=== PATIENT | female | born 1955 | race Caucasian/White ===

== ENCOUNTER → 2019-01-30 11:55 | Outpatient (CLI) | payer OTHER, SELFPAY ==
[2018-12-17 08:32] VITALS: BMI 34.2
--- NOTE | 2019-01-30 11:59 | BI_ITS ---
MAMMOGRAPHY - BILATERAL SCREENING REASON FOR EXAM: Female, 63 years old. Routine annual screening examination. PERTINENT HISTORY: Non-contributory. TECHNIQUE: Digital bilateral breast art (3D mammographic acquisition) in the CC and MLO projections. 2-D mediolateral oblique (MLO) and craniocaudad (CC) views of both breasts were obtained. CAD: Full Field Digital Mammography with Computer Added Detection was performed. COMPARISON: Comparison is made with prior study dated November 26, 2017 and November 24, 2016. FINDINGS: Breast Composition: The breasts are almost entirely fatty. There are no dominant masses or suspicious calcifications. No other significant abnormalities are identified. There has been no significant change since the prior study. BI/SCREENING MAMM (CAD), BILAT IMPRESSION: Stable bilateral screening mammogram. Yearly follow-up mammogram recommended. (A) ASSESSMENT CATEGORY: BIRADS Category 1: Negative. A letter regarding these results will be sent to the patient by the facility within 30 days. Approximately 10% of breast cancers are not detected by mammography. A normal mammogram should not delay biopsy of a clinically suspicious abnormality. [id number] Electronically Signed: Levi Dan, at 13:10 EDT , Service support ,
== END ==
PROVIDERS: Family Provider Family Medicine; PCP Family Medicine; Visit Provider Family Medicine
DX: Z12.31 Encounter for screening mammogram for malignant neoplasm of breast (principal)
CPT/HCPCS: 77063; 77067

== ENCOUNTER → 2019-01-31 11:33 | Outpatient (CLI) | payer OTHER, SELFPAY ==
[2018-12-17 08:32] VITALS: BMI 34.2
[2019-01-31 12:14] LABS: Absolute Lymphocyte Count 1.53 X10^3/ul (0.83-4.51); Absolute Neutrophil Count 2.7 X10^3/uL (2.0-7.7); Basophil# 0.03 X10^3/uL; Basophil% 0.6 % (0-1); Eosinophil# 0.08 X10^3/uL; Eosinophils% 1.7 % (0-5); Hematocrit 41.9 % (37-47); Hemoglobin 13.1 g/dl (12.0-15.0); Lymphocyte # 1.53 X10^3/ul (4.0); Lymphocyte % 31.9 % (19-41); Mean Corp Hgb Conc 31.3 g/gl (32-36); Mean Corpuscular Hgb 26.7 pg (27.0-32.0); Mean Corpuscular Volume 85.3 fL (81-99); Mean Platelet Vol. 11.3 fl (6.2-12.0); Monocyte# 0.43 X10^3/uL; Neutrophil # 2.72 X10^3/uL (2.7-7.7); Neutrophil % 56.6 % (47-70); Platelet Count 313 K/mm3 (150-450); RBC Distribution Width CV 14.2 % (11.6-14.6); RBC Distribution Width SD 44.1 fl (35.1-43.9); Red Blood Count 4.91 M/mm3 (4.2-5.4); White Blood Count 4.8 K/mm3 (4.4-11.0)
[2019-01-31 12:16] LABS: POSITIVE COUNT NO; POSITIVE DIFFERENTIAL NO; POSITIVE MORPHOLOGY NO
[2019-01-31 13:00] LABS: ALB/GLOB Ratio 1.1 RATIO (0.9-2.4); AST(SGOT) 16 U/L (15-37); Alanine Aminotransfer ALT/SGPT 21 U/L (13-56); Albumin, Serum 3.8 g/dL (3.2-5.0); Alkaline Phosphatase 54 U/L (45-117); Anion Gap 3 (5-15); BUN 18 mg/dL (7-18); Calcium,Total 8.6 mg/dL (8.5-10.1); Chloride 108 mmol/L (98-107); Creatinine, Serum 0.82 mg/dL (0.55-1.02); EST Glomerular Filtration Rate 75 mL/min (>60); Est Glom Filt Rate - Afr Amer 90 mL/min (>60); Globulin 3.5 g/dL (2.2-4.2); Glucose 87 mg/dL (74-106); Potassium 4.3 mmol/L (3.5-5.1); Protein, Total 7.3 g/dL (6.4-8.2); Sodium Level 139 mmol/L (136-145); Thyroid Stim Hormone (TSH) 0.48 uIU/mL (0.358-3.74)
[2019-01-31 15:06] LABS: Cholesterol 111 mg/dL (200); High Density Lipoprotein 48 mg/dL; Triglycerides 74 mg/dL; Very Low Density Lipoprotein 15 mg/dL (5-40)
== END ==
PROVIDERS: Family Provider Family Medicine; PCP Family Medicine; Referring Provider Family Medicine; Visit Provider Family Medicine
DX: I10 Essential (primary) hypertension (principal); F41.9 Anxiety disorder, unspecified
CPT/HCPCS: 36415; 80053; 80061; 84439; 84443; 85025

== ENCOUNTER → 2019-07-28 08:51 | Outpatient (CLI) | payer OTHER, SELFPAY ==
[2019-07-28 08:53] VITALS: BMI 33.1
[2019-07-28 10:24] LABS: Anion Gap 6 (5-15); BUN 11 mg/dL (7-18); Calcium,Total 8.7 mg/dL (8.5-10.1); Chloride 105 mmol/L (98-107); Creatinine, Serum 0.79 mg/dL (0.55-1.02); EST Glomerular Filtration Rate 78 mL/min (>60); Est Glom Filt Rate - Afr Amer 94 mL/min (>60); Glucose 83 mg/dL (74-106); Potassium 3.8 mmol/L (3.5-5.1); Sodium Level 143 mmol/L (136-145)
== END ==
PROVIDERS: Family Provider Family Medicine; PCP Family Medicine; Referring Provider Physician Assistant Medical; Visit Provider Physician Assistant Medical
DX: I10 Essential (primary) hypertension (principal)
CPT/HCPCS: 36415; 80048

== ENCOUNTER → 2020-04-14 08:36 | Outpatient (CLI) | payer OTHER, SELFPAY ==
[2020-01-12 15:09] VITALS: BMI 32.9
--- NOTE | 2020-04-14 08:37 | BI_ITS ---
MAMMOGRAPHY - BILATERAL SCREENING REASON FOR EXAM: Female, 64 years old. Routine annual screening examination. PERTINENT HISTORY: Non-contributory. TECHNIQUE: Digital bilateral breast lupe (3D mammographic acquisition) in the CC and MLO projections. 2-D mediolateral oblique (MLO) and craniocaudad (CC) views of both breasts were obtained. CAD: Full Field Digital Mammography with Computer Added Detection was performed. COMPARISON: Comparison is made with prior study dated January 30, 2019 and November 26, 2017. FINDINGS: Breast Composition: The breasts are almost entirely fatty. There are no dominant masses or suspicious calcifications. Stable small benign-appearing bilateral axillary lymph nodes. No other significant abnormalities are identified. There has been no significant change since the prior study. BI/SCREEN MAMM (CAD) W/LUPE BILAT IMPRESSION: Stable bilateral screening mammogram. Yearly follow-up mammogram recommended. (A) ASSESSMENT CATEGORY: BIRADS Category 2: Benign. A letter regarding these results will be sent to the patient by the facility within 30 days. Approximately 10% of breast cancers are not detected by mammography. A normal mammogram should not delay biopsy of a clinically suspicious abnormality. [id number] Electronically Signed: Levi Dan, at 9:43 EDT , Service support ,
== END ==
PROVIDERS: PCP Family Medicine; Referring Provider Family Medicine; Visit Provider Family Medicine
DX: Z12.31 Encounter for screening mammogram for malignant neoplasm of breast (principal)
CPT/HCPCS: 77063; 77067

== ENCOUNTER → 2021-01-25 13:24 | Outpatient (CLI) | payer OTHER, SELFPAY ==
[2021-01-11 11:29] VITALS: BMI 33.7
--- NOTE | 2021-01-25 13:29 | RAD_ITS ---
HISTORY: RLQ PAIN EXAM: Abdomen acute series with chest. COMPARISON: Of the patient's 32 previous radiologic exams at this institution, no x-rays are available for comparison. A report is available from an abdominal x-ray dated August 21, 2017. A report from a chest x-ray is available from December 25, 2016. A CT scan of the abdomen and pelvis which begins at the lung bases has images and report available from September 14, 2017. FINDINGS: # of images incl. paperwork: 5 Thoracic spondylosis with enthesophytes. Calcific plaque within the aortic arch. Heart silhouette and mediastinal contours are normal. Lungs are clear. No effusions are present. No free air is present under the diaphragm. No osseous abnormalities are demonstrated. Bowel-gas pattern is normal. Enthesophytes on the iliac spines and greater tuberosities. Some pelvic phleboliths. Although stool is present within the colon it is lateral pathological debris from he did consider to be constipation. No organomegaly is present. RAD/Acute Abdomen Inc Chest IMPRESSION: Age-related degenerative changes mostly osseous. No acute intra-abdominal or were thoracic disease perceived. at [id number] Reported and signed by: Marvin Velez MD Electronically Signed: Marvin Velez MD at 6:53 EST Tel , Service support ,
== END ==
PROVIDERS: PCP Family Medicine; Referring Provider Family Medicine; Visit Provider Family Medicine
DX: R10.31 Right lower quadrant pain (principal)
CPT/HCPCS: 74022

== ENCOUNTER → 2021-04-27 06:58 | Outpatient (CLI) | payer OTHER, SELFPAY ==
[2021-01-11 11:29] VITALS: BMI 33.7
--- NOTE | 2021-04-27 07:01 | BI_ITS ---
MAMMOGRAPHY - BILATERAL SCREENING REASON FOR EXAM: Female, 65 years old. Routine annual screening examination. PERTINENT HISTORY: Non-contributory. TECHNIQUE: Digital bilateral breast lupe (3D mammographic acquisition) in the CC and MLO projections. 2-D mediolateral oblique (MLO) and craniocaudad (CC) views of both breasts were obtained. CAD: Full Field Digital Mammography with Computer Added Detection was performed. COMPARISON: Comparison is made with prior study dated 04/14/2020 and 01/30/2019. FINDINGS: Breast Composition: The breasts are almost entirely fatty. There are no dominant masses or suspicious calcifications. No other significant abnormalities are identified. There has been no significant change since the prior study. BI/SCRN MAMM (CAD)W/LUPE BILAT IMPRESSION: Stable bilateral screening mammogram. Yearly follow-up mammogram recommended. (A) ASSESSMENT CATEGORY: BIRADS Category 1: Negative. A letter regarding these results will be sent to the patient by the facility within 30 days. Approximately 10% of breast cancers are not detected by mammography. A normal mammogram should not delay biopsy of a clinically suspicious abnormality. [id number] Electronically Signed: Levi Dan MD at 8:52 EDT , Service support ,
== END ==
PROVIDERS: PCP Family Medicine; Referring Provider Family Medicine; Visit Provider Family Medicine
DX: Z12.31 Encounter for screening mammogram for malignant neoplasm of breast (principal)
CPT/HCPCS: 77063; 77067

== ENCOUNTER → 2022-05-03 | Outpatient (CLI) | payer MEDICARE, OTHER, SELFPAY ==
--- NOTE | 2022-05-03 07:24 | CT_ITS ---
STUDY: CT ABDOMEN AND PELVIS WITH CONTRAST REASON FOR EXAM: Female, 66 years old. LLQ and diffuse abdominal PAIN RADIATION DOSAGE (If Supplied By Facility): CTDIvol = ( 14.86 ) mGy, DLP = ( 1046.09 ) mGycm TECHNIQUE: Transaxial images were obtained from the dome of the diaphragm to the symphysis pubis with oral contrast. Oral and amp;amp; IV Readi-CAT and amp;amp; 75mL Isovue-370 was administered. Sagittal and coronal images were reconstructed. Individualized dose optimization techniques were used for this CT. COMPARISON: Comparison is made with prior study dated 09/14/2017. FINDINGS: The visualized lung bases are unremarkable. The visualized portions of the heart are within normal limits. Normal liver. Normal gallbladder and extrahepatic biliary system. Normal spleen. Normal pancreas. Normal bilateral adrenal glands. Normal right kidney. Normal left kidney. Normal visualized stomach. Normal small intestine. Normal colon. The appendix is visualized and appears normal. There is scattered atherosclerotic calcification of the abdominal aorta, without a demonstrated aneurysm. Normal inferior vena cava. Normal retroperitoneum. Normal urinary bladder. There is a small umbilical hernia containing fat. There are degenerative changes of the visualized lumbar spine. CT/Abdomen/Pelvis WITH Contrast IMPRESSION: No acute abnormality is seen. Electronically Signed: Levi Dan MD at 8:45 EDT ,
[2022-05-03 07:41] LABS: CREATININE FINGERSTICK < 0.9 mg/dL (0.55-1.02); EGFR FINGERSTICK > 60.0000 mL/min (>60)
== END | disposition home or self-care (01) ==
LOC: CT 07:21
PROVIDERS: PCP Family Medicine; Referring Provider Family Medicine; Visit Provider Family Medicine
DX: K57.92 Diverticulitis of intestine, part unspecified, without perforation or abscess without bleeding (principal)
CPT/HCPCS: 74177; Q9967

== ENCOUNTER → 2022-07-13 | Outpatient (CLI) | payer MEDICARE, OTHER, SELFPAY ==
--- NOTE | 2022-07-13 08:16 | BI_ITS ---
MAMMOGRAPHY - BILATERAL SCREENING REASON FOR EXAM: Female, 67 years old. Routine annual screening examination. PERTINENT HISTORY: Non-contributory. TECHNIQUE: Digital bilateral breast lupe (3D mammographic acquisition) in the CC and MLO projections. 2-D mediolateral oblique (MLO) and craniocaudad (CC) views of both breasts were obtained. CAD: Full Field Digital Mammography with Computer Added Detection was performed. COMPARISON: Comparison is made with prior study dated 04/27/2021 and 04/14/2020. FINDINGS: Breast Composition: The breasts are almost entirely fatty. There are no dominant masses or suspicious calcifications. Small benign appearing bilateral axillary nodes. No other significant abnormalities are identified. There has been no significant change since the prior study. BI/SCRN MAMM (CAD)W/LUPE BILAT IMPRESSION: Stable bilateral screening mammogram. Yearly follow-up mammogram recommended. (A) ASSESSMENT CATEGORY: BIRADS Category 2: Benign. A letter regarding these results will be sent to the patient by the facility within 30 days. Approximately 10% of breast cancers are not detected by mammography. A normal mammogram should not delay biopsy of a clinically suspicious abnormality. [id number] Electronically Signed: Levi Dan MD at 9:14 EDT ,
== END | disposition home or self-care (01) ==
LOC: OPBI 08:15
PROVIDERS: PCP Family Medicine; Visit Provider Family Medicine
DX: Z12.31 Encounter for screening mammogram for malignant neoplasm of breast (principal)
CPT/HCPCS: 77063; 77067

== ENCOUNTER 2022-12-11 09:03 | Day surgery (SDC) | payer MEDICARE, OTHER, SELFPAY ==
--- NOTE | 2022-12-11 | COLBX_PTH ---
PATIENT: AMALIA ANGEL LOC: EN U#:[id number] AGE/SX: 67/F ROOM: RE12/11/[address]: Dr. Cecil Wilks DO : 1955 BED: DIS: 12/11/2022 SPEC #: [id number] RECD: 12/11/22 14:21 STATUS: LISA CARDENASDelfino #: [id number] DEMI: 12/11/22 00:[address]: Cecil Wilks DEPT: SURGICAL PATHOLOGY RECD BY: Jevon Trejo ENTERED: 12/12/22 11:09 SP TYPE: COLON BX OT DR: Dr. Sahil Escalante MD Tissues: A - COLON BIOPSY B - Cecum, NOS Procedures: Surgery Specimen Level IV HEADER OPERATION: Colonoscopy ? open access (MAC), biopsy PRE-OP DIAGNOSIS: Screening TISSUE SUBMITTED: A ? Hepatic flexure polyps x2 biopsy, B ? Cecal cap biopsy MICROSCOPIC DIAGNOSIS A. Hepatic flexure polyps x2, biopsy: Fragments of tubular adenoma x2. B. Cecal cap, biopsy: Tubular adenoma. NINI:baldemar 12/13/2022 MICROSCOPIC DESCRIPTION Slides are reviewed. GROSS DESCRIPTION A - Received in fixative is one container labeled with the patient's name and designated hepatic flexure polyp biopsy x2. The specimen consists of two irregular fragments of light gold soft tissue that in aggregate measure 0.6 x 0.3 x 0.1 cm. The specimen is totally submitted in one cassette. B - Received in fixative is one container labeled with the patient's name and designated cecal cap biopsy. The specimen consists of one irregular fragment of light gold soft tissue that measures 0.3 x 0.3 x 0.1 cm. The specimen is totally submitted in one cassette. / NINI:baldemar 12/12/2022 TC:1 CPT: 25176 x2
[2022-12-11] MEDS: Lactated Ringers 1,000 ML 15 ML IV (09:15)
--- NOTE | 2022-12-11 09:27 | HP.PCM_ITS ---
[facility] - General General Date of Admission: 12/11/22 Date of Service: 12/11/22 Chief Complaint: Screening colonoscopy [facility] Narrative AMALIA ANGEL, is a 67 F who presents today for screening colonoscopy. She has a strong family history of colon cancer in a first-degree relative and second-degree relatives. She did have a colonoscopy 5 years ago and had 2 benign polyps that were removed. She is not have any abdominal pain. She denies any cramping. She denies any chest pain or shortness of breath. She is not having any lower GI bleeding. Overall she is in very good health. [facility] Medical History (Updated 12/08/22 @ 08:48 by Jossy Jolley) Cardiology follow-up encounter Depression Essential hypertension Gastric reflux GERD (gastroesophageal reflux disease) History of echocardiogram History of stress test Non-smoker Obesity Palpitations Post-menopausal Wears glasses Home Medications lansoprazole 15 mg capsule,delayed release (Prevacid 24Hr) 15 mg PO QHS 04/10/16 [History Last Taken 04/10/16] citalopram 20 mg tablet (Celexa) 10 mg PO DAILY 12/03/18 [History Last Taken Unknown] hydrochlorothiazide 25 mg tablet 25 mg PO DAILY #90 tabs 07/11/21 [Rx Last Taken Unknown] enalapril maleate 20 mg tablet 20 mg PO DAILY #90 tabs 06/26/22 [Rx Last Taken Unknown] Allergy/AdvReac Type Severity Reaction Status Date / Time No Known Allergies Allergy Verified 12/08/22 08:42 Family History (Updated 10/17/22 @ 13:21 by Deborah Jacobson) Mother Hypertension Father Hypertension Colon cancer Aunt Colon cancer Uncle Colon cancer Surgical History (Updated 12/08/22 @ 08:48 by Jossy Jolley) History of colonoscopy History of dilatation and curettage History of left heart catheterization (12/27/16) Social History Smoking Status: Never smoker alcohol intake: current alcohol intake frequency: holidays/special occasions only substance use type: does not use caffeine: Yes Type: coffee Number of servings: 3 ROS Review of Systems ROS Unobtainable: other Constitutional Constitutional: Denies fatigue, fever(s), poor appetite, weight gain or weight loss ENT HEENT: Denies mouth lesions Cardiovascular Cardiovascular: Denies abdominal bloating, abdominal edema or abdominal pain Respiratory/Chest Respiratory/Chest: Denies change in mental status, change in phlegm color, chest congestion or chest tightness Gastrointestinal Gastrointestinal: Denies belching, bloating, change in bowel habits, change in stool character, chewing difficulty, coffee ground emesis, constipation, cramping, diarrhea, dyspepsia, dysphagia, early satiety, excessive flatus, fecal incontinence, heartburn, hematemesis, hematochezia, hemorrhoids, loose stools, melena, nausea, odynophagia, rectal bleeding, tenesmus, vomiting or weight changes Genitourinary Genitourinary: Denies abdominal discomfort, burning urination or itching Musculoskeletal Musculoskeletal: Reports as per HPI; Denies muscle weakness or myalgias Integumentary Integumentary: Denies jaundice Neurologic Neurologic: Denies lack of coordination or weakness Psychiatric Psychiatric: Denies confusion, depression, memory loss, mood swings, paranoia or suicidal ideation Endocrine Endocrinology: Denies systems reviewed and no addt'l complaints, except as documented Hematologic/Lymphatic Hematologic/Lymphatic: Denies anemia, easy bleeding, easy bruising or lymphadenopathy Allergic/Immunologic Allergic/Immunologic: Denies systems reviewed and no addt'l complaints, except as documented Physical Exam Const alert General Appearance: cooperative Orientation / Consciousness: oriented to person HEENT hearing grossly normal bilaterally Head and Scalp: normal to inspection Face and Sinus: face symmetric Nose: external nose normal Mouth: oral and palatal mucosa normal Eyes conjunctivae normal General Eye: normal appearance of both eyes Neck full ROM General: normal visual inspection Lymph Lymphatic: no lymphadenopathy noted Chest inspection of chest normal and palpation of chest normal Chest: symmetrical chest wall rise Resp normal respiratory effort Effort and Inspection: able to speak in complete sentences Cardio regular rate GI non-distended Percussion: normal to percussion Rectal Exam: deferred Neuro Speech: speech normal Gait (Neuro): normal gait Assessment & Plan Assessment/Plan (1) Encounter for screening for malignant neoplasm of colon: PLAN: She will undergo a colonoscopy. She was explained alternatives, risk, benefits include not withstanding bleeding, infection, sepsis, perforation, need for emergent surgery . She will have an ASA of 1. (2) Family history of colon cancer:
[2022-12-11 09:34] VITALS: BP 129/78; PULSE 83; RESP 16; TEMP 36.2; O2SAT 97; BMI 32.3
[2022-12-11 11:05] VITALS: BP 129/78; BP 95/58; PULSE 67; RESP 17; TEMP 36.2; O2SAT 97
[2022-12-11 11:10] VITALS: BP 129/78; BP 93/64; PULSE 69; RESP 16; O2SAT 97
--- NOTE | 2022-12-11 11:10 | OP.CCLET_ITS ---
12/11/2022 Sahil Escalante Re : Colonoscopy procedure for Ashly Zavaleta Dear Boris This procedure was performed on Sunday, December 11, 2022. My impressions and recommendations are as follows: Impressions : - Three 1 to 2 mm polyps at the hepatic flexure and in the ascending colon, removed with a cold snare. Resected and retrieved. - Diverticulosis in the recto-sigmoid colon and in the sigmoid colon. - Non-bleeding internal hemorrhoids. Recommendations : - Repeat colonoscopy in 5 years for surveillance. - Continue present medications. My findings are described in the full procedure note, which is enclosed. If I can be of further assistance, please feel free to contact me at . Sincerely, Cecil Wilks, 12/11/2022 11:09:48 AM This report has been signed electronically.
--- NOTE | 2022-12-11 11:10 | OP.COLON_ITS ---
Patient Name: Ashly Zavaleta Procedure Date: 12/11/2022 10:40 AM Date of : 1955 Age: 67 Procedure: Colonoscopy Indications: Follow-up for history of adenomatous polyps in the colon Providers: Cecil Wilks DO Medicines: Monitored Anesthesia Care Patient Profile: This is a 67 year old female. Refer to note in patient chart for documentation of history and physical. Last Colonoscopy: 5 years ago. This is a 67 year old female. Refer to note in patient chart for documentation of history and physical. Last Colonoscopy: Complications: No immediate complications. Procedure: Pre-Anesthesia Assessment: - Prior to the procedure, a History and Physical was performed, and patient medications and allergies were reviewed. The risks and benefits of the procedure and the sedation options and risks were discussed with the patient. All questions were answered and informed consent was obtained. Patient identification and proposed procedure were verified by the physician in the pre-procedure area. Mental Status Examination: alert and oriented. Prophylactic Antibiotics: The patient does not require prophylactic antibiotics. Prior Anticoagulants: The patient has taken no previous anticoagulant or antiplatelet agents. After reviewing the risks and benefits, the patient was deemed in satisfactory condition to undergo the procedure. The anesthesia plan was to use monitored anesthesia care (MAC). Immediately prior to administration of medications, the patient was re-assessed for adequacy to receive sedatives. The heart rate, respiratory rate, oxygen saturations, blood pressure, adequacy of pulmonary ventilation, and response to care were monitored throughout the procedure. The physical status of the patient was re-assessed after the procedure. After I obtained informed consent, the scope was passed under direct vision. Throughout the procedure, the patient's blood pressure, pulse, and oxygen saturations were monitored continuously. The colonoscope was introduced through the anus and advanced to the cecum, identified by appendiceal orifice and ileocecal valve. The colonoscopy was performed without difficulty. The patient tolerated the procedure well. The quality of the bowel preparation was good. Scope In: 10:47:59 AM Scope Withdrawal Time 0 hours 10 minutes 17 seconds Scope Out: 11:01:37 AM Total Procedure Duration Time 0 hours 13 minutes 38 seconds Findings: The perianal and digital rectal examinations were normal. Three sessile polyps were found in the hepatic flexure and ascending colon. The polyps were 1 to 2 mm in size. These polyps were removed with a cold snare. Resection and retrieval were complete. Verification of patient identification for the specimen was done. Estimated blood loss was minimal. A few small and large-mouthed diverticula were found in the recto-sigmoid colon and sigmoid colon. Non-bleeding internal hemorrhoids were found during retroflexion. The hemorrhoids were Grade I (internal hemorrhoids that do not prolapse). Impression: - Three 1 to 2 mm polyps at the hepatic flexure and in the ascending colon, removed with a cold snare. Resected and retrieved. - Diverticulosis in the recto-sigmoid colon and in the sigmoid colon. - Non-bleeding internal hemorrhoids. Recommendation: - Repeat colonoscopy in 5 years for surveillance. - Continue present medications. Procedure Code(s): --- Professional --- 33994, Colonoscopy, flexible; with removal of tumor(s), polyp(s), or other lesion(s) by snare technique CPT copyright 2017 [employer]. All rights reserved. The codes documented in this report are preliminary and upon work force advisor review may be revised to meet current compliance requirements. Cecil Wilks DO 12/11/2022 11:09:48 AM This report has been signed electronically. Number of Addenda: 0 Note Initiated On: 12/11/2022 10:40 AM
[2022-12-11 11:15] VITALS: BP 129/78; BP 98/71; PULSE 67; RESP 16; O2SAT 95
[2022-12-11 11:20] VITALS: BP 107/60; BP 129/78; PULSE 63; RESP 69; TEMP 36.2; O2SAT 95
[2022-12-11 11:48] VITALS: BP 129/78
== END 2022-12-11 12:20 | disposition home or self-care (01) ==
LOC: EN 09:04 → AC 09:06
PROVIDERS: PCP Family Medicine; Referring Provider Internal Medicine Gastroenterology; Visit Provider Internal Medicine Gastroenterology
PROC: 0DJD8ZZ Inspection of Lower Intestinal Tract, Via Natural or Artificial Opening Endoscopic (ICD-10-PCS; CPT 45378; principal; 2022-12-11 10:10)
DX: Z12.11 Encounter for screening for malignant neoplasm of colon (principal); Z80.0 Family history of malignant neoplasm of digestive organs; K57.30 Diverticulosis of large intestine without perforation or abscess without bleeding; I10 Essential (primary) hypertension; K64.0 First degree hemorrhoids; Z86.010 Personal history of colon polyps; K21.9 Gastro-esophageal reflux disease without esophagitis; F32.A Depression, unspecified; E66.9 Obesity, unspecified; Z79.899 Other long term (current) drug therapy; D12.0 Benign neoplasm of cecum; D12.3 Benign neoplasm of transverse colon; Z68.32 Body mass index [BMI] 32.0-32.9, adult
CPT/HCPCS: 45385; 88305; J7120; J2405

== ENCOUNTER → 2023-03-05 | Outpatient (CLI) | payer MEDICARE, OTHER, SELFPAY ==
[2023-03-05 16:54] LABS: Vitamin D,25 Hydroxy 44.7 ng/mL
[2023-03-05 17:17] LABS: Absolute Lymphocyte Count 1.46 X10^3/uL (0.83-4.51); Absolute Neutrophil Count 3.3 X10^3/uL (2.0-7.7); Basophil# 0.03 X10^3/uL; Basophil% 0.6 % (0-1); Eosinophil# 0.05 X10^3/uL; Hematocrit 43.1 % (37-47); Hemoglobin 13.6 g/dL (12.0-15.0); Lymphocyte # 1.46 X10^3/ul (0.83-4.51); Lymphocyte % 27.9 % (19-41); Mean Corp Hgb Conc 31.6 g/dL (32-36); Mean Corpuscular Hgb 27.2 pg (27.0-32.0); Mean Corpuscular Volume 86.2 fL (81-99); Mean Platelet Vol. 11.9 fl (6.2-12.0); Monocyte# 0.39 X10^3/uL; Monocyte% 7.4 % (0-10); NRBC Flagged by Analyzer 0 % (0-5); Neutrophil % 62.9 % (47-70); Platelet Count 333 K/mm3 (150-450); RBC Distribution Width CV 14.5 % (11.6-14.6); RBC Distribution Width SD 45.8 fl (35.1-43.9); White Blood Count 5.2 K/mm3 (4.4-11.0)
[2023-03-05 17:27] LABS: ALB/GLOB Ratio 1.3 RATIO (0.9-2.4); AST(SGOT) 18 U/L (15-37); Alanine Aminotransfer ALT/SGPT 24 U/L (13-56); Albumin, Serum 3.9 g/dL (3.2-5.0); Alkaline Phosphatase 59 U/L (45-117); Anion Gap 8 (5-15); BUN 12 mg/dL (7-18); BUN/Creat Ratio 15.9 RATIO (10-20); Chloride 104 mmol/L (98-107); Cholesterol 116 mg/dL (200); Creatinine, Serum 0.75 mg/dL (0.55-1.02); EST Glomerular Filtration Rate 81 mL/min (>60); Est Glom Filt Rate - Afr Amer 98 mL/min (>60); Globulin 3.1 g/dL (2.2-4.2); Glucose 92 mg/dL (74-106); High Density Lipoprotein 49 mg/dL; Potassium 3.7 mmol/L (3.5-5.1); Sodium Level 138 mmol/L (136-145); Triglycerides 78 mg/dL; Very Low Density Lipoprotein 16 mg/dL (5-40)
== END | disposition home or self-care (01) ==
LOC: BIMLAB 13:57
PROVIDERS: PCP Family Medicine; Visit Provider Internal Medicine
DX: I10 Essential (primary) hypertension (principal); M85.80 Other specified disorders of bone density and structure, unspecified site
CPT/HCPCS: 36415; 80053; 80061; 82306; 85025

== ENCOUNTER → 2023-07-17 | Outpatient (CLI) | payer MEDICARE, OTHER, SELFPAY ==
--- NOTE | 2023-07-17 12:29 | BI_ITS ---
MAMMOGRAPHY - BILATERAL SCREENING REASON FOR EXAM: Female, 68 years old. Routine annual screening examination. PERTINENT HISTORY: Non-contributory. TECHNIQUE: Digital bilateral breast lupe (3D mammographic acquisition) in the CC and MLO projections. 2-D mediolateral oblique (MLO) and craniocaudad (CC) views of both breasts were obtained. CAD: Full Field Digital Mammography with Computer Added Detection was performed. COMPARISON: Comparison is made with prior study dated July 13, 2022 and April 27, 2021. FINDINGS: Breast Composition: The breasts are almost entirely fatty. There are no dominant masses or suspicious calcifications. No other significant abnormalities are identified. There has been no significant change since the prior study. BI/SCRN MAMM (CAD)W/LUPE BILAT IMPRESSION: Stable bilateral screening mammogram. Yearly follow-up mammogram recommended. (A) ASSESSMENT CATEGORY: BIRADS Category 1: Negative. A letter regarding these results will be sent to the patient by the facility within 30 days. Approximately 10% of breast cancers are not detected by mammography. A normal mammogram should not delay biopsy of a clinically suspicious abnormality. [id number] Electronically Signed: eLvi Dan MD at 10:18 EDT ,
--- NOTE | 2023-07-17 12:33 | BD_ITS ---
STUDY: DUAL ENERGY X-RAY ABSORPTIOMETRY / DXA REASON FOR EXAM: Female, 68 years old. Post menopausal TECHNIQUE: Bone Mineral Density (BMD) measurements of lumbar spine and bilateral hips were obtained. COMPARISON: Comparison is made with prior study dated August 25, 2014. FINDINGS: Lumbar Spine (L1-L4): g/cm2 (0.930) / T-score (-1.1) / Z-score (1.0) Findings are suggestive of osteopenia with a low fracture risk. Left Femur Total: g/cm2 (0.804) / T-score (-1.1) / Z-score (0.3) Left Femoral Neck: g/cm2 (0.684) / T-score (-1.5) / Z-score (0.3) Right Femur Total: g/cm2 (0.742) / T-score (-1.6) / Z-score (-0.2) Right Femoral Neck: g/cm2 (0.635) / T-score (-1.9) / Z-score (-0.2) The T-Scores on the most recent prior examination were: Lumbar Spine (L1-L4): There has been worsening of bone density since the previous examination. Left Femur Total: which represents a worsening of 4.1%. Right Femur Total: which represents a worsening of 8.2%. BD/Dexa Bone Density Study IMPRESSION: The patient is considered osteopenic as outlined below according to World Chin Organization (WHO) criteria with a moderate fracture risk. There has been worsening of bone density since the previous examination. Reference Information: The T-score is the number of standard deviations above or below the standard which is normal for young adults at their peak bone mineral density. The World Health Organization (WHO) interprets the T-scores as follows: Above -1 Normal bone density Between -1 and -2.5 Osteopenia Equal to / or below -2.5 Osteoporosis As a practical clinical guideline, osteopenia may be graded as follows: Mild -1 through -1.5 Moderate -1.6 through -2.0 Severe -2.1 through -2.4 The Z-score is the number of standard deviations above or below age-matched controls. A Z-score of less than -1.5 would be considered abnormal. References: 1. NIH Osteoporosis and Related Bone Diseases www osteo.org 2. International Society for Clinical Densitometry www iscd.org 3. National Osteoporosis Foundation www nof.org Electronically Signed: Levi Dan MD at 13:30 EDT ,
== END | disposition home or self-care (01) ==
LOC: OPBD 12:28
PROVIDERS: PCP Family Medicine; Referring Provider Internal Medicine; Visit Provider Internal Medicine
DX: Z12.31 Encounter for screening mammogram for malignant neoplasm of breast (principal); Z78.0 Asymptomatic menopausal state
CPT/HCPCS: 77063; 77067; 77080

== ENCOUNTER → 2023-09-12 | Outpatient (CLI) | payer MEDICARE, OTHER, SELFPAY ==
[2023-09-12 13:10] LABS: Anion Gap 4 (5-15); BUN 17 mg/dL (7-18); BUN/Creat Ratio 21.7 RATIO (10-20); Calcium,Total 9.2 mg/dL (8.5-10.1); Chloride 105 mmol/L (98-107); Creatinine, Serum 0.78 mg/dL (0.55-1.02); EST Glomerular Filtration Rate 77 mL/min (>60); Est Glom Filt Rate - Afr Amer 93 mL/min (>60); Glucose 101 mg/dL (74-106); Potassium 4.2 mmol/L (3.5-5.1); Sodium Level 142 mmol/L (136-145)
== END | disposition home or self-care (01) ==
LOC: BIMLAB 10:02
PROVIDERS: PCP Internal Medicine; Referring Provider Internal Medicine; Visit Provider Internal Medicine
DX: I10 Essential (primary) hypertension (principal)
CPT/HCPCS: 36415; 80048

== ENCOUNTER → 2024-03-19 | Outpatient (CLI) | payer MEDICARE, OTHER, SELFPAY ==
[2024-03-19 12:07] LABS: Absolute Neutrophil Count 2.9 X10^3/uL (2.0-7.7); Basophil# 0.05 X10^3/uL; Eosinophil# 0.06 X10^3/uL; Eosinophils% 1.2 % (0-5); Lymphocyte % 31.5 % (19-41); Mean Corp Hgb Conc 31.7 g/dL (32-36); Mean Corpuscular Volume 85.2 fL (81-99); Mean Platelet Vol. 11.4 fl (6.2-12.0); Monocyte# 0.47 X10^3/uL; Monocyte% 9.3 % (0-10); NRBC Flagged by Analyzer 0 % (0-5); Neutrophil # 2.88 X10^3/uL (2.7-7.7); Neutrophil % 56.6 % (47-70); Platelet Count 326 K/mm3 (150-450); RBC Distribution Width CV 14.1 % (11.6-14.6); RBC Distribution Width SD 43.5 fl (35.1-43.9); Red Blood Count 4.81 M/mm3 (4.2-5.4); White Blood Count 5.1 K/mm3 (4.4-11.0)
[2024-03-19 12:22] LABS: Vitamin D,25 Hydroxy 57.1 ng/mL
[2024-03-19 12:31] LABS: ALB/GLOB Ratio 1.1 RATIO (0.9-2.4); AST(SGOT) 19 U/L (15-37); Alanine Aminotransfer ALT/SGPT 21 U/L (13-56); Albumin, Serum 3.9 g/dL (3.2-5.0); Alkaline Phosphatase 59 U/L (45-117); Anion Gap 4 (5-15); BUN 14 mg/dL (7-18); BUN/Creat Ratio 14.4 RATIO (10-20); Calcium,Total 9.7 mg/dL (8.5-10.1); Chloride 103 mmol/L (98-107); Cholesterol 116 mg/dL (200); Creatinine, Serum 0.97 mg/dL (0.55-1.02); EST Glomerular Filtration Rate 60 mL/min (>60); Est Glom Filt Rate - Afr Amer 73 mL/min (>60); Globulin 3.6 g/dL (2.2-4.2); Glucose 110 mg/dL (74-106); High Density Lipoprotein 50 mg/dL; Potassium 4.2 mmol/L (3.5-5.1); Protein, Total 7.5 g/dL (6.4-8.2); Sodium Level 138 mmol/L (136-145); Triglycerides 89 mg/dL; Very Low Density Lipoprotein 18 mg/dL (5-40)
== END | disposition home or self-care (01) ==
LOC: BIMLAB 09:23
PROVIDERS: PCP Internal Medicine; Visit Provider Internal Medicine
DX: I10 Essential (primary) hypertension (principal); M85.80 Other specified disorders of bone density and structure, unspecified site
CPT/HCPCS: 36415; 80053; 80061; 82306; 85025

== ENCOUNTER → 2024-07-24 | Outpatient (CLI) | payer MEDICARE, OTHER, SELFPAY ==
--- NOTE | 2024-07-24 08:40 | BI_ITS ---
MAMMOGRAPHY - BILATERAL SCREENING REASON FOR EXAM: Female, 69 years old. Routine annual screening examination. PERTINENT HISTORY: Non-contributory. TECHNIQUE: Digital bilateral breast lupe (3D mammographic acquisition) in the CC and MLO projections. 2-D mediolateral oblique (MLO) and craniocaudad (CC) views of both breasts were obtained. CAD: Full Field Digital Mammography with Computer Added Detection was performed. COMPARISON: Comparison is made with prior study July 17, 2023 and July 13, 2022. FINDINGS: Breast Composition: The breasts are almost entirely fatty. There are no dominant masses or suspicious calcifications. No other significant abnormalities are identified. There has been no significant change since the prior study. BI/SCRN MAMM (CAD)W/LUPE BILAT IMPRESSION: Stable bilateral screening mammogram. Yearly follow-up mammogram recommended. (A) ASSESSMENT CATEGORY: BIRADS Category 1: Negative. A letter regarding these results will be sent to the patient by the facility within 30 days. Approximately 10% of breast cancers are not detected by mammography. A normal mammogram should not delay biopsy of a clinically suspicious abnormality. [id number] Electronically Signed: Levi Dan MD at 9:14 EDT ,
== END | disposition home or self-care (01) ==
LOC: OPBI 08:38
PROVIDERS: PCP Internal Medicine; Referring Provider Internal Medicine; Visit Provider Internal Medicine
DX: Z12.31 Encounter for screening mammogram for malignant neoplasm of breast (principal)
CPT/HCPCS: 77063; 77067

== ENCOUNTER → 2024-09-19 | Outpatient (CLI) | payer MEDICARE, OTHER, SELFPAY ==
[2024-09-19 13:14] LABS: Anion Gap 5 (5-15); BUN 16 mg/dL (7-18); BUN/Creat Ratio 18.3 RATIO (10-20); Calcium,Total 9.2 mg/dL (8.5-10.1); Chloride 105 mmol/L (98-107); Creatinine, Serum 0.87 mg/dL (0.55-1.02); EST Glomerular Filtration Rate 68 mL/min (>60); Est Glom Filt Rate - Afr Amer 82 mL/min (>60); Glucose 105 mg/dL (74-106); Potassium 3.7 mmol/L (3.5-5.1); Sodium Level 142 mmol/L (136-145)
== END | disposition home or self-care (01) ==
LOC: BIMLAB 08:22
PROVIDERS: PCP Internal Medicine; Referring Provider Internal Medicine; Visit Provider Internal Medicine
DX: I10 Essential (primary) hypertension (principal)
CPT/HCPCS: 36415; 80048

== ENCOUNTER → 2025-03-24 | Outpatient (CLI) | payer MEDICARE, OTHER, SELFPAY ==
[2025-03-24 15:31] LABS: Absolute Lymphocyte Count 1.91 X10^3/uL (0.83-4.51); Absolute Neutrophil Count 3.5 X10^3/uL (2.0-7.7); Basophil# 0.05 X10^3/uL; Basophil% 0.8 % (0-1); Eosinophils% 1.7 % (0-5); Hematocrit 40.3 % (37-47); Lymphocyte # 1.91 X10^3/ul (0.83-4.51); Lymphocyte % 31.8 % (19-41); Mean Corp Hgb Conc 32.3 g/dL (32-36); Mean Corpuscular Hgb 27.4 pg (27.0-32.0); Mean Corpuscular Volume 84.8 fL (81-99); Mean Platelet Vol. 11.7 fl (6.2-12.0); Monocyte# 0.45 X10^3/uL; Monocyte% 7.5 % (0-10); NRBC Flagged by Analyzer 0 % (0-5); Neutrophil # 3.47 X10^3/uL (2.7-7.7); Neutrophil % 57.9 % (47-70); Platelet Count 362 K/mm3 (150-450); RBC Distribution Width CV 14.4 % (11.6-14.6); RBC Distribution Width SD 44.8 fl (35.1-43.9); Red Blood Count 4.75 M/mm3 (4.2-5.4)
[2025-03-24 16:09] LABS: ALB/GLOB Ratio 1.4 RATIO (0.9-2.4); AST(SGOT) 22 U/L (<=31); Alanine Aminotransfer ALT/SGPT 20 U/L (<=34); Albumin, Serum 4.1 g/dL (3.4-4.8); Alkaline Phosphatase 60 U/L (35-104); Anion Gap 11 (5-15); BUN 14 mg/dL (4-19); BUN/Creat Ratio 16.3 RATIO (10-20); Calcium,Total 9.3 mg/dL (7.6-11.0); Carbon Dioxide 27.9 mmol/L (21.0-32.0); Chloride 104 mmol/L (98-108); Cholesterol 125 mg/dL (<=200); Creatinine, Serum 0.88 mg/dL (0.70-1.20); EST Glomerular Filtration Rate 71 (>60); Globulin 2.9 g/dL (2.2-4.2); Glucose 112 mg/dL (70-99); High Density Lipoprotein 42 mg/dL; Low Density Lipoprotein Calc. 32 mg/dL; Potassium 4.3 mmol/L (3.3-5.1); Sodium Level 142 mmol/L (133-145); Thyroid Stim Hormone (TSH) 0.803 uIU/mL (0.300-4.200); Total Bilirubin 0.18 mg/dL (0.00-1.30); Triglycerides 255 mg/dL; Very Low Density Lipoprotein 51 mg/dL (5-40); Vitamin D,25 Hydroxy 42.8 ng/mL (30-100); cholesterol:hdl ratio screen 2.99
[2025-03-25 18:22] LABS: Hemoglobin A1c 5.9 % (<=5.6)
== END | disposition home or self-care (01) ==
LOC: BIMLAB 13:46
PROVIDERS: PCP Internal Medicine; Visit Provider Internal Medicine
DX: I10 Essential (primary) hypertension (principal); M85.80 Other specified disorders of bone density and structure, unspecified site; R73.9 Hyperglycemia, unspecified
CPT/HCPCS: 36415; 80053; 80061; 82306; 83036; 84439; 84443; 85025

== ENCOUNTER → 2025-06-26 | Outpatient (CLI) | payer MEDICARE, OTHER, SELFPAY ==
--- OUTSIDE RECORDS SUMMARY | 2025-06-26 11:09 | XMS RPT_ITS | CCD ---
Author Organization [facility] Care Team Providers Care Fishing Vessel Deckhand Name Role Phone Jonelle CARMONA, Lobo Burnham Unavailable JOSE URISA Attending Unavailable JOSE URIAS Primary Care Unavailable JOSE URIAS Admitting Unavailable Melanie, RN, Maribell Giraldo Unavailable UnavailCandice Freire Unavailable Unavailable Candice Erazo Unavailable Unavailable Lobo Sal MD Unavailable Ramya FERRYBOAT TICKET TAKER, Melanie S Unavailable Leona RN, Martha A Unavailable Unavailable Dr. Sahil Escalante Primary Care Provider Dr. Sahil Escalante Referring Provider Dr. Johnny Field Attending Provider Dr. Sahil Escalante Primary Care Provider Deborah Jacobson Attending Provider Unavailable Dr. Cecil Wilks Attending Provider Dr. Cecil Wilks Referring Provider Dr. Cecil Wilks Other Provider Dr. Sahil Escalante Primary Care Provider Unavaila ble Dr. Sahil Escalante Referring Provider Unavailable Dr. Shalonda Tian Attending Provider [phone] Dr. Shalonda Tian Primary Care Provider [phone] Dr. Shalonda Tian Attending Provider [phone] Dr. Shalonda Tian Referring Provider [phone] Dr. Shalonda Tian MD Primary Care Provider Dr. Shalonda Tian MD Attending Provider [phone] Jaylan CARMONA, Dr. Liz Referring Provider [phone] Oleghe, Efewongbe Attending Unavailable Oleghe, Efewongbe Primary Care Unavailable Oleghe, Efewongbe Primary Care Unavailable Oleghe, Efewongbe Attending Unavailable Oleghe, Efewongbe Referring Unavailable Oleghe, Efewongbe Attending Unavailable Oleghe, Efewongbe Referring Unavailable Oleghe, Efewongbe Primary Care Unavailable Oleghe, Efewongbe Primary Care Unavailable Oleghe, Efewongbe Attending Unavailable Oleghe, Efewongbe Referring Unavailable Oleghe, Efewongbe Primary Care Unavailable Oleghe, Efewongbe Attending Unavailable Oleghe, Efewongbe Referring Unavailable Oleghe, Efewongbe Primary Care Unavailable Oleghe, Efewongbe Attending Unavailable Oleghe, Efewongbe Referring Unavailable Medications Current Medications Medication Drug Class(es) Dates Sig (Normalized) Sig (Original) calcium carbonate 1250 mg chewable tablet (4 sources) Start: 09-12-2023 take 1 tablet by mouth once daily Calcium Carbonate (Calcium 500) 500 mg calcium (1,250 mg) tablet,chewable Active 500 mg PO DAILY September 12, 2023 12:00am cholecalciferol 0.025 mg oral capsule (4 sources) Vitamin D Start: 09-12-2023 take 1 capsule by mouth once daily Cholecalciferol (Vitamin D3) 25 mcg (1,000 unit) capsule Active 25 ug PO DAILY September 12, 2023 12:00am citalopram 20 mg oral tablet (20 sources) Serotonin Reuptake Inhibitor Start: 03-20-2025 take 1 tablet by mouth once daily Citalopram (Celexa) 20 mg tablet Active 20 mg PO DAILY 90 90 March 20, 2025 8:16am Start: 12-03-2018 End: 03-20-2025 take 10 mg by mouth once daily Citalopram (Celexa) 20 mg tablet Discontinued 10 mg PO DAILY 45 90 March 21, 2024 1:06pm March 20, 2025 8:16am Start: 12-03-2018 take 1 tablet by nader once daily Citalopram (Celexa) 20 mg tablet Active 20 MG PO DAILY December 03, 2018 1:00am Start: 04-26-2016 End: 08-28-2017 take 1 tablet by mouth once daily CITALOPRAM HYDROBROMIDE 10 MG TABS One tablet by mouth daily CITALOPRAM HYDROBROMIDE [id number] Martha Delgadillo RN hydroCHLOROthiazide 25 mg oral tablet (20 sources) Thiazide Diuretic Start: 07-14-2019 End: 05-15-2025 take 1 tablet by mouth once daily Hydrochlorothiazide 25 mg tablet Active 25 mg PO DAILY 90 0 May 15, 2025 8:23am Start: 12-20-2017 End: 07-14-2019 take 1 capsule by mouth once daily Hydrochlorothiazide 12.5 mg capsule Discontinued 12.5 mg PO daily 30 December 23, 2018 11:19am July 14, 2019 2:39pm Start: 11-13-2017 End: 12-20-2017 take 2 capsules by mouth at bedtime Hydrochlorothiazide 12.5 MG capsule Discontinued 25 mg PO AT BEDTIME November 13, 2017 10:39am December 20, 2017 5:31pm Start: 11-13-2017 End: 12-20-2017 take 25 mg by mouth at bedtime Hydrochlorothiazide Discontinued 25 MG PO AT BEDTIME November 13, 2017 10:39am December 20, 2017 5:31pm Start: 12-26-2016 End: 11-13-2017 take 1 capsule by mouth at bedtime Hydrochlorothiazide 12.5 MG capsule Discontinued 12.5 mg PO AT BEDTIME December 26, 2016 1:00am November 13, 2017 10:39am Start: 12-21-2016 take 1 tablet by nader once daily HYDROCHLOROTHIAZIDE 12.5 MG TABS One tablet by mouth daily HYDROCHLOROTHIAZIDE [id number] Lobo Delcid MD lansoprazole 15 mg delayed release oral capsule (20 sources) Proton Pump Inhibitor Start: 04-10-2016 End: 03-20-2025 take 1 capsule by mouth at bedtime Lansoprazole (Prevacid 24hr) 15 mg capsule,delayed release(DR/EC) Active 15 mg PO AT BEDTIME 90 March 20, 2025 8:20am Completed/Discontinued Medications Medication Drug Class(es) Dates Sig (Normalized) Sig (Original) aluminum hydroxide 40 mg/ml / magnesium hydroxide 40 mg/ml / simethicone 4 mg/ml oral suspension (20 sources) Start: 04-26-2016 End: 12-21-2016 MYLANTA 200-200-20 MG/5ML SUSP 30 cc po q 6 hours as needed ALUM & MAG HYDROXIDE-SIMETH [id number] Martha Delgadillo RN aspirin 81 mg delayed release oral tablet (19 sources) Platelet Aggregation Inhibitor, Nonsteroidal Anti-inflammatory Drug Start: 12-21-2016 End: 06-26-2022 take 1 tablet by mouth at bedtime Aspirin 81 MG tablet Discontinued 81 mg PO AT BEDTIME December 26, 2016 1:00am June 26, 2022 3:28pm carvedilol 6.25 mg oral tablet (20 sources) alpha-Adrenergic Kimmy, beta-Adrenergic Kimmy Start: 07-11-2021 End: 10-17-2022 take 1 tablet by mouth once daily at mealtime Carvedilol (Coreg) 6.25 mg tablet Discontinued 6.25 mg PO DAILY July 11, 2021 11:43am October 17, 2022 2:22pm must administer with a meal/food Start: 12-03-2018 End: 07-11-2021 take 1 tablet by mouth twice daily at mealtime Carvedilol (Coreg) 6.25 mg tablet Discontinued 6.25 mg PO TWICE A DAY 60 January 04, 2021 11:44am January 11, 2021 12:55pm must administer with a meal/food Start: 12-27-2016 End: 12-03-2018 take 1 tablet by mouth at bedtime Carvedilol 12.5 mg tablet Discontinued 12.5 mg PO AT BEDTIME 60 March 14, 2018 8:58am December 03, 2018 3:24pm Start: 12-27-2016 take 1 tablet by nader twice daily CARVEDILOL 25 MG TABS One tablet by mouth twice daily CARVEDILOL [id number] Ayde Carpenter RN Start: 12-27-2016 take 2 tablets by mo [facility] twice daily CARVEDILOL 3.125 MG TABS 2 tablets by mouth twice daily CARVEDILOL [id number] Lobo Delcid MD Start: 12-27-2016 take 1 tablet by nader twice daily CARVEDILOL 3.125 MG TABS One tablet by mouth twice daily CARVEDILOL [id number] Lobo Delcid MD clopidogrel 75 mg oral tablet (20 sources) [id number] Platelet Inhibitor Start: 12-21-2016 End: 12-27-2016 take 1 tablet by mouth once daily PLAVIX 75 MG TABS One tablet by mouth daily CLOPIDOGREL BISULFATE [id number] Lobo Delcid MD enalapril maleate 20 mg oral tablet (20 sources) Angiotensin Converting Enzyme Inhibitor Start: 06-26-2022 End: 03-20-2025 take 1 tablet by mouth once daily Enalapril Maleate 20 mg tablet Discontinued 20 mg PO DAILY 90 June 30, 2024 10:27am March 20, 2025 8:21am Start: 06-26-2022 End: 06-26-2022 take 1 tablet by mouth once daily Enalapril Maleate 10 mg tablet Discontinued 10 mg PO DAILY June 26, 2022 12:00am June 26, 2022 3:29pm Start: 07-09-2020 End: 06-26-2022 take 1 tablet by mouth once daily Enalapril Maleate 5 mg tablet Discontinued 5 mg PO DAILY 30 January 11, 2021 12:54pm July 11, 2021 11:49am valsartan 160 mg oral tablet (19 sources) Angiotensin 2 Receptor Kimmy Start: 04-10-2016 End: 07-09-2020 take 1 tablet by mouth at bedtime Valsartan 160 MG tablet Discontinued 160 mg PO AT BEDTIME April 10, 2016 12:00am July 09, 2020 11:39am Problems Active Problems Problem Classification Problem Date Documented Date Episodic/Chronic Administrative/social admission (5 sources) General problem AND/OR complaint; Translations: [Persons encountering health services in other specified circumstances] 09-12-2023 Episodic Anxiety disorders (9 sources) Mixed anxiety and depressive disorder; Translations: [Anxiety disorder, unspecified] 03-05-2023 Chronic Cardiac dysrhythmias (19 sources) Palpitations; Translations: [Palpitations] Onset: 12-21-2016 12-21-2016 Episodic Esophageal disorders (4 sources) Gastroesophageal reflux disease; Translations: [Gastro-esophageal reflux disease without esophagitis] 09-19-2024 Chronic Essential hypertension (20 sources) Hypertensive disorder; Translations: [Essential (primary) hypertension] Onset: 04-26-2016 04-26-2016 Chronic Nonspecific chest pain (12 sources) Chest pain; Translations: [Chest pain, unspecified] Onset: 04-26-2016 04-26-2016 Episodic Other bone disease and musculoskeletal deformities (7 sources) Osteopenia; Translations: [Other specified disorders of bone density and structure, unspecified site] 03-05-2023 Episodic Other bone disease and musculoskeletal deformities (3 sources) Other specified disorders of bone density and structure, unspecified site; Translations: [Disorder of bone and cartilage, unspecified] Onset: 03-20-2025 09-12-2023 Episodic Other nervous system disorders (2 sources) Other disturbances of smell and taste; Translations: [Other disturbances of smell and taste] Onset: 10-16-2020 Episodic Other nutritional; endocrine; and metabolic disorders (11 sources) Body mass index (BMI) 34.0-34.9, adult; Translations: [Body mass index (BMI) 34.0-34.9, adult] Onset: 12-21-2016 12-21-2016 Chronic Other nutritional; endocrine; and metabolic disorders (8 sources) Obesity; Translations: [Obesity, unspecified] 12-17-2018 Chronic Other screening for suspected conditions (not mental disorders or infectious disease) (8 sources) Patient encounter status; Translations: [Encounter for screening for malignant neoplasm of colon] Onset: 08-13-2024 10-17-2022 Episodic Other skin disorders (5 sources) Lesion of scalp; Translations: [Disorder of the skin and subcutaneous tissue, unspecified] 03-05-2023 Episodic Residual codes; unclassified (7 sources) Family history of cancer of colon; Translations: [Family history of malignant neoplasm of digestive organs] 06-27-2022 Episodic Residual codes; unclassified (1 source) Family history of malignant neoplasm of digestive organs; Translations: [Family history of malignant neoplasm of gastrointestinal tract] 12-11-2022 Episodic Residual codes; unclassified (1 source) Asymptomatic menopausal state; Translations: [Asymptomatic menopausal state] Onset: 03-20-2025 Episodic Unclassified (1 source) COVID-19; Translations: [COVID-19] Onset: 10-16-2020 Past or Other Problems Problem Classification Problem Date Documented Da te Episodic/Chronic Abdominal pain (12 sources) Abdominal pain; Translations: [Unspecified abdominal pain] Onset: 08-22-2017 09-05-2017 Episodic Malaise and fatigue (11 sources) Malaise and fatigue; Translations: [Other fatigue] Onset: 12-21-2016 12-21-2016 Episodic Other and unspecified benign neoplasm (8 sources) Personal history of colonic polyps; Translations: [Personal history of colonic polyps] Onset: 08-28-2017 08-30-2017 Episodic Other lower respiratory disease (11 sources) Dyspnea; Translations: [Shortness of breath] Onset: 12-21-2016 12-21-2016 Episodic Results Test Name Value Interpretation Reference Range Facility Hemoglobin A1con 03-25-2025 HbA1c (Bld) [Mass fraction] 5.9 % High <=5.6 [facility] Comment on above: Result Comment: Norm al < 5.7 % Prediabetic 5.7 - 6.4 % Diabetic >or= 6.5 % Please note range changes. Performed By: #### L 501.9985 ####[facility] [id number] [place], [address] Absolute lymphocyte countOrd ered By: [facility] on 03-24-2025 Lymphocytes Auto (Unsp spec) [#/Vol] 1.91 10*3/uL 0.83-4.51 [facility] Absolute neutrophil countOrd ered By: [facility] Jaylan on 03-24-2025 Neutrophils (Bld) [#/Vol] 3.5 10*3/uL 2.0-7.7 [facility] Anion gap in Serum or Plasma Ordered By: gregorybrightondebra Tian on 03-24-2025 Anion gap [Moles/Vol] 11 mmol/L 5-15 [facility] Automated lymphocyte count a s percentage of total leukocytesOrdered By: [facility] Rosalesaracelis on 03-24-2025 Lymphocytes/100 WBC Auto (Unsp spec) 31.8 % 19-41 [facility] BUN/creatinine ratioOrdered By: [facility] Bobbyaracelis on 03-24-2025 Urea nitrogen/Creatinine [Mass ratio] 16.3 mg/mg 10-20 [facility] Basophil percentageOrdered B y: Shalonda Tian on 03-24-2025 Basophils/100 WBC (Bld) 0.8 % 0-1 [facility] Bilirubin, totalOrdered By: Shalonda Tian on 03-24-2025 Bilirubin [Mass/Vol] 0.18 mg/dL 0.00-1.30 [facility] CBC W/Diff, Automatedon 05 Absolute Lymph 1.91 X10 3/uL Normal 0.83-4.51 [facility] Comment on above: Performed By: #### L 506.0400, L506.1001, L500.4050, L100.0100, L501.9520, L500.4100 #### [facility] [address] [place], [address] Absolute Neut 3.5 X10 3/uL Normal 2.0-7.7 [facility] Comment on above: Performed By: #### L 506.0400, L506.1001, L500.4050, L100.0100, L501.9520, L500.4100 #### [facility] [address] [place], [address] Basophils/100 WBC (Bld) 0.8 % Normal 0-1 [facility] Comment on above: Performed By: #### L 506.0400, L506.1001, L500.4050, L100.0100, L501.9520, L500.4100 #### [facility] [address] [place], [address] Eosinophils/100 WBC (Bld) 1.7 % Normal 0-5 [facility] Comment on above: Performed By: #### L 506.0400, L506.1001, L500.4050, L100.0100, L501.9520, L500.4100 #### [facility] [address] [place], [address] Erythrocyte distribution width (RBC) [Ratio] 14.4 % Normal 11.6-14.6 [facility] Comment on above: Performed By: #### L 506.0400, L506.1001, L500.4050, L100.0100, L501.9520, L500.4100 #### [facility] [address] [place], [address] Hematocrit (Bld) [Volume fraction] 40.3 % Normal 37-47 [facility] Comment on above: Performed By: #### L 506.0400, L506.1001, L500.4050, L100.0100, L501.9520, L500.4100 #### [facility] [address] [place], [address] Hemoglobin (Bld) [Mass/Vol] 13.0 g/dL Normal 12.0-15.0 [facility] Comment on above: Performed By: #### L 506.0400, L506.1001, L500.4050, L100.0100, L501.9520, L500.4100 #### [facility] [address] [place], [address] IG% 0.300 Normal 0.0-0.9 [facility] Comment on above: Result Comment: IG% - Immature Granulocytes (promyelocytes, myelocytes and metamyelocytes) > 1% indicates that a LEFT SHIFT is Present. Performed By: #### L 506.0400, L506.1001, L500.4050, L100.0100, L501.9520, L500.4100 #### [facility] [address] [place], [address] Lymphocytes/100 WBC (Bld) 31.8 % Normal 19-41 [facility] Comment on above: Performed By: #### L 506.0400, L506.1001, L500.4050, L100.0100, L501.9520, L500.4100 #### [facility] [address] [place], [address] MCH (RBC) [Entitic mass] 27.4 pg Normal 27.0-32.0 [facility] Comment on above: Performed By: #### L 506.0400, L506.1001, L500.4050, L100.0100, L501.9520, L500.4100 #### [facility] [address] [place], [address] MCHC (RBC) [Mass/Vol] 32.3 g/dL Normal 32-36 [facility] Comment on above: Performed By: #### L 506.0400, L506.1001, L500.4050, L100.0100, L501.9520, L500.4100 #### [facility] [address] [place], [address] MCV (RBC) [Entitic vol] 84.8 fL Normal 81-99 [facility] Comment on above: Performed By: #### L 506.0400, L506.1001, L500.4050, L100.0100, L501.9520, L500.4100 #### [facility] [address] [place], [address] Monocytes/100 WBC (Bld) 7.5 % Normal 0-10 [facility] Comment on above: Performed By: #### L 506.0400, L506.1001, L500.4050, L100.0100, L501.9520, L500.4100 #### [facility] [address] [place], [address] Neutrophils/100 WBC (Bld) 57.9 % Normal 47-70 [facility] Comment on above: Performed By: #### L 506.0400, L506.1001, L500.4050, L100.0100, L501.9520, L500.4100 #### [facility] [address] [place], [address] Nucleated RBC (Bld) [#/Vol] 0 10*3/uL Normal 0-5 [facility] Comment on above: Performed By: #### L 506.0400, L506.1001, L500.4050, L100.0100, L501.9520, L500.4100 #### [facility] [address] [place], [address] Platelet mean volume (Bld) [Entitic vol] 11.7 fL Normal 6.2-12.0 [facility] Comment on above: Performed By: #### L 506.0400, L506.1001, L500.4050, L100.0100, L501.9520, L500.4100 #### [facility] [address] [place], [address] Platelets (Bld) [#/Vol] 362 10*3/uL Normal 150-450 [facility] Comment on above: Performed By: #### L 506.0400, L506.1001, L500.4050, L100.0100, L501.9520, L500.4100 #### [facility] [address] [place], [address] RBC (Bld) [#/Vol] 4.75 10*6/uL Normal 4.2-5.4 [facility] Comment on above: Performed By: #### L 506.0400, L506.1001, L500.4050, L100.0100, L501.9520, L500.4100 #### [facility] [address] [place], [address] RDW SD 44.8 fl High 35.1-43.9 [facility] Comment on above: Performed By: #### L 506.0400, L506.1001, L500.4050, L100.0100, L501.9520, L500.4100 #### [facility] [address] [place], [address] WBC (Bld) [#/Vol] 6.0 10*3/uL Normal 4.4-11.0 [facility] Comment on above: Performed By: #### L 506.0400, L506.1001, L500.4050, L100.0100, L501.9520, L500.4100 #### [facility] [address] [place], [address] Calculated very low density lipoprotein (VLDL) cholesterol measurementOrdered By: Shalonda Tian on 03-24-2025 Calculated very low density lipoprotein (VLDL) cholesterol measurement 51 mg/dL High 5-40 [facility] Carbon dioxide, total [Moles /volume] in Central venous bloodOrdered By: Shalonda Tian on 03-24-2025 CO2 [Moles/Vol] 27.9 mmol/L 21.0-32.0 [facility] Chloride assayOrdered By: Ryley Tian on 03-24-2025 Chloride [Moles/Vol] 104 mmol/L 98-108 [facility] Comprehensive Metabolic Prof ilon 03-24-2025 Albumin [Mass/Vol] 4.1 g/dL Normal 3.4-4.8 [facility] Comment on above: Performed By: #### L 506.0400, L506.1001, L500.4050, L100.0100, L501.9520, L500.4100 #### [facility] [address] [place], [address] Albumin/Globulin [Mass ratio] 1.4 {ratio} Normal 0.9-2.4 [facility] Comment on above: Performed By: #### L 506.0400, L506.1001, L500.4050, L100.0100, L501.9520, L500.4100 #### [facility] [address] [place], [address] ALK PHOS 60 U/L Normal 35-104 [facility] Comment on above: Performed By: #### L 506.0400, L506.1001, L500.4050, L100.0100, L501.9520, L500.4100 #### [facility] [address] [place], [address] ALT [Catalytic activity/Vol] 20 U/L Normal <=34 [facility] Comment on above: Performed By: #### L 506.0400, L506.1001, L500.4050, L100.0100, L501.9520, L500.4100 #### [facility] [address] [place], [address] AST [Catalytic activity/Vol] 22 U/L Normal <=31 [facility] Comment on above: Performed By: #### L 506.0400, L506.1001, L500.4050, L100.0100, L501.9520, L500.4100 #### [facility] [address] [place], [address] Bilirubin [Mass/Vol] 0.18 mg/dL Normal 0.00-1.30 [facility] Comment on above: Performed By: #### L 506.0400, L506.1001, L500.4050, L100.0100, L501.9520, L500.4100 #### [facility] [address] [place], [address] BUN/CRE 16.3 RATIO Normal 10-20 [facility] Comment on above: Performed By: #### L 506.0400, L506.1001, L500.4050, L100.0100, L501.9520, L500.4100 #### [facility] [address] [place], [address] Calcium [Mass/Vol] 9.3 mg/dL Normal 7.6-11.0 [facility] Comment on above: Performed By: #### L 506.0400, L506.1001, L500.4050, L100.0100, L501.9520, L500.4100 #### [facility] [address] [place], [address] Chloride [Moles/Vol] 104 mmol/L Normal 98-108 [facility] Comment on above: Performed By: #### L 506.0400, L506.1001, L500.4050, L100.0100, L501.9520, L500.4100 #### [facility] [address] [place], [address] CO2 [Moles/Vol] 27.9 mmol/L Normal 21.0-32.0 [facility] Comment on above: Performed By: #### L 506.0400, L506.1001, L500.4050, L100.0100, L501.9520, L500.4100 #### [facility] [address] [place], [address] Creatinine [Mass/Vol] 0.88 mg/dL Normal 0.70-1.20 [facility] Comment on above: Performed By: #### L 506.0400, L506.1001, L500.4050, L100.0100, L501.9520, L500.4100 #### [facility] [address] [place], [address] GAP 11 Normal 5-15 [facility] Comment on above: Performed By: #### L 506.0400, L506.1001, L500.4050, L100.0100, L501.9520, L500.4100 #### [facility] [address] [place], [address] GFR/1.73 sq M.predicted among non-blacks MDRD (S/P/Bld) [Vol rate/Area] 71 mL/min/{1.73_m2} Normal >60 [facility] Comment on above: Result Comment: mL/m in/1.73m2 CKD-EPI Creatinine Equation (2020) Performed By: #### L 506.0400, L506.1001, L500.4050, L100.0100, L501.9520, L500.4100 #### [facility] [address] [place], [address] Globulin (S) [Mass/Vol] 2.9 g/dL Normal 2.2-4.2 [facility] Comment on above: Performed By: #### L 506.0400, L506.1001, L500.4050, L100.0100, L501.9520, L500.4100 #### [facility] [address] [place], [address] Glucose [Mass/Vol] 112 mg/dL High 70-99 [facility] Comment on above: Performed By: #### L 506.0400, L506.1001, L500.4050, L100.0100, L501.9520, L500.4100 #### [facility] [address] [place], [address] Potassium [Moles/Vol] 4.3 mmol/L Normal 3.3-5.1 [facility] Comment on above: Performed By: #### L 506.0400, L506.1001, L500.4050, L100.0100, L501.9520, L500.4100 #### [facility] [address] [place], [address] Sodium [Moles/Vol] 142 mmol/L Normal 133-145 [facility] Comment on above: Performed By: #### L 506.0400, L506.1001, L500.4050, L100.0100, L501.9520, L500.4100 #### [facility] [address] [place], [address] T PROT 7.0 g/dL Normal 5.9-8.4 [facility] Comment on above: Performed By: #### L 506.0400, L506.1001, L500.4050, L100.0100, L501.9520, L500.4100 #### [facility] [address] [place], [address] Urea nitrogen [Mass/Vol] 14 mg/dL Normal 4-19 [facility] Comment on above: Performed By: #### L 506.0400, L506.1001, L500.4050, L100.0100, L501.9520, L500.4100 #### [facility] [address] [place], [place], [id number] (301) Eosinophil percentageOrdered By: Shalonda Tian on 03-24-2025 Eosinophils/100 WBC (Bld) 1.7 % 0-5 [facility] Center Erythrocyte distribution wid th ratioOrdered By: Shalonda Tian on 03-24-2025 Erythrocyte distribution width (RBC) [Ratio] 14.4 % 11.6-14.6 [facility] Erythrocyte distribution wid th standard deviationOrdered By: Shalonda Tian on 03-24-2025 Erythrocyte distribution width (RBC) [Ratio] 44.8 fl High 35.1-43.9 [facility] Glomerular filtration rate ( GFR) estimation/1.73 sq m using serum, plasma, or whole bOrdered By: Shalonda Tian on 03-24-2025 GFR/1.73 sq M.predicted among non-blacks MDRD (S/P/Bld) [Vol rate/Area] 71 mL/min/{1.73_m2} >60 [facility] Comment on above: mL/min/1.73m2 CKD-EP I Creatinine Equation (2020) Hematocrit Auto (Bld) [Volum e fraction]Ordered By: Shalonda Tian on 03-24-2025 Hematocrit (Bld) [Volume fraction] 40.3 % 37-47 [facility] Hemoglobin A1c percentageOrd ered By: Shalonda Tian on 03-24-2025 HbA1c (Bld) [Mass fraction] 5.9 % High <5.7 [facility] Comment on above: Normal < 5.7 % Predi abetic 5.7 - 6.4 % Diabetic >or= 6.5 % Please note range changes. Hemoglobin measurementOrdere d By: Shalonda Tian on 03-24-2025 Hemoglobin (Bld) [Mass/Vol] 13.0 g/dL 12.0-15.0 [facility] Immature granulocytes/100 WB C Auto (Bld)Ordered By: Shalonda Tian on 03-24-2025 Immature granulocytes/100 WBC (Bld) 0.300 % 0.0-0.9 [facility] Comment on above: IG% - Immature Granu locytes (promyelocytes, myelocytes and metamyelocytes) > 1% indicates that a LEFT SHIFT is Present. LDL calc ser/plasOrdered By: Shalonda Tian on 03-24-2025 Cholesterol in LDL [Mass/Vol] 32 mg/dL [facility] Comment on above: Stksxwemwd=238-949 m g/dL & Higher Hrfq=183 mg/dL or greater Laboratory - Chemistry and C hemistry - challengeOrdered By: Shalonda Tian on 03-24-2025 AST [Catalytic activity/Vol] 22 U/L <32 [facility] Lipid Profileon 03-24-2025 CHOL:HDL 2.99 Normal [facility] Comment on above: Performed By: #### L 506.0400, L506.1001, L500.4050, L100.0100, L501.9520, L500.4100 #### [facility] [address] [place], [place], [id number] Cholesterol [Mass/Vol] 125 mg/dL Normal <=200 [facility] Comment on above: Result Comment: Chol esterol level, Desirable <200 mg/dL Borderline high cholesterol 200-239 mg/dL High cholesterol >=240 mg/dL Recommendations of the NCEP Adult Treatment Panel for the following risk-cutoff thresholds for the [place] population. Performed By: #### L 506.0400, L506.1001, L500.4050, L100.0100, L501.9520, L500.4100 #### [facility] [address] [place], [address] Cholesterol in HDL [Mass/Vol] 42 mg/dL Normal [facility] Comment on above: Result Comment: Elizabeth onal Cholesterol Education Program (NCEP) guidelines: <40 mg/dL: Low HDL-cholesterol (major risk factor for CHD) >= 60 mg/dL: High HDL-cholesterol (negative risk factor for CHD) HDL-cholesterol is affected by a number of factors, e.g. smoking, exercise, hormones, sex and age. Performed By: #### L 506.0400, L506.1001, L500.4050, L100.0100, L501.9520, L500.4100 #### [facility] [address] [place], [address] Cholesterol in LDL [Mass/Vol] 32 mg/dL Normal [facility] Comment on above: Result Comment: Bord qqjxte=798-532 mg/dL Higher Nmzb=306 mg/dL or greater Performed By: #### L 506.0400, L506.1001, L500.4050, L100.0100, L501.9520, L500.4100 #### [facility] [address] [place], [address] Cholesterol in VLDL [Mass/Vol] 51 mg/dL High 5-40 [facility] Comment on above: Performed By: #### L 506.0400, L506.1001, L500.4050, L100.0100, L501.9520, L500.4100 #### [facility] [address] [place], [address] Triglyceride [Mass/Vol] 255 mg/dL High [facility] Comment on above: Result Comment: The drugs N-Acetylcysteine and Metamizole may falsely depress this assay. Normal range: <150 mg/dL Borderline High: 150-199 mg/dL High: 200-499 mg/dL Very High: >500 mg/dL Performed By: #### L 506.0400, L506.1001, L500.4050, L100.0100, L501.9520, L500.4100 #### [facility] [address] [place], [address] MCV (mean corpuscular volume ) determinationOrdered By: Shalonda Tian on 03-24-2025 MCV (RBC) [Entitic vol] 84.8 fL 81-99 [facility] Mean corpuscular hemoglobin (MCH) determinationOrdered By: Shalonda Tian on 03-24-2025 MCH (RBC) [Entitic mass] 27.4 pg 27.0-32.0 [facility] Mean corpuscular hemoglobin concentration (MCHC) determinationOrdered By: Shalonda Tian on 03-24-2025 MCHC (RBC) [Mass/Vol] 32.3 g/dL 32-36 [facility] Mean platelet volume determi nationOrdered By: Shalonda Tian on 03-24-2025 Platelet mean volume (Bld) [Entitic vol] 11.7 fL 6.2-12.0 [facility] Monocyte percentageOrdered B y: Shalonda Tian on 03-24-2025 Monocytes/100 WBC (Bld) 7.5 % 0-10 [facility] Neutrophil percentageOrdered By: Shalonda Tian on 03-24-2025 Neutrophils/100 WBC (Bld) 57.9 % 47-70 [facility] Nucleated red blood cell per centageOrdered By: Shalonda Tian on 03-24-2025 Nucleated RBC/100 WBC (Bld) [Ratio] 0 % 0-5 [facility] Platelet countOrdered By: Ryley Tian on 03-24-2025 Platelets (Bld) [#/Vol] 362 10*3/uL 150-450 [facility] Potassium measurement (mass/ volume)Ordered By: Shalonda Tian on 03-24-2025 Potassium (Unsp spec) [Mass/Vol] 4.3 mmol/L 3.3-5.1 [facility] RBC Auto (Bld) [#/Vol]Ordere d By: Shalonda Tian on 03-24-2025 RBC (Bld) [#/Vol] 4.75 10*6/uL 4.2-5.4 [facility] Screening total cholesterol/ high density lipoprotein (HDL) cholesterol ratioOrdered By: Shalonda Tian on 03-24-2025 Cholesterol.total/Choles terol in HDL [Mass ratio] 2.99 {ratio} [facility] Serum creatinine measurement (mass/volume)Ordered By: Shalonda Tian on 03-24-2025 Creatinine [Mass/Vol] 0.88 mg/dL 0.70-1.20 [facility] Serum globulin measurementOr dered By: Shalonda Tian on 03-24-2025 Globulin (S) [Mass/Vol] 2.9 g/dL 2.2-4.2 [facility] Serum glucose measurement (m ass/volume)Ordered By: Shalonda Tian on 03-24-2025 Glucose [Mass/Vol] 112 mg/dL High 70-99 [facility] Serum or plasma alanine sommers otransferase (ALT) measurementOrdered By: Shalonda Tian on 03-24-2025 ALT [Catalytic activity/Vol] 20 U/L <35 [facility] Serum or plasma albumin damari urement (mass/volume)Ordered By: Shalonda Tian on 03-24-2025 Albumin [Mass/Vol] 4.1 g/dL 3.4-4.8 [facility] Serum or plasma albumin/glob ulin mass ratioOrdered By: Shalonda Tian on 03-24-2025 Albumin/Globulin [Mass ratio] 1.4 {ratio} 0.9-2.4 [facility] Serum or plasma alkaline nina sphatase measurementOrdered By: Shalonda Tian on 03-24-2025 ALP [Catalytic activity/Vol] 60 U/L 35-104 [facility] Serum or plasma calcium damari urement (mass/volume)Ordered By: Shalonda Tian on 03-24-2025 Calcium [Mass/Vol] 9.3 mg/dL 7.6-11.0 [facility] Serum or plasma cholesterol in HDL measurement (mass/volume)Ordered By: Shalonda Tian on 03-24-2025 Cholesterol in HDL [Mass/Vol] 42 mg/dL >40 [facility] Comment on above: National Cholesterol Education Program (NCEP) guidelines:<40 mg/dL: Low HDL-cholesterol (major risk factor for CHD)>= 60 mg/dL: High HDL-cholesterol (negative risk factor for CHD)HDL-cholesterol is affected by a number of factors, e.g. smoking, exercise, hormones, sex and age. Serum or plasma cholesterol measurement (mass/volume)Ordered By: Shalonda Tian on 03-24-2025 Cholesterol [Mass/Vol] 125 mg/dL <201 [facility] Comment on above: Cholesterol level, D esirable <200 mg/dLBorderline high cholesterol 200-239 mg/dLHigh cholesterol >=240 mg/dLRecommendations of the NCEP Adult Treatment Panel for the following risk-cutoff thresholds for the [place] population. Serum or plasma urea nitroge n measurement (mass/volume)Ordered By: Shalonda Tian on 03-24-2025 Urea nitrogen [Mass/Vol] 14 mg/dL 4-19 [facility] Sodium levelOrdered By: Poli Tian on 03-24-2025 Sodium [Moles/Vol] 142 mmol/L 133-145 [facility] T4 Free Directon 03-24-2025 T4 FREE DIRECT 1.30 ng/dL Normal 0.76-1.46 [facility] Comment on above: Performed By: #### L 506.0400, L506.1001, L500.4050, L100.0100, L501.9520, L500.4100 #### [facility] [address] [place], [address] T4 freeOrdered By: Shalonda Tian on 03-24-2025 Free T4 [Mass/Vol] 1.30 ng/dL 0.76-1.46 [facility] TSH DL <= 0.005 mIU/L QnOrde red By: Shalonda Tian on 03-24-2025 TSH Qn 0.803 uIU/mL 0.300-4.200 [facility] Thyroid Stim Hormone (TSH)on 03-24-2025 TSH 0.803 uIU/mL Normal 0.300-4.200 [facility] Comment on above: Performed By: #### L 506.0400, L506.1001, L500.4050, L100.0100, L501.9520, L500.4100 #### [facility] [address] [place], [address] Total proteinOrdered By: Jet Tian on 03-24-2025 Protein [Mass/Vol] 7.0 g/dL 5.9-8.4 [facility] Triglycerides measurementOrd ered By: Shalonda Tian on 03-24-2025 Triglyceride [Mass/Vol] 255 mg/dL High <199 [facility] Comment on above: The drugs N-Acetylcy steine and Metamizole may falsely depress this assay. Normal range: <150 mg/dLBorderline High: 150-199 mg/dLHigh: 200-499 mg/dLVery High: >500 mg/dL Vitamin D,25 Hydroxyon 03-24 Vitamin D 25-OH 42.8 ng/mL Normal 30-100 [facility] Comment on above: Result Comment: Nadya min D Status Deficiency: <20 ng/mL (50nmol/L) Insufficiency: 20-30 ng/mL (50-75 nmol/L) Sufficiency: 30-100 ng/mL (75-250 nmol/L) Toxicity: >100 ng/mL (>250 nmol/L) Performed By: #### L 506.0400, L506.1001, L500.4050, L100.0100, L501.9520, L500.4100 #### [facility] [address] [place], [address] White blood cell (WBC) count Ordered By: Shalonda Tian on 03-24-2025 WBC (Bld) [#/Vol] 6.0 10*3/uL 4.4-11.0 [facility] Internal Medicine Office Vis cal 03-20-2025 Internal Medicine Office Visit [facility] [address] [place] [address] [place] [address] OFFICE VISIT Date of Service: 03/20/25 MR#: [id number] Acct: [id number] Name: AMALIA ANGEL Rep #: [id number] : 1955 Provider: Dr. Shalonda rangel MD Age/Sex: 69/F Location[place] [facility] [place] Status: Signed Intake Vital Signs 09/19/24 07:59 03/20/25 07:59 Height 5 ft 5 in 5 ft 5 in Weight: 201 lb 6 oz BMI 33.5 BP 132/62 H Blood Pressure Location Lt brachial Position Sitting Respiration 16 Pulse 74 Pulse Source Monitor Temp 96.1 F L Temp Source Temporal Pulse Oximetry (%) 94 Oxygen Delivery Method room air Intake Visit Reasons: 6 M FU Chief Complaint: 6 M FU Senior Office Assistant Required: No Accompanied by: Self Is patient in pain?: No Allergies No Known Allergies Allergy (Verified 03/20/25 07:51) Medications ???Medication ???Instructions ???Recorded ???Confirmed ???Type calcium carbonate (Calcium 500) 500 mg PO DAILY 09/12/23 03/20/25 History cholecalciferol (vitamin D3) 25 25 mcg PO DAILY 09/12/23 03/20/25 History mcg (1,000 unit) capsule hydrochlorothiazid e 25 mg tablet 25 mg PO DAILY #90 TABLETS 5 03/20/25 Rx citalopram 20 mg tablet (Celexa) 20 mg PO DAILY 3 months #90 tabs 0 03/20/25 03/20/25 Rx enalapril maleate 20 mg tablet 20 mg PO DAILY #90 tabs 03/20/25 0 03/20/25 Rx lansoprazole 15 mg capsule,delayed 15 mg PO QHS #90 caps 03/20/25 0 03/20/25 Rx release (Prevacid 24Hr) Have you fallen in the past year?: No [facility] Medical History Sleep concern Health care maintenance Anxiety and depression Osteopenia Skin lesion of scalp Post-menopausal Wears glasses Gastric reflux Non-smoker History of echocardiogram History of stress test Cardiology follow-up encounter Essential hypertension Obesity GERD (gastroesophageal reflux disease) Palpitations Depression Surgical History History of colonoscopy History of dilatation and curettage History of left heart catheterization (12/27/16) Family History Mother Hypertension Father Hypertension Colon cancer Aunt Colon cancer Uncle Colon cancer Social History Smoking Status: Never smoker alcohol intake: current alcohol intake frequency: holidays/special occasions only substance use type: does not use caffeine: Yes Type: coffee Number of servings: 3 HPI HPI Chief Complaint: 6 M FU Details: AMALIA ANGEL, is a 69 F who presents to the office today for follow-up of her chronic conditions. Chronic history of anxiety and depression currently on Celexa, currently takes just 10 mg daily. Over the last couple of months she states that she has had loss of interest in previously pleasurable things. Little motivation to do things daily. Teary in office. also going through a health scare. She denies any concerns with sleep. No suicidal ideations or attempts. History of hypertension, blood pressure today at 132/62 mmHg. She states that she has not checked her blood pressure at home recently but reports compliance with her medication. No chest pain, palpitation or shortness of breath. Other chronic medical conditions are stable. ROS Const Constitutional: No body ache, excessive sweating, fatigue, fever(s), frequent falls, headache(s), snoring, weakness, weight change, sleep problems or change in appetite Eyes Eyes: No blurry vision, change in vision, bulging eyes, floaters, visual disturbances, eye pain or Light sensitivity ENT ENT: No abnormal hearing, ear or mastoid pain, tinnitus, balance problems, nosebleed/epistaxi s, nasal congestion, headache(s), neck pain or sore throat Resp Respiratory: No cough, excessive phlegm production, pain on inspiration, shortness of breath, snoring or wheezing Cardio Cardiology: No chest pain at rest, chest pain with exertion, excessive sweating, shortness of breath, dyspnea on exertion, lightheadedness, orthopnea or palpitations Gastro GI: No abdominal pain, change in bowel habits, constipation, cramping, diarrhea, nausea/dyspepsia or vomiting Genitourinary-Fema le: No burning urination, painful urination, urinary incontinence, urinary frequency, blood in urine, abnormal periods or pelvic pain Musc Musculoskeletal: No abnormal gait, joint pain, back pain, limited range of motion, neck pain, numbness, stiffness, tingling or Arthritis Skin Skin: No dry skin, redness, excessive hair growth, yellowing of the eye, lesions, itchy eyes, rash or wounds Neuro Neurology: No abnormal gait, abnormal hearing, abnormal speech, behavioral changes, unsteady gait/balance, dizziness, weakness, frequ (more content not included)... Normal [facility] Basic Metabolic Profile (BMP )on 09-19-2024 BUN/CRE 18.3 RATIO Normal 10-20 [facility] Comment on above: Performed By: #### L 500.2500 ####[facility] [address] [place], [address] CA,Total 9.2 mg/dL Normal 8.5-10.1 [facility] Comment on above: Performed By: #### L 500.2500 ####[facility] [address] [place], [address] Chloride [Moles/Vol] 105 mmol/L Normal 98-107 [facility] Comment on above: Performed By: #### L 500.2500 ####[facility] [address] [place], [address] CO2 [Moles/Vol] 32.0 mmol/L Normal 21.0-32.0 [facility] Comment on above: Performed By: #### L 500.2500 ####[facility] [address] [place], [address] Creatinine [Mass/Vol] 0.87 mg/dL Normal 0.55-1.02 [facility] Comment on above: Result Comment: The validity of the calculated GFR GFRAA in patients over 70 years has not been determined. Clinical correlation is essential. Performed By: #### L 500.2500 ####[facility] [address] [place], [address] EST GFR - AA 82 mL/min Normal >60 [facility] Comment on above: Result Comment: Afri can Turkish GFR Calc Performed By: #### L 500.2500 ####[facility] [address] [place], [address] GAP 5 Normal 5-15 [facility] Comment on above: Performed By: #### L 500.2500 ####[facility] [address] [place], [address] GFR/1.73 sq M.predicted among non-blacks MDRD (S/P/Bld) [Vol rate/Area] 68 mL/min/{1.73_m2} Normal >60 [facility] Comment on above: Result Comment: Non- GFR Calc Performed By: #### L 500.2500 ####[facility] [address] [place], [address] Glucose [Mass/Vol] 105 mg/dL Normal 74-106 [facility] Comment on above: Result Comment: Fast ing Glucose result from 100 to 125 mg/dL suggests IMPAIRED HOMEOSTASIS per A.D.A. criteria. Performed By: #### L 500.2500 ####[facility] [address] [place], [address] Potassium [Moles/Vol] 3.7 mmol/L Normal 3.5-5.1 [facility] Comment on above: Performed By: #### L 500.2500 ####[facility] [address] [place], [address] Sodium [Moles/Vol] 142 mmol/L Normal 136-145 [facility] Comment on above: Performed By: #### L 500.2500 ####[facility] [address] [place], [address] Urea nitrogen [Mass/Vol] 16 mg/dL Normal 7-18 [facility] Comment on above: Performed By: #### L 500.2500 ####[facility] [address] [place], [place], [address] Internal Medicine Office Vis iton 09-19-2024 Internal Medicine Office Visit [facility] [address] [place] [address] [place] [address] OFFICE VISIT Date of Service: 09/19/24 MR#: [id number] Acct: [id number] Name: AMALIA ANGEL Rep #: [id number] : 1955 Provider: Dr. Shalonda rangel MD Age/Sex: 69/F Location[place] [facility] [place] Status: Signed Intake Vital Signs 03/19/24 09:07 09/19/24 07:59 Height 5 ft 5 in 5 ft 5 in Weight: 204 lb BMI 33.9 BP 128/82 H Blood Pressure Location Lt brachial Position Sitting Respiration 17 Pulse 88 Pulse Source Monitor Temp 97.3 F L Temp Source Temporal Pulse Oximetry (%) 96 Oxygen Delivery Method room air Intake Visit Reasons: 6 M FU Chief Complaint: 6 M FU Is patient in pain?: No Allergies No Known Allergies Allergy (Verified 09/19/24 07:54) Medications ???Medication ???Instructions ???Recorded ???Confirmed ???Type lansoprazole 15 mg capsule,delayed 15 mg PO QHS 04/10/16 09/19/24 History release (Prevacid 24Hr) calcium carbonate (Calcium 500) 500 mg PO DAILY 09/12/23 09/19/24 History cholecalciferol (vitamin D3) 25 25 mcg PO DAILY 09/12/23 09/19/24 History mcg (1,000 unit) capsule citalopram 20 mg tablet (Celexa) 10 mg (1/2 x 20 mg) PO DAILY 3 03/21/24 09/19/24 Rx months #45 tabs enalapril maleate 20 mg tablet 20 mg PO DAILY #90 tabs 06/30/24 09/19/24 Rx hydrochlorothiazid e 25 mg tablet 25 mg PO DAILY #90 TABLETS 07/04/24 09/19/24 Rx Have you fallen in the past year?: No PFSH Medical History (Updated 09/19/24 @ 08:[address] Shalonda Tian MD) Sleep concern Health care maintenance Anxiety and depression Osteopenia Skin lesion of scalp Post-menopausal Wears glasses Gastric reflux Non-smoker History of echocardiogram History of stress test Cardiology follow-up encounter Essential hypertension Obesity GERD (gastroesophageal reflux disease) Palpitations Depression Surgical History History of colonoscopy History of dilatation and curettage History of left heart catheterization (12/27/16) Family History Mother Hypertension Father Hypertension Colon cancer Aunt Colon cancer Uncle Colon cancer Social History Smoking Status: Never smoker alcohol intake: current alcohol intake frequency: holidays/special occasions only substance use type: does not use caffeine: Yes Type: coffee Number of servings: 3 HPI HPI Chief Complaint: 6 M FU Details: AMALIA ANGEL, is a 69 F who presents to the office today for follow-up of her chronic medical conditions. No acute concerns at this time. History of hypertension, blood pressure today at 128/82, she reports similar readings for the most part at home. Taking her medication as prescribed. No chest pain, palpitation or shortness of breath. Also history of anxiety and depression on citalopram. Doing well, denies any concerns. Other chronic medical conditions are stable. ROS Const Constitutional: No body ache, chills, excessive sweating, fatigue, fever(s), frequent falls, headache(s), snoring, weight change, sleep problems, abnormal sleep pattern or change in appetite Eyes Eyes: No blurry vision, change in vision, bulging eyes, floaters, visual disturbances, eye pain or Light sensitivity ENT ENT: No abnormal hearing, ear or mastoid pain, tinnitus, nasal congestion, headache(s), neck pain or sore throat Resp Respiratory: No cough, excessive phlegm production, pain on inspiration, shortness of breath, snoring or wheezing Cardio Cardiology: No chest pain at rest, chest pain with exertion, excessive sweating, shortness of breath, dyspnea on exertion, lightheadedness, orthopnea or palpitations Gastro GI: No abdominal pain, change in bowel habits, constipation, cramping, diarrhea, nausea/dyspepsia or vomiting Genitourinary-Fema le: No burning urination, painful urination, urinary incontinence, urinary frequency, suprapubic fullness, side pain, abnormal vaginal bleeding or pelvic pain Musc Musculoskeletal: No abnormal gait, joint pain, back pain, limited range of motion, neck pain, numbness or tingling Skin Skin: No dry skin, redness, excessive hair growth, yellowing of the eye, lesions, itchy eyes, rash or wounds Neuro Neurology: No abnormal gait, abnormal hearing, frequent falls, headache(s), memory loss, numbness, tingling or visual disturbances Psych Psychiatric: No abnormal sleep pattern, No anxiety, No change in appetite, No depression, No irritability, No memory loss and No Thoughts of harming yourself/Others Endo Endocrine: No cold intolerance, excessive sweating, fatigue, flushing, heat intolerance, increased thirst/drinking, increased hunger or weight change (more content not included)... Normal [facility] SCRN MAMM (CAD)W/LUPE BILATo n 07-24-2024 SCRN MAMM (CAD)W/LUPE BILAT [facility] Imaging Services [address] [place] [id number] SCRN MAMM (CAD)W/LUPE BILAT MR#: [id number] Acct: [id number] Name: AMALIA ANGEL Rep #: [id number] : 1955 F 69 From: Levi diaz MD PCP: Dr. Shalonda Tian MD Status: [facility] Study: SCRN MAMM (CAD)W/LUPE BILAT Date of Exam: 04/11 Exam# [id number] Ordering Dr: Shalonda Tian MD [id number] MAMMOGRAPHY - BILATERAL SCREENING REASON FOR EXAM: Female, 69 years old. Routine annual screening examination. PERTINENT HISTORY: Non-contributory. TECHNIQUE: Digital bilateral breast lupe (3D mammographic acquisition) in the CC and MLO projections. 2-D mediolateral oblique (MLO) and craniocaudad (CC) views of both breasts were obtained. CAD: Full Field Digital Mammography with Computer Added Detection was performed. COMPARISON: Comparison is made with prior study July 17, 2023 and July 13, 2022. FINDINGS: Breast Composition: The breasts are almost entirely fatty. There are no dominant masses or suspicious calcifications. No other significant abnormalities are identified. There has been no significant change since the prior study. BI/SCRN MAMM (CAD)W/LUPE BILAT IMPRESSION: Stable bilateral screening mammogram. Yearly follow-up mammogram recommended. (A) ASSESSMENT CATEGORY: BIRADS Category 1: Negative. A letter regarding these results will be sent to the patient by the facility within 30 days. Approximately 10% of breast cancers are not detected by mammography. A normal mammogram should not delay biopsy of a clinically suspicious abnormality. [id number] Electronically Signed: Levi Dan MD at 9:14 EDT Reading Location ID and State: [facility] / ID , Service support , CC: Dr. Shalonda Tian MD Pediatric Urologist: Signed Normal [facility] Office Visit Reporton 2023 Office Visit Report [facility] [address] [place] [address] OFFICE VISIT Date of Service: 04/25/24 MR#: [id number] Acct: [id number] Patient: AMALIA ANGEL Rep #: [id number] : [id number] Provider: TAM NURSE Age/Sex: 68/F Location[place] [facility] [place] Status: Signed Intake Vital Signs 03/19/24 09:07 04/25/24 10:12 04/25/24 10:14 Height 5 ft 5 in Weight: 194 lb BMI 32.3 BP 140/84 H 136/90 H 138/92 H Blood Pressure Location Lt brachial Rt brachial Lt brachial Position Sitting Sitting Sitting Respiration 17 Pulse 79 Pulse Source Monitor Temp 98.4 F Temp Source Temporal Pulse Oximetry (%) 94 Oxygen Delivery Method room air Comment BP with electronic monitor manual BP Intake Visit Reasons: bp cuff chk Chief Complaint: 6 M FU Allergies No Known Allergies Allergy (Verified 03/19/24 09:05) Nursing Note Patient here to check home BP monitor. BP obtained with electronic monitor very close to manual monitor. This nurse educated patient to not take BP in same arm repeatedly, but to wait 5 minutes before rechecking on same arm. Patient voiced understanding. 04/25/24 1349 Date Shalonda Escamillaigner Signature: Date (if applicable) CC: Normal [facility] Absolute lymphocyte countOrd ered By: Shalonda Tian on 03-19-2024 Lymphocytes Auto (Unsp spec) [#/Vol] 1.60 10*3/uL 0.83-4.51 [facility] Automated lymphocyte count a s percentage of total leukocytesOrdered By: Shalonda Tian on 03-19-2024 Lymphocytes/100 WBC Auto (Unsp spec) 31.5 % 19-41 [facility] Basophil percentageOrdered B y: Shalonda Tian on 03-19-2024 Basophils/100 WBC (Bld) 1.0 % 0-1 [facility] Bilirubin [Mass/Vol] 0.50 mg/dL 0.20-1.00 [facility] Comment on above: For patients on eltr ombopag therapy, use of Dimension [place] TBIL is not recommended. Chloride [Moles/Vol] 103 mmol/L 98-107 [facility] Cholesterol [Mass/Vol] 116 mg/dL <200 [facility] Comment on above: <200 mg/dL Desirable 200-240 mg/dL Borderline >240 mg/dL High Risk Eosinophils/100 WBC (Bld) 1.2 % 0-5 [facility] Glucose [Mass/Vol] 110 mg/dL 74-106 [facility] Comment on above: Fasting Glucose resu lt from 100 to 125 mg/dL suggests IMPAIRED HOMEOSTASIS per A.D.A. criteria. Hemoglobin (Bld) [Mass/Vol] 13.0 g/dL 12.0-15.0 [facility] Monocytes/100 WBC (Bld) 9.3 % 0-10 [facility] Neutrophils (Bld) [#/Vol] 2.9 10*3/uL 2.0-7.7 [facility] Neutrophils/100 WBC (Bld) 56.6 % 47-70 [facility] Potassium [Moles/Vol] 4.2 mmol/L 3.5-5.1 [facility] Protein [Mass/Vol] 7.5 g/dL 6.4-8.2 [facility] Sodium [Moles/Vol] 138 mmol/L 136-145 [facility] Triglyceride [Mass/Vol] 89 mg/dL <199 [facility] Comment on above: The drugs N-Acetylcy steine and Metamizole may falsely depress this assay.Serum Triglycerides Reference Interval Normal <150 mg/dL Borderline high 150 - 199 mg/dL High 200 - 499 mg/dL Very High > or = 500 mg/dL WBC (Bld) [#/Vol] 5.1 10*3/uL 4.4-11.0 [facility] Determination of erythrocyte mean corpuscular volume (MCV)Ordered By: Shalonda Tian on 03-19-2024 MCV (RBC) [Entitic vol] 85.2 fL 81-99 [facility] Erythrocyte distribution wid th ratioOrdered By: Shalonda Tian on 03-19-2024 Erythrocyte distribution width (RBC) [Ratio] 14.1 % 11.6-14.6 [facility] Erythrocyte distribution wid th standard deviationOrdered By: Shalonda Tian on 03-19-2024 Erythrocyte distribution width (RBC) [Entitic vol] 43.5 fL 35.1-43.9 [facility] Hematocrit Auto (Bld) [Volum e fraction]Ordered By: gregorybrightondebra Tian on 03-19-2024 Hematocrit (Bld) [Volume fraction] 41.0 % 37-47 [facility] Immature granulocytes/100 WB C Auto (Bld)Ordered By: [facility] Bobbyaracelis on 03-19-2024 Immature granulocytes/100 WBC (Bld) 0.400 % 0.0-0.9 [facility] Comment on above: IG% - Immature Granu locytes (promyelocytes, myelocytes and metamyelocytes) > 1% indicates that a LEFT SHIFT is Present. Laboratory - Chemistry and C hemistry - challengeOrdered By: [facility] Hospital[facility] Rosalesaracelis on 03-19-2024 Albumin/Globulin [Mass ratio] 1.1 {ratio} 0.9-2.4 [facility] ALP [Catalytic activity/Vol] 59 U/L 45-117 [facility] ALT [Catalytic activity/Vol] 21 U/L 13-56 [facility] Cholesterol in HDL [Mass/Vol] 50 mg/dL >40 [facility] Comment on above: The drugs N-Acetylcy steine and Metamizole may falsely depress this assay. Reference Range HDL <40 mg/dL Low HDL Cholesterol HDL >or= 60 mg/dL High HDL Cholesterol Cholesterol in LDL [Mass/Vol] 48 mg/dL 0-130 [facility] CO2 [Moles/Vol] 31.0 mmol/L 21.0-32.0 [facility] Globulin (S) [Mass/Vol] 3.6 g/dL 2.2-4.2 [facility] Urea nitrogen/Creatinine [Mass ratio] 14.4 mg/mg 10-20 [facility] Laboratory - Hematology and Cell countsOrdered By: gregorybrightondebra Tian on 03-19-2024 MCH (RBC) [Entitic mass] 27.0 pg 27.0-32.0 [facility] MCHC (RBC) [Mass/Vol] 31.7 g/dL 32-36 [facility] Nucleated RBC/100 WBC (Bld) [Ratio] 0 % 0-5 [facility] Platelet mean volume (Bld) [Entitic vol] 11.4 fL 6.2-12.0 [facility] Platelets (Bld) [#/Vol] 326 10*3/uL 150-450 [facility] No Panel InformationOrdered By: Shalonda Tian on 03-19-2024 Estimated GFR (MDRD) Amer 73 mL/min >60 [facility] Comment on above: GFR Calc Estimated GFR (MDRD) Non-Af Amer 60 mL/min >60 [facility] Comment on above: Non- GFR Calc Vitamin D 25-Hydroxy 57.1 ng/mL [facility] Comment on above: Vitamin D 25(OH) Sta tus Range Deficiency <20 ng/mL (50nmol/L) Insufficiency 20 - 30 ng/mL (50 - 75 nmol/L) Sufficiency 30 - 100 ng/mL (75 - 250 nmol/L) Toxicity >100 ng/mL (>250 nmol/L) VLDL Cholesterol 18 mg/dL 5-40 [facility] RBC Auto (Bld) [#/Vol]Ordere d By: Shalonda Tian on 03-19-2024 RBC (Bld) [#/Vol] 4.81 10*6/uL 4.2-5.4 [facility] Serum or plasma calcium damari urement (mass/volume)Ordered By: Shalonda Tian on 03-19-2024 Calcium [Mass/Vol] 9.7 mg/dL 8.5-10.1 [facility] Serum or plasma creatinine m easurement (mass/volume)Ordered By: Shalodna Tian on 03-19-2024 Creatinine [Mass/Vol] 0.97 mg/dL 0.55-1.02 [facility] Comment on above: The validity of the calculated GFR & GFRAA in patients over 70 years has not been determined. Clinical correlation is essential. Serum or plasma urea nitroge n measurement (mass/volume)Ordered By: Shalonda Tian on 03-19-2024 Urea nitrogen [Mass/Vol] 14 mg/dL 7-18 [facility] Thin prep Papanicolaou smear with manual screeningOrdered By: Shalonda Tian on 03-19-2024 Thin prep Papanicolaou smear with manual screening 3.9 g/dL 3.2-5.0 [facility] Thin prep Papanicolaou smear with manual screening 19 U/L 15-37 [facility] Thin prep Papanicolaou smear with manual screening 4 5-15 [facility] Basophil percentageOrdered B y: Shalonda Tian on 09-12-2023 Chloride [Moles/Vol] 105 mmol/L 98-107 [facility] Glucose [Mass/Vol] 101 mg/dL 74-106 [facility] Comment on above: Fasting Glucose resu lt from 100 to 125 mg/dL suggests IMPAIRED HOMEOSTASIS per A.D.A. criteria. Potassium [Moles/Vol] 4.2 mmol/L 3.5-5.1 [facility] Sodium [Moles/Vol] 142 mmol/L 136-145 [facility] Laboratory - Chemistry and C hemistry - challengeOrdered By: Shalonda Tian on 09-12-2023 CO2 [Moles/Vol] 33.0 mmol/L 21.0-32.0 [facility] Urea nitrogen/Creatinine [Mass ratio] 21.7 mg/mg 10- [facility] No Panel InformationOrdered By: Shalonda Tian on 09-12-2023 Estimated GFR (MDRD) Amer 93 mL/min >60 [facility] Comment on above: GFR Calc Estimated GFR (MDRD) Non-Af Amer 77 mL/min >60 [facility] Comment on above: Non- GFR Calc Serum or plasma calcium damari urement (mass/volume)Ordered By: Shalonda Tian on 09-12-2023 Calcium [Mass/Vol] 9.2 mg/dL 8.5-10.1 [facility] Serum or plasma creatinine m easurement (mass/volume)Ordered By: Shalonda Tian on 09-12-2023 Creatinine [Mass/Vol] 0.78 mg/dL 0.55-1.02 [facility] Comment on above: The validity of the calculated GFR & GFRAA in patients over 70 years has not been determined. Clinical correlation is essential. Serum or plasma urea nitroge n measurement (mass/volume)Ordered By: Shalonda Tian on 09-12-2023 Urea nitrogen [Mass/Vol] 17 mg/dL 7-18 [facility] Thin prep Papanicolaou smear with manual screeningOrdered By: Shalonda Tian on 09-12-2023 Thin prep Papanicolaou smear with manual screening 4 5-15 [facility] Basophil percentageon 2021 Basophil percentage < 0.9 mg/dL 0.55-1.02 [facility] Work Phone: No Panel Informationon 05-03 Bedside Estimated GFR (eGFR) > 60.0000 mL/min >60 [facility] Work Phone: CORONAVIRUS PCR [CCL]on 09-21 REF LAB REPORT Positive Normal [facility] Comment on above: Performed By: #### [id number] #### [facility],[address] [place] [address] SEND TO ? YES Normal [facility] Comment on above: Performed By: #### [id number] #### [facility],[address] [place] [address] COVID 19 Result [employer] Positive Abnormal [facility] Comment on above: Result Comment: Posi tive for COVID19 (SARS CoV2) by PCR.(*) This test was developed and its performance characteristics determined by [facility]'s [facility] [place]. This test has been authorized by FDA under an Emergency Use Authorization (EUA). This test has been validated in accordance with the FDA's Guidance Document Policy for Diagnostics Testing in Laboratories Certified to Perform High Complexity Testing under CLIA prior to Emergency use Authorization for Coronavirus Disease 2019 during the Public Health Emergency issued on January 17, 2020. [facility] [employer] [address] [place] [id number] Gunnar Steele III, M.D. [id number] Performed By: #### [id number] #### [facility],[address] [place] [address] COVID 19 Source [employer] Nasopharyngeal Swab Normal [facility] Comment on above: Result Comment: Manuel ected on 10/17 AT 1531: Previously reported as NASAL SWAB Performed By: #### [id number] #### [facility],[address] [place] [id number] Coronavirus 2019on 0 COVID 19 Result [employer] Abnormal Negative for COVID19 (SARS CoV2) by PCR. [facility] Comment on above: Result Comment: Posi tive for This test was developed and its performance characteristics determined by [facility] [place]. This test has been authorized by FDA under an Emergency Use Authorization (EUA). This test has been validated in accordance with the FDA's Guidance Document Policy for Diagnostics Testing in Laboratories Certified to Perform High Complexity Testing under CLIA prior to Emergency use Authorization for Coronavirus Disease 2019 during the Public Health Emergency issued on January 17, 2020. COVID19 (SARS This test was developed and its performance characteristics determined by [facility] [place]. This test has been authorized by FDA under an Emergency Use Authorization (EUA). This test has been validated in accordance with the FDA's Guidance Document Policy for Diagnostics Testing in Laboratories Certified to Perform High Complexity Testing under CLIA prior to Emergency use Authorization for Coronavirus Disease 2019 during the Public Health Emergency issued on January 17, 2020. CoV2) by This test was developed and its performance characteristics determined by [facility]'s [facility] [place]. This test has been authorized by FDA under an Emergency Use Authorization (EUA). This test has been validated in accordance with the FDA's Guidance Document Policy for Diagnostics Testing in Laboratories Certified to Perform High Complexity Testing under CLIA prior to Emergency use Authorization for Coronavirus Disease 2019 during the Public Health Emergency issued on January 17, 2020. PCR.(*) This test was developed and its performance characteristics determined by [facility] [place]. This test has been authorized by FDA under an Emergency Use Authorization (EUA). This test has been validated in accordance with the FDA's Guidance Document Policy for Diagnostics Testing in Laboratories Certified to Perform High Complexity Testing under CLIA prior to Emergency use Authorization for Coronavirus Disease 2019 during the Public Health Emergency issued on January 17, 2020. Coronavirus 2019on 0 COVID 19 Source [employer] Normal [facility] Comment on above: Result Comment: Naso pharyngeal Corrected on 10/17 AT 1531: Previously reported as NASAL SWAB Swab Corrected on 10/17 AT 1531: Previously reported as NASAL SWAB Lab Report: Basic Metabolic Profile (BMP)on 11-20-2017 Anion gap [Moles/Vol] 6 mmol/L Invalid Interpretation Code 5-15 [employer] Work Phone: Calcium [Mass/Vol] 8.9 mg/dL Invalid Interpretation Code 8.5-10.1 [employer] Work Phone: Chloride [Moles/Vol] 105 mmol/L Invalid Interpretation Code 98-107 [employer] Work Phone: CO2 (BldV) [Partial pressure] 31.0 mmol/L Invalid Interpretation Code 21.0-32.0 [employer] Work Phone: Creatinine [Mass/Vol] 0.91 mg/dL Invalid Interpretation Code 0.55-1.02 [employer] Work Phone: GFR/1.73 sq M.predicted among non-blacks MDRD (S/P/Bld) [Vol rate/Area] 66 mL/min/{1.73_m2} Invalid Interpretation Code >60 [employer] Work Phone: Glomerular Filtration rate 80 mL/min Invalid Interpretation Code >60 [employer] Work Phone: Glucose [Mass/Vol] 93 mg/dL Invalid Interpretation Code 70-110 [employer] Work Phone: Potassium [Moles/Vol] 3.8 mmol/L Invalid Interpretation Code 3.5-5.1 [employer] Work Phone: Sodium [Moles/Vol] 142 mmol/L Invalid Interpretation Code 136-145 [employer] Work Phone: Urea nitrogen [Mass/Vol] 19 mg/dL High 7-18 [employer] Work Phone: Urea nitrogen/Creatinine [Mass ratio] 20.2021310 mg/mg High 10- [employer] Work Phone: Lab Report: Miscellaneous La b Procedureon 10-21-2017 GE use only - for [employer] import when terms are not otherwise specified . Invalid Interpretation Code [facility] Office Visit: Annualon 10-15 Tobacco smoking status Never Invalid Interpretation Code [facility] Tobacco smoking status Tobacco smoking status NHIS Invalid Interpretation Code [facility] Tobacco use status CPHS Never smoker Invalid Interpretation Code [facility] Office Visit: discuss CT res ultson 09-17-2017 Tobacco smoking status Never Invalid Interpretation Code [facility] [employer] Work Phone: Tobacco use status CPHS Never smoker Invalid Interpretation Code [facility] [employer] Work Phone: Lab Report: CREATININE FINGE RSTICKon 09-14-2017 EGFR WB > 60.0000 mL/min Invalid Interpretation Code >60 [facility] [employer] Work Phone: GE use only - for [employer] import when terms are not otherwise specified > 60.0000 mL/min Invalid Interpretation Code >60 [facility] [employer] Work Phone: Office Visit: Lower abdomina l pain/colonoscopy consulton 08-28-2017 Alcoholism counseling (procedure) no Invalid Interpretation Code [facility] [employer] Work Phone: Dietary management education, guidance, and counseling (procedure) yes Invalid Interpretation Code [facility] [employer] Work Phone: Documentation of current medications (procedure) Done Invalid Interpretation Code [facility] [employer] Work Phone: Fall risk assessment No Invalid Interpretation Code [facility] [employer] Work Phone: Tobacco smoking status Never Invalid Interpretation Code [facility] [employer] Work Phone: Tobacco use status CPHS Never smoker Invalid Interpretation Code [facility] [employer] Work Phone: Clinical Lists Update: Prelo substance abuse specialist 01-19-2017 Left ventricular Ejection fraction 65 % Invalid Interpretation Code [employer] Work Phone: Lab Report: Basic Metabolic Profile (BMP)on 12-25-2016 Anion gap 7 mmol/L Invalid Interpretation Code 5-15 [facility] [employer] Work Phone: Anion gap [Moles/Vol] 7 mmol/L Invalid Interpretation Code 5-15 [employer] Work Phone: BUN/Creatinine Ratio 21.2 RATIO High 10-20 [facility] [employer] Work Phone: Calcium [Mass/Vol] 8.9 mg/dL Invalid Interpretation Code 8.5-10.1 [employer] Work Phone: Chloride [Moles/Vol] 103 mmol/L Invalid Interpretation Code 98-107 [employer] Work Phone: CO2 29.0 mmol/L Invalid Interpretation Code 21.0-32.0 [facility] [employer] Work Phone: CO2 (BldV) [Partial pressure] 29.0 mmol/L Invalid Interpretation Code 21.0-32.0 [employer] Work Phone: Creatinine [Mass/Vol] 0.80 mg/dL Invalid Interpretation Code 0.55-1.02 [facility] Work Phone: eGFR (non-black) 93 mL/min/{1.73_m2} Invalid Interpretation Code >60 [facility] [employer] Work Phone: GFR/1.73 sq M.predicted among non-blacks MDRD (S/P/Bld) [Vol rate/Area] 77 mL/min/{1.73_m2} Invalid Interpretation Code >60 [employer] Work Phone: Glomerular Filtration rate 93 mL/min Invalid Interpretation Code >60 [employer] Work Phone: Glucose [Mass/Vol] 83 mg/dL Invalid Interpretation Code 70-110 [employer] Work Phone: Potassium [Moles/Vol] 3.7 mmol/L Invalid Interpretation Code 3.5-5.1 [employer] Work Phone: Sodium [Moles/Vol] 139 mmol/L Invalid Interpretation Code 136-145 [employer] Work Phone: Urea nitrogen [Mass/Vol] 17 mg/dL Invalid Interpretation Code 7-18 [employer] Work Phone: Urea nitrogen/Creatinine [Mass ratio] 21.8931305 mg/mg High 10-20 [employer] Work Phone: Lab Report: CBC-Complete Blo od Cnt No Diffon 12-25-2016 Erythrocyte distribution width (RBC) [Ratio] 14.6 % Invalid Interpretation Code 11.6-14.6 [facility] Work Phone: Erythrocyte distribution width Auto Ratio (RBC) 14.6 % Invalid Interpretation Code 11.6-14.6 [facility] [employer] Work Phone: Erythrocytes (RBC) 4.94 10*6/uL Invalid Interpretation Code 4.2-5.4 [facility] [employer] Work Phone: Hematocrit (Bld) [Volume fraction] 40.9 % Invalid Interpretation Code 37-47 [facility] Work Phone: Hematocrit (HCT) 40.9 % Invalid Interpretation Code 37-47 [facility] [employer] Work Phone: Hemoglobin (Bld) [Mass/Vol] 13.2 g/dL Invalid Interpretation Code 12.0-15.0 [employer] Work Phone: MCH 26.7 pg Low 27.0-32.0 [facility] [employer] Work Phone: MCH (RBC) [Entitic mass] 26.7 pg Low 27.0-32.0 [employer] Work Phone: MCHC mass conc (RBC) 32.3 G/GL Invalid Interpretation Code 32-36 [facility] [employer] Work Phone: MCV 82.8 fL Invalid Interpretation Code 81-99 [facility] [employer] Work Phone: MCV (RBC) [Entitic vol] 82.8 fL Invalid Interpretation Code 81-99 [facility] Work Phone: mean corpuscular hemoglobin concentration, RBC 32.3 G/GL Invalid Interpretation Code 32-36 [facility] Work Phone: Platelet mean volume (Bld) [Entitic vol] 10.8 fL Invalid Interpretation Code 6.2-12.0 [employer] Work Phone: Platelets 356 10*3/mm3 Invalid Interpretation Code 150-450 [facility] [employer] Work Phone: Platelets (Bld) [#/Vol] 356 10*3/uL Invalid Interpretation Code 150-450 [facility] Work Phone: PMV by Ynes 10.8 fL Invalid Interpretation Code 6.2-12.0 [facility] [employer] Work Phone: RBC (Bld) [#/Vol] 4.94 10*6/uL Invalid Interpretation Code 4.2-5.4 [facility] Work Phone: RDW SD 43.8 fL Invalid Interpretation Code 35.1-43.9 [facility] [employer] Work Phone: red blood cell distribution width, size density 43.8 fL Invalid Interpretation Code 35.1-43.[address] [facility] [employer] Work Phone: WBC (Bld) [#/Vol] 7.3 10*3/uL Invalid Interpretation Code 4.4-11.0 [facility] Work Phone: WBC (Leukocytes) 7.3 10*3/uL Invalid Interpretation Code 4.4-11.0 [facility] [employer] Work Phone: Lab Report: Partial Thrombop last Timeon 12-25-2016 aPTT Coag (Bld) [Time] 29.9 s Invalid Interpretation Code 24.1-36.2 [facility] [employer] Work Phone: Lab Report: Prothrombin Time w/INRon 12-25-2016 INR Coag (PPP) [Relative time] 1.1 {INR} Invalid Interpretation Code [facility] Work Phone: Prothrombin time (PT) Coag time (PPP) 13.9 s Invalid Interpretation Code 11.7-14.9 [facility] [employer] Work Phone: PT Coag (PPP) [Time] 13.154620761 s Invalid Interpretation Code 11.7-14.9 [facility] Work Phone: Office Visiton 12-21-2016 Tobacco use status [facility] Never smoker Invalid Interpretation Code [facility] Work Phone: Replaced Document: Serge JONES Observationson 12-21-2016 EKG QRS axis 6 deg Invalid Interpretation Code [facility] [employer] Work Phone: electrocardiogram interpretation Sinus Rhythm WITHIN NORMAL LIMITS Invalid Interpretation Code [facility] Work Phone: GE use only - for [employer] import when terms are not otherwise specified 406 ms Invalid Interpretation Code [facility] Work Phone: Heart rate 84 /min Invalid Interpretation Code [facility] Work Phone: Interpretation Sinus Rhythm WITHIN NORMAL LIMITS Invalid Interpretation Code [facility] [employer] Work Phone: P [place] 24 deg Invalid Interpretation Code [facility] [employer] Work Phone: P wave axis, electrocardiogram 24 deg Invalid Interpretation Code [facility] Work Phone: [place] Interval 180 ms Invalid Interpretation Code [facility] [employer] Work Phone: [place] interval, electrocardiogram 180 ms Invalid Interpretation Code [facility] Work Phone: QRS axis, electrocardiogram 6 deg Invalid Interpretation Code [facility] Work Phone: QRS Duration 88 ms Invalid Interpretation Code [facility] [employer] Work Phone: QRS duration, electrocardiogram 88 ms Invalid Interpretation Code [facility] Work Phone: QT Interval new path ms Invalid Interpretation Code [facility] [employer] Work Phone: QT interval, electrocardiogram new path ms Invalid Interpretation Code [facility] Work Phone: T [place] -1 deg Invalid Interpretation Code [facility] [employer] Work Phone: T wave axis, electrocardiogram -1 deg Invalid Interpretation Code [facility] Work Phone: Office Visit: Lower abdomina l pain/colonoscopy consulton 08-25-2016 MG Breast Screening Normal Bilateral Invalid Interpretation Code [facility] [employer] Work Phone: Clinical Lists Update: Prelo substance abuse specialist 04-11-2016 Cholesterol [Mass/Vol] 118 mg/dL Invalid Interpretation Code [facility] Work Phone: Cholesterol in HDL [Mass/Vol] 41 mg/dL Invalid Interpretation Code [facility] Work Phone: Cholesterol in LDL [Mass/Vol] 58 mg/dL Invalid Interpretation Code [facility] Work Phone: Lipoprotein.pre-beta [Mass/Vol] 19 mg/dL Invalid Interpretation Code [facility] Work Phone: Triglyceride [Mass/Vol] 95 mg/dL Invalid Interpretation Code [facility] Work Phone: Office Visit: Lower abdomina l pain/colonoscopy consulton 02-13-2013 Colonoscopy (procedure) Adenomatous Polyp Invali d Interpretation Code [facility] Work Phone: Vital Signs Date Time Vital Sign Value Performing Clinician Facility 06-26-2025 09:09-0400 Body height 165.[address] Shalonda Tian MD Work Phone: [facility] 06-26-2025 09:09-0400 Body mass index (BMI) [Ratio] 32.9 kg/m2 Dr. Shalonda Tian MD Work Phone: [facility] 06-26-2025 09:09-0400 Body temperature 98.2 [degF] Dr. Shalonda Tian MD Work Phone: [facility] 06-26-2025 09:09-0400 Body weight 89.[address] Shalonda Tian MD Work Phone: [facility] 06-26-2025 09:09-0400 Diastolic blood pressure 88 mm[Hg] Dr. Shalonda Tian MD Work Phone: [facility] 06-26-2025 09:09-0400 Heart rate 84 /min Dr. Shalonda Tian MD Work Phone: [facility] 06-26-2025 09:09-0400 Respiratory rate 18 /min Dr. Shalonda Tian MD Work Phone: [facility] 06-26-2025 09:09-0400 SaO2% (BldA) [Mass fraction] 98 % Dr. Shalonda Tian MD Work Phone: [facility] 06-26-2025 09:09-0400 Systolic blood pressure 142 mm[Hg] Dr. Shalonda Tian MD Work Phone: [facility] 03-20-2025 07:59-0400 Body height 165.[address] Shalonda Tian MD Work Phone: [facility] 03-20-2025 07:59-0400 Body mass index (BMI) [Ratio] 33.5 kg/m2 Dr. Shalonda Tian MD Work Phone: [facility] 03-20-2025 07:59-0400 Body temperature 96.1 [degF] Dr. Shalonda Tian MD Work Phone: [facility] 03-20-2025 07:59-0400 Body weight 91.[address] Shalonda Tian MD Work Phone: [facility] 03-20-2025 07:59-0400 Diastolic blood pressure 62 mm[Hg] Dr. Shalonda Tian MD Work Phone: [facility] 03-20-2025 07:59-0400 Heart rate 74 /min Dr. Shalonda Tian MD Work Phone: [facility] 03-20-2025 07:59-0400 Respiratory rate 16 /min Dr. Shalonda Tian MD Work Phone: [facility] 03-20-2025 07:59-0400 SaO2% (BldA) [Mass fraction] 94 % Dr. Shalonda Tian MD Work Phone: [facility] 03-20-2025 07:59-0400 Systolic blood pressure 132 mm[Hg] Dr. Shalonda Tian MD Work Phone: [facility] 03-19-2024 09:07-0400 Body height 165.[address] Shalonda Tian Work Phone: [facility] 03-19-2024 09:07-0400 Body mass index (BMI) [Ratio] 32.3 kg/m2 Dr. Shalonda Tian Work Phone: [facility] 03-19-2024 09:07-0400 Body temperature 98.4 [degF] Dr. Shalonda Tian Work Phone: [facility] 03-19-2024 09:07-0400 Body weight 87.[address] Shalonda Tian Work Phone: [phone] [place] [address] 03-19-2024 09:07-0400 Diastolic blood pressure 84 mm[Hg] Dr. Shalonda Tian Work Phone: [facility] 03-19-2024 09:07-0400 Heart rate 79 /min Dr. Shalonda Tian Work Phone: [facility] 03-19-2024 09:07-0400 Respiratory rate 17 /min Dr. Shalonda Tian Work Phone: [facility] 03-19-2024 09:07-0400 SaO2% (BldA) [Mass fraction] 94 % Dr. Shalonda Tian Work Phone: [facility] 03-19-2024 09:07-0400 Systolic blood pressure 140 mm[Hg] Dr. Shalonda Tian Work Phone: [phone] [place] [address] 09-12-2023 09:30-0400 Body height 165.[address] Sahil Escalante [facility] 09-12-2023 09:30-0400 Body mass index (BMI) [Ratio] 30.2 kg/m2 Dr. Baxter [facility] 09-12-2023 09:30-0400 Body temperature 98.2 [degF] Dr. Sahil Escalante [facility] 09-12-2023 09:30-0400 Body weight 82.[address] Sahil Escalante [facility] 09-12-2023 09:30-0400 Diastolic blood pressure 84 mm[Hg] Dr. Sahil Escalante [facility] 09-12-2023 09:30-0400 Heart rate 72 /min Dr. Shail Escalante [facility] 09-12-2023 09:30-0400 Respiratory rate 16 /min Dr. Sahil Escalante [facility] 09-12-2023 09:30-0400 SaO2% (BldA) [Mass fraction] 96 % Dr. Sahil Escalante [facility] 09-12-2023 09:30-0400 Systolic blood pressure 128 mm[Hg] Dr. Sahil Escalante [facility] 07-17-2023 12:31-0400 Body height 165.1 cm [facility] 12-11-2022 11:20-0500 Body temperature 97.2 [degF] Dr. Sahil Escalante Work Phone: [phone] [place] [address] 12-11-2022 11:20-0500 Diastolic blood pressure 60 mm[Hg] Dr. Sahil Escalante Work Phone: [phone] [place] [address] 12-11-2022 11:20-0500 Heart rate 63 /min Dr. Sahil Escalante Work Phone: [facility] 12-11-2022 11:20-0500 Respiratory rate 69 /min Dr. Sahil Escalante Work Phone: [facility] 12-11-2022 11:20-0500 SaO2% (BldA) [Mass fraction] 95 % Dr. Sahil Escalante Work Phone: [facility] 12-11-2022 11:20-0500 Systolic blood pressure 107 mm[Hg] Dr. Sahil Escalante Work Phone: [facility] 12-11-2022 09:34-0500 Body height 165.[address] Sahil Escalante Work Phone: [facility] 12-11-2022 09:34-0500 Body mass index (BMI) [Ratio] 32.3 kg/m2 Dr. Sahil Escalante Work Phone: [facility] 12-11-2022 09:34-0500 Body weight 88.[address] Sahil Escalante Work Phone: [facility] 10-17-2022 13:29-0500 Body mass index (BMI) [Ratio] 30.7 kg/m2 Dr. Sahil Escalante Work Phone: [facility] 10-17-2022 13:29-0500 Body weight 83.[address] Sahil Escalante Work Phone: [facility] 06-26-2022 15:19-0400 Diastolic blood pressure 76 mm[Hg] Dr. Sahil Escalante Work Phone: [facility] Work Phone: 06-26-2022 15:19-0400 Systolic blood pressure 132 mm[Hg] Dr. Sahil Escalante Work Phone: [facility] Work Phone: 06-26-2022 14:32-0400 Body height 162.[address] Sahil Escalante Work Phone: [facility] Work Phone: 06-26-2022 14:32-0400 Body mass index (BMI) [Ratio] 32.1 kg/m2 Dr. Sahil Escalante Work Phone: [facility] Work Phone: 06-26-2022 14:32-0400 Body weight 84.[address] Sahil Escalante Work Phone: [facility] Work Phone: 06-26-2022 14:32-0400 Heart rate 68 /min Dr. Sahil Escalante Work Phone: [facility] Work Phone: 06-26-2022 14:32-0400 Respiratory rate 16 /min Dr. Sahil Escalante Work Phone: [facility] Work Phone: 06-26-2022 14:32-0400 SaO2% (BldA) [Mass fraction] 97 % Dr. Sahil Escalante Work Phone: [facility] Work Phone: 10-15-2017 10:33-0500 Body height 165.1 cm Melanie Lexington [employer] Work Phone: [facility] 10-15-2017 10:33-0500 Body mass index (BMI) [Ratio] 33.94 kg/m2 Melanie Lexington [employer] Work Phone: [facility] 10-15-2017 10:33-0500 Body weight 92.53 kg Melanie Lexington [employer] Work Phone: [facility] 10-15-2017 10:33-0500 Diastolic blood pressure 85 mm[Hg] Melanie Lexington [employer] Work Phone: [facility] 10-15-2017 10:33-0500 Systolic blood pressure 146 mm[Hg] Melanie Lexington [employer] Work Phone: [facility] 08-28-2017 08:30-0400 Body height 165.1 cm Lobo Sal MD Work Phone: [facility] Work Phone: 08-28-2017 08:30-0400 Body mass index (BMI) [Ratio] 33.21 kg/m2 Lobo Sal MD Work Phone: [facility] Work Phone: 08-28-2017 08:30-0400 Body temperature 98.3 [degF] Lobo Sal MD Work Phone: [facility] Work Phone: 08-28-2017 08:30-0400 Body temperature 98.29 [degF] Lobo Sal MD Work Phone: [facility] Work Phone: 08-28-2017 08:30-0400 Body weight 90.54 kg Lobo Sal MD Work Phone: [facility] Work Phone: 08-28-2017 08:30-0400 Diastolic blood pressure 86 mm[Hg] Lobo Sal MD Work Phone: [facility] Work Phone: 08-28-2017 08:30-0400 Heart rate 76 /min Lobo Sal MD Work Phone: [facility] Work Phone: 08-28-2017 08:30-0400 Respiratory rate 20 /min Lobo Sal MD Work Phone: [facility] Work Phone: 08-28-2017 08:30-0400 Systolic blood pressure 130 mm[Hg] Lobo Sal MD Work Phone: [facility] Work Phone: 08-28-2017 08:30-0400 Weight 90.54 kg Lobo Sla MD [facility] Work Phone: 03-29-2017 08:40-0400 Body height 165.1 cm Candice Smithby [facility] Work Phone: 03-29-2017 08:40-0400 Body mass index (BMI) [Ratio] 33.11 kg/m2 Candice Erazo [facility] Work Phone: 03-29-2017 08:40-0400 Body weight 90.27 kg Candice Erazo [facility] Work Phone: 03-29-2017 08:40-0400 Diastolic blood pressure 78 mm[Hg] Candice Erazo [facility] Work Phone: 03-29-2017 08:40-0400 Heart rate 72 /min Candice Erazo [facility] Work Phone: 03-29-2017 08:40-0400 Respiratory rate 18 /min Candicejoshua Erazo [facility] Work Phone: 03-29-2017 08:40-0400 Systolic blood pressure 112 mm[Hg] Candice Erazo [facility] Work Phone: 12-21-2016 15:11-0500 Body surface area Derived from formula 2.01 m2 Candice Erazo [facility] Work Phone: Encounters Encounter Date Encounter Type Care Provider Facility Start: 06-26-2025 End: 06-26-[address] Shalonda Tian MD Work Phone: [facility] Start: 06-26-2025 End: 06-26-[address] Shalonda Tian MD -[facility] Work Phone: Start: 03-24-2025 End: 03-24-[address] Shalonda Tian MD Work Phone: [facility] Work Phone: Start: 03-24-2025 End: 03-24-[address] Shalonda Tian MD -Laboratory, [place] Start: 03-24-2025 End: 03-24-2025 ambulatory Polibrightondebra Rosalesaracelis Facility:[facility] Start: 03-20-2025 End: 03-20-[address] Shalonda Tian MD -[facility] Work Phone: Start: 03-20-2025 End: 03-20-2025 ambulatory [facility] Start: 09-19-2024 End: 09-19-2024 ambulatory [facility] Start: 09-19-2024 End: 09-19-2024 ambulatory [facility] Facility:[facility] Start: 07-24-2024 End: 07-24-2024 ambulatory [facility] Facility:[facility] Start: 04-25-2024 End: 04-25-2024 ambulatory [facility] Start: 03-19-2024 End: 03-19-[address] Shalonda Tian Work Phone: [facility] Work Phone: Start: 03-19-2024 End: 03-19-[address] Shalonda Tian Work Phone: [facility] Work Phone: Start: 09-12-2023 End: 09-12-[address] Sahil Escalante [facility] Work Phone: Start: 09-12-2023 End: 09-12-[address] Sahil Escalante [facility] Work Phone: Start: 07-17-2023 End: 07-17-2023 ambulatory [facility] Work Phone: Start: 07-17-2023 End: 07-17-2023 Patient encounter procedure [facility]-Outpatient Bone Densitometry Work Phone: Start: 03-05-2023 Patient encounter status [facility] Start: 12-11-2022 Non-patient / Non-visit Dr. Benson Escalante Work Phone: [facility] Start: 12-11-2022 End: 12-11-2022 Admission to same day surgery center Dr. Sahil Escalante Work Phone: [facility]-Endoscopy Start: 12-11-2022 End: 12-11-[address] Sahil Escalante Work Phone: [facility] Work Phone: Start: 10-17-2022 Non-patient / Non-visit Dr. Benson Escalante Work Phone: [facility] Start: 07-13-2022 End: 07-13-[address] Sahil Escalante Work Phone: [facility] Work Phone: Start: 07-13-2022 End: 07-13-[address] Sahil Escalante Work Phone: [facility]-Outpatient Breast Imaging Start: 06-26-2022 End: 06-26-[address] Sahil Escalante Work Phone: [facility] Start: 05-03-2022 End: 05-03-2022 Patient encounter procedure [facility]-Cat Scan, [facility] Start: 10-16-2020 End: 10-16-2020 Patient encounter procedure JOSE URIAS [facility] Start: 10-15-2017 Gynecologic examination Melanie Bui [employer] Work Phone: [facility] Procedures Date Procedure Procedure Detail Performing Clinician Start: 03-24-2025 Vitamin D, 25-hydrox y measurement Dr. Shalonda Tian MD Work Phone: Comment on above: Vitamin D StatusDefi ciency: <20 ng/mL (50nmol/L)Insufficiency: 20-30 ng/mL (50-75 nmol/L)Sufficiency: 30-100 ng/mL (75-250 nmol/L)Toxicity: >100 ng/mL (>250 nmol/L) Start: 07-17-2023 Dual energy X-ray absorptiometry Start: 07-17-2023 Screening mammography Start: 12-11-[address] Sahil Escalante Work Phone: Start: 07-13-2022 Screening mammography Adilson Escalante Work Phone: Start: 05-03-2022 Computed tomography of abdomen and pelvis with contrast Start: 10-15-2017 End: 10-15-2017 Alcoholism counseling Melanie Bui [employer] Work Phone: Start: 10-15-2017 End: 10-15-2017 Dietary management education, guidance, and counseling Melanie Bui [employer] Work Phone: Start: 10-15-2017 End: 10-15-2017 Documentation of current medications Melanie Bui [employer] Work Phone: Start: 10-15-2017 End: 10-22-2017 Mammogram, screening Melanie Bui [employer] Work Phone: Start: 10-15-2017 Screening for malign ant neoplasm of cervix Screening pap Melanie Bui [employer] Work Phone: Start: 10-15-2017 Screening mammography Mammogra m yearly screening Melanie Bui [employer] Work Phone: Start: 10-15-2017 End: 10-22-2017 Us pelvic nonobstetric real-time image complete Melanie Bui [employer] Work Phone: Start: 09-17-2017 End: 09-17-2017 Alcoholism counseling Lobo Sal MD Work Phone: Start: 09-17-2017 End: 09-17-2017 Dietary management education, guidance, and counseling Lobo Sal MD Work Phone: Start: 09-17-2017 End: 09-17-2017 Documentation of current medications Lobo Sal MD Work Phone: Start: 08-28-2017 End: 09-14-2017 Colonoscopy flx dx w/collj spec when pfrmd Lobo Sal MD Work Phone: Start: 08-28-2017 End: 08-28-2017 Alcoholism counseling Lobo Sal MD Work Phone: Start: 08-28-2017 End: 08-28-2017 Dietary management education, guidance, and counseling Lobo Sal MD Work Phone: Start: 08-28-2017 End: 08-28-2017 Documentation of current medications Lobo Sal MD Work Phone: Start: 08-28-2017 End: 09-14-2017 Colonoscopy flx dx w/collj spec when pfrmd Lobo Sal MD Work Phone: Start: 08-22-2017 End: 09-14-2017 Ct abdomen & pelvis w/contrast material Lobo Sal MD Work Phone: Start: 08-22-2017 End: 09-14-2017 Ct abdomen & pelvis w/contrast material Lobo Sal MD Work Phone: Start: 03-29-2017 End: 04-06-2017 Cardiovascular stress test using treadmill Lobo Delcid MD Work Phone: Start: 03-29-2017 End: 03-29-2017 BE Delcid MD Work Phone: Start: 03-29-2017 End: 03-29-2017 Follow Up Appt 6 months Lobo Delcid MD Work Phone: Start: 03-29-2017 End: 03-29-2017 Documentation of current medications Candice Erazo Start: 03-29-2017 End: 04-06-2017 Cardiovascular stress test using treadmill Lobo Delcid MD Work Phone: Start: 03-29-2017 End: 03-29-2017 BE Delcid MD Work Phone: Start: 03-29-2017 End: 03-29-2017 Follow Up Appt 6 months Lobo Delcid MD Work Phone: Start: 02-20-2017 End: 02-20-2017 Follow Up BP Check Lobo Delcid MD Work Phone: Start: 02-20-2017 End: 02-20-2017 Follow Up BP Check Lobo Delcid MD Work Phone: Start: 02-06-2017 End: 02-06-2017 Follow Up BP Check Lobo Delcid MD Work Phone: Start: 02-06-2017 End: 02-06-2017 Follow Up BP Check Lobo Delcid MD Work Phone: Start: 01-23-2017 End: 01-23-2017 BE Delcid MD Work Phone: Start: 01-23-2017 End: 01-23-2017 Follow Up Appt 1 month Lobo Delcid MD Work Phone: Start: 01-23-2017 End: 01-23-2017 Dietary management education, guidance, and counseling Candice Erazo Start: 01-23-2017 End: 01-23-2017 BE Delcid MD Work Phone: Start: 01-23-2017 End: 01-23-2017 Follow Up Appt 1 month Lobo Delcid MD Work Phone: Start: 12-21-2016 End: 12-25-2016 *BMP Lobo Delcid MD Work Phone: Start: 12-21-2016 End: 12-25-2016 aPTT in Platelet poor plasma by Coagulation assay Lobo Delcid MD Work Phone: Start: 12-21-2016 End: 12-25-2016 CBC W Auto Differential panel - Blood Lobo Delcid MD Work Phone: Start: 12-21-2016 End: 12-27-2016 Chest x-ray Lobo Delcid MD Work Phone: Start: 12-21-2016 End: 01-23-2017 DJN Lobo Delcid MD Work Phone: Start: 12-21-2016 End: 12-27-2016 Ecg routine ecg w/least 12 lds w/i&r Lobo Delcid MD Work Phone: Start: 12-21-2016 End: 12-27-2016 Echocardiography Lobo Delcid MD Work Phone: Start: 12-21-2016 End: 01-23-2017 Follow Up Appt 1 month Lobo Delcid MD Work Phone: Start: 12-21-2016 End: 12-25-2016 INR in Platelet poor plasma by Coagulation assay Lobo Delcid MD Work Phone: Start: 12-21-2016 End: 12-27-2016 Left Heart Cath Lobo Delcid MD Work Phone: Start: 12-21-2016 End: 12-25-2016 aPTT in Platelet poor plasma by Coagulation assay Lobo Delcid MD Work Phone: Start: 12-21-2016 End: 12-25-2016 Basic metabolic 2000 panel - Serum or Plasma Lobo Delcid MD Work Phone: Start: 12-21-2016 End: 12-25-2016 CBC W Auto Differential panel - Blood Lobo Delcid MD Work Phone: Start: 12-21-2016 End: 12-27-2016 Chest x-ray Lobo Delcid MD Work Phone: Start: 12-21-2016 End: 01-23-2017 DJN Lobo Delcid MD Work Phone: Start: 12-21-2016 End: 12-27-2016 Ecg routine ecg w/least 12 lds w/i&r Lobo Delcid MD Work Phone: Start: 12-21-2016 End: 12-27-2016 Echocardiography Lobo Delcid MD Work Phone: Start: 12-21-2016 End: 01-23-2017 Follow Up Appt 1 month Lobo Delcid MD Work Phone: Start: 12-21-2016 End: 12-25-2016 INR in Platelet poor plasma by Coagulation assay Lobo Delcid MD Work Phone: Start: 12-21-2016 End: 12-27-2016 Left Heart Cath Lobo Delcid MD Work Phone: Start: 02-13-2013 End: 02-13-2013 Colonoscopy Lobo Sal MD Work Phone: Plan of Treatment Date Care Activity Detail Author Start: 12-11-2022 Patient discharge [facility] Start: 10-30-2017 End: 10-30-2017 Patient encounter procedure Appointment [facility] Start: 10-18-2017 End: 10-18-2017 Appointment Appointment [facility] Work Phone: Start: 10-15-2017 End: 10-15-2017 Patient encounter procedure Appointment [facility] Start: 10-15-2017 End: 10-22-2017 Mammogram, screening Mammogram, Screening, both breasts [facility] Start: 10-15-2017 End: 10-22-2017 Us pelvic nonobstetric real-time image complete US Pelvis [facility] Start: 10-15-2017 End: 10-22-2017 Us transvaginal US Transvaginal [facility] Start: 09-17-2017 End: 09-17-2017 Appointment Appointment [facility] [employer] Work Phone: Start: 08-28-2017 End: 09-14-2017 Colonoscopy flx dx w/collj spec when pfrmd Colonoscopy [facility] [employer] [facility] Work Phone: Start: 08-28-2017 End: 09-14-2017 Colonoscopy flx dx w/collj spec when pfrmd Colonoscopy [facility] [employer] Work Phone: Start: 08-22-2017 End: 09-14-2017 Ct abdomen & pelvis w/contrast material CT Abdomen/pelvis; with contrast [employer] [facility] Work Phone: Start: 08-22-2017 End: 09-14-2017 Ct abdomen & pelvis w/contrast material CT Abdomen/pelvis; with contrast [facility] [employer] [facility] Work Phone: Start: 03-29-2017 End: 03-29-2017 Cardiovascular stress test using treadmill Treadmill stress test (no imaging) [facility] Work Phone: Start: 03-29-2017 End: 03-30-2017 Complete sleep workup (PSG,CPAP as indicated) & Follow up Complete sleep workup (PSG,CPAP as indicated) & Follow up [facility] Work Phone: Start: 03-29-2017 End: 03-29-2017 BE LR [facility] [employer] [facility] Work Phone: Start: 03-29-2017 End: 03-29-2017 Follow Up Appt 6 months Follow Up Appt 6 months [facility] Work Phone: Start: 03-29-2017 End: 03-29-2017 Patient encounter procedure Appointment [facility] [employer] Work Phone: Start: 03-29-2017 End: 03-30-2017 Cardiovascular stress test using treadmill Treadmill stress test (no imaging) [facility] Work Phone: Start: 03-29-2017 End: 03-30-2017 Complete sleep workup (PSG,CPAP as indicated) & Follow up Complete sleep workup (PSG,CPAP as indicated) & Follow up [facility] [employer] Work Phone: Start: 03-29-2017 End: 03-29-2017 DJN DJN [facility] Work Phone: Start: 03-29-2017 End: 03-29-2017 Follow Up Appt 6 months Follow Up Appt 6 months [facility] Work Phone: Start: 02-20-2017 End: 02-20-2017 Follow Up BP Check Follow Up BP Check [facility] Work Phone: Start: 02-20-2017 End: 02-20-2017 Follow Up BP Check Follow Up BP Check [facility] Work Phone: Start: 02-06-2017 End: 02-06-2017 Follow Up BP Check Follow Up BP Check [facility] Work Phone: Start: 02-06-2017 End: 02-06-2017 Follow Up BP Check Follow Up BP Check [facility] Work Phone: Start: 01-23-2017 End: 01-23-2017 DJN DJN [facility] Work Phone: Start: 01-23-2017 End: 01-23-2017 Follow Up Appt 1 month Follow Up Appt 1 month [facility] Work Phone: Start: 01-23-2017 End: 01-23-2017 DJN DJN [facility] Work Phone: Start: 01-23-2017 End: 01-23-2017 Follow Up Appt 1 month Follow Up Appt 1 month [facility] Work Phone: Start: 12-21-2016 End: 12-25-2016 *BMP *BMP [facility] Work Phone: Start: 12-21-2016 End: 12-25-2016 aPTT *PTT-Partial Thromboplastin Time [facility] Work Phone: Start: 12-21-2016 End: 12-25-2016 CBC W Auto Differential panel - Blood *CBC without Diff [facility] Work Phone: Start: 12-21-2016 End: 12-27-2016 Chest x-ray X-Ray, Chest, PA & Lateral [facility] [employer] [facility] Work Phone: Start: 12-21-2016 End: 01-23-2017 BE LR [facility] Work Phone: Start: 12-21-2016 End: 12-27-2016 Ecg routine ecg w/least 12 lds w/i&r EKG (In office) [facility] Work Phone: Start: 12-21-2016 End: 12-22-2016 Echocardiography Echocardiogram (complete) [facility] Work Phone: Start: 12-21-2016 End: 01-23-2017 Follow Up Appt 1 month Follow Up Appt 1 month [facility] [employer] Work Phone: Start: 12-21-2016 End: 12-25-2016 INR Coag RelTime (PPP) *PT/INR [facility] [employer] Work Phone: Start: 12-21-2016 End: 12-21-2016 Left Heart Cath Left Heart Cath [facility] [employer] Work Phone: Start: 12-21-2016 End: 12-25-2016 aPTT in Platelet poor plasma by Coagulation assay *PTT-Partial Thromboplastin Time [facility] Work Phone: Start: 12-21-2016 End: 12-25-2016 Basic metabolic 2000 panel - Serum or Plasma *BMP [facility] Work Phone: Start: 12-21-2016 End: 12-25-2016 CBC W Auto Differential panel - Blood *CBC without Diff [facility] Work Phone: Start: 12-21-2016 End: 12-27-2016 Chest x-ray X-Ray, Chest, PA & Lateral [facility] Work Phone: Start: 12-21-2016 End: 01-23-2017 BE LR [facility] Work Phone: Start: 12-21-2016 End: 12-27-2016 Ecg routine ecg w/least 12 lds w/i&r EKG (In office) [facility] Work Phone: Start: 12-21-2016 End: 12-22-2016 Echocardiography Echocardiogram (complete) [facility] Work Phone: Start: 12-21-2016 End: 01-23-2017 Follow Up Appt 1 month Follow Up Appt 1 month [facility] Work Phone: Start: 12-21-2016 End: 12-25-2016 INR in Platelet poor plasma by Coagulation assay *PT/INR [facility] Work Phone: Start: 12-21-2016 End: 12-21-2016 Left Heart Cath Left Heart Cath [facility] Work Phone: Colonoscopy [facility] DXA Bone [Mass/Area] Bone density [facility] MG Breast - bilatera l Screening [facility] MG Breast - bilatera l Screening [facility] Patient referral [facility] Work Phone: Radionuclide imaging of perfusion of myocardium under exercise stress [facility] Payers Date Payer Category Payer Self-pay [id number] 2024 Unknown [id number] 2024 Medicare [id number] 2024 Unknown [id number] 2010 Unknown [id number] 1955 Unknown [id number] 2.16.84 [id number] Unknown [id number] Unknown [employer] [facility] [id number] Unknown [id number] 2.16.8 [id number] Unknown [id number] 2.16.8 [id number] Unknown [id number] 2.16.8 [id number] Unknown [id number] 2.16.8 [id number] Unknown [id number] 2.16.8 [id number] Unknown [id number] 2.16.8 [id number] Social History Date Type Detail Facility Start: 07-11-2021 End: 09-12-2023 Tobacco smoking status ILIS Unknown if ever smoked [facility] Start: 04-21-2021 None [facility] Start: 04-10-2016 Spouse/ Signif icant Other [facility] Start: 1955 Sex Assigned At Female [facility] Start: 09-12-2023 Tobacco smoking status NHIS Never smoked tobacco (finding) [facility] Goals Date Patient Goal Desired Activity /State Mental Status Date Assessment Result Facility 12-11-2022 Cognitive function Voice/Name [facility] Work Phone: Clinical Notes 08-28-2017 to 03-20-2025 Note Date & Type Note Facility 03-20-2025 Evaluation note Diagnosis Onset Date Resolution Anxiety and depression chronic Ma y 2024 7:52am Essential hypertension chronic Ma y 2024 7:52am GERD (gastroesophageal reflux disease) chronic March 20, 2025 7: 52am Osteopenia chronic March 20, 2025 7:52am [facility] Work Phone: 1(754) 613-428601-23-2023 History and physical note Author Cecil Friend [facility] December 11, 2022 9:29am Note Date/Time December 11, 2022 9 :29am [facility] Medical Records Department [address] [place] [address] History & Physical Exam 12/11/22926 MR#: [id number] Acct: [id number] Name: AMALIA ANGEL Rep #:[id number] : 1955 67 From: Cecil Friend DO PCP: Dr. Sahil Escalante MD Status:REG S MD Location: [place] [id number] [facility] - General General Date of Admission: 12/11/22 Date of Service: 12/11/22 Chief Complaint: Screening colonoscopy HPI Brian ANGEL, is a 67 F who presents today for screening colonoscopy. She has a strong family history of colon cancer in a first-degree relative and second- degree relatives. She did have a colonoscopy 5 years ago and had 2 benign polyps that were removed. She is not have any abdominal pain. She denies any cramping. She denies any chest pain or shortness of breath. She is not having any lower GI bleeding. Overall she is in very good health. [facility] Medical History (Updated 12/08/22 @ 08:48 by Jossy Jolley) Cardiology follow-up encounter Depression Essential hypertension Gastric reflux GERD (gastroesophageal reflux disease) History of echocardiogram History of stress test Non-smoker Obesity Palpitations Post-menopausal Wears glasses Home Medications lansoprazole 15 mg capsule,delayed release (Prevacid 24Hr) 15 mg PO QHS 04/10/16[History Last Taken 04/10/16] citalopram 20 mg tablet (Celexa) 10 mg PO DAILY 12/03/18 [History Last Taken Unknown] hydrochlorothiazide 25 mg tablet 25 mg PO DAILY #90 tabs 07/11/21 [Rx Last Taken Unknown] enalapril maleate 20 mg tablet 20 mg PO DAILY #90 tabs 06/26/22 [Rx Last Taken Unknown] Allergy/AdvReac Type Severity Reaction Status Date / Time No Known Allergies Allergy Verified 12/08/22 08:42 Family History (Updated 10/17/22 @ 13:21 by Deborah Jacobson) Mother Hypertension Father Hypertension Colon cancer Aunt Colon cancer Uncle Colon cancer Surgical History (Updated 12/08/22 @ 08:48 by Jossy Jolley) History of colonoscopy History of dilatation and curettage History of left heart catheterization (12/27/16) Social History Smoking Status: Never smoker alcohol intake: current alcohol intake frequency: holidays/special occasions only substance use type: does not use caffeine: Yes Type: coffee Number of servings: 3 ROS Review of Systems ROS Unobtainable: other Constitutional Constitutional: Denies fatigue, fever(s), poor appetite, weight gain or weight loss ENT HEENT: Denies mouth lesions Cardiovascular Cardiovascular: Denies abdominal bloating, abdominal edema or abdominal pain Respiratory/Chest Respiratory/Chest: Denies change in mental status, change in phlegm color, chestcongestion or chest tightness Gastrointestinal Gastrointestinal: Denies belching, bloating, change in bowel habits, change in stool character, chewing difficulty, coffee ground emesis, constipation, cramping, diarrhea, dyspepsia, dysphagia, early satiety, excessive flatus, fecalincontinence, heartburn, hematemesis, hematochezia, hemorrhoids, loose stools, melena, nausea, odynophagia, rectal bleeding, tenesmus, vomiting or weight changes Genitourinary Genitourinary: Denies abdominal discomfort, burning urination or itching Musculoskeletal Musculoskeletal: Reports as per HPI; Denies muscle weakness or myalgias Integumentary Integumentary: Denies jaundice Neurologic Neurologic: Denies lack of coordination or weakness Psychiatric Psychiatric: Denies confusion, depression, memory loss, mood swings, paranoia orsuicidal ideation Endocrine Endocrinology: Denies systems reviewed and no addt'l complaints, except as documented Hematologic/Lymphatic Hematologic/Lymphatic: Denies anemia, easy bleeding, easy bruising or lymphadenopathy Allergic/Immunologic Allergic/Immunologic: Denies systems reviewed and no addt'l complaints, except as documented Physical Exam Const alert General Appearance: cooperative Orientation / Consciousness: oriented to person HEENT hearing grossly normal bilaterally Head and Scalp: normal to inspection Face and Sinus: face symmetric Nose: external nose normal Mouth: oral and palatal mucosa normal Eyes conjunctivae normal General Eye: normal appearance of both eyes Neck full ROM General: normal visual inspection Lymph Lymphatic: no lymphadenopathy noted Chest inspection of chest normal and palpation of chest normal Chest: symmetrical chest wall rise Resp normal respiratory effort Effort and Inspection: able to speak in complete sentences Cardio regular rate GI non-distended Percussion: normal to percussion Rectal Exam: deferred Neuro Speech: speech normal Gait (Neuro): normal gait Assessment & Plan Assessment/Plan (1) Encounter for screening for malignant neoplasm of colon: PLAN: She will undergo a colonoscopy. She was explained alternatives, risk, benefits include not withstanding bleeding, infection, sepsis, perforation, needfor emergent surgery . She will have an ASA of 1. (2) Family history of colon cancer: 12/11/22 09 <Electronically signed by Cecil Wilks DO> Cosigner Signature (if applicable): CC: Dr. Sahil Escalante MD; Cecil Wilks, ~ Signed [facility] Work Phone: 1(297) 266-696301-23-2023 Procedure [facility] 12-11-2022 Procedure [facility]10-30-2017 Fall risk [id number]/10/30[facility] risk assessmentW Surgical [employer] Work Phone: 1(450) 800-264710-10-2017 Fall risk [id number]/10[facility] assessment[facility] [employer] Work Phone: Evaluation noteNo assessment information available [facility] Work Phone: Evaluation note* Diagnosis Onset Date Resolution Status Essential hypertension chron ic [facility] Work Phone: Evaluation note* Diagnosis Onset Date Resolution Status Encounter for screening for malignant neoplasm of colo n acute Family history of colon cancer acute [facility] Work Phone: Evaluation note* Diagnosis Onset Date Resolution Status Anxiety and depression chron ic Essential hypertension chron ic Osteopenia chronic Sleep concern chronic [facility] Work Phone: Evaluation note* Diagnosis Onset Date Resolution Status Anxiety and depression chron ic Essential hypertension chron ic Osteopenia chronic [facility] Work Phone: Reason for referral (narrative)No reason for referral information availableAs[facility] Work Phone: Summary Purpose Family History Relationship Condition Age at Onset Recorded Date/T caron mother Hypertension Unknown father Hypertension Unknown Relationship Condition Age at Onset Recorded Date/T caron mother Hypertension Unknown father Hypertension Unknown Malignant neoplasm of colon Unknown aunt Malignant neoplasm of colon Unknown uncle Malignant neoplasm of colon Unknown Advance Directives Advance Directive Response Recorded Date/ Time Advance Directives Yes December 27, 2016 8:18am Living Will Yes August 31 3:32pm Power of Agile Developer Yes August 31, 2017 3:32pm Advance Directive Response Recorded Date/ Time Name of Medical Power of Agile Developer CARLOS ANGEL December 08, 2022 8:48am Advance Directives Yes December 27, 2016 7:18am Living Will Yes December 08 8:48am Power of Agile Developer Yes December 08, 2022 8:48am Advance Directive Response Recorded Date/ Time Advance Directives Yes December 27, 2016 8:18am Living Will Yes December 08 9:48am Power of Agile Developer Yes December 08, 2022 9:48am Advance Directive Response Recorded Date/ Time Living Will Yes December 08 9:48am Do you have a Healthcare Power of Agile Developer? Yes December 08, 2022 9:48am Advance Directives Yes December 27, 2016 8:18am Chief Complaint and Reason for Visit Chief Complaint Admit Date 6 M FU March 20, 2025 7:52am 3 M FU June 26, 2025 8:5 8am Reason for Visit Admit Date Anxiety and depression March 20, 2025 7:5 2am Essential hypertension March 20, 2025 7:5 2am GERD (gastroesophageal reflux disease) M ay 2024 7:52am Osteopenia March 20, 2025 7:52am Chief Complaint LLQ PAIN Chief Complaint LLQ PAIN 1 YR F/U (DJN PT) SCREENING Reason for Visit Essential hypertensi on Chief Complaint Amb Documentation Reason for Visit Encounter for screen ing for malignant neoplasm of colon Family history of colon cancer Chief Complaint SCREENING/OSTEO Chief Complaint SCREENING/OSTEO 6 M FU Reason for Visit Anxiety and depressi on Essential hypertension Osteopenia Sleep concern Chief Complaint 6 M FU Reason for Visit Anxiety and depressi on Essential hypertension Osteopenia Chief Complaint Admit Date 6 M FU March 20, 2025 7:52am Reason for Visit Admit Date Anxiety and depression March 20, 2025 7:5 2am Essential hypertension March 20, 2025 7:5 2am GERD (gastroesophageal reflux disease) M ay 2024 7:52am Osteopenia March 20, 2025 7:52am Chief Complaint Admit Date 6 M FU March 20, 2025 7:52am 3 M FU June 26, 2025 8:5 8am Additional Source Comments INFORMATION SOURCE (unrecogn ized section and content) DATE CREATED AUTHOR 10/17/2020 [facility] DATE CREATED AUTHOR AUTHOR'S DANIELLE ATJOEL 10/22/2020 [facility] DATE CREATED AUTHOR AUTHOR'S ORGANIZ ATION 03/30/2025 [facility] Goals (unrecognized section and content) Goals may be documented in a n alternate sectionGoals may be documented in an alternate sectionGoals may be documented in an alternate sectionGoals may be documented in an alternate sectionGoals may be documented in an alternate sectionGoals may be documented in an alternate sectionGoals may be documented in an alternate section Care Teams (unrecognized sec tion and content) Team Status: Active Member Role Status Dates Dr. Sahil Escalante MD Family Provider Active Dr. Sahil Escalante MD Primary Care Provider Active Team Status: Active Member Role Status Dates Dr. Sahil Escalante MD Primary Care Provider Active [facility] Attending Provider Active Team Status: Active Member Role Status Dates Dr. Sahil Escalante MD Primary Care Provider Active Dr. Cecil Wilks DO Attending Provid er, Referring Provider, Other Provider Active Team Status: Inactive Member Role Status Dates Dr. Sahil Escalante MD Primary Care Provider Active Dr. Cecil Wilks DO Attending Provider, Referring Provider Active Team Status: Inactive Member Role Status Dates Dr. Sahil Escalante MD Primary Care Provider Active Dr. Shalonda Tian MD Attending Provider, Referrin g Provider Active Team Status: Active Member Role Status Dates Dr. Sahil Escalante MD Family Provider Active Dr. Shalonda Tian MD Primary Care Provider Active Team Status: Inactive Member Role Status Dates Dr. Sahil Escalante MD Primary Care Provider, Referring Provider Active Dr. Shalonda Tian MD Attending Provider Active Team Status: Inactive Member Role Status Dates Dr. Shalonda Tian MD Primary Care P rovider, Attending Provider, Referring Provider Active Team Status: Inactive Member Role Status Dates Dr. Shalonda Tian MD Primary Care Provider, Atten ding Provider Active Team Status: Inactive Member Role Status Dates Dr. Shalonda Tian MD Primary Care Provider Active Start: March 20, 2025 End: March 20, 2025 Dr. Shalonda Tian MD Attending Provider Active Start: March 20, 2025 End: March 20, 2025 Dr. Shalonda Tian MD Referring Provider Active Start: March 20, 2025 End: March 20, 2025 Team Status: Inactive Member Role Status Dates Dr. Shalonda Tian MD Primary Care Provider Active Start: March 24, 2025 End: March 24, 2025 Dr. Shalonda Tian MD Attending Provider Active Start: March 24, 2025 End: March 24, 2025 Team Status: Active Member Role/Relationship Status Dates Dr. Sahil Escalante MD Family Provider Active Dr. Shalonda Tian MD Primary Care Provider Active Team Status: Inactive Member Role/Relationship Status Dates Dr. Shalonda Tina MD Primary Care Provider Active Start: March 20, 2025 End: March 20, 2025 Dr. Shalonda Tian MD Attending Provider Active Start: March 20, 2025 End: March 20, 2025 Dr. Shalonda Tian MD Referring Provider Active Start: March 20, 2025 End: March 20, 2025 Team Status: Inactive Member Role/Relationship Status Dates Dr. Shalonda Tian MD Primary Care Provider Active Start: March 24, 2025 End: March 24, 2025 Dr. Shalonda Tian MD Attending Provider Active Start: March 24, 2025 End: March 24, 2025 Team Status: Inactive Member Role/Relationship Status Dates Dr. Shalonda Tian MD Primary Care Provider Active Start: June 26, 2025 End: June 26, 2025 Dr. Shalonda Tian MD Attending Provider Active Start: June 26, 2025 End: June 26, 2025 Dr. Shalonda Tian MD Referring Provider Active Start: June 26, 2025 End: June 26, 2025 FOR RECORDS PERTAINING TO PATIENTS WHO ARE OR HAVE BEEN ENROLLED IN A CHEMICAL DEPENDENCY/SUBSTANCEABUSE PROGRAM, SOME INFORMATION MAY BE OMITTED. This clinical summary was aggregated from multiple sources. Caution should be exercised in using it in the provision of clinical care. This summary normalizes information from multiple sources, and as a consequence, information in this document may materially change the coding, format and clinical context of patient data. In addition, data may be omitted in some cases. CLINICAL DECISIONS SHOULD BE BASED ON THE PRIMARY CLINICAL RECORDS. [facility] [employer] [facility]. provides no warranty or guarantee of the accuracy or completeness of information in this document.
[2025-06-26 11:40] LABS: Hematocrit 41.7 % (37-47); Hemoglobin 13.4 g/dL (12.0-15.0); Immature Granulocytes Count 0.020 X10^3/uL (0.0-0.0); Mean Corp Hgb Conc 32.1 g/dL (32-36); Mean Corpuscular Volume 83.7 fL (81-99); Mean Platelet Vol. 11.6 fl (6.2-12.0); NRBC Flagged by Analyzer 0 % (0-5); Platelet Count 348 K/mm3 (150-450); RBC Distribution Width CV 14.4 % (11.6-14.6); RBC Distribution Width SD 43.5 fl (35.1-43.9); Red Blood Count 4.98 M/mm3 (4.2-5.4); White Blood Count 5.0 K/mm3 (4.4-11.0)
[2025-06-26 12:57] LABS: AST(SGOT) 22 U/L (<=31); Alanine Aminotransfer ALT/SGPT 19 U/L (<=34); Albumin, Serum 4.3 g/dL (3.4-4.8); Alkaline Phosphatase 64 U/L (35-104); Anion Gap 14 (5-15); BUN 17 mg/dL (4-19); BUN/Creat Ratio 19.2 RATIO (10-20); Calcium,Total 9.5 mg/dL (7.6-11.0); Carbon Dioxide 25.5 mmol/L (21.0-32.0); Chloride 101 mmol/L (98-108); Cholesterol 125 mg/dL (<=200); Globulin 3.1 g/dL (2.2-4.2); Glucose 101 mg/dL (70-99); Low Density Lipoprotein Calc. 59 mg/dL; Potassium 3.9 mmol/L (3.3-5.1); Triglycerides 97 mg/dL; Troponin T High Sensitivity < 6 ng/L (<=14); Very Low Density Lipoprotein 19 mg/dL (5-40); cholesterol:hdl ratio screen 2.68
== END | disposition home or self-care (01) ==
LOC: LAB 10:01
PROVIDERS: PCP Internal Medicine; Referring Provider Internal Medicine; Visit Provider Internal Medicine
DX: R07.9 Chest pain, unspecified (principal); I10 Essential (primary) hypertension
CPT/HCPCS: 36415; 80053; 80061; 84439; 84443; 84484; 85025

== ENCOUNTER → 2025-07-27 | Outpatient (CLI) | payer MEDICARE, OTHER, SELFPAY ==
--- OUTSIDE RECORDS SUMMARY | 2025-07-27 06:24 | XMS RPT_ITS | CCD ---
Author Organization [facility] Care Team Providers Care Quality Process Lead Name Role Phone Jonelle CARMONA, Lobo Burnham Unavailable JOSE URIAS Attending Unavailable JOSE URIAS Primary Care Unavailable JOSE URIAS Admitting Unavailable Melanie, RN, Maribell M Unavailable UnavailCandice Freire Unavailable Unavailable Candice Erazo Unavailable Unavailable Lobo Sal MD Unavailable Ramya LOOM FIXER SUPERVISOR, Melanie S Unavailable Leona RN, Martha Romero Unavailable Unavailable Dr. Sahil Escalante Primary Care Provider Dr. Sahil Escalante Referring Provider Dr. Johnny Field Attending Provider Dr. Sahil Escalante Primary Care Provider Deborah Jacobson Attending Provider Unavailable Dr. Cecil Wilks Attending Provider [phone] Dr. Cecil Wilks Referring Provider Dr. Cecil Wilks Other Provider Dr. Sahil Escalante Primary Care Provider Unavaila ble Dr. Sahil Escalante Referring Provider Unavailable Dr. Shalonda Tian Attending Provider [phone] Dr. Shalonda Tian Primary Care Provider [phone] Dr. Shalonda Tian Attending Provider [phone] Dr. Shalonda Tian Referring Provider [phone] Oleghe MD, Dr. Efewongbe Primary Care Provider Jaylan CARMONA, Dr. Liz Attending Provider [phone] Jaylan CARMONA, Dr. Liz Referring Provider [phone] Oleghe, Efewongbe Referring Unavailable Oleghe, Efewongbe Attending Unavailable Oleghe, Efewongbe Primary Care Unavailable Oleghe, Efewongbe Referring Unavailable Oleghe, Efewongbe Attending Unavailable Oleghe, Efewongbe Primary Care Unavailable Oleghe, Efewongbe Referring Unavailable Oleghe, Efewongbe Attending Unavailable Oleghe, Efewongbe Primary Care Unavailable Oleghe, Efewongbe Referring Unavailable Oleghe, Efewongbe Primary Care Unavailable Oleghe, Efewongbe Attending Unavailable Oleghe, Efewongbe Referring Unavailable Oleghe, Efewongbe Primary Care Unavailable Oleghe, Efewongbe Attending Unavailable Oleghe, Efewongbe Primary Care Unavailable Oleghe, Efewongbe Referring Unavailable Oleghe, Efewongbe Attending Unavailable Oleghe, Efewongbe Primary Care Unavailable Oleghe, Efewongbe Attending Unavailable Oleghe, Efewongbe Primary Care Unavailable Oleghe, Efewongbe Referring Unavailable Oleghe, Efewongbe Attending Unavailable Medications Current Medications Medication Drug Class(es) Dates Sig (Normalized) Sig (Original) calcium carbonate 1250 mg chewable tablet (5 sources) Start: 09-12-2023 take 1 tablet by mouth once daily Calcium Carbonate (Calcium 500) 500 mg calcium (1,250 mg) tablet,chewable Active 500 mg PO DAILY September 12, 2023 12:00am cholecalciferol 0.025 mg oral capsule (5 sources) Vitamin D Start: 09-12-2023 take 1 capsule by mouth once daily Cholecalciferol (Vitamin D3) 25 mcg (1,000 unit) capsule Active 25 ug PO DAILY September 12, 2023 12:00am citalopram 20 mg oral tablet (20 sources) Serotonin Reuptake Inhibitor Start: 03-20-2025 take 1 tablet by mouth once daily Citalopram (Celexa) 20 mg tablet Active 20 mg PO DAILY 90 90 1 March 20, 2025 8:16am Start: 12-03-2018 End: 03-20-2025 take 10 mg by mouth once daily Citalopram (Celexa) 20 mg tablet Discontinued 10 mg PO DAILY 45 90 March 21, 2024 1:06pm March 20, 2025 8:16am Start: 12-03-2018 take 1 tablet by nader th once daily Citalopram (Celexa) 20 mg tablet Active 20 MG PO DAILY December 03, 2018 1:00am Start: 04-26-2016 End: 08-28-2017 take 1 tablet by mouth once daily CITALOPRAM HYDROBROMIDE 10 MG TABS One tablet by mouth daily CITALOPRAM HYDROBROMIDE [id number] Martha Delgadillo RN lansoprazole 15 mg delayed release oral capsule (20 sources) Proton Pump Inhibitor Start: 04-10-2016 End: 03-20-2025 take 1 capsule by mouth at bedtime Lansoprazole (Prevacid 24hr) 15 mg capsule,delayed release(DR/EC) Active 15 mg PO AT BEDTIME 90 1 March 20, 2025 8:20am Completed/Discontinued Medications Medication Drug Class(es) Dates Sig (Normalized) Sig (Original) aluminum hydroxide 40 mg/ml / magnesium hydroxide 40 mg/ml / simethicone 4 mg/ml oral suspension (20 sources) Start: 04-26-2016 End: 12-21-2016 MYLANTA 200-200-20 MG/5ML SUSP 30 cc po q 6 hours as needed ALUM & MAG HYDROXIDE-SIMETH [id number] Martha Delgadillo RN aspirin 81 mg delayed release oral tablet (20 sources) Platelet Aggregation Inhibitor, Nonsteroidal Anti-inflammatory Drug [...] Start: 12-27-2016 take 1 tablet by nader th twice daily CARVEDILOL 25 MG TABS One tablet by mouth twice daily CARVEDILOL [id number] Ayde Carpenter RN Start: 12-27-2016 take 2 tablets by mo ut twice daily CARVEDILOL 3.125 MG TABS 2 tablets by mouth twice daily CARVEDILOL [id number] Lobo Delcid MD Start: 12-27-2016 take 1 tablet by nader th twice daily CARVEDILOL 3.125 MG TABS One tablet by mouth twice daily CARVEDILOL [id number] Lobo Delcid MD clopidogrel 75 mg oral tablet (20 sources) P2Y12 Platelet Inhibitor Start: 12-21-2016 End: 12-27-2016 take 1 tablet by mouth once daily PLAVIX 75 MG TABS One tablet by mouth daily CLOPIDOGREL BISULFATE [id number] Lobo Delcid MD enalapril maleate 20 mg oral tablet (20 sources) Angiotensin Converting Enzyme Inhibitor Start: 06-26-2022 End: 03-20-2025 take 1 tablet by mouth once daily Enalapril Maleate 20 mg tablet Discontinued 20 mg PO DAILY 90 3 June 30, 2024 10:27am March 20, 2025 [...] 11, 2021 12:54pm July 11, 2021 11:49am hydroCHLOROthiazide 25 mg oral tablet (20 sources) Thiazide Diuretic Start: 07-14-2019 End: 05-15-2025 take 1 tablet by mouth once daily Hydrochlorothiazide 25 mg tablet Discontinued 25 mg PO DAILY 90 0 February 11, 2025 1:18pm May 15, 2025 8:23am Start: 12-20-2017 End: [...] TABS One tablet by mouth daily HYDROCHLOROTHIAZIDE [id number] Lobo Delcid MD valsartan 160 mg oral tablet (20 sources) Angiotensin 2 Receptor Kimmy Start: 04-10-2016 End: 07-09-2020 take 1 tablet by mouth at bedtime Valsartan 160 MG tablet Discontinued 160 mg PO AT BEDTIME April 10, 2016 12:00am July 09, 2020 11:39am Problems Active Problems Problem Classification Problem Date Documented Date Episodic/Chronic Administrative/social admission (6 sources) General problem AND/OR complaint; Translations: [Persons encountering health services in other specified circumstances] 09-12-2023 Episodic Anxiety disorders (12 sources) Mixed anxiety and depressive disorder; Translations: [Anxiety disorder, unspecified] 03-05-2023 Chronic Cardiac dysrhythmias (20 sources) Palpitations; Translations: [Palpitations] Onset: 12-21-2016 12-21-2016 Episodic Esophageal disorders (7 sources) Gastroesophageal reflux disease; Translations: [Gastro-esophageal reflux disease without esophagitis] 09-19-2024 Chronic Essential hypertension (20 sources) Hypertensive disorder; Translations: [Essential (primary) hypertension] Onset: 04-26-2016 04-26-2016 Chronic Nonspecific chest pain (16 sources) Chest pain; Translations: [Chest pain, unspecified] Onset: 04-26-2016 04-26-2016 Episodic Other bone disease and musculoskeletal deformities (9 sources) Osteopenia; Translations: [Other specified disorders of bone density and structure, unspecified site] 03-05-2023 Episodic Other nervous system disorders (2 sources) Other disturbances of smell and taste; Translations: [Other disturbances of smell and taste] Onset: 10-16-2020 Episodic Other nutritional; endocrine; and metabolic disorders (11 sources) Body mass index (BMI) 34.0-34.9, adult; Translations: [Body mass index (BMI) 34.0-34.9, adult] Onset: 12-21-2016 12-21-2016 Chronic Other nutritional; endocrine; and metabolic disorders (9 sources) Obesity; Translations: [Obesity, unspecified] 12-17-2018 Chronic Other screening for suspected conditions (not mental disorders or infectious disease) (9 sources) Patient encounter status; Translations: [Encounter for screening for malignant neoplasm of colon] Onset: 07-24-2025 10-17-2022 Episodic Other skin disorders (6 sources) Lesion of scalp; Translations: [Disorder of the skin and subcutaneous tissue, unspecified] 03-05-2023 Episodic Residual codes; unclassified (8 sources) Family history of cancer of colon; Translations: [Family history of malignant neoplasm of digestive organs] 06-27-2022 Episodic Residual codes; unclassified (1 source) Family history of malignant neoplasm of digestive organs; Translations: [Family history of malignant neoplasm of gastrointestinal tract] 12-11-2022 Episodic Residual codes; unclassified (2 sources) Asymptomatic menopausal state; Translations: [Asymptomatic menopausal state] [...] colonic polyps] Onset: 08-28-2017 08-30-2017 Episodic Other bone disease and musculoskeletal deformities (3 sources) Other specified disorders of bone density and structure, unspecified site; Translations: [Disorder of bone and cartilage, unspecified] Onset: 03-20-2025 09-12-2023 Episodic Other lower respiratory disease (11 sources) Dyspnea; Translations: [Shortness of breath] Onset: 12-21-2016 12-21-2016 Episodic Results Test Name Value Interpretation Reference Range Facility Absolute lymphocyte countOrd ered By: Shalonda Tian on 06-26-2025 Lymphocytes Auto (Unsp spec) [#/Vol] 1.38 10*3/uL 0.83-4.51 [facility] Absolute neutrophil countOrd ered By: Shalonda Tian on 06-26-2025 Neutrophils (Bld) [#/Vol] 3.1 10*3/uL 2.0-7.7 [facility] Anion gap in Serum or Plasma Ordered By: Shalonda Tian on 06-26-2025 Anion gap [Moles/Vol] 14 mmol/L 5-15 [facility] Automated lymphocyte count a s percentage of total leukocytesOrdered By: Shalonda Tian on 06-26-2025 Lymphocytes/100 WBC Auto (Unsp spec) 27.5 % 19-41 [facility] BUN/creatinine ratioOrdered By: Shalonda Tian on 06-26-2025 Urea nitrogen/Creatinine [Mass ratio] 19.2 mg/mg 10-20 [facility] Basophil percentageOrdered B y: Shalonda Tian on 06-26-2025 Basophils/100 WBC (Bld) 0.6 % 0-1 [facility] Bilirubin, totalOrdered By: Shalonda Tian on 06-26-2025 Bilirubin [Mass/Vol] 0.40 mg/dL 0.00-1.30 [facility] CBC W/Diff, Automatedon Absolute Lymph 1.38 X10 3/uL Normal 0.83-4.51 [facility] Comment on above: Performed By: #### L 501.4021, L500.4100, L506.0400, L100.0100, L501.9520, L500.4050 ####[facility] [address] [place], [address] Absolute Neut 3.1 X10 3/uL Normal 2.0-7.7 [facility] Comment on above: Performed By: #### L 501.4021, L500.4100, L506.0400, L100.0100, L501.9520, L500.4050 ####[facility] [address] [place], [address] Basophils/100 WBC (Bld) 0.6 % Normal 0-1 [facility] Comment on above: Performed By: #### L 501.4021, L500.4100, L506.0400, L100.0100, L501.9520, L500.4050 ####[facility] [address] [place], [address] Eosinophils/100 WBC (Bld) 1.0 % Normal 0-5 [facility] Comment on above: Performed By: #### L 501.4021, L500.4100, L506.0400, L100.0100, L501.9520, L500.4050 ####[facility] [address] [place], [address] Erythrocyte distribution width (RBC) [Ratio] 14.4 % Normal 11.6-14.6 [facility] Comment on above: Performed By: #### L 501.4021, L500.4100, L506.0400, L100.0100, L501.9520, L500.4050 ####[facility] [address] [place], [address] Hematocrit (Bld) [Volume fraction] 41.7 % Normal 37-47 [facility] Comment on above: Performed By: #### L 501.4021, L500.4100, L506.0400, L100.0100, L501.9520, L500.4050 ####[facility] [address] [place], [address] Hemoglobin (Bld) [Mass/Vol] 13.4 g/dL Normal 12.0-15.0 [facility] Comment on above: Performed By: #### L 501.4021, L500.4100, L506.0400, L100.0100, L501.9520, L500.4050 ####[facility] [address] [place], [address] IG% 0.400 Normal 0.0-0.9 [facility] Comment on above: Result Comment: IG% - Immature Granulocytes (promyelocytes, myelocytes and metamyelocytes) > 1% indicates that a LEFT SHIFT is Present. Performed By: #### L 501.4021, L500.4100, L506.0400, L100.0100, L501.9520, L500.4050 ####[facility] [address] [place], [address] Lymphocytes/100 WBC (Bld) 27.5 % Normal 19-41 [facility] Comment on above: Performed By: #### L 501.4021, L500.4100, L506.0400, L100.0100, L501.9520, L500.4050 ####[facility] [address] [place], [address] MCH (RBC) [Entitic mass] 26.9 pg Low 27.0-32.0 [facility] Comment on above: Performed By: #### L 501.4021, L500.4100, L506.0400, L100.0100, L501.9520, L500.4050 ####[facility] [address] [place], [address] MCHC (RBC) [Mass/Vol] 32.1 g/dL Normal 32-36 [facility] Comment on above: Performed By: #### L 501.4021, L500.4100, L506.0400, L100.0100, L501.9520, L500.4050 ####[facility] [address] [place], [address] MCV (RBC) [Entitic vol] 83.7 fL Normal 81-99 [facility] Comment on above: Performed By: #### L 501.4021, L500.4100, L506.0400, L100.0100, L501.9520, L500.4050 ####[facility] [address] [place], [address] Monocytes/100 WBC (Bld) 9.2 % Normal 0-10 [facility] Comment on above: Performed By: #### L 501.4021, L500.4100, L506.0400, L100.0100, L501.9520, L500.4050 ####[facility] [address] [place], [address] Neutrophils/100 WBC (Bld) 61.3 % Normal 47-70 [facility] Comment on above: Performed By: #### L 501.4021, L500.4100, L506.0400, L100.0100, L501.9520, L500.4050 ####[facility] [address] [place], [address] Nucleated RBC (Bld) [#/Vol] 0 10*3/uL Normal 0-5 [facility] Comment on above: Performed By: #### L 501.4021, L500.4100, L506.0400, L100.0100, L501.9520, L500.4050 ####[facility] [address] [place], [address] Platelet mean volume (Bld) [Entitic vol] 11.6 fL Normal 6.2-12.0 [facility] Comment on above: Performed By: #### L 501.4021, L500.4100, L506.0400, L100.0100, L501.9520, L500.4050 ####[facility] [address] [place], [address] Platelets (Bld) [#/Vol] 348 10*3/uL Normal 150-450 [facility] Comment on above: Performed By: #### L 501.4021, L500.4100, L506.0400, L100.0100, L501.9520, L500.4050 ####[facility] [address] [place], [address] RBC (Bld) [#/Vol] 4.98 10*6/uL Normal 4.2-5.4 [facility] Comment on above: Performed By: #### L 501.4021, L500.4100, L506.0400, L100.0100, L501.9520, L500.4050 ####[facility] [address] [place], [address] RDW SD 43.5 fl Normal 35.1-43.9 [facility] Comment on above: Performed By: #### L 501.4021, L500.4100, L506.0400, L100.0100, L501.9520, L500.4050 ####[facility] [address] [place], [address] WBC (Bld) [#/Vol] 5.0 10*3/uL Normal 4.4-11.0 [facility] Comment on above: Performed By: #### L 501.4021, L500.4100, L506.0400, L100.0100, L501.9520, L500.4050 ####[facility] [address] [place], [place], [address] Calculated very low density lipoprotein (VLDL) cholesterol measurementOrdered By: Shalonda Tian on 06-26-2025 Calculated very low density lipoprotein (VLDL) cholesterol measurement 19 mg/dL 5-40 [facility] Carbon dioxide, total [Moles /volume] in Central venous bloodOrdered By: Shalonda Tian on 06-26-2025 CO2 [Moles/Vol] 25.5 mmol/L 21.0-32.0 [facility] Chloride assayOrdered By: Ryley Tian on 06-26-2025 Chloride [Moles/Vol] 101 mmol/L 98-108 [facility] Comprehensive Metabolic Prof ilon 06-26-2025 Albumin [Mass/Vol] 4.3 g/dL Normal 3.4-4.8 [facility] Comment on above: Performed By: #### L 501.4021, L500.4100, L506.0400, L100.0100, L501.9520, L500.4050 ####[facility] [address] [place], [place], [address] Albumin/Globulin [Mass ratio] 1.4 {ratio} Normal 0.9-2.4 [facility] Comment on above: Performed By: #### L 501.4021, L500.4100, L506.0400, L100.0100, L501.9520, L500.4050 ####[facility] [address] [place], [address] ALK PHOS 64 U/L Normal 35-104 [facility] Comment on above: Performed By: #### L 501.4021, L500.4100, L506.0400, L100.0100, L501.9520, L500.4050 ####[facility] [address] [place], [address] ALT [Catalytic activity/Vol] 19 U/L Normal <=34 [facility] Comment on above: Performed By: #### L 501.4021, L500.4100, L506.0400, L100.0100, L501.9520, L500.4050 ####[facility] [address] [place], [address] AST [Catalytic activity/Vol] 22 U/L Normal <=31 [facility] Comment on above: Performed By: #### L 501.4021, L500.4100, L506.0400, L100.0100, L501.9520, L500.4050 ####[facility] [address] [place], [address] Bilirubin [Mass/Vol] 0.40 mg/dL Normal 0.00-1.30 [facility] Comment on above: Performed By: #### L 501.4021, L500.4100, L506.0400, L100.0100, L501.9520, L500.4050 ####[facility] [address] [place], [address] BUN/CRE 19.2 RATIO Normal 10-20 [facility] Comment on above: Performed By: #### L 501.4021, L500.4100, L506.0400, L100.0100, L501.9520, L500.4050 ####[facility] [address] [place], [address] Calcium [Mass/Vol] 9.5 mg/dL Normal 7.6-11.0 [facility] Comment on above: Performed By: #### L 501.4021, L500.4100, L506.0400, L100.0100, L501.9520, L500.4050 ####[facility] [address] [place], [address] Chloride [Moles/Vol] 101 mmol/L Normal 98-108 [facility] Comment on above: Performed By: #### L 501.4021, L500.4100, L506.0400, L100.0100, L501.9520, L500.4050 ####[facility] [address] [place], [address] CO2 [Moles/Vol] 25.5 mmol/L Normal 21.0-32.0 [facility] Comment on above: Performed By: #### L 501.4021, L500.4100, L506.0400, L100.0100, L501.9520, L500.4050 ####[facility] [address] [place], [address] Creatinine [Mass/Vol] 0.86 mg/dL Normal 0.70-1.20 [facility] Comment on above: Performed By: #### L 501.4021, L500.4100, L506.0400, L100.0100, L501.9520, L500.4050 ####[facility] [address] [place], [address] GAP 14 Normal 5-15 [facility] Comment on above: Performed By: #### L 501.4021, L500.4100, L506.0400, L100.0100, L501.9520, L500.4050 ####[facility] [address] [place], [address] GFR/1.73 sq M.predicted among non-blacks MDRD (S/P/Bld) [Vol rate/Area] 72 mL/min/{1.73_m2} Normal >60 [facility] Comment on above: Result Comment: mL/m in/1.73m2 CKD-EPI Creatinine Equation (2020) Performed By: #### L 501.4021, L500.4100, L506.0400, L100.0100, L501.9520, L500.4050 ####[facility] [address] [place], [address] Globulin (S) [Mass/Vol] 3.1 g/dL Normal 2.2-4.2 [facility] Comment on above: Performed By: #### L 501.4021, L500.4100, L506.0400, L100.0100, L501.9520, L500.4050 ####[facility] [address] [place], [address] Glucose [Mass/Vol] 101 mg/dL High 70-99 [facility] Comment on above: Performed By: #### L 501.4021, L500.4100, L506.0400, L100.0100, L501.9520, L500.4050 ####[facility] [address] [place], [address] Potassium [Moles/Vol] 3.9 mmol/L Normal 3.3-5.1 [facility] Comment on above: Performed By: #### L 501.4021, L500.4100, L506.0400, L100.0100, L501.9520, L500.4050 ####[facility] [address] [place], [address] Sodium [Moles/Vol] 141 mmol/L Normal 133-145 [facility] Comment on above: Performed By: #### L 501.4021, L500.4100, L506.0400, L100.0100, L501.9520, L500.4050 ####[facility] [address] [place], [address] T PROT 7.4 g/dL Normal 5.9-8.4 [facility] Comment on above: Performed By: #### L 501.4021, L500.4100, L506.0400, L100.0100, L501.9520, L500.4050 ####[facility] [address] [place], [address] Urea nitrogen [Mass/Vol] 17 mg/dL Normal 4-19 [facility] Comment on above: Performed By: #### L 501.4021, L500.4100, L506.0400, L100.0100, L501.9520, L500.4050 ####[facility] [address] [place], [place], [id number] Eosinophil percentageOrdered By: Shalonda Tian on 06-26-2025 Eosinophils/100 WBC (Bld) 1.0 % 0-5 [facility] Erythrocyte distribution wid th ratioOrdered By: Shalonda Tian on 06-26-2025 Erythrocyte distribution width (RBC) [Ratio] 14.4 % 11.6-14.6 [facility] Erythrocyte distribution wid th standard deviationOrdered By: Shalonda Tian on 06-26-2025 Erythrocyte distribution width (RBC) [Ratio] 43.5 fl 35.1-43.9 [facility] Glomerular filtration rate ( GFR) estimation/1.73 sq m using serum, plasma, or whole bOrdered By: Shalonda Tian on 06-26-2025 GFR/1.73 sq M.predicted among non-blacks MDRD (S/P/Bld) [Vol rate/Area] 72 mL/min/{1.73_m2} >60 [facility] Comment on above: mL/min/1.73m2 CKD-EP I Creatinine Equation (2020) Hematocrit Auto (Bld) [Volum e fraction]Ordered By: Shalonda Tian on 06-26-2025 Hematocrit (Bld) [Volume fraction] 41.7 % 37-47 [facility] Hemoglobin measurementOrdere d By: Shalonda Tian on 06-26-2025 Hemoglobin (Bld) [Mass/Vol] 13.4 g/dL 12.0-15.0 [facility] Immature granulocytes/100 WB C Auto (Bld)Ordered By: Shalonda Tian on 06-26-2025 Immature granulocytes/100 WBC (Bld) 0.400 % 0.0-0.9 [facility] Comment on above: IG% - Immature Granu locytes (promyelocytes, myelocytes and metamyelocytes) > 1% indicates that a LEFT SHIFT is Present. Internal Medicine Office Vis iton 06-26-2025 Internal Medicine Office Visit [facility] [address] [place] [address] [place] [address] OFFICE VISIT Date of Service: 06/26/25 MR#: [id number] Acct: [id number] Name: AMALIA ANGEL Rep #: [id number] : 1955 Provider: Dr. Shalonda rangel MD Age/Sex: 70/F Location: [facility] Status: Signed Intake Vital Signs 03/20/25 07:59 06/26/25 09:09 Height 5 ft 5 in 5 ft 5 in Weight: 198 lb BMI 32.9 BP 142/88 H Blood Pressure Location Lt brachial Position Sitting Respiration 18 Pulse 84 Pulse Source Monitor Temp 98.2 F Temp Source Temporal Pulse Oximetry (%) 98 Oxygen Delivery Method room air Intake Visit Reasons: 3 M FU Chief Complaint: 3 M FU Is patient in pain?: No Allergies No Known Allergies Allergy (Verified 06/26/25 09:08) Medications ???Medication ???Instructions ???Recorded ???Confirmed ???Type calcium carbonate (Calcium 500) 500 mg PO DAILY 09/12/23 06/26/25 History cholecalciferol (vitamin D3) 25 25 mcg PO DAILY 09/12/23 06/26/25 History mcg (1,000 unit) capsule citalopram 20 mg tablet (Celexa) 20 mg PO DAILY 3 months #90 tabs 0 03/20/25 06/26/25 Rx enalapril maleate 20 mg tablet 20 mg PO DAILY #90 tabs 03/20/25 0 06/26/25 Rx lansoprazole 15 mg capsule,delayed 15 mg PO QHS #90 caps 03/20/25 0 8/08/25 Rx release (Prevacid 24Hr) hydrochlorothiazide 25 mg tablet 25 mg PO DAILY #90 TABLETS 5 06/26/25 Rx Have you fallen in the past year?: No Nurse's Note: pt reports that she has c/o of chest pressure that is sometimes accompanied by heart palpitations that comes and goes pt states that this has been going on for about 2 weeks, and recalls a sim iliar type episode about 10 years ago. pt states she does have shortness of breath every now and then [facility] Medical History (Updated 06/26/25 @ 09:[address] Shalonda Tian MD) Chest pain Sleep concern Health care maintenance Anxiety and [...] of servings: 3 HPI HPI Chief Complaint: 3 M FU Details: AMALIA ANGEL, is a 70-year-old female presenting with chest discomfort and follow-up of her chronic conditions. She reports that the discomfort has been occurring intermittently over the past couple of weeks. The patient describes the sensation as a squeezing or wave-like tightness, localized to the chest. It is not characterized as pain, and she notes that it comes and goes without a predictable pattern. Some days she feels completely fine. There is no clear association with physical exertion, as the patient does not usually engage in activities such that exertion might trigger the discomfort. Episodes appear to occur at rest. The patient denies any associated nausea, vomiting, or sweating during these episodes. The discomfort resolves spontaneously without any intervention. The patient has experienced similar symptoms in the past, notably in 2017, when she underwent a stress test which yielded no significant findings. During previous episodes, she also noted discomfort in her left arm, which she has not observed with the current episodes. Currently, her blood pressure at home ranges from 130s to 140s systolic over 80s to 90s diastolic, with a blood pressure of 142/88 documented during the visit. Other chronic medical conditions are stable. Attestation: Documentation on this patient encounter was supported using ambient scribe technology/ voice AI technology. The patient consented to recording for the purpose of documenting the encounter. Provider reviewed content of the generated note prior to signature. ROS Const Constitutional: No body ache, chills, excessive sweating, fatigue, fever(s), frequent falls, headache(s), snoring, weight change, sleep problems, abnormal sleep pattern or change in appetite Eyes Eyes: No blurry vision, change in vision, vision loss, dry eyes, eye pain or Light sensitivity ENT ENT: No abnormal hearing, ear or mastoid edmundo (more content not included)... Normal [facility] L501.4021on 06-26-2025 Trop T High Sen < 6 Normal <=14 [facility] Comment on above: Performed By: #### L 501.4021, L500.4100, L506.0400, L100.0100, L501.9520, L500.4050 ####[facility] [address] [place], [place], [id number] LDL calc ser/plasOrdered By: Shalonda Tian on 06-26-2025 Cholesterol in LDL [Mass/Vol] 59 mg/dL [facility] Comment on above: Wfshypaqvw=958-728 m g/dL & Higher Lpjx=580 mg/dL or greaterFriedwald Equation for LDL-C Laboratory - Chemistry and C hemistry - challengeOrdered By: Shalonda Tian on 06-26-2025 AST [Catalytic activity/Vol] 22 U/L <32 [facility] Lipid Profileon 06-26-2025 CHOL:HDL 2.68 Normal [facility] Comment on above: Performed By: #### L 501.4021, L500.4100, L506.0400, L100.0100, L501.9520, L500.4050 ####[facility] [address] [place], [address] Cholesterol [Mass/Vol] 125 mg/dL Normal <=[address] [facility] Comment on above: Result Comment: Chol esterol level, Desirable <200 mg/dL Borderline high cholesterol 200-239 mg/dL High cholesterol >=240 mg/dL Recommendations of the NCEP Adult Treatment Panel for the following risk-cutoff thresholds for the [place] population. Performed By: #### L 501.4021, L500.4100, L506.0400, L100.0100, L501.9520, L500.4050 ####[facility] [address] [place], [address] Cholesterol in HDL [Mass/Vol] 47 mg/dL Normal [facility] Comment on above: Result Comment: Elizabeth onal Cholesterol Education Program (NCEP) guidelines: <40 mg/dL: Low HDL-cholesterol (major risk factor for CHD) >= 60 mg/dL: High HDL-cholesterol (negative risk factor for CHD) HDL-cholesterol is affected by a number of factors, e.g. smoking, exercise, hormones, sex and age. Performed By: #### L 501.4021, L500.4100, L506.0400, L100.0100, L501.9520, L500.4050 ####[facility] [address] [place], [address] Cholesterol in LDL [Mass/Vol] 59 mg/dL Normal [facility] Comment on above: Result Comment: Bord elfoky=460-314 mg/dL Higher Fphz=484 mg/dL or greater Friedwald Equation for LDL-C Performed By: #### L 501.4021, L500.4100, L506.0400, L100.0100, L501.9520, L500.4050 ####[facility] [address] [place], [address] Cholesterol in VLDL [Mass/Vol] 19 mg/dL Normal 5-40 [facility] Comment on above: Performed By: #### L 501.4021, L500.4100, L506.0400, L100.0100, L501.9520, L500.4050 ####[facility] [address] [place], [place], [address] Triglyceride [Mass/Vol] 97 mg/dL Normal [facility] Comment on above: Result Comment: The drugs N-Acetylcysteine and Metamizole may falsely depress this assay. Normal range: <150 mg/dL Borderline High: 150-199 mg/dL High: 200-499 mg/dL Very High: >500 mg/dL Performed By: #### L 501.4021, L500.4100, L506.0400, L100.0100, L501.9520, L500.4050 ####[facility] [address] [place], [place], [id number] MCV (mean corpuscular volume ) determinationOrdered By: Shalonda Tian on 06-26-2025 MCV (RBC) [Entitic vol] 83.7 fL 81-99 [facility] Mean corpuscular hemoglobin (MCH) determinationOrdered By: Shalonda Tian on 06-26-2025 MCH (RBC) [Entitic mass] 26.9 pg Low 27.0-32.0 [facility] Mean corpuscular hemoglobin concentration (MCHC) determinationOrdered By: Shalonda Tian on 06-26-2025 MCHC (RBC) [Mass/Vol] 32.1 g/dL 32-36 [facility] Mean platelet volume determi nationOrdered By: Shalonda Tian on 06-26-2025 Platelet mean volume (Bld) [Entitic vol] 11.6 fL 6.2-12.0 [facility] Monocyte percentageOrdered B y: Shalonda Tian on 06-26-2025 Monocytes/100 WBC (Bld) 9.2 % 0-10 [facility] Neutrophil percentageOrdered By: Shalonda Tian on 06-26-2025 Neutrophils/100 WBC (Bld) 61.3 % 47-70 [facility] Nucleated red blood cell per centageOrdered By: Shalonda Tian on 06-26-2025 Nucleated RBC/100 WBC (Bld) [Ratio] 0 % 0-5 [facility] Platelet countOrdered By: Ryley Tian on 06-26-2025 Platelets (Bld) [#/Vol] 348 10*3/uL 150-450 [facility] Potassium measurement (mass/ volume)Ordered By: Shalonda Tian on 06-26-2025 Potassium (Unsp spec) [Mass/Vol] 3.9 mmol/L 3.3-5.1 [facility] RBC Auto (Bld) [#/Vol]Ordere d By: Shalonda Tian on 06-26-2025 RBC (Bld) [#/Vol] 4.98 10*6/uL 4.2-5.4 [facility] Screening total cholesterol/ high density lipoprotein (HDL) cholesterol ratioOrdered By: Shalonda Tian on 06-26-2025 Cholesterol.total/Daphnie sterol in HDL [Mass ratio] 2.68 {ratio} [facility] Serum creatinine measurement (mass/volume)Ordered By: Shalonda Tian on 06-26-2025 Creatinine [Mass/Vol] 0.86 mg/dL 0.70-1.20 [facility] Serum globulin measurementOr dered By: Shalonda Tian on 06-26-2025 Globulin (S) [Mass/Vol] 3.1 g/dL 2.2-4.2 [facility] Serum glucose measurement (m ass/volume)Ordered By: Shalonda Tian on 06-26-2025 Glucose [Mass/Vol] 101 mg/dL High 70-99 [facility] Serum or plasma alanine sommers otransferase (ALT) measurementOrdered By: Shalonda Tian on 06-26-2025 ALT [Catalytic activity/Vol] 19 U/L <35 [facility] Serum or plasma albumin damari urement (mass/volume)Ordered By: Shalonda Tian on 06-26-2025 Albumin [Mass/Vol] 4.3 g/dL 3.4-4.8 [facility] Serum or plasma albumin/glob ulin mass ratioOrdered By: Shalonda Tian on 06-26-2025 Albumin/Globulin [Mass ratio] 1.4 {ratio} 0.9-2.4 [facility] Serum or plasma alkaline nina sphatase measurementOrdered By: Shalonda Rosalesmoniquearacelis 06-26-2025 ALP [Catalytic activity/Vol] 64 U/L 35-104 [facility] Serum or plasma calcium damari urement (mass/volume)Ordered By: Shalonda Tian on 06-26-2025 Calcium [Mass/Vol] 9.5 mg/dL 7.6-11.0 [facility] Serum or plasma cholesterol in HDL measurement (mass/volume)Ordered By: Shalonda Tian on 06-26-2025 Cholesterol in HDL [Mass/Vol] 47 mg/dL >40 [facility] Comment on above: National Cholesterol Education Program (NCEP) guidelines:<40 mg/dL: Low HDL-cholesterol (major risk factor for CHD)>= 60 mg/dL: High HDL-cholesterol (negative risk factor for CHD)HDL-cholesterol is affected by a number of factors, e.g. smoking, exercise, hormones, sex and age. Serum or plasma cholesterol measurement (mass/volume)Ordered By: Shalonda Tian on 06-26-2025 Cholesterol [Mass/Vol] 125 mg/dL <[address] [facility] Comment on above: Cholesterol level, D esirable <200 mg/dLBorderline high cholesterol 200-239 mg/dLHigh cholesterol >=240 mg/dLRecommendations of the NCEP Adult Treatment Panel for the following risk-cutoff thresholds for the [place] population. Serum or plasma urea nitroge n measurement (mass/volume)Ordered By: Shalonda Tian 06-26-2025 Urea nitrogen [Mass/Vol] 17 mg/dL 4-19 [facility] Sodium levelOrdered By: Poli alemanaracelis Jaylan on 06-26-2025 Sodium [Moles/Vol] 141 mmol/L 133-145 [facility] T4 Free Directon 06-26-2025 T4 FREE DIRECT 1.40 ng/dL Normal 0.76-1.46 [facility] Comment on above: Performed By: #### L 501.4021, L500.4100, L506.0400, L100.0100, L501.9520, L500.4050 ####[facility] [address] [place], [place], [id number] T4 freeOrdered By: Shalonda Tian on 06-26-2025 Free T4 [Mass/Vol] 1.40 ng/dL 0.76-1.46 [facility] TSH DL <= 0.005 mIU/L QnOrde red By: Shalonda Tian on 06-26-2025 TSH Qn 0.868 uIU/mL 0.300-4.200 [facility] Thyroid Stim Hormone (TSH)on 06-26-2025 TSH 0.868 uIU/mL Normal 0.300-4.200 [facility] Comment on above: Performed By: #### L 501.4021, L500.4100, L506.0400, L100.0100, L501.9520, L500.4050 ####[facility] [address] [place], [address] Total proteinOrdered By: Jet Tian on 06-26-2025 Protein [Mass/Vol] 7.4 g/dL 5.9-8.4 [facility] Triglycerides measurementOrd ered By: Shalonda Tian on 06-26-2025 Triglyceride [Mass/Vol] 97 mg/dL <199 [facility] Comment on above: The drugs N-Acetylcy steine and Metamizole may falsely depress this assay. Normal range: <150 mg/dLBorderline High: 150-199 mg/dLHigh: 200-499 mg/dLVery High: >500 mg/dL Troponin T.cardiac [Mass/vol ume] in Serum or Plasma by High sensitivity methodOrdered By: Shalonda Tian on 06-26-2025 Troponin T.cardiac High sensitivity method [Mass/Vol] < 6 ng/L <14 [facility] White blood cell (WBC) count Ordered By: Shalonda Tian on 06-26-2025 WBC (Bld) [#/Vol] 5.0 10*3/uL 4.4-11.0 [facility] Hemoglobin A1con 03-25-2025 HbA1c (Bld) [Mass fraction] 5.9 % High <=5.6 [facility] Comment on above: Result Comment: Norm al < 5.7 % Prediabetic 5.7 - 6.4 % Diabetic >or= 6.5 % Please note range changes. Performed By: #### L 501.9985 #### [facility] [address] [place], [place], [id number] Absolute lymphocyte countOrd ered By: Shalonda Tian on 03-24-2025 Lymphocytes Auto (Unsp spec) [#/Vol] 1.91 10*3/uL 0.83-4.51 [facility] Absolute neutrophil countOrd ered By: Shalonda Tian on 03-24-2025 Neutrophils (Bld) [#/Vol] 3.5 10*3/uL 2.0-7.7 [facility] Anion gap in Serum or Plasma Ordered By: Shalonda Tian on 03-24-2025 Anion gap [Moles/Vol] 11 mmol/L 5-15 [facility] Automated lymphocyte count a s percentage of total leukocytesOrdered By: Shalonda Tian on 03-24-2025 Lymphocytes/100 WBC Auto (Unsp spec) 31.8 % 19-41 [facility] BUN/creatinine ratioOrdered By: Shalonda Tian on 03-24-2025 Urea nitrogen/Creatinine [Mass ratio] 16.3 mg/mg 10-20 [facility] Basophil percentageOrdered B y: Shalonda Tian on 03-24-2025 Basophils/100 WBC (Bld) 0.8 % 0-1 [facility] Bilirubin, totalOrdered By: Shalonda Tian on 03-24-2025 Bilirubin [Mass/Vol] 0.18 mg/dL 0.00-1.30 [facility] CBC W/Diff, Automatedon Absolute Lymph 1.91 X10 3/uL Normal 0.83-4.51 [facility] Comment on above: Performed By: #### L 100.0100, L501.9520, L500.4100, L506.0400, L506.1001, L500.4050 #### [facility] [address] [place], [address] Absolute Neut 3.5 X10 3/uL Normal 2.0-7.7 [facility] Comment on above: Performed By: #### L 100.0100, L501.9520, L500.4100, L506.0400, L506.1001, L500.4050 #### [facility] [address] [place], [address] Basophils/100 WBC (Bld) 0.8 % Normal 0-1 [facility] Comment on above: Performed By: #### L 100.0100, L501.9520, L500.4100, L506.0400, L506.1001, L500.4050 #### [facility] [address] [place], [address] Eosinophils/100 WBC (Bld) 1.7 % Normal 0-5 [facility] Comment on above: Performed By: #### L 100.0100, L501.9520, L500.4100, L506.0400, L506.1001, L500.4050 #### [facility] [address] [place], [address] Erythrocyte distribution width (RBC) [Ratio] 14.4 % Normal 11.6-14.6 [facility] Comment on above: Performed By: #### L 100.0100, L501.9520, L500.4100, L506.0400, L506.1001, L500.4050 #### [facility] [address] [place], [address] Hematocrit (Bld) [Volume fraction] 40.3 % Normal 37-47 [facility] Comment on above: Performed By: #### L 100.0100, L501.9520, L500.4100, L506.0400, L506.1001, L500.4050 #### [facility] [address] [place], [address] Hemoglobin (Bld) [Mass/Vol] 13.0 g/dL Normal 12.0-15.0 [facility] Comment on above: Performed By: #### L 100.0100, L501.9520, L500.4100, L506.0400, L506.1001, L500.4050 #### [facility] [address] [place], [address] IG% 0.300 Normal 0.0-0.9 [facility] Comment on above: Result Comment: IG% - Immature Granulocytes (promyelocytes, myelocytes and metamyelocytes) > 1% indicates that a LEFT SHIFT is Present. Performed By: #### L 100.0100, L501.9520, L500.4100, L506.0400, L506.1001, L500.4050 #### [facility] [address] [place], [address] Lymphocytes/100 WBC (Bld) 31.8 % Normal 19-41 [facility] Comment on above: Performed By: #### L 100.0100, L501.9520, L500.4100, L506.0400, L506.1001, L500.4050 #### [facility] [address] [place], [address] MCH (RBC) [Entitic mass] 27.4 pg Normal 27.0-32.0 [facility] Comment on above: Performed By: #### L 100.0100, L501.9520, L500.4100, L506.0400, L506.1001, L500.4050 #### [facility] [address] [place], [address] MCHC (RBC) [Mass/Vol] 32.3 g/dL Normal 32-36 [facility] Comment on above: Performed By: #### L 100.0100, L501.9520, L500.4100, L506.0400, L506.1001, L500.4050 #### [facility] [address] [place], [address] MCV (RBC) [Entitic vol] 84.8 fL Normal 81-99 [facility] Comment on above: Performed By: #### L 100.0100, L501.9520, L500.4100, L506.0400, L506.1001, L500.4050 #### [facility] [address] [place], [address] Monocytes/100 WBC (Bld) 7.5 % Normal 0-10 [facility] Comment on above: Performed By: #### L 100.0100, L501.9520, L500.4100, L506.0400, L506.1001, L500.4050 #### [facility] [address] [place], [address] Neutrophils/100 WBC (Bld) 57.9 % Normal 47-70 [facility] Comment on above: Performed By: #### L 100.0100, L501.9520, L500.4100, L506.0400, L506.1001, L500.4050 #### [facility] [address] [place], [address] Nucleated RBC (Bld) [#/Vol] 0 10*3/uL Normal 0-5 [facility] Comment on above: Performed By: #### L 100.0100, L501.9520, L500.4100, L506.0400, L506.1001, L500.4050 #### [facility] [address] [place], [address] Platelet mean volume (Bld) [Entitic vol] 11.7 fL Normal 6.2-12.0 [facility] Comment on above: Performed By: #### L 100.0100, L501.9520, L500.4100, L506.0400, L506.1001, L500.4050 #### [facility] [address] [place], [address] Platelets (Bld) [#/Vol] 362 10*3/uL Normal 150-450 [facility] Comment on above: Performed By: #### L 100.0100, L501.9520, L500.4100, L506.0400, L506.1001, L500.4050 #### [facility] [address] [place], [address] RBC (Bld) [#/Vol] 4.75 10*6/uL Normal 4.2-5.4 [facility] Comment on above: Performed By: #### L 100.0100, L501.9520, L500.4100, L506.0400, L506.1001, L500.4050 #### [facility] [address] [place], [address] RDW SD 44.8 fl High 35.1-43.9 [facility] Comment on above: Performed By: #### L 100.0100, L501.9520, L500.4100, L506.0400, L506.1001, L500.4050 #### [facility] [address] [place], [address] WBC (Bld) [#/Vol] 6.0 10*3/uL Normal 4.4-11.0 [facility] Comment on above: Performed By: #### L 100.0100, L501.9520, L500.4100, L506.0400, L506.1001, L500.4050 #### [facility] [address] [place], [address] Calculated very low density lipoprotein (VLDL) cholesterol measurementOrdered By: Shalonda Tian on 03-24-2025 Calculated very low density lipoprotein (VLDL) cholesterol measurement 51 mg/dL High 5-40 [facility] Carbon dioxide, total [Moles /volume] in Central venous bloodOrdered By: Shalonda Tian on 03-24-2025 CO2 [Moles/Vol] 27.9 mmol/L 21.0-32.0 [facility] Chloride assayOrdered By: Ryley Tian on 03-24-2025 Chloride [Moles/Vol] 104 mmol/L 98-108 [facility] Comprehensive Metabolic Prof ilon 03-24-2025 Albumin [Mass/Vol] 4.1 g/dL Normal 3.4-4.8 [facility] Comment on above: Performed By: #### L 100.0100, L501.9520, L500.4100, L506.0400, L506.1001, L500.4050 #### [facility] [address] [place], [address] Albumin/Globulin [Mass ratio] 1.4 {ratio} Normal 0.9-2.4 [facility] Comment on above: Performed By: #### L 100.0100, L501.9520, L500.4100, L506.0400, L506.1001, L500.4050 #### [facility] [address] [place], [address] ALK PHOS 60 U/L Normal 35-104 [facility] Comment on above: Performed By: #### L 100.0100, L501.9520, L500.4100, L506.0400, L506.1001, L500.4050 #### [facility] [address] [place], [address] ALT [Catalytic activity/Vol] 20 U/L Normal <=34 [facility] Comment on above: Performed By: #### L 100.0100, L501.9520, L500.4100, L506.0400, L506.1001, L500.4050 #### [facility] [address] [place], [address] AST [Catalytic activity/Vol] 22 U/L Normal <=31 [facility] Comment on above: Performed By: #### L 100.0100, L501.9520, L500.4100, L506.0400, L506.1001, L500.4050 #### [facility] [address] [place], [address] Bilirubin [Mass/Vol] 0.18 mg/dL Normal 0.00-1.30 [facility] Comment on above: Performed By: #### L 100.0100, L501.9520, L500.4100, L506.0400, L506.1001, L500.4050 #### [facility] [address] [place], [address] BUN/CRE 16.3 RATIO Normal 10-20 [facility] Comment on above: Performed By: #### L 100.0100, L501.9520, L500.4100, L506.0400, L506.1001, L500.4050 #### [facility] [address] [place], [address] Calcium [Mass/Vol] 9.3 mg/dL Normal 7.6-11.0 [facility] Comment on above: Performed By: #### L 100.0100, L501.9520, L500.4100, L506.0400, L506.1001, L500.4050 #### [facility] [address] [place], [address] Chloride [Moles/Vol] 104 mmol/L Normal 98-108 [facility] Comment on above: Performed By: #### L 100.0100, L501.9520, L500.4100, L506.0400, L506.1001, L500.4050 #### [facility] [address] [place], [address] CO2 [Moles/Vol] 27.9 mmol/L Normal 21.0-32.0 [facility] Comment on above: Performed By: #### L 100.0100, L501.9520, L500.4100, L506.0400, L506.1001, L500.4050 #### [facility] [address] [place], [address] Creatinine [Mass/Vol] 0.88 mg/dL Normal 0.70-1.20 [facility] Comment on above: Performed By: #### L 100.0100, L501.9520, L500.4100, L506.0400, L506.1001, L500.4050 #### [facility] [address] [place], [address] GAP 11 Normal 5-15 [facility] Comment on above: Performed By: #### L 100.0100, L501.9520, L500.4100, L506.0400, L506.1001, L500.4050 #### [facility] [address] [place], [address] GFR/1.73 sq M.predicted among non-blacks MDRD (S/P/Bld) [Vol rate/Area] 71 mL/min/{1.73_m2} Normal >60 [facility] Comment on above: Result Comment: mL/m in/1.73m2 CKD-EPI Creatinine Equation (2020) Performed By: #### L 100.0100, L501.9520, L500.4100, L506.0400, L506.1001, L500.4050 #### [facility] [address] [place], [address] Globulin (S) [Mass/Vol] 2.9 g/dL Normal 2.2-4.2 [facility] Comment on above: Performed By: #### L 100.0100, L501.9520, L500.4100, L506.0400, L506.1001, L500.4050 #### [facility] [address] [place], [address] Glucose [Mass/Vol] 112 mg/dL High 70-99 [facility] Comment on above: Performed By: #### L 100.0100, L501.9520, L500.4100, L506.0400, L506.1001, L500.4050 #### [facility] [address] [place], [address] Potassium [Moles/Vol] 4.3 mmol/L Normal 3.3-5.1 [facility] Comment on above: Performed By: #### L 100.0100, L501.9520, L500.4100, L506.0400, L506.1001, L500.4050 #### [facility] [address] [place], [address] Sodium [Moles/Vol] 142 mmol/L Normal 133-145 [facility] Comment on above: Performed By: #### L 100.0100, L501.9520, L500.4100, L506.0400, L506.1001, L500.4050 #### [facility] [address] [place], [address] T PROT 7.0 g/dL Normal 5.9-8.4 [facility] Comment on above: Performed By: #### L 100.0100, L501.9520, L500.4100, L506.0400, L506.1001, L500.4050 #### [facility] [address] [place], [address] Urea nitrogen [Mass/Vol] 14 mg/dL Normal 4-19 [facility] Comment on above: Performed By: #### L 100.0100, L501.9520, L500.4100, L506.0400, L506.1001, L500.4050 #### [facility] [address] [place], [address] Eosinophil percentageOrdered By: Shalonda Tian on 03-24-2025 Eosinophils/100 WBC (Bld) 1.7 % 0-5 [facility] Erythrocyte distribution wid th ratioOrdered By: gregorypatondebra Tian on 03-24-2025 Erythrocyte distribution width (RBC) [Ratio] 14.4 % 11.6-14.6 [facility] Erythrocyte distribution wid th standard deviationOrdered By: gregorypatondebra Tian on 03-24-2025 Erythrocyte distribution width (RBC) [Ratio] 44.8 fl High 35.1-43.9 [facility] Glomerular filtration rate ( GFR) estimation/1.73 sq m using serum, plasma, or whole bOrdered By: jone Tian on 03-24-2025 GFR/1.73 sq M.predicted among non-blacks MDRD (S/P/Bld) [Vol rate/Area] 71 mL/min/{1.73_m2} >60 [facility] Comment on above: mL/min/1.73m2 CKD-EP I Creatinine Equation (2020) Hematocrit Auto (Bld) [Volum e fraction]Ordered By: Shalonda Tian on 03-24-2025 Hematocrit (Bld) [Volume fraction] 40.3 % 37-47 [facility] Hemoglobin A1c percentageOrd ered By: Shalonda Tian on 03-24-2025 HbA1c (Bld) [Mass fraction] 5.9 % High <5.7 [facility] Comment on above: Normal < 5.7 % Predi abetic 5.7 - 6.4 % Diabetic >or= 6.5 % Please note range changes. Hemoglobin measurementOrdere d By: Shalonda Tian on 03-24-2025 Hemoglobin (Bld) [Mass/Vol] 13.0 g/dL 12.0-15.0 [facility] Immature granulocytes/100 WB C Auto (Bld)Ordered By: Shalonda Tian on 03-24-2025 Immature granulocytes/100 WBC (Bld) 0.300 % 0.0-0.9 [facility] Comment on above: IG% - Immature Granu locytes (promyelocytes, myelocytes and metamyelocytes) > 1% indicates that a LEFT SHIFT is Present. LDL calc ser/plasOrdered By: Shalonda Tian on 03-24-2025 Cholesterol in LDL [Mass/Vol] 32 mg/dL [facility] Comment on above: Kxaetssdwp=329-225 m g/dL & Higher Firq=589 mg/dL or greater Laboratory - Chemistry and C hemistry - challengeOrdered By: Shalonda Tian on 03-24-2025 AST [Catalytic activity/Vol] 22 U/L <32 [facility] Lipid Profileon 03-24-2025 CHOL:HDL 2.99 Normal [facility] Comment on above: Performed By: #### L 100.0100, L501.9520, L500.4100, L506.0400, L506.1001, L500.4050 #### [facility] [address] [place], [address] Cholesterol [Mass/Vol] 125 mg/dL Normal <=[address] [facility] Comment on above: Result Comment: Chol esterol level, Desirable <200 mg/dL Borderline high cholesterol 200-239 mg/dL High cholesterol >=240 mg/dL Recommendations of the NCEP Adult Treatment Panel for the following risk-cutoff thresholds for the [place] population. Performed By: #### L 100.0100, L501.9520, L500.4100, L506.0400, L506.1001, L500.4050 #### [facility] [address] [place], [address] Cholesterol in HDL [Mass/Vol] 42 mg/dL Normal [facility] Comment on above: Result Comment: Elizabeth onal Cholesterol Education Program (NCEP) guidelines: <40 mg/dL: Low HDL-cholesterol (major risk factor for CHD) >= 60 mg/dL: High HDL-cholesterol (negative risk factor for CHD) HDL-cholesterol is affected by a number of factors, e.g. smoking, exercise, hormones, sex and age. Performed By: #### L 100.0100, L501.9520, L500.4100, L506.0400, L506.1001, L500.4050 #### [facility] [address] [place], [address] Cholesterol in LDL [Mass/Vol] 32 mg/dL Normal [facility] Comment on above: Result Comment: Bord uftesh=909-218 mg/dL Higher Shky=880 mg/dL or greater Performed By: #### L 100.0100, L501.9520, L500.4100, L506.0400, L506.1001, L500.4050 #### [facility] [address] [place], [address] Cholesterol in VLDL [Mass/Vol] 51 mg/dL High 5-40 [facility] Comment on above: Performed By: #### L 100.0100, L501.9520, L500.4100, L506.0400, L506.1001, L500.4050 #### [facility] [address] [place], [address] Triglyceride [Mass/Vol] 255 mg/dL High [facility] Comment on above: Result Comment: The drugs N-Acetylcysteine and Metamizole may falsely depress this assay. Normal range: <150 mg/dL Borderline High: 150-199 mg/dL High: 200-499 mg/dL Very High: >500 mg/dL Performed By: #### L 100.0100, L501.9520, L500.4100, L506.0400, L506.1001, L500.4050 #### [facility] [address] [place], [address] MCV (mean corpuscular volume ) determinationOrdered By: Shalonda Tian on 03-24-2025 MCV (RBC) [Entitic vol] 84.8 fL 81-99 [facility] Mean corpuscular hemoglobin (MCH) determinationOrdered By: Shalonda Tian on 03-24-2025 MCH (RBC) [Entitic mass] 27.4 pg 27.0-32.0 [facility] Mean corpuscular hemoglobin concentration (MCHC) determinationOrdered By: Shalonda Tian on 03-24-2025 MCHC (RBC) [Mass/Vol] 32.3 g/dL 32-36 [facility] Mean platelet volume determi nationOrdered By: Shalonda Tian on 03-24-2025 Platelet mean volume (Bld) [Entitic vol] 11.7 fL 6.2-12.0 [facility] Monocyte percentageOrdered B y: Shalonda Tian on 03-24-2025 Monocytes/100 WBC (Bld) 7.5 % 0-10 [facility] Neutrophil percentageOrdered By: Shalonda Tian on 03-24-2025 Neutrophils/100 WBC (Bld) 57.9 % 47-70 [facility] Nucleated red blood cell per centageOrdered By: Shalonda Tian on 03-24-2025 Nucleated RBC/100 WBC (Bld) [Ratio] 0 % 0-5 [facility] Platelet countOrdered By: Ryley Tian on 03-24-2025 Platelets (Bld) [#/Vol] 362 10*3/uL 150-450 [facility] Potassium measurement (mass/ volume)Ordered By: Shalonda Tian on 03-24-2025 Potassium (Unsp spec) [Mass/Vol] 4.3 mmol/L 3.3-5.1 [facility] RBC Auto (Bld) [#/Vol]Ordere d By: Shalonda Tian on 03-24-2025 RBC (Bld) [#/Vol] 4.75 10*6/uL 4.2-5.4 [facility] Screening total cholesterol/ high density lipoprotein (HDL) cholesterol ratioOrdered By: Shalonda Tian on 03-24-2025 Cholesterol.total/Daphnie sterol in HDL [Mass ratio] 2.99 {ratio} [facility] Serum creatinine measurement (mass/volume)Ordered By: Shalonda Tian on 03-24-2025 Creatinine [Mass/Vol] 0.88 mg/dL 0.70-1.20 [facility] Serum globulin measurementOr dered By: Shalonda Tian on 03-24-2025 Globulin (S) [Mass/Vol] 2.9 g/dL 2.2-4.2 [facility] Serum glucose measurement (m ass/volume)Ordered By: Shalonda Tian on 03-24-2025 Glucose [Mass/Vol] 112 mg/dL High 70-99 [facility] Serum or plasma alanine sommers otransferase (ALT) measurementOrdered By: Shalonda Tian on 03-24-2025 ALT [Catalytic activity/Vol] 20 U/L <35 [facility] Serum or plasma albumin damari urement (mass/volume)Ordered By: Shalonda Tian on 03-24-2025 Albumin [Mass/Vol] 4.1 g/dL 3.4-4.8 [facility] Serum or plasma albumin/glob ulin mass ratioOrdered By: Shalonda Tian on 03-24-2025 Albumin/Globulin [Mass ratio] 1.4 {ratio} 0.9-2.4 [facility] Serum or plasma alkaline nina sphatase measurementOrdered By: Shalonda Tian on 03-24-2025 ALP [Catalytic activity/Vol] 60 U/L 35-104 [facility] Serum or plasma calcium damari urement (mass/volume)Ordered By: Shalonda Tian on 03-24-2025 Calcium [Mass/Vol] 9.3 mg/dL 7.6-11.0 [facility] Serum or plasma cholesterol in HDL measurement (mass/volume)Ordered By: Shalonda Tian on 03-24-2025 Cholesterol in HDL [Mass/Vol] 42 mg/dL >40 [facility] Comment on above: National Cholesterol Education Program (NCEP) guidelines:<40 mg/dL: Low HDL-cholesterol (major risk factor for CHD)>= 60 mg/dL: High HDL-cholesterol (negative risk factor for CHD)HDL-cholesterol is affected by a number of factors, e.g. smoking, exercise, hormones, sex and age. Serum or plasma cholesterol measurement (mass/volume)Ordered By: Shalonda Tian on 03-24-2025 Cholesterol [Mass/Vol] 125 mg/dL <[address] [facility] Comment on above: Cholesterol level, D esirable <200 mg/dLBorderline high cholesterol 200-239 mg/dLHigh cholesterol >=240 mg/dLRecommendations of the NCEP Adult Treatment Panel for the following risk-cutoff thresholds for the [place] population. Serum or plasma urea nitroge n measurement (mass/volume)Ordered By: Shalonda Tian on 03-24-2025 Urea nitrogen [Mass/Vol] 14 mg/dL 4-19 [facility] Sodium levelOrdered By: Poli Tian on 03-24-2025 Sodium [Moles/Vol] 142 mmol/L 133-145 [facility] T4 Free Directon 03-24-2025 T4 FREE DIRECT 1.30 ng/dL Normal 0.76-1.46 [facility] Comment on above: Performed By: #### L 100.0100, L501.9520, L500.4100, L506.0400, L506.1001, L500.4050 #### [facility] [address] [place], [place], [address] T4 freeOrdered By: Shalonda Tian on 03-24-2025 Free T4 [Mass/Vol] 1.30 ng/dL 0.76-1.46 [facility] TSH DL <= 0.005 mIU/L QnOrde red By: Shalonda Tian on 03-24-2025 TSH Qn 0.803 uIU/mL 0.300-4.200 [facility] Thyroid Stim Hormone (TSH)on 03-24-2025 TSH 0.803 uIU/mL Normal 0.300-4.200 [facility] Comment on above: Performed By: #### L 100.0100, L501.9520, L500.4100, L506.0400, L506.1001, L500.4050 #### [facility] [address] [place], [place], [id number] Total proteinOrdered By: Jet dias Bobbymoniquearacelis on 03-24-2025 Protein [Mass/Vol] 7.0 g/dL 5.9-8.4 [facility] Triglycerides measurementOrd ered By: Chrisdebra Rosalesmoniquearacelis on 03-24-2025 Triglyceride [Mass/Vol] 255 mg/dL High <199 [facility] Comment on above: The drugs N-Acetylcy steine and Metamizole may falsely depress this assay. Normal range: <150 mg/dLBorderline High: 150-199 mg/dLHigh: 200-499 mg/dLVery High: >500 mg/dL Vitamin D,25 Hydroxyon 03-24 Vitamin D 25-OH 42.8 ng/mL Normal 30-100 [facility] Comment on above: Result Comment: Nadya min D Status Deficiency: <20 ng/mL (50nmol/L) Insufficiency: 20-30 ng/mL (50-75 nmol/L) Sufficiency: 30-100 ng/mL (75-250 nmol/L) Toxicity: >100 ng/mL (>250 nmol/L) Performed By: #### L 100.0100, L501.9520, L500.4100, L506.0400, L506.1001, L500.4050 #### [facility] [address] [place], [place], [address] White blood cell (WBC) count Ordered By: Polirhettdebra Tian on 03-24-2025 WBC (Bld) [#/Vol] 6.0 10*3/uL 4.4-11.0 [facility] Internal Medicine Office Vis itosayda 03-20-2025 Internal Medicine Office Visit [facility] [place], [place] [address] OFFICE VISIT Date of Service: 03/20/25 MR#: [id number] Acct: [id number] Name: AMALIA ANGEL Rep #: [id number] : 1955 Provider: Dr. Shalonda rangel MD Age/Sex: 69/F Location: [facility] Status: Signed Intake Vital Signs 09/19/24 07:59 [...] M FU Chief Complaint: 6 M FU Cat Sitter Required: No Accompanied by: Self Is patient in pain?: No Allergies No Known Allergies Allergy (Verified 03/20/25 07:51) Medications ???Medication ???Instructions ???Recorded ???Confirmed ???Type calcium carbonate (Calcium 500) 500 mg PO DAILY 09/12/23 03/20/25 History cholecalciferol (vitamin D3) 25 25 mcg PO DAILY 09/12/23 03/20/25 History mcg (1,000 unit) capsule hydrochlorothiazide 25 mg tablet 25 mg PO [...] the past year?: No PFSH Medical History Sleep concern Health care maintenance [...] ear or mastoid pain, tinnitus, balance problems, nosebleed/epistaxis , nasal congestion, headache(s), neck pain or sore throat Resp Respiratory: No cough, excessive phlegm production, pain on inspiration, shortness of breath, snoring or wheezing Cardio Cardiology: No chest pain at rest, chest pain with exertion, excessive sweating, shortness of breath, dyspnea on exertion, lightheadedness, orthopnea or palpitations Gastro GI: No abdominal pain, change in bowel habits, constipation, cramping, diarrhea, nausea/dyspepsia or vomiting Genitourinary-Femal e: No burning urination, painful urination, urinary incontinence, [...] weakness, frequ (more content not included)... Normal [facility] Basic Metabolic Profile (BMP )on 09-19-2024 BUN/CRE 18.3 RATIO Normal 10-20 [facility] Comment on above: Performed By: #### L 500.2500 ####[facility] [address] [place], [address] CA,Total 9.2 mg/dL Normal 8.5-10.1 [facility] Comment on above: Performed By: #### L 500.2500 ####[facility] [address] [place], [address] Chloride [Moles/Vol] 105 mmol/L Normal 98-107 [facility] Comment on above: Performed By: #### L 500.2500 ####[facility] [address] [place], [address] CO2 [Moles/Vol] 32.0 mmol/L Normal 21.0-32.0 [facility] Comment on above: Performed By: #### L 500.2500 ####[facility] [address] [place], [address] Creatinine [Mass/Vol] 0.87 mg/dL Normal 0.55-1.02 [facility] Comment on above: Result Comment: The validity of the calculated GFR GFRAA in patients over 70 years has not been determined. Clinical correlation is essential. Performed By: #### L 500.2500 ####[facility] [address] [place], [address] EST GFR - AA 82 mL/min Normal >60 [facility] Comment on above: Result Comment: Afri can Malaysian GFR Calc Performed By: #### L 500.2500 ####[facility] [address] [place], [address] GAP 5 Normal 5-15 [facility] Comment on above: Performed By: #### L 500.2500 ####[facility] [address] [place], [address] GFR/1.73 sq M.predicted among non-blacks MDRD (S/P/Bld) [Vol rate/Area] 68 mL/min/{1.73_m2} Normal >60 [facility] Comment on above: Result Comment: Non- GFR Calc Performed By: #### L 500.2500 ####[facility] [address] [place], [address] Glucose [Mass/Vol] 105 mg/dL Normal 74-106 [facility] Comment on above: Result Comment: Fast ing Glucose result from 100 to 125 mg/dL suggests IMPAIRED HOMEOSTASIS per A.D.A. criteria. Performed By: #### L 500.2500 ####[facility] [address] [place], [address] Potassium [Moles/Vol] 3.7 mmol/L Normal 3.5-5.1 [facility] Comment on above: Performed By: #### L 500.2500 ####[facility] [address] [place], [address] Sodium [Moles/Vol] 142 mmol/L Normal 136-145 [facility] Comment on above: Performed By: #### L 500.2500 ####[facility] [address] [place], [address] Urea nitrogen [Mass/Vol] 16 mg/dL Normal 7-18 [facility] Comment on above: Performed By: #### L 500.2500 ####[facility] [address] [place], [address] Internal Medicine Office Vis cal 09-19-2024 Internal Medicine Office Visit [facility] [address] [place] [address] OFFICE VISIT Date of Service: 09/19/24 MR#: [id number] Acct: [id number] Name: AMALIA ANGEL Rep #: [id number] : 1955 Provider: Dr. Shalonda rangel MD Age/Sex: 69/F Location: [facility] Status: Signed Intake Vital Signs 03/19/24 09:07 [...] PO DAILY #90 tabs 06/30/24 09/19/24 Rx hydrochlorothiazide 25 mg tablet 25 mg PO [...] habits, constipation, cramping, diarrhea, nausea/dyspepsia or vomiting Genitourinary-Femal e: No burning urination, painful urination, urinary incontinence, [...] weight change (more content not included)... Normal [facility] Absolute lymphocyte countOrd ered By: Shalonda Tian on 03-19-2024 Lymphocytes Auto (Unsp spec) [#/Vol] 1.60 10*3/uL 0.83-4.51 [facility] Automated lymphocyte count a s percentage of total leukocytesOrdered By: Shalonda Tian on 03-19-2024 Lymphocytes/100 WBC Auto (Unsp spec) 31.5 % 19-41 [facility] Basophil percentageOrdered B y: Shalonda Tian on 03-19-2024 Basophils/100 WBC (Bld) 1.0 % 0-1 [facility] Bilirubin [Mass/Vol] 0.50 mg/dL 0.20-1.00 [facility] Comment on above: For patients on eltr ombopag therapy, use of Dimension [place] TBIL is not recommended. Chloride [Moles/Vol] 103 mmol/L 98-107 [facility] Cholesterol [Mass/Vol] 116 mg/dL <[address] [facility] Comment on above: <200 mg/dL Desirable 200-240 mg/dL Borderline >240 mg/dL High Risk Eosinophils/100 WBC (Bld) 1.2 % 0-5 [facility] Glucose [Mass/Vol] 110 mg/dL 74-106 [facility] Comment on above: Fasting Glucose resu lt from 100 to 125 mg/dL suggests IMPAIRED HOMEOSTASIS per A.D.A. criteria. Hemoglobin (Bld) [Mass/Vol] 13.0 g/dL 12.0-15.0 [facility] Monocytes/100 WBC (Bld) 9.3 % 0-10 [facility] Neutrophils (Bld) [#/Vol] 2.9 10*3/uL 2.0-7.7 [facility] Neutrophils/100 WBC (Bld) 56.6 % 47-70 [facility] Potassium [Moles/Vol] 4.2 mmol/L 3.5-5.1 [facility] Protein [Mass/Vol] 7.5 g/dL 6.4-8.2 [facility] Sodium [Moles/Vol] 138 mmol/L 136-145 [facility] Triglyceride [Mass/Vol] 89 mg/dL <199 [facility] Comment on above: The drugs N-Acetylcy steine and Metamizole may falsely depress this assay.Serum Triglycerides Reference Interval Normal <150 mg/dL Borderline high 150 - 199 mg/dL High 200 - 499 mg/dL Very High > or = 500 mg/dL WBC (Bld) [#/Vol] 5.1 10*3/uL 4.4-11.0 [facility] Determination of erythrocyte mean corpuscular volume (MCV)Ordered By: Shalonda Tian on 03-19-2024 MCV (RBC) [Entitic vol] 85.2 fL 81-99 [facility] Erythrocyte distribution wid th ratioOrdered By: gregorypatondebra Tian on 03-19-2024 Erythrocyte distribution width (RBC) [Ratio] 14.1 % 11.6-14.6 [facility] Erythrocyte distribution wid th standard deviationOrdered By: gregorypatondebra Rosalesaracelis on 03-19-2024 Erythrocyte distribution width (RBC) [Entitic vol] 43.5 fL 35.1-43.9 [facility] Hematocrit Auto (Bld) [Volum e fraction]Ordered By: Polipatondebra Tian on 03-19-2024 Hematocrit (Bld) [Volume fraction] 41.0 % 37-47 [facility] Immature granulocytes/100 WB C Auto (Bld)Ordered By: Polipatondebra Tian on 03-19-2024 Immature granulocytes/100 WBC (Bld) 0.400 % 0.0-0.9 [facility] Comment on above: IG% - Immature Granu locytes (promyelocytes, myelocytes and metamyelocytes) > 1% indicates that a LEFT SHIFT is Present. Laboratory - Chemistry and C hemistry - challengeOrdered By: Shalonda Tian on 03-19-2024 Albumin/Globulin [Mass ratio] 1.1 {ratio} 0.9-2.4 [facility] ALP [Catalytic activity/Vol] 59 U/L 45-117 [facility] ALT [Catalytic activity/Vol] 21 U/L 13-56 [facility] Cholesterol in HDL [Mass/Vol] 50 mg/dL >40 [facility] Comment on above: The drugs N-Acetylcy steine and Metamizole may falsely depress this assay. Reference Range HDL <40 mg/dL Low HDL Cholesterol HDL >or= 60 mg/dL High HDL Cholesterol Cholesterol in LDL [Mass/Vol] 48 mg/dL 0-130 [facility] CO2 [Moles/Vol] 31.0 mmol/L 21.0-32.0 [facility] Globulin (S) [Mass/Vol] 3.6 g/dL 2.2-4.2 [facility] Urea nitrogen/Creatinine [Mass ratio] 14.4 mg/mg 10-20 [facility] Laboratory - Hematology and Cell countsOrdered By: Shalonda Tian on 03-19-2024 MCH (RBC) [Entitic mass] 27.0 pg 27.0-32.0 [facility] MCHC (RBC) [Mass/Vol] 31.7 g/dL 32-36 [facility] Nucleated RBC/100 WBC (Bld) [Ratio] 0 % 0-5 [facility] Platelet mean volume (Bld) [Entitic vol] 11.4 fL 6.2-12.0 [facility] Platelets (Bld) [#/Vol] 326 10*3/uL 150-450 [facility] No Panel InformationOrdered By: Shalonda Tian on 03-19-2024 Estimated GFR (MDRD) Amer 73 mL/min >60 [facility] Comment on above: GFR Calc Estimated GFR (MDRD) Non-Af Amer 60 mL/min >60 [facility] Comment on above: Non- GFR Calc Vitamin D 25-Hydroxy 57.1 ng/mL [facility] Comment on above: Vitamin D 25(OH) Sta tus Range Deficiency <20 ng/mL (50nmol/L) Insufficiency 20 - 30 ng/mL (50 - 75 nmol/L) Sufficiency 30 - 100 ng/mL (75 - 250 nmol/L) Toxicity >100 ng/mL (>250 nmol/L) VLDL Cholesterol 18 mg/dL 5-40 [facility] RBC Auto (Bld) [#/Vol]Ordere d By: Shalonda Tian on 03-19-2024 RBC (Bld) [#/Vol] 4.81 10*6/uL 4.2-5.4 [facility] Serum or plasma calcium damari urement (mass/volume)Ordered By: Shalonda Tian on 03-19-2024 Calcium [Mass/Vol] 9.7 mg/dL 8.5-10.1 [facility] Serum or plasma creatinine m easurement (mass/volume)Ordered By: Shalonda Tian on 03-19-2024 Creatinine [Mass/Vol] 0.97 mg/dL 0.55-1.02 [facility] Comment on above: The validity of the calculated GFR & GFRAA in patients over 70 years has not been determined. Clinical correlation is essential. Serum or plasma urea nitroge n measurement (mass/volume)Ordered By: Shalonda Tian on 03-19-2024 Urea nitrogen [Mass/Vol] 14 mg/dL 7-18 [facility] Thin prep Papanicolaou smear with manual screeningOrdered By: Shalonda Tian on 03-19-2024 Thin prep Papanicolaou smear with manual screening 3.9 g/dL 3.2-5.0 [facility] Thin prep Papanicolaou smear with manual screening 19 U/L 15-37 [facility] Thin prep Papanicolaou smear with manual screening 4 5-15 [facility] Basophil percentageOrdered B y: Shalonda Tian on 09-12-2023 Chloride [Moles/Vol] 105 mmol/L 98-107 [facility] Glucose [Mass/Vol] 101 mg/dL 74-106 [facility] Comment on above: Fasting Glucose resu lt from 100 to 125 mg/dL suggests IMPAIRED HOMEOSTASIS per A.D.A. criteria. Potassium [Moles/Vol] 4.2 mmol/L 3.5-5.1 [facility] Sodium [Moles/Vol] 142 mmol/L 136-145 [facility] Laboratory - Chemistry and C hemistry - challengeOrdered By: Shalonda Tian on 09-12-2023 CO2 [Moles/Vol] 33.0 mmol/L 21.0-32.0 [facility] Urea nitrogen/Creatinine [Mass ratio] 21.7 mg/mg 10- [facility] No Panel InformationOrdered By: Shalonda Tian on 09-12-2023 Estimated GFR (MDRD) Amer 93 mL/min >60 [facility] Comment on above: GFR Calc Estimated GFR (MDRD) Non-Af Amer 77 mL/min >60 [facility] Comment on above: Non- GFR Calc Serum or plasma calcium damari urement (mass/volume)Ordered By: Shalonda Tian on 09-12-2023 Calcium [Mass/Vol] 9.2 mg/dL 8.5-10.1 [facility] Serum or plasma creatinine m easurement (mass/volume)Ordered By: Shalonda Tian on 09-12-2023 Creatinine [Mass/Vol] 0.78 mg/dL 0.55-1.02 [facility] Comment on above: The validity of the calculated GFR & GFRAA in patients over 70 years has not been determined. Clinical correlation is essential. Serum or plasma urea nitroge n measurement (mass/volume)Ordered By: Shalonda Tian on 09-12-2023 Urea nitrogen [Mass/Vol] 17 mg/dL 7-18 [facility] Thin prep Papanicolaou smear with manual screeningOrdered By: Shalonda Tian on 09-12-2023 Thin prep Papanicolaou smear with manual screening 4 5-15 [facility] Basophil percentageon 2021 Basophil percentage < 0.9 mg/dL 0.55-1.02 [facility] Work Phone: No Panel Informationon 05-03 Bedside Estimated GFR (eGFR) > 60.0000 mL/min >60 [facility] Work Phone: CORONAVIRUS PCR [CCL]on 09-21 REF LAB REPORT Positive Normal [facility] Comment on above: Performed By: #### [id number] #### [facility],[address] [place] [id number] SEND TO ? 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 This test has been authorized by FDA under an Emergency Use Authorization (EUA). This test has been validated in accordance with the FDA's Guidance Document Policy for Diagnostics Testing in Laboratories Certified to Perform High Complexity Testing under CLIA prior to Emergency use Authorization for Coronavirus Disease 2019 during the Public Health Emergency issued on January 17, 2020. [facility] [place] [address] Gunnar Steele III, M.D. 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 [facility] Comment on above: Result Comment: Posi tive for This test was developed and its performance characteristics determined by [facility] [place]. This test has been authorized by FDA [...] developed and its performance characteristics determined by [facility] [place]. This test has been authorized by FDA [...] developed and its performance characteristics determined by [facility] [place]. This test has been authorized by FDA [...] developed and its performance characteristics determined by [facility] [place]. This test has been authorized by FDA [...] 2020. 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 Comment on above: Result Comment: Naso pharyngeal Corrected on 10/17 AT 1531: Previously reported as NASAL SWAB Swab Corrected on 10/17 AT 1531: Previously reported as NASAL SWAB Lab Report: Basic Metabolic Profile (BMP)on 11-20-2017 Anion gap [Moles/Vol] 6 mmol/L Invalid Interpretation Code 5-15 [facility] Work Phone: Calcium [Mass/Vol] 8.9 mg/dL Invalid Interpretation Code 8.5-10.1 [facility] Work Phone: Chloride [Moles/Vol] 105 mmol/L Invalid Interpretation Code 98-107 [facility] Work Phone: CO2 (BldV) [Partial pressure] 31.0 mmol/L Invalid Interpretation Code 21.0-32.0 [facility] Work Phone: Creatinine [Mass/Vol] 0.91 mg/dL Invalid Interpretation Code 0.55-1.02 [facility] Work Phone: GFR/1.73 sq M.predicted among non-blacks MDRD (S/P/Bld) [Vol rate/Area] 66 mL/min/{1.73_m2} Invalid Interpretation Code >60 [facility] Work Phone: Glomerular Filtration rate 80 mL/min Invalid Interpretation Code >60 [facility] Work Phone: Glucose [Mass/Vol] 93 mg/dL Invalid Interpretation Code 70-110 [facility] Work Phone: Potassium [Moles/Vol] 3.8 mmol/L Invalid Interpretation Code 3.5-5.1 [facility] Work Phone: Sodium [Moles/Vol] 142 mmol/L Invalid Interpretation Code 136-145 [facility] Work Phone: Urea nitrogen [Mass/Vol] 19 mg/dL High 7-18 [facility] Work Phone: Urea nitrogen/Creatinine [Mass ratio] 20.4761012 mg/mg High 10-20 [facility] Work Phone: Lab Report: Miscellaneous La b Procedureon 10-21-2017 GE use only - for [employer] import when terms are not otherwise specified . Invalid Interpretation Code [facility] Office Visit: Annualon 10-15 Tobacco smoking status Never Invalid Interpretation Code [facility] Tobacco smoking status Tobacco smoking status NHIS Invalid Interpretation Code [facility] Tobacco use status CPHS Never smoker Invalid Interpretation Code [facility] Office Visit: discuss CT res ultson 09-17-2017 Tobacco smoking status Never Invalid Interpretation Code [facility] Work Phone: Tobacco use status [facility] Never smoker Invalid Interpretation Code [facility] Work Phone: Lab Report: CREATININE IGOR Scales 09-14-2017 EGFR WB > 60.0000 mL/min Invalid Interpretation Code >60 [facility] Work Phone: GE use only - for [employer] import when terms are not otherwise specified > 60.0000 mL/min Invalid Interpretation Code >60 [facility] Work Phone: Office Visit: Lower abdomina l pain/colonoscopy consulton 08-28-2017 Alcoholism counseling (procedure) no Invalid Interpretation Code [facility] [employer] Work Phone: Dietary management education, guidance, and counseling (procedure) yes Invalid Interpretation Code [facility] [employer] Work Phone: Documentation of current medications (procedure) Done Invalid Interpretation Code [facility] [employer] Work Phone: Fall risk assessment No Invalid Interpretation Code [facility] [employer] Work Phone: Tobacco smoking status Never Invalid Interpretation Code [facility] Work Phone: Tobacco use status [facility] Never smoker Invalid Interpretation Code [facility] [employer] Work Phone: Clinical Lists Update: [employer] 01-19-2017 Left ventricular Ejection fraction 65 % Invalid Interpretation Code [facility] Work Phone: Lab Report: Basic Metabolic Profile (BMP)on 12-25-2016 Anion gap 7 mmol/L Invalid Interpretation Code 5-15 [facility] Work Phone: Anion gap [Moles/Vol] 7 mmol/L Invalid Interpretation Code 5-15 [facility] Work Phone: BUN/Creatinine Ratio 21.2 RATIO High 10-20 [facility] Work Phone: Calcium [Mass/Vol] 8.9 mg/dL Invalid Interpretation Code 8.5-10.1 [facility] Work Phone: Chloride [Moles/Vol] 103 mmol/L Invalid Interpretation Code 98-107 [facility] Work Phone: CO2 29.0 mmol/L Invalid Interpretation Code 21.0-32.0 [facility] [employer] Work Phone: CO2 (BldV) [Partial pressure] 29.0 mmol/L Invalid Interpretation Code 21.0-32.0 [facility] Work Phone: Creatinine [Mass/Vol] 0.80 mg/dL Invalid Interpretation Code 0.55-1.02 [facility] Work Phone: eGFR (non-black) 93 mL/min/{1.73_m2} Invalid Interpretation Code >60 [facility] Work Phone: GFR/1.73 sq M.predicted among non-blacks MDRD (S/P/Bld) [Vol rate/Area] 77 mL/min/{1.73_m2} Invalid Interpretation Code >60 [facility] Work Phone: Glomerular Filtration rate 93 mL/min Invalid Interpretation Code >60 [facility] Work Phone: Glucose [Mass/Vol] 83 mg/dL Invalid Interpretation Code 70-110 [facility] Work Phone: Potassium [Moles/Vol] 3.7 mmol/L Invalid Interpretation Code 3.5-5.1 [facility] Work Phone: Sodium [Moles/Vol] 139 mmol/L Invalid Interpretation Code 136-145 [facility] Work Phone: Urea nitrogen [Mass/Vol] 17 mg/dL Invalid Interpretation Code 7-18 [facility] Work Phone: Urea nitrogen/Creatinine [Mass ratio] 21.1468186 mg/mg High 10-20 [facility] Work Phone: Lab Report: CBC-Complete Blo od Cnt No Diffon 12-25-2016 Erythrocyte distribution width (RBC) [Ratio] 14.6 % Invalid Interpretation Code 11.6-14.6 [facility] Work Phone: Erythrocyte distribution width Auto Ratio (RBC) 14.6 % Invalid Interpretation Code 11.6-14.6 [facility] Work Phone: Erythrocytes (RBC) 4.94 10*6/uL Invalid Interpretation Code 4.2-5.4 [facility] Work Phone: Hematocrit (Bld) [Volume fraction] 40.9 % Invalid Interpretation Code 37-47 [facility] Work Phone: Hematocrit (HCT) 40.9 % Invalid Interpretation Code 37-47 [facility] Work Phone: Hemoglobin (Bld) [Mass/Vol] 13.2 g/dL Invalid Interpretation Code 12.0-15.0 [facility] Work Phone: MCH 26.7 pg Low 27.0-32.0 [facility] Work Phone: MCH (RBC) [Entitic mass] 26.7 pg Low 27.0-32.0 [facility] Work Phone: MCHC mass conc (RBC) 32.3 G/GL Invalid Interpretation Code 32-36 [facility] Work Phone: MCV 82.8 fL Invalid Interpretation Code 81-99 [facility] Work Phone: MCV (RBC) [Entitic vol] 82.8 fL Invalid Interpretation Code 81-99 [facility] Work Phone: mean corpuscular hemoglobin concentration, RBC 32.3 G/GL Invalid Interpretation Code 32-36 [facility] Work Phone: Platelet mean volume (Bld) [Entitic vol] 10.8 fL Invalid Interpretation Code 6.2-12.0 [facility] Work Phone: Platelets 356 10*3/mm3 Invalid Interpretation Code 150-450 [facility] Work Phone: Platelets (Bld) [#/Vol] 356 10*3/uL Invalid Interpretation Code 150-450 [facility] Work Phone: PMV by Ynes 10.8 fL Invalid Interpretation Code 6.2-12.0 [facility] Work Phone: RBC (Bld) [#/Vol] 4.94 10*6/uL Invalid Interpretation Code 4.2-5.4 [facility] Work Phone: RDW SD 43.8 fL Invalid Interpretation Code 35.1-43.9 [facility] Work Phone: red blood cell distribution width, size density 43.8 fL Invalid Interpretation Code 35.1-43.9 [facility] Work Phone: WBC (Bld) [#/Vol] 7.3 10*3/uL Invalid Interpretation Code 4.4-11.0 [facility] Work Phone: WBC (Leukocytes) 7.3 10*3/uL Invalid Interpretation Code 4.4-11.0 [facility] Work Phone: Lab Report: Partial Thrombop last Timeon 12-25-2016 aPTT Coag (Bld) [Time] 29.9 s Invalid Interpretation Code 24.1-36.2 [facility] Work Phone: Lab Report: Prothrombin Time w/INRon 12-25-2016 INR Coag (PPP) [Relative time] 1.1 {INR} Invalid Interpretation Code [facility] Work Phone: Prothrombin time (PT) Coag time (PPP) 13.9 s Invalid Interpretation Code 11.7-14.9 [facility] Work Phone: PT Coag (PPP) [Time] 13.286009396 s Invalid Interpretation Code 11.7-14.9 [facility] Work Phone: Office Visiton 12-21-2016 Tobacco use status [facility] Never smoker Invalid Interpretation Code [facility] Work Phone: Replaced Document: Serge Ortiz CG Observationson 12-21-2016 EKG QRS axis 6 deg Invalid Interpretation Code [facility] Work Phone: electrocardiogram interpretation Sinus Rhythm WITHIN NORMAL LIMITS Invalid Interpretation Code [facility] Work Phone: GE use only - for [employer] import when terms are not otherwise specified 406 ms Invalid Interpretation Code [facility] Work Phone: Heart rate 84 /min Invalid Interpretation Code [facility] Work Phone: Interpretation Sinus Rhythm WITHIN NORMAL LIMITS Invalid Interpretation Code [facility] Work Phone: P [place] 24 deg Invalid Interpretation Code [facility] Work Phone: P wave axis, electrocardiogram 24 deg Invalid Interpretation Code [facility] Work Phone: [place] Interval 180 ms Invalid Interpretation Code [facility] Work Phone: [place] interval, electrocardiogram 180 ms Invalid Interpretation Code [facility] Work Phone: QRS axis, electrocardiogram 6 deg Invalid Interpretation Code [facility] Work Phone: QRS Duration 88 ms Invalid Interpretation Code [facility] Work Phone: QRS duration, electrocardiogram 88 ms Invalid Interpretation Code [facility] Work Phone: QT Interval new path ms Invalid Interpretation Code [facility] Work Phone: QT interval, electrocardiogram new path ms Invalid Interpretation Code [facility] Work Phone: T [place] -1 deg Invalid Interpretation Code [facility] Work Phone: T wave axis, electrocardiogram -1 deg Invalid Interpretation Code [facility] Work Phone: Office Visit: Lower abdomina l pain/colonoscopy consulton 08-25-2016 MG Breast Screening Normal Bilateral Invalid Interpretation Code [facility] Work Phone: Clinical Lists Update: [employer] 04-11-2016 Cholesterol [Mass/Vol] 118 mg/dL Invalid Interpretation Code [facility] Work Phone: Cholesterol in HDL [Mass/Vol] 41 mg/dL Invalid Interpretation Code [facility] [employer] [employer] Work Phone: Cholesterol in LDL [Mass/Vol] 58 mg/dL Invalid Interpretation Code [facility] Work Phone: Lipoprotein.pre-beta [Mass/Vol] 19 mg/dL Invalid Interpretation Code [facility] Work Phone: Triglyceride [Mass/Vol] 95 mg/dL Invalid Interpretation Code [facility] Work Phone: Office Visit: Lower abdomina l pain/colonoscopy consulton 02-13-2013 Colonoscopy (procedure) Adenomatous Polyp Invali d Interpretation Code [facility] Work Phone: Vital Signs Date Time Vital Sign Value Performing Clinician Facility 06-26-2025 09:09-0400 Body height 165.[address] Shalonda Tian MD Work Phone: [facility] 06-26-2025 09:09-0400 Body mass index (BMI) [Ratio] 32.9 kg/m2 Dr. Shalonda Tian MD Work Phone: [facility] 06-26-2025 09:09-0400 Body temperature 98.2 [degF] Dr. Shalonda Tian MD Work Phone: [facility] 06-26-2025 09:09-0400 Body weight 89.[address] Shalonda Tian MD Work Phone: [facility] 06-26-2025 09:09-0400 Diastolic blood pressure 88 mm[Hg] Dr. Shalonda Tian MD Work Phone: [facility] 06-26-2025 09:09-0400 Heart rate 84 /min Dr. Shalonda Tian MD Work Phone: [facility] 06-26-2025 09:09-0400 Respiratory rate 18 /min Dr. Shalonda Tian MD Work Phone: [facility] 06-26-2025 09:09-0400 SaO2% (BldA) [Mass fraction] 98 % Dr. Shalonda Tian MD Work Phone: [facility] 06-26-2025 09:09-0400 Systolic blood pressure 142 mm[Hg] Dr. Shalonda Tian MD Work Phone: [facility] 03-20-2025 07:59-0400 Body height 165.[address] Shalonda Tian MD Work Phone: [facility] 03-20-2025 07:59-0400 Body mass index (BMI) [Ratio] 33.5 kg/m2 Dr. Shalonda Tian MD Work Phone: [facility] 03-20-2025 07:59-0400 Body temperature 96.1 [degF] Dr. Shalonda Tian MD Work Phone: [facility] 03-20-2025 07:59-0400 Body weight 91.[address] Shalonda Tian MD Work Phone: [facility] 03-20-2025 07:59-0400 Diastolic blood pressure 62 mm[Hg] Dr. Shalonda Tian MD Work Phone: [facility] 03-20-2025 07:59-0400 Heart rate 74 /min Dr. Shalonda Tian MD Work Phone: [facility] 03-20-2025 07:59-0400 Respiratory rate 16 /min Dr. Shalonda Tian MD Work Phone: [facility] 03-20-2025 07:59-0400 SaO2% (BldA) [Mass fraction] 94 % Dr. Shalonda Tian MD Work Phone: [facility] 03-20-2025 07:59-0400 Systolic blood pressure 132 mm[Hg] Dr. Shalonda Tian MD Work Phone: [facility] 03-19-2024 09:07-0400 Body height 165.[address] Shalonda Tian Work Phone: [facility] 03-19-2024 09:07-0400 Body mass index (BMI) [Ratio] 32.3 kg/m2 Dr. Shalonda Tian Work Phone: [facility] 03-19-2024 09:07-0400 Body temperature 98.4 [degF] Dr. Shalonda Tian Work Phone: [facility] 03-19-2024 09:07-0400 Body weight 87.[address] Shalonda Tian Work Phone: [facility] 03-19-2024 09:07-0400 Diastolic blood pressure 84 mm[Hg] Dr. Shalonda Tian Work Phone: [facility] 03-19-2024 09:07-0400 Heart rate 79 /min Dr. Shalonda Tian Work Phone: [facility] 03-19-2024 09:07-0400 Respiratory rate 17 /min Dr. Shalonda Tian Work Phone: [facility] 03-19-2024 09:07-0400 SaO2% (BldA) [Mass fraction] 94 % Dr. Shalonda Tian Work Phone: [facility] 03-19-2024 09:07-0400 Systolic blood pressure 140 mm[Hg] Dr. Shalonda Tina Work Phone: [facility] 09-12-2023 09:30-0400 Body height 165.[address] Baxter [facility] 09-12-2023 09:30-0400 Body mass index (BMI) [Ratio] 30.2 kg/m2 Dr. Baxter [facility] 09-12-2023 09:30-0400 Body temperature 98.2 [degF] [facility]-12-2023 09:30-0400 Body weight 82.[address] Sahil Escalante [facility] 09-12-2023 09:30-0400 Diastolic blood pressure 84 mm[Hg] Dr. Baxter [facility] 09-12-2023 09:30-0400 Heart rate 72 /min Dr. Baxter [facility] 09-12-2023 09:30-0400 Respiratory rate 16 /min Dr. Baxter [facility] 09-12-2023 09:30-0400 SaO2% (BldA) [Mass fraction] 96 % Dr. Baxter [facility] 09-12-2023 09:30-0400 Systolic blood pressure 128 mm[Hg] Dr. Sahil Escalante [facility] 07-17-2023 12:31-0400 Body height 165.[address] [facility] 12-11-2022 11:20-0500 Body temperature 97.2 [degF] Dr. Sahil Escalante Work Phone: [facility] 12-11-2022 11:20-0500 Diastolic blood pressure 60 mm[Hg] Dr. Sahil Escalante Work Phone: [facility] 12-11-2022 11:20-0500 Heart rate 63 /min Dr. Sahil Escalante Work Phone: [facility] 12-11-2022 11:20-0500 Respiratory rate 69 /min Dr. Sahil Escalante Work Phone: [facility] 12-11-2022 11:20-0500 SaO2% (BldA) [Mass fraction] 95 % Dr. Sahil Escalante Work Phone: [facility] 12-11-2022 11:20-0500 Systolic blood pressure 107 mm[Hg] Dr. Sahil Escalante Work Phone: [facility] 12-11-2022 09:34-0500 Body height 165.[address] Sahil Escalante Work Phone: [facility] 12-11-2022 09:34-0500 Body mass index (BMI) [Ratio] 32.3 kg/m2 Dr. Sahil Escalante Work Phone: [facility] 12-11-2022 09:34-0500 Body weight 88.[address] Sahil Escalante Work Phone: [facility] 10-17-2022 13:29-0500 Body mass index (BMI) [Ratio] 30.7 kg/m2 Dr. Sahil Escalante Work Phone: [facility] 10-17-2022 13:29-0500 Body weight 83.[address] Shail Escalante Work Phone: [facility] 06-26-2022 15:19-0400 Diastolic blood pressure 76 mm[Hg] Dr. Sahil Escalante Work Phone: [facility] Work Phone: 06-26-2022 15:19-0400 Systolic blood pressure 132 mm[Hg] Dr. Sahil Escalante Work Phone: [facility] Work Phone: 06-26-2022 14:32-0400 Body height 162.[address] Sahil Escalante Work Phone: [facility] Work Phone: 06-26-2022 14:32-0400 Body mass index (BMI) [Ratio] 32.1 kg/m2 Dr. Sahil Escalante Work Phone: [facility] Work Phone: 06-26-2022 14:32-0400 Body weight 84.[address] Sahil Escalante Work Phone: [facility] Work Phone: 06-26-2022 14:32-0400 Heart rate 68 /min Dr. Sahil Escalante Work Phone: [facility] Work Phone: 06-26-2022 14:32-0400 Respiratory rate 16 /min Dr. Sahil Escalante Work Phone: [facility] Work Phone: 06-26-2022 14:32-0400 SaO2% (BldA) [Mass fraction] 97 % Dr. Sahil Escalante Work Phone: [facility] Work Phone: 10-15-2017 10:33-0500 Body height 165.1 cm Melanie Bui NP Work Phone: [facility] 10-15-2017 10:33-0500 Body mass index (BMI) [Ratio] 33.94 kg/m2 Melanie Bui LOOM FIXER SUPERVISOR Work Phone: [facility] 10-15-2017 10:33-0500 Body weight 92.53 kg Melanie Bui LOOM FIXER SUPERVISOR Work Phone: [facility] 10-15-2017 10:33-0500 Diastolic blood pressure 85 mm[Hg] Melanie Bui LOOM FIXER SUPERVISOR Work Phone: [facility] 10-15-2017 10:33-0500 Systolic blood pressure 146 mm[Hg] Melanie Bui LOOM FIXER SUPERVISOR Work Phone: [facility] 08-28-2017 08:30-0400 Body height 165.1 cm Lobo Sal MD Work Phone: [facility] Work Phone: 08-28-2017 08:30-0400 Body mass index (BMI) [Ratio] 33.21 kg/m2 Lobo Sal MD Work Phone: [facility] Work Phone: 08-28-2017 08:30-0400 Body temperature 98.3 [degF] Lobo Sal MD Work Phone: [facility] Work Phone: 08-28-2017 08:30-0400 Body temperature 98.29 [degF] Lobo Sal MD Work Phone: [facility] Work Phone: 08-28-2017 08:30-0400 Body weight 90.54 kg Lobo Sal MD Work Phone: [facility] Work Phone: 08-28-2017 08:30-0400 Diastolic blood pressure 86 mm[Hg] Lobo Sal MD Work Phone: [facility] Work Phone: 08-28-2017 08:30-0400 Heart rate 76 /min Lobo Sal MD Work Phone: [facility] Work Phone: 08-28-2017 08:30-0400 Respiratory rate 20 /min Lobo Sal MD Work Phone: [facility] Work Phone: 08-28-2017 08:30-0400 Systolic blood pressure 130 mm[Hg] Lobo Sal MD Work Phone: [facility] Work Phone: 08-28-2017 08:30-0400 Weight 90.54 kg Lobo Sal MD [facility] Work Phone: 03-29-2017 08:40-0400 Body height 165.1 cm [facility] Work Phone: 03-29-2017 08:40-0400 Body mass index (BMI) [Ratio] 33.11 kg/m2 Candice Erazo [facility] Work Phone: 03-29-2017 08:40-0400 Body weight 90.27 kg [facility] Work Phone: 03-29-2017 08:40-0400 Diastolic blood pressure 78 mm[Hg] Candice Erazo [facility] Work Phone: 03-29-2017 08:40-0400 Heart rate 72 /min [facility] Work Phone: 03-29-2017 08:40-0400 Respiratory rate 18 /min [facility] Work Phone: 03-29-2017 08:40-0400 Systolic blood pressure 112 mm[Hg] [facility] Work Phone: 12-21-2016 15:11-0500 Body surface area Derived from formula 2.01 m2 [facility] Work Phone: Encounters Encounter Date Encounter Type Care Provider Facility Start: 08-25-2025 ambulatory Efewongbe Oleghe Facili ty:[facility] Start: 07-27-2025 ambulatory Efewongbe Oleghe Facili ty:[facility] Start: 06-26-2025 End: 06-26-[address] Shalonda Tian MD -[facility] Work Phone: Start: 06-26-2025 End: 06-26-[address] Shalonda Tian MD Work Phone: -[facility] Start: 06-26-2025 End: 06-26-2025 ambulatory Shalonda Tian Facility:[facility] Start: 03-24-2025 End: 03-24-[address] Shalonda Tian MD Work Phone: [facility] Work Phone: Start: 03-24-2025 End: 03-24-[address] Shalonda Tian MD -[facility], [place] Start: 03-24-2025 End: 03-24-2025 ambulatory Shalonda Tian Facility:[facility] Start: 03-20-2025 End: 03-20-[address] Shalonda Tian MD [facility] Work Phone: Start: 03-20-2025 End: 03-20-2025 [facility] Facility[facility] Start: 09-19-2024 End: 09-19-2024 ambulatory [facility] [facility] Start: 09-19-2024 End: 09-19-[address] [facility] [place] Facility:[facility] Start: 03-19-2024 End: 03-19-[address] Shalonda Tian Work Phone: [facility] Work Phone: Start: 03-19-2024 End: 03-19-[address] Shalonda Tian Work Phone: [facility] Work Phone: Start: 09-12-2023 End: 09-12-[address] Sahil Escalante [facility] Work Phone: Start: 09-12-2023 End: 09-12-[address] Sahil Escalante [facility] Work Phone: Start: 07-17-2023 End: 07-17-2023 ambulatory [facility] Work Phone: Start: 07-17-2023 End: 07-17-2023 Patient encounter procedure [facility]-Outpatient Bone Densitometry Work Phone: Start: 03-05-2023 Patient encounter status [facility] Start: 12-11-2022 Non-patient / Non-visit Dr. Benson Escalante Work Phone: [facility] Start: 12-11-2022 End: 12-11-2022 Admission to same day surgery center Dr. Sahil Escalante Work Phone: [facility]-Endoscopy Start: 12-11-2022 End: 12-11-[address] Sahil Escalante Work Phone: [facility] Work Phone: Start: 10-17-2022 Non-patient / Non-visit Dr. Benson Escalante Work Phone: [facility] Start: 07-13-2022 End: 07-13-[address] Sahil Escalante Work Phone: [facility] Work Phone: Start: 07-13-2022 End: 07-13-[address] Sahil Escalante Work Phone: [facility]-Outpatient Breast Imaging Start: 06-26-2022 End: 06-26-[address] Saihl Escalante Work Phone: [facility] Start: 05-03-2022 End: 05-03-2022 Patient encounter procedure [facility] Start: 10-16-2020 End: 10-16-2020 Patient encounter procedure [facility] Start: 10-15-2017 Gynecologic examination Melanie Bui [employer]PER[employer] Work Phone: [facility] Procedures Date Procedure Procedure Detail Performing Clinician [...] 10-15-2017 End: 10-15-2017 Alcoholism counseling Melanie Bui [employer] SUPER[employer] Work Phone: Start: 10-15-2017 End: 10-15-2017 Dietary management education, guidance, and counseling Melanie Bui [employer] SUPERVISOR Work Phone: Start: 10-15-2017 End: 10-15-2017 Documentation of current medications Melanie Bui [employer]OM [employer] SUPERVISOR Work Phone: Start: 10-15-2017 End: 10-22-2017 Mammogram, screening Melanie Bui [employer]PER[employer] Work Phone: Start: 10-15-2017 Screening for malign ant neoplasm of cervix Screening pap Melanie Bui [employer] SUPERVIS[employer] Work Phone: Start: 10-15-2017 Screening mammography Mammogra m yearly screening Melanie Bui [employer]OM [employer] SUPERVISOR Work Phone: Start: 10-15-2017 End: 10-22-2017 Us pelvic nonobstetric real-time image complete Melanie Bui [employer] SUPERVISOR Work Phone: Start: 09-17-2017 End: 09-17-2017 Alcoholism [...] MD Work Phone: Start: 03-29-2017 End: 03-29-2017 DJN Lobo Delcid MD Work Phone: Start: 03-29-2017 [...] MD Work Phone: Start: 12-21-2016 End: 01-23-2017 BOBN Lobo Delcid MD Work Phone: Start: 12-21-2016 [...] MD Work Phone: Start: 12-21-2016 End: 01-23-2017 BE Delcid MD Work Phone: Start: 12-21-2016 End: [...] Activity Detail Author Start: 12-11-2022 Patient discharge [facility] Start: 10-30-2017 End: 10-30-2017 Patient encounter procedure Appointment [facility] Start: 10-18-2017 End: 10-18-[address] [facility] Work Phone: Start: 10-15-2017 End: 10-15-2017 Patient encounter procedure Appointment [facility] Start: 10-15-2017 End: 10-22-2017 Mammogram, screening Mammogram, Screening, both breasts [facility] Start: 10-15-2017 End: 10-22-2017 Us pelvic nonobstetric real-time image complete US Pelvis [facility] Start: 10-15-2017 End: 10-22-2017 Us transvaginal US Transvaginal [facility] Start: 09-17-2017 End: 09-17-2017 Appointment Appointment [facility] Work Phone: Start: 08-28-2017 End: 09-14-2017 Colonoscopy flx dx w/collj spec when pfrmd Colonoscopy [facility] Work Phone: Start: 08-28-2017 End: 09-14-2017 Colonoscopy flx dx w/collj spec when pfrmd Colonoscopy [facility] Work Phone: Start: 08-22-2017 End: 09-14-2017 Ct abdomen & pelvis w/contrast material CT Abdomen/pelvis; with contrast [facility] Work Phone: Start: 08-22-2017 End: 09-14-2017 Ct abdomen & pelvis w/contrast material CT Abdomen/pelvis; with contrast [facility] Work Phone: Start: 03-29-2017 End: 03-29-2017 Cardiovascular stress test using treadmill Treadmill stress test (no imaging) [facility] Work Phone: Start: 03-29-2017 End: 03-30-2017 Complete sleep workup (PSG,CPAP as indicated) & Follow up Complete sleep workup (PSG,CPAP as indicated) & Follow up [facility] Work Phone: Start: 03-29-2017 End: 03-29-2017 BE LR [facility] Work Phone: Start: 03-29-2017 End: 03-29-2017 Follow Up Appt 6 months Follow Up Appt 6 months [facility] Work Phone: Start: 03-29-2017 End: 03-29-2017 Patient encounter procedure Appointment [facility] Work Phone: Start: 03-29-2017 End: 03-30-2017 Cardiovascular stress test using treadmill Treadmill stress test (no imaging) [facility] Work Phone: Start: 03-29-2017 End: 03-30-2017 Complete sleep workup (PSG,CPAP as indicated) & Follow up Complete sleep workup (PSG,CPAP as indicated) & Follow up [facility] Work Phone: Start: 03-29-2017 End: 03-29-2017 BE LR [facility] Work Phone: Start: 03-29-2017 End: 03-29-2017 Follow Up Appt 6 months Follow Up Appt 6 months [facility] Work Phone: Start: 02-20-2017 End: 02-20-2017 Follow Up BP Check Follow Up BP Check [facility] Work Phone: Start: 02-20-2017 End: 02-20-2017 Follow Up BP Check Follow Up BP Check [facility] Work Phone: Start: 02-06-2017 End: 02-06-2017 Follow Up BP Check Follow Up BP Check [facility] Work Phone: Start: 02-06-2017 End: 02-06-2017 Follow Up BP Check Follow Up BP Check [facility] Work Phone: Start: 01-23-2017 End: 01-23-2017 BE LR [facility] Work Phone: Start: 01-23-2017 End: 01-23-2017 Follow Up Appt 1 month Follow Up Appt 1 month [facility] Work Phone: Start: 01-23-2017 End: 01-23-2017 BE ROJASSayda [facility] Work Phone: Start: 01-23-2017 End: 01-23-2017 Follow Up Appt 1 month Follow Up Appt 1 month [facility] Work Phone: Start: 12-21-2016 End: 12-25-2016 *BMP *BMP [facility] Work Phone: Start: 12-21-2016 End: 12-25-2016 aPTT *PTT-Partial Thromboplastin Time [facility] Work Phone: Start: 12-21-2016 End: 12-25-2016 CBC W Auto Differential panel - Blood *CBC without Diff [facility] Work Phone: Start: 12-21-2016 End: 12-27-2016 Chest x-ray X-Ray, Chest, PA & Lateral [facility] Work Phone: Start: 12-21-2016 End: 01-23-2017 BE LR [facility] Work Phone: Start: 12-21-2016 End: 12-27-2016 Ecg routine ecg w/least 12 lds w/i&r EKG (In office) [facility] Work Phone: Start: 12-21-2016 End: 12-22-2016 Echocardiography Echocardiogram (complete) [facility] Work Phone: Start: 12-21-2016 End: 01-23-2017 Follow Up Appt 1 month Follow Up Appt 1 month [facility] Work Phone: Start: 12-21-2016 End: 12-25-2016 INR Coag RelTime (PPP) *PT/INR [facility] Work Phone: Start: 12-21-2016 End: 12-21-2016 Left Heart Cath Left Heart Cath [facility] Work Phone: Start: 12-21-2016 End: 12-25-2016 aPTT in Platelet poor plasma by Coagulation assay *PTT-Partial Thromboplastin Time [employer] [facility] [employer] Work Phone: Start: 12-21-2016 End: 12-25-2016 Basic metabolic 2000 panel - Serum or Plasma *BMP [facility] [employer] Work Phone: Start: 12-21-2016 End: 12-25-2016 CBC W Auto Differential panel - Blood *CBC without Diff [facility] [employer] Work Phone: Start: 12-21-2016 End: 12-27-2016 Chest x-ray X-Ray, Chest, PA & Lateral [facility] Work Phone: Start: 12-21-2016 End: 01-23-2017 DJN DJN [facility] [employer] [employer] Work Phone: Start: 12-21-2016 End: 12-27-2016 Ecg routine ecg w/least 12 lds w/i&r EKG (In office) [facility] [employer] Work Phone: Start: 12-21-2016 End: 12-22-2016 Echocardiography Echocardiogram (complete) [facility] [employer] Work Phone: Start: 12-21-2016 End: 01-23-2017 Follow Up Appt 1 month Follow Up Appt 1 month [facility] [employer] [employer] Work Phone: Start: 12-21-2016 End: 12-25-2016 INR in Platelet poor plasma by Coagulation assay *PT/INR [employer] Work Phone: Start: 12-21-2016 End: 12-21-2016 Left Heart Cath Left Heart Cath [facility] Work Phone: [facility] DXA Bone [Mass/Area] Bone density [facility] MG Breast - bilatera l Screening [facility] MG Breast - bilatera l Screening [facility] Patient referral [facility] Work Phone: Radionuclide imaging of perfusion of myocardium under exercise stress [facility] Payers Date Payer Category Payer Self-pay [id number] 2024 Medicare [id number] 2024 Unknown [id number] 2010 Unknown [id number] 1955 Unknown [id number] [id number] Unknown [id number] Unknown [id number] Unknown [facility] [id number] Unknown [id number] 2.16.8 [id number] Unknown [id number] 2.16.8 [id number] Unknown [id number] 2.16.8 [id number] Unknown [id number] 2.16.8 [id number] Unknown [id number] 2.16.8 [id number] Unknown [id number] 2.16.8 [id number] Unknown [id number] 2.16.8 [id number] Unknown [id number] 2.16.8 [id number] Social History Date Type Detail Facility Start: 07-11-2021 End: 09-12-2023 Tobacco smoking status NHIS Unknown if ever smoked [facility] Start: 04-21-2021 None [facility] Start: 04-10-2016 Spouse/ Signif icant Other [facility] Start: 1955 Sex Assigned At Female [facility] Start: 09-12-2023 Tobacco smoking status NHIS Never smoked tobacco (finding) [facility] Goals Date Patient Goal Desired Activity /State Mental Status Date Assessment Result Facility 12-11-2022 Cognitive function Voice/Name [facility] Work Phone: Clinical Notes 08-28-2017 to 03-20-2025 Note Date & Type Note Facility 03-20-2025 Evaluation note Diagnosis Onset Date Resolution Anxiety and depression chronic Ma y 2024 7:52am Essential hypertension chronic Ma y 2024 7:52am GERD (gastroesophageal reflux disease) chronic March 20, 2025 7: 52am Osteopenia chronic March 20, 2025 7:52am [facility] Work Phone: 1(693) 459-901405-02-2025 Evaluation note* Diagnosis Onset Date Resolution Status Admit Date Anxiety and depression chronic Ma y 2024 7:52am Essential hypertension chronic Ma y 2024 7:52am GERD (gastroesophageal reflu x disease) chronic March 20, 2025 7: 52am Osteopenia chronic March 20, 2025 7:52am Chest pain acute June 26 8:58am Anxiety and depression chronic Au 2024 8:58am Essential hypertension chronic Au [facility] 2024 8:58am GERD (gastroesophageal reflu x disease) chronic June 26, 2025 8:58am [facility] Work Phone: 1(330) 621-600301-23-2023 History and physical note Author Cecil Friend [facility] December 11, 2022 9:29am Note Date/Time December 11, 2022 9 :29am [facility] Medical Records Department [address] [place] [address] History & Physical Exam 12/11/2227 MR#: [id number] Acct: [id number] Name: AMALIA ANGEL Rep #:[id number] : 1955 67 From: Cecil Friend PCP: Dr. Sahil Escalante MD Status:REG S [place] Location: [place] [address] HPI - General General Date of Admission: 12/11/22 Date of Service: 12/11/22 Chief Complaint: Screening colonoscopy HPI Narrative AMALIA ANGEL, is a 67 F who presents [...] Overall she is in very good health. [facility] Medical History (Updated 12/08/22 @ 08:48 by [...] (2) Family history of colon cancer: 12/11/22 0929 <Electronically signed by Cecil Wilks DO> Cosigner Signature (if applicable): CC: Dr. Sahil Escalante MD; Cecil Wilks DO~ Signed [facility] Work Phone: 1(524) 247-315801-23-2023 Procedure [facility] 12-11-2022 Procedure [facility]10-30-2017 Fall risk [id number]/10/[facility] Work Phone: 1(397) 149-754710-10-2017 Fall risk [id number]/10/10[facility] [employer] Work Phone: Evaluation noteNo assessment information available [facility] Work Phone: Evaluation note* Diagnosis Onset Date Resolution Status Essential hypertension chron [facility] Work Phone: Evaluation note* Diagnosis Onset Date Resolution Status Encounter for screening for malignant neoplasm of colo n acute Family history of colon cancer acute [facility] Work Phone: Evaluation note* Diagnosis Onset Date Resolution Status Anxiety and depression chron ic Essential hypertension chron ic Osteopenia chronic Sleep concern chronic [facility] Work Phone: Evaluation note* Diagnosis Onset Date Resolution Status Anxiety and depression chron ic Essential hypertension chron ic Osteopenia chronic [facility] Work Phone: Reason for referral (narrative)No reason for referral [facility] Work Phone: Summary Purpose Family History No Family History Records Found Relationship Condition Age at Onset Recorded Date/T caron mother Hypertension Unknown father Hypertension Unknown Relationship Condition Age at Onset Recorded Date/T caron mother Hypertension Unknown father Hypertension Unknown Malignant neoplasm of colon Unknown aunt Malignant neoplasm of colon Unknown uncle Malignant neoplasm of colon Unknown Advance Directives No Advanced Directives Records Found Advance Directive Response Recorded Date/ Time Advance Directives Yes December 27, 2016 8:18am Living Will Yes August 31 3:32pm Power of Restaurant Area Director Yes August 31, 2017 3:32pm Advance Directive Response Recorded Date/ Time Name of Medical Power of Restaurant Area Director CARLOS ANGEL December 08, 2022 8:48am Advance Directives Yes December 27, 2016 7:18am Living Will Yes December 08 8:48am Power of Restaurant Area Director Yes December 08, 2022 8:48am Advance Directive Response Recorded Date/ Time Advance Directives Yes December 27, 2016 8:18am Living Will Yes December 08 9:48am Power of Restaurant Area Director Yes December 08, 2022 9:48am Advance Directive Response Recorded Date/ Time Living Will Yes December 08 9:48am Do you have a Healthcare Power of Restaurant Area Director? Yes December 08, 2022 9:48am Advance Directives [...] 6 M FU March 20, 2025 7:52am Chief Complaint Admit Date 6 M FU March 20, 2025 7:52am 3 M FU June 26, 2025 8:5 8am E ORDERS NOT IN YET/PAT IS CALLING Aug[facility] t 2024 9:57am Reason for Visit Admit Date Anxiety and depression March 20, 2025 7:5 2am Essential hypertension March 20, 2025 7:5 2am GERD (gastroesophageal reflux disease) M ay 2024 7:52am Osteopenia March 20, 2025 7:52am Chest pain June 26, 2025 8:5 8am Anxiety and depression June 26, 2025 8:58am Essential hypertension June 26, 2025 8:58am GERD (gastroesophageal reflux disease) A ugust 2024 8:58am Additional Source Comments INFORMATION SOURCE (unrecogn ized section and content) DATE CREATED AUTHOR 10/17/2020 [facility] DATE CREATED AUTHOR AUTHOR'S ORGANIZ ATION 10/22/2020 [facility] DATE CREATED AUTHOR AUTHOR'S ORGANIZ ATION 07/24/[address] [facility] Goals (unrecognized section and content) Goals [...] Sahil Escalante MD Primary Care Provider Active Deborah Jacobson Attending Provider Active Team Status: Active Member [...] June 26, 2025 End: June 26, 2025 Team Status: Active Member Role/Relationship Status Dates Dr. Shalonda Tian [...] BE BASED ON THE PRIMARY CLINICAL RECORDS. [employer] provides no warranty or guarantee of the accuracy or completeness of information in this document.
--- NOTE | 2025-07-27 09:28 | STRESSREP ---
Stress Test Report Date: 07/27/2025 Procedure: Exercise tolerance test/imaging study Indications: Chest pain Consent: Per the patient Procedure: The patient exercised on a Usman protocol for 6 minutes achieving a peak heart rate of 127 bpm (85% predicted maximal heart rate) with a peak blood pressure 182/88 mmHg and a peak MET capacity of 7.0 METs. The baseline ECG demonstrated sinus rhythm. The peak exercise ECG did not show any ischemic changes. No significant cardiac dysrhythmias noted. The functional capacity was considered average for age. There was complaint of some chest pressure starting stage II of the exercise and lasting into recovery. The examination was discontinued secondary to target heart rate being achieved. The patient was injected with 13.3 mCi of technetium 99m Cardiolite and subsequently rest SPECT Cardiolite nuclear imaging was obtained in the horizontal long, vertical long, and short axis views. Post-exercise, the patient was injected with 43.9 mCi of technetium 99m Cardiolite and subsequently stress SPECT Cardiolite nuclear imaging was obtained in the horizontal long, vertical long, and short axis views. A gated Cardiolite study at peak stress was obtained. Rest and stress SPECT Cardiolite nuclear imaging status post realignment, normalization, and attenuation correction, demonstrates mildly reduced perfusion of the anterior wall post exercise, suggestive of mild anterior ischemia. There is end systolic thickening and brightening. The gated Cardiolite study demonstrates myocardial thickening and inward wall motion. The reported LVEF is 65%. Impression: 1. Technically adequate (percent predicted maximal heart rate greater than 85%) exercise tolerance test 2. Peak exercise ECG with no diagnostic ischemic changes 3. There were no cardiac dysrhythmias pretest, during exercise, or recovery 4. Rest and stress SPECT Cardiolite nuclear imaging demonstrate mild exercise-induced ischemia of the anterior wall. 5. The gated Cardiolite study reports an LVEF of 65%. This note was generated with [employer] software. It may contain incorrect words, spelling, and punctuation that were not noted in checking the note before signing.
== END | disposition home or self-care (01) ==
LOC: CVS 06:14
PROVIDERS: PCP Internal Medicine; Referring Provider Internal Medicine; Visit Provider Internal Medicine
DX: R07.9 Chest pain, unspecified (principal)
CPT/HCPCS: 78452; 93017; A9500; A4216

== ENCOUNTER → 2025-08-25 | Outpatient (CLI) | payer MEDICARE, OTHER, SELFPAY ==
--- NOTE | 2025-08-25 10:27 | BD_ITS ---
PROCEDURE: DEXA BONE DENSITY STUDY 08/25/2025 REASON FOR EXAM: POST MENOPAUSAL F, age 70 y/o . Postmenopausal. TECHNIQUE: Procedure Code: BDDBD Modality: DX Procedure: DEXA BONE DENSITY STUDY COMPARISON: Prior study dated July 17, 2023. FINDINGS: BMD and T-SCORES Lumbar spine: 0.924 g/cm2, T-score -1.1 Levels: L1 through L4 Change from prior: Loss of 0.6%. Left femoral neck: 0.678 g/cm2, T-score -1.5 Femoral neck comparison data not recommended for monitoring change. Left total hip: 0.802 g/cm2, T-score -1.1 Change from prior: Loss of 0.2%. Right femoral neck: 0.597 g/cm2, T-score -2.3 Femoral neck comparison data not recommended for monitoring change. Right total hip: 0.757 g/cm2, T-score -1.5 Change from prior: Improvement of 2.1%. The World Health Organization has defined the following categories based on bone density: Normal bone density: T-score equal to or greater than -1.0 Osteopenia: T-score between -1.0 and -2.5 Osteoporosis: T-score equal to or less than -2.5 FRAX (or Comparable) Fracture Risk Assessment: 10 Year Probability of Fracture: Major Osteoporotic Fracture: 19% Hip Fracture: 4.2% (Note: FRAX is not to be reported in setting of normal range bone density, osteoporosis on DEXA, known history of osteoporosis, prior osteoporotic hip or vertebral fracture, or for any patient undergoing pharmacological treatment for bone loss.) The National Osteoporosis Foundation (NOF) recommends pharmacological treatment for patients with a FRAX 10-year risk of 3% or higher for a hip fracture, or 20% or higher for a major osteoporotic fracture, to prevent osteoporosis and reduce fracture risk. The patient does meet the pharmacological treatment recommendations for prevention of osteoporosis. BD/Dexa Bone Density Study IMPRESSION: OSTEOPENIA. Recommend follow-up as clinically warranted. Reading Location: [id number]
--- NOTE | 2025-08-25 11:00 | BI_ITS ---
EXAM: SCRN MAMM (CAD)W/LUPE BILAT DATE: 08/25/2025 CLINICAL HISTORY: F, Age 70 y/o , BREAST CANCER SCREENING No family history. TECHNIQUE: Procedure Code: [id number] Modality: MG Procedure: SCRN MAMM (CAD)W/LUPE BILAT COMPARISON: Prior exam(s) dated July 24, 2024.. FINDINGS: TISSUE DENSITY: The breasts are almost entirely fatty. Bilateral Breast Mammographic Findings: No significant masses, calcifications or other abnormalities are identified. Stable fat containing axillary lymph nodes. No suspicious masses, areas of developing architectural distortion, or suspicious calcifications. There has been no significant interval change. BI/SCRN MAMM (CAD)W/LUPE BILAT IMPRESSION: Stable bilateral screening mammogram. OVERALL FINAL ASSESSMENT BI-RADS 2: BENIGN RECOMMENDATION: Routine annual follow-up in 1 Year Additional Recommendation none A letter with findings and recommendations will be mailed to the patient. Reading Location: [facility]
--- NOTE | 2025-08-25 11:00 | BI_ITS ---
EXAM: SCRN MAMM (CAD)W/LUPE BILAT DATE: 08/25/2025 CLINICAL HISTORY: F, Age 70 y/o , BREAST CANCER SCREENING No family history. TECHNIQUE: Procedure Code: [id number] Modality: MG Procedure: SCRN MAMM (CAD)W/LUPE BILAT COMPARISON: Prior exam(s) dated July 24, 2024.. FINDINGS: TISSUE DENSITY: The breasts are almost entirely fatty. Bilateral Breast Mammographic Findings: No significant masses, calcifications or other abnormalities are identified. Stable fat containing axillary lymph nodes. No suspicious masses, areas of developing architectural distortion, or suspicious calcifications. There has been no significant interval change. BI/SCRN MAMM (CAD)W/LUPE BILAT IMPRESSION: Stable bilateral screening mammogram. OVERALL FINAL ASSESSMENT BI-RADS 2: BENIGN RECOMMENDATION: Routine annual follow-up in 1 Year Additional Recommendation none A letter with findings and recommendations will be mailed to the patient. Reading Location: [facility]
== END | disposition home or self-care (01) ==
LOC: OPBD 10:22
PROVIDERS: PCP Internal Medicine; Referring Provider Internal Medicine; Visit Provider Internal Medicine
DX: Z12.31 Encounter for screening mammogram for malignant neoplasm of breast (principal); Z78.0 Asymptomatic menopausal state; M85.80 Other specified disorders of bone density and structure, unspecified site
CPT/HCPCS: 77063; 77067; 77080

== ENCOUNTER → 2025-10-14 | Outpatient (CLI) | payer MEDICARE, OTHER, SELFPAY ==
--- NOTE | 2025-10-14 13:12 | ECHOD_ITS ---
Reason For Study Reason For Study: ABNORMAL STRESS TEST Procedure This was a 2D Doppler, Color Flow transthoracic echocardiogram. Exam performed in department. Left Ventricle Normal size and thickness. The left ventricular ejection fraction is 60 %. Normal diastology for age. Right Ventricle Normal right ventricle. Atria The left and right atria are normal. Bubble contrast study is negative for PFO/ASD. Mitral Valve Trivial eccentric mitral valve insufficiency. Tricuspid Valve Mild (1+) tricuspid valve insufficiency. Normal pulmonary artery pressure. Aortic Valve Trisinus/trileaflet aortic valve. Pulmonic Valve Trivial pulmonic valve insufficiency. Great Vessels Normal sized aortic root. Pericardium/Pleural No pericardial effusion. Medication 20 gauge I.V. with prn adaptor inserted into right arm. Performed a rapid injection of agitated mix of 9 cc saline and 1cc air to assess for atrial septal defect. MMode/2D Measurements & Calculations LVIDd: 4.4 cm IVSd: 0.92 cm LVOT diam: 1.9 cm LVIDs: 2.8 cm LVPWd: 0.77 cm RVDd: 3.3 cm FS: 35.6 % LVOT area: 2.8 cm2 Ao root diam: 2.8 cm asc Aorta Diam: 3.3 cm LAV(MOD- bp): 35.5 ml LAV(MOD- bp) Indexed: 18.2 ml/m2 LAV(MOD- sp2): 33.7 ml LAV(MOD- sp4): 35.0 ml SV(MOD- sp4): 30.0 ml LVAd ap4: 21.8 cm2 LVAd ap2: 21.1 cm2 LVLd ap4: 7.2 cm LVLd ap2: 7.2 cm SI(MOD- sp4): 15.4 ml/m2 EDV(MOD-sp4): 53.8 ml EDV(MOD-sp2): 51.8 ml EDV(sp4-el): 56.0 ml EDV(sp2-el): 52.2 ml LVAs ap4: 12.9 cm2 LVAs ap2: 12.4 cm2 LVLs ap4: 6.0 cm LVLs ap2: 6.1 cm ESV(MOD-sp4): 23.7 ml ESV(MOD-sp2): 21.1 ml ESV(sp4-el): 23.4 ml ESV(sp2-el): 21.3 ml EF(MOD-sp4): 55.9 % EF(MOD-sp2): 59.4 % EF(sp4-el): 58.3 % SV(MOD-sp2): 30.8 ml SV(sp4-el): 32.6 ml Ao sinus diam: 2.8 cm SI(MOD-sp2): 15.7 ml/m2 Ao ST Junction: 2.4 cm LA dimension(2D): 4.0 cm LA A4 area: 15.0 cm2 RA A4 area: 11.3 cm2 TAPSE: 1.8 cm Time Measurements MV dec time: 0.20 sec Doppler Measurements & Calculations MV E max javier: 59.5 cm/sec Lat Peak E' Javier: 11.2 cm/sec Med Peak E' Javier: 6.6 cm/sec MV A max javier: 73.1 cm/sec E/E' lat: 5.3 E/E' med: 9.1 MV E/A: 0.81 Ao V2 max: 120.8 cm/sec LV V1 max: 95.4 cm/sec MV dec slope: 297.2 cm/sec2 Ao max P.8 mmHg LV V1 max P.6 mmHg Ao V2 mean: 80.1 cm/sec LV V1 mean P.1 mmHg Ao mean P.0 mmHg LV V1 mean: 68.1 cm/sec Ao V2 VTI: 27.9 cm LV V1 VTI: 23.1 cm AV (velocity ratio): 0.83 ANTONIO(I,D): 2.4 cm2 ANTONIO(V,D): 2.2 cm2 SV(LVOT): 65.7 ml PA V2 max: 83.9 cm/sec TR max javier: 200.5 cm/sec TR max P.1 mmHg ECHO/Echo Complete Interpretation Summary The left ventricular ejection fraction is 60 %. Bubble contrast study is negative for PFO/ASD. Mild (1+) tricuspid valve insufficiency. Ordering Physician: Alistair Ryder Referring Physician: Shalonda Tian Performed By: Abby Araiza RDCS
[2025-10-14 13:34] VITALS: BP 144/86; PULSE 69; RESP 16; TEMP 36.7; O2SAT 97; BMI 32.4
--- OUTSIDE RECORDS SUMMARY | 2025-10-14 13:36 | XMS RPT_ITS | CCD ---
Author Organization [facility] Care Team Providers [employer] Customer Experience Advisor Name Role Phone Jonelle CARMONA, Lobo Burnham Unavailable JOSE URIAS Attending Unavailable JOSE URIAS Primary Care Unavailable JOSE URIAS Admitting Unavailable Melanie, RN, Maribell M Unavailable UnavailCandice Freire Unavailable Unavailable Candice Erazo Unavailable Unavailable Lobo Sal MD Unavailable Ramya BRYOLOGIST, Melanie S Unavailable Leona RN, Martha A [...] [phone] Dr. Shalonda Tian Referring Provider [phone] Dr. Shalonda Tian MD Primary Care Provider Jaylan CARMONA, Dr. Liz Attending Provider [phone] Jaylan CARMONA, Dr. Liz Referring Provider [phone]) Jaylan CARMONA, Dr. Liz Primary Care Physician Jaylan CARMONA, Dr. Liz Attending Physician [phone] Jaylan CARMONA, Dr. Liz Referring Provider [phone]) Jaylan CARMONA, Dr. Liz Nurse Practitioner [phone]) Aleksey CARMONA, Dr. Sainz Attending Physician [phone] Deirdre Nuñez Attending Unavailable Oleghe, Efewongbe Referring Unavailable Oleghe, Efewongbe Primary Care Unavailable Oleghe, Efewongbe Attending Unavailable Oleghe, Efewongbe Referring Unavailable Oleghe, Efewongbe Primary Care Unavailable Alistair Ryder Attending Unavailable Oleghe, Efewongbe Referring Unavailable Oleghe, Efewongbe Primary Care Unavailable Oleghe, Efewongbe Consulting Unavailable Alistair Ryder Attending Unavailable Oleghe, Efewongbe Referring Unavailable Oleghe, [...] Attending Unavailable Oleghe, Efewongbe Primary Care Unavailable Medications Current Medications Medication Drug Class(es) Dates Sig (Normalized) Sig (Original) aspirin 81 mg delayed release oral tablet (20 sources) Platelet Aggregation Inhibitor, Nonsteroidal Anti-inflammatory Drug Start: 10-16-2025 take 1 tablet by mouth once daily Aspirin 81 mg tablet,delayed release (DR/EC) Active 81 mg PO daily 100 3 September 03, 2025 12:00am Complies with drug therapy Start: 12-21-2016 End: 06-26-2022 take 1 tablet by mouth at bedtime Aspirin 81 MG tablet Discontinued 81 mg PO AT BEDTIME December 26, 2016 1:00am June 26, 2022 3:28pm calcium carbonate 1250 mg chewable tablet (8 sources) Start: 09-12-2023 take 1 tablet by mouth once daily Calcium Carbonate (Calcium 500) 500 mg calcium (1,250 mg) tablet,chewable Active 500 mg PO DAILY September 12, 2023 12:00am Complies with drug therapy cholecalciferol 0.025 mg oral capsule (9 sources) Vitamin D Start: 09-03-2025 take 1 capsule by mouth once daily Cholecalciferol (Vitamin D3) 25 mcg (1,000 unit) capsule Active 50 ug PO DAILY September 03, 2025 10:06am Complies with drug therapy Start: 09-12-2023 End: 09-03-2025 take 1 capsule by mouth once daily Cholecalciferol (Vitamin D3) 25 mcg (1,000 unit) capsule Discontinued 25 ug PO DAILY September 12, 2023 12:00am September 03, 2025 10:07am citalopram 10 mg oral tablet (20 sources) Serotonin Reuptake Inhibitor Start: 09-03-2025 take 1 tablet by mouth once daily Citalopram 10 mg tablet Active 10 mg PO daily September 03, 2025 12:00am Complies with drug therapy Start: 03-20-2025 End: 09-03-2025 take 1 tablet by mouth once daily Citalopram (Celexa) 20 mg tablet Discontinued 20 mg PO DAILY 90 90 August 24, 2025 10:48am September 03, 2025 10:05am Start: 12-03-2018 End: 03-20-2025 take 10 mg [...] One tablet by mouth daily CITALOPRAM HYDROBROMIDE [id number] Martha Delgadillo RN lansoprazole 15 mg delayed release oral capsule (20 sources) Proton Pump Inhibitor Start: 09-07-2025 take 1 capsule by mouth at bedtime Start: 04-10-2016 End: 09-07-2025 take 1 capsule by mouth at bedtime Lansoprazole (Prevacid 24hr) 15 mg capsule,delayed release(DR/EC) Discontinued 15 mg PO AT BEDTIME 90 March 20, 2025 8:20am September 07, 2025 4:30pm metoprolol tartrate 25 mg oral tablet (1 source) beta-Adrenergic Kimmy Start: 09-03-2025 take 1 tablet by mouth twice daily Metoprolol Tartrate 25 mg tablet Active 25 mg PO TWICE A DAY 60 September 03, 2025 12:00am Complies with drug therapy Completed/Discontinued Medications Medication Drug Class(es) Dates Sig (Normalized) Sig (Original) aluminum hydroxide 40 mg/ml / magnesium hydroxide 40 mg/ml / simethicone 4 mg/ml oral suspension (20 sources) Start: 04-26-2016 End: 12-21-2016 MYLANTA 200-200-20 MG/5ML SUSP 30 cc po q 6 hours as needed ALUM & MAG HYDROXIDE-SIMETH [id number] Martha Delgadillo RN carvedilol 6.25 mg oral tablet (20 sources) [...] One tablet by mouth twice daily CARVEDILOL [id number] Ayde Carpenter RN Start: 12-27-2016 take 2 tablets by mo uth twice daily CARVEDILOL 3.125 MG TABS 2 tablets by mouth twice daily CARVEDILOL [id number] Lobo Delcid MD Start: 12-27-2016 take 1 tablet by nader th twice daily CARVEDILOL 3.125 MG TABS One tablet by mouth twice daily CARVEDILOL [id number] Lobo Delcid MD clopidogrel 75 mg oral tablet (20 sources) P2Y12 Platelet Inhibitor Start: 12-21-2016 End: 12-27-2016 take 1 tablet by mouth once daily PLAVIX 75 MG TABS One tablet by mouth daily CLOPIDOGREL BISULFATE [id number] Lobo Delcid MD enalapril maleate 20 mg [...] (20 sources) Thiazide Diuretic Start: 07-14-2019 End: 08-10-2025 take 1 tablet by mouth once daily Hydrochlorothiazide 25 mg tablet Discontinued 25 mg PO DAILY 90 0 May 15, 2025 8:23am August 10, 2025 8:55am Start: 12-20-2017 End: 07-14-2019 take 1 capsule by mouth once daily Hydrochlorothiazide 12.5 mg capsule Discontinued 12.5 mg PO daily 30 12 December 23, 2018 11:19am July 14, 2019 [...] Start: 12-21-2016 take 1 tablet by nader th once daily HYDROCHLOROTHIAZIDE 12.5 MG TABS One tablet by mouth daily HYDROCHLOROTHIAZIDE [id number] Lobo Delcid MD valsartan 160 mg oral tablet (20 sources) Angiotensin 2 Receptor Kimmy Start: 04-10-2016 End: 07-09-2020 take 1 tablet by mouth at bedtime Valsartan 160 MG tablet Discontinued 160 mg PO AT BEDTIME April 10, 2016 12:00am July 09, 2020 11:39am Problems Active Problems Problem Classification Problem Date Documented Date Episodic/Chronic Administrative/social admission (9 sources) General problem AND/OR complaint; Translations: [Persons encountering health services in other specified circumstances] 09-12-2023 Episodic Anxiety disorders (20 sources) Mixed anxiety and depressive disorder; Translations: [Anxiety disorder, unspecified] 03-05-2023 Chronic Cardiac dysrhythmias (20 sources) Palpitations; Translations: [Palpitations] Onset: 12-21-2016 12-21-2016 Episodic Esophageal disorders (13 sources) Gastroesophageal reflux disease; Translations: [Gastro-esophageal reflux disease without esophagitis] 09-19-2024 Chronic Essential hypertension (20 sources) Hypertensive disorder; Translations: [Essential (primary) hypertension] Onset: 04-26-2016 04-26-2016 Chronic Nonspecific chest pain (20 sources) Chest pain; Translations: [Chest pain, unspecified] Onset: 04-26-2016 04-26-2016 Episodic Other bone disease and musculoskeletal deformities (12 sources) Osteopenia; Translations: [Other specified disorders of [...] Chronic Other nutritional; endocrine; and metabolic disorders (12 sources) Obesity; Translations: [Obesity, unspecified] 12-17-2018 Chronic Other screening for suspected conditions (not mental disorders or infectious disease) (20 sources) Patient encounter status; Translations: [Encounter for screening for malignant neoplasm of colon] Onset: 09-03-2025 10-17-2022 Episodic Other skin disorders (9 sources) Lesion of scalp; Translations: [Disorder of the skin and subcutaneous tissue, unspecified] 03-05-2023 Episodic Residual codes; unclassified (11 sources) Family history of cancer of colon; Translations: [Family history of malignant neoplasm of digestive organs] 06-27-2022 Episodic Residual codes; unclassified (1 source) Family history of malignant neoplasm of digestive organs; Translations: [Family history of malignant neoplasm of gastrointestinal tract] 12-11-2022 Episodic Unclassified (1 source) COVID-19; Translations: [COVID-19] [...] [Shortness of breath] Onset: 12-21-2016 12-21-2016 Episodic Residual codes; unclassified (1 source) Asymptomatic menopausal state; Translations: [Asymptomatic menopausal state] Onset: 03-20-2025 Episodic Results Test Name Value Interpretation Reference Range Facility Internal Medicine Office Vis itosayda 09-21-2025 Internal Medicine Office Visit [facility] Internal Medicine [address] [place] [address] [place] [address] OFFICE VISIT Date of Service: 09/21/25 MR#: [id number] Acct: [id number] Name: AMALIA ANGEL Rep #: [id number] : 1955 Provider: SKYLAR gonzalez Age/Sex: 70/F Location: [facility] Status: Signed Intake Vital Signs 08/19/25 10:17 09/03/25 10:03 09/21/25 12:56 Height 5 ft 5 in 5 ft 5 in 5 ft 5 in Weight: 205 lb 205 lb BMI 34.1 34.1 BP 141/90 H 112/72 Blood Pressure Location Lt brachial Lt brachial Position Sitting Sitting Respiration 16 16 Pulse 75 85 Pulse Source Monitor Monitor Temp 97.5 F L Temp Source Temporal Pulse Oximetry (%) 95 Oxygen Delivery Method room air Intake Visit Reasons: Bone Density Test Results + Treatment" Chief Complaint: 3 M FU Physically Impaired Teacher Required: No Is patient in pain?: No Allergies No Known Allergies Allergy (Verified 09/21/25 12:45) Medications ???Medication ???Instructions ???Recorded ???Confirmed ???Type enalapril maleate 20 mg tablet 20 mg PO DAILY #90 tabs 03/20/25 1 Rx hydrochlorothiazide 25 mg tablet 25 mg PO DAILY #90 TABLETS 5 09/03/25 Rx aspirin 81 mg tablet,delayed 81 mg PO QDAY #100 tabs 09/03/25 1 Rx release citalopram 10 mg tablet 10 mg PO QDAY 09/03/25 09/03/25 Hi story metoprolol tartrate 25 mg tablet 25 mg PO BID #60 tabs 09/03/25 Rx lansoprazole 15 mg capsule,delayed 15 mg PO QHS #90 caps 09/07/25 Rx release (Prevacid 24Hr) calcium 600 mg capsule 600 mg PO DAILY 09/21/25 09/21/25 History cholecalciferol (vitamin D3) 50 50 mcg PO QDAY 09/21/25 09/21/25 H istory mcg (2,000 unit) tablet (Vitamin D3) denosumab 60 mg/mL subcutaneous 60 mg subcut [id number] #1 mL 09/21/25 Rx syringe (Prolia) Have you fallen in the past year?: No Nurse's Note: Pt is here to go over bone denisty results and here to discuss treatment. Pt has not done any research on her own. Confirmed pt currently taking calcium 600mg qd and d3 2000u qd. Pt has not had any falls in past year. [facility] Medical History Abnormal stress test Chest pain Sleep concern Health care maintenance [...] M FU Details: AMALIA ANGEL, is a 70 F who presents to the office today for follow-up on recent testing. Patient had bone density screening and due to findings of osteopenia was recommended to come in and discuss possible treatments. Patient is currently taking calcium and vitamin D however bone density decreased from most recent scan. Patient states she feels well no shortness of breath no chest pain no dizziness no concerns at this time otherwise. ROS Const Constitutional: No body ache, chills, excessive sweating, fatigue, fever(s), frequent falls, headache(s), snoring, weakness, sleep problems or change in appetite Eyes Eyes: No blurry vision, change in vision, eye pain or Light sensitivity ENT ENT: No abnormal hearing, ear or mastoid pain, tinnitus, nasal congestion, headache(s), neck pain or sore throat Resp Respiratory: No cough, shortness of breath, snoring or wheezing Cardio Cardiology: No chest pain at rest, chest pain with exertion, excessive sweating, shortness of breath, dyspnea on exertion, lightheadedness, orthopnea or palpitations Gastro GI: No abdominal pain, change in bowel habits, constipation, cramping, diarrhea, nausea/dyspepsia or vomiting Genitourinary-Femal e: No burning urination, painful urination, urinary incontinence, urinary frequency, abnormal vaginal bleeding or pelvic pain Musc Musculoskeletal: No abnormal gait, joint pain, back pain, limited range of motion, neck pain or numbness Skin Skin: No dry skin, redness, lesions, itchy eyes, rash or wou (more content not included)... Normal [facility] Cardiology Visit Reporton Cardiology Visit Report [facility]. [address] [place] [address] OFFICE VISIT Date of Service: 09/03/25 MR#: [id number] Acct: [id number] Name: AMALIA ANGEL Rep #: [id number] : 1955 Provider: Dr. Alistair Ryder MD Age/Sex: 70/F Location: [facility] Status: Signed HPI HPI History of Present Illness Details: 70-year-old pleasant lady with past medical history significant for hypertension and depression. According to patient, she has been having chest pains for about a week. Per her, the close felt as a pressure sensation across her anterior chest. No radiation to the arm neck or jaw. No associated shortness of breath. No diaphoresis. No nausea or vomiting. The episodes would occur at rest. No exacerbating or relieving factors identified. According to her, these would last all day long. No worsening with exertion. She has had an exercise stress Myoview done as part of her workup. She exercised on the treadmill according to Usman protocol for about 6 minutes. No ECG changes were noted. Nuclear images reveal possible mild ischemia of the anterior wall. Per patient she has not had any further episodes of her chest discomfort since her stress test done about 5 weeks ago. Denies orthopnea or PND. No ankle edema. Intake Vital Signs 06/26/25 09:09 08/19/25 10:17 09/03/25 10:03 09/03/25 10:15 Height 5 ft 5 in 5 ft 5 in 5 ft 5 in Weight: 204 lb 205 lb BMI 33.9 34.1 BP 118/80 141/90 H 135/81 H Blood Pressure Location Lt brachial Lt brachial Lt brachial Position Sitting Sitting Respiration 16 16 Pulse 82 75 76 Pulse Source Monitor Monitor Monitor Temp 97.5 F L Pulse Oximetry (%) 98 Oxygen Delivery Method room air Intake Visit Reasons: Chest Pain, Abnormal Stress Test Results Physically Impaired Teacher Required: No Accompanied by: Is patient in pain?: No Allergies No Known Allergies Allergy (Verified 09/03/25 10:04) Medications ???Medication ???Instructions ???Recorded ???Confirmed ???Type calcium carbonate (Calcium 500) 500 mg PO DAILY 09/12/23 09/03/25 History enalapril maleate 20 mg tablet 20 mg PO DAILY #90 tabs 03/20/25 1 Rx lansoprazole 15 mg capsule,delayed 15 mg PO QHS #90 caps 03/20/25 1 Rx release (Prevacid 24Hr) hydrochlorothiazide 25 mg tablet 25 mg PO DAILY #90 TABLETS 5 09/03/25 Rx aspirin 81 mg tablet,delayed 81 mg PO QDAY #100 tabs 09/03/25 1 Rx release cholecalciferol (vitamin D3) 25 50 mcg PO DAILY 09/03/25 09/03/25 History mcg (1,000 unit) capsule citalopram 10 mg tablet 10 mg PO QDAY 09/03/25 09/03/25 Hi story metoprolol tartrate 25 mg tablet 25 mg PO BID #60 tabs 09/03/25 Rx Ejection fraction %: 65 Have you fallen in the past year?: No PFSH Medical History Abnormal stress test Chest pain Sleep concern Health care maintenance [...] Type: coffee Number of servings: 3 ROS Const Const: Negative for fatigue or weakness Eyes Eyes: Negative for change in vision ENT ENT: Negative for dizziness or balance problems Cardio Chest Pain: No Palpitations: No Edema: None Resp Respiratory: Negative for SOB with activity, SOB at rest or SOB orthopnea SOB lying down GI GI: Negative nausea or heartburn Musc Musc: Negative for balance problems Neuro Neuro: Negative for dizziness, lightheadedness, near syncope, syncope or weakness Endo Endo: Negative for fatigue Cardiology Exam Const Appearance: comfortable and no acute distress Nutritional Appearance: well nourished Neck Neck: no JVD Carotids: Negative bruit Chest Auscultation: Bilateral: Clear to Auscultation Cardio Rate: regular rate Rhythm: regular rhythm Heart sounds: S1 normal and S2 normal Neuro General: patient alert, patient awake and patient oriented x3 Extremities Lower Extremity (more content not included)... Normal [facility] Dexa Bone Density Studyon Dexa Bone Density Study [facility] Imaging Services [address] [place] [address] Dexa Bone Density Study MR#: [id number] Acct: [id number] Name: AMALIA ANGEL Rep #: [id number] : 1955 F 70 From: Levi diaz MD PCP: Dr. Shalonda Tian MD Status: REG CLI Study: Dexa Bone Density Study Date of Exam: 08/25/25 Exam# [id number] Ordering Dr: Shalonda Tian MD PROCEDURE: DEXA BONE DENSITY STUDY 08/25/2025 REASON FOR EXAM: POST MENOPAUSAL F, age 70 y/o . Postmenopausal. TECHNIQUE: Procedure Code: BDDBD Modality: DX Procedure: DEXA BONE DENSITY STUDY COMPARISON: Prior study dated July 17, 2023. FINDINGS: BMD and T-SCORES Lumbar spine: 0.924 g/cm2, T-score -1.1 Levels: L1 through L4 Change from prior: Loss of 0.6%. Left femoral neck: 0.678 g/cm2, T-score -1.5 Femoral neck comparison data not recommended for monitoring change. Left total hip: 0.802 g/cm2, T-score -1.1 Change from prior: Loss of 0.2%. Right femoral neck: 0.597 g/cm2, T-score -2.3 Femoral neck comparison data not recommended for monitoring change. Right total hip: 0.757 g/cm2, T-score -1.5 Change from prior: Improvement of 2.1%. The World Health Organization has defined the following categories based on bone density: Normal bone density: T-score equal to or greater than -1.0 Osteopenia: T-score between -1.0 and -2.5 Osteoporosis: T-score equal to or less than -2.5 FRAX (or Comparable) Fracture Risk Assessment: 10 Year Probability of Fracture: Major Osteoporotic Fracture: 19% Hip Fracture: 4.2% (Note: FRAX is not to be reported in setting of normal range bone density, osteoporosis on DEXA, known history of osteoporosis, prior osteoporotic hip or vertebral fracture, or for any patient undergoing pharmacological treatment for bone loss.) The National Osteoporosis Foundation (NOF) recommends pharmacological treatment for patients with a FRAX 10-year risk of 3% or higher for a hip fracture, or 20% or higher for a major osteoporotic fracture, to prevent osteoporosis and reduce fracture risk. The patient does meet the pharmacological treatment recommendations for prevention of osteoporosis. BD/Dexa Bone Density Study IMPRESSION: OSTEOPENIA. Recommend follow-up as clinically warranted. Reading Location: [id number] CC: Dr. Shalonda Tian MD Ship'S Officer: Signed Normal [facility] SCRN MAMM (CAD)W/LUPE BILATo n 08-25-2025 SCRN MAMM (CAD)W/LUPE BILAT [facility] Imaging Services [address] [place], [place] [id number] SCRN MAMM (CAD)W/LUPE BILAT MR#: [id number] Acct: [id number] Name: AMALIA ANGEL Rep #: [id number] : 1955 F 70 From: Levi diaz MD PCP: Dr. Shalonda Tian MD Status: [facility] Study: SCRN MAMM (CAD)W/LUPE BILAT Date of Exam: 06/12 Exam# [id number] Ordering Dr: Shalonda Tian MD EXAM: SCRN MAMM (CAD)W/LUPE BILAT DATE: 08/25/2025 CLINICAL HISTORY: F, Age 70 y/o , BREAST CANCER SCREENING No family history. TECHNIQUE: Procedure Code: [id number] Modality: MG Procedure: SCRN MAMM (CAD)W/LUPE BILAT COMPARISON: Prior exam(s) dated July 24, 2024.. FINDINGS: TISSUE DENSITY: The breasts are almost entirely fatty. Bilateral Breast Mammographic Findings: No significant masses, calcifications or other abnormalities are identified. Stable fat containing axillary lymph nodes. No suspicious masses, areas of developing architectural distortion, or suspicious calcifications. There has been no significant interval change. BI/SCRN MAMM (CAD)W/LUPE BILAT IMPRESSION: Stable bilateral screening mammogram. OVERALL FINAL ASSESSMENT BI-RADS 2: BENIGN RECOMMENDATION: Routine annual follow-up in 1 Year Additional Recommendation none A letter with findings and recommendations will be mailed to the patient. Reading Location: [id number] CC: Dr. Shalonda Tian MD Ship'S Officer: Signed Normal [facility] Internal Medicine Office Vis iton 08-19-2025 Internal Medicine Office Visit [facility] Internal Medicine [address] [place] [address] [place] [address] OFFICE VISIT Date of Service: 08/19/25 MR#: [id number] Acct: [id number] Name: AMALIA ANGEL Rep #: [id number] : 1955 Provider: Dr. Shalonda rangel MD Age/Sex: 70/F Location: [facility] Status: Signed Intake Vital Signs 06/26/25 09:09 08/19/25 10:17 Height 5 ft 5 in 5 ft 5 in Weight: 204 lb BMI 33.9 BP 118/80 Blood Pressure Location Lt brachial Position Sitting Respiration 16 Pulse 82 Pulse Source Monitor Temp 97.5 F L Temp Source Temporal Pulse Oximetry (%) 98 Oxygen Delivery Method room air Intake Visit Reasons: 1 month follow up Chief Complaint: 3 M FU Physically Impaired Teacher Required: No Is patient in pain?: No Allergies No Known Allergies Allergy (Verified 08/19/25 10:03) Medications ???Medication ???Instructions ???Recorded ???Confirmed ???Type calcium carbonate (Calcium 500) 500 mg PO DAILY 09/12/23 08/19/25 History cholecalciferol (vitamin D3) 25 25 mcg PO DAILY 09/12/23 08/19/25 History mcg (1,000 unit) capsule citalopram 20 mg tablet (Celexa) 20 mg PO DAILY 3 months #90 tabs 0 03/20/25 08/19/25 Rx enalapril maleate 20 mg tablet 20 mg PO DAILY #90 tabs 03/20/25 1 Rx lansoprazole 15 mg capsule,delayed 15 mg PO QHS #90 caps 03/20/25 1 Rx release (Prevacid 24Hr) hydrochlorothiazide 25 mg tablet 25 mg PO DAILY #90 TABLETS 5 08/19/25 Rx Have you fallen in the past year?: No Nurse's Note: Pt states she is feeling pretty good lately, pt brought in bp log and is following w/ cardiology. Pt needs refills on hctz and celexa Pt has flu shot schedule at [facility] Medical History Abnormal stress test Chest pain Sleep concern Health care maintenance [...] ANGEL, is a 70-year-old female presenting with a routine follow-up for Hypertension management. The patient has been monitoring her blood pressure at home, with a few readings that were elevated for unexplained reasons. However, on average, the blood pressure appears stable. The reading today was 121/90 in the morning and subsequently 118/80 at the clinic. She remains on treatment with enalapril and hydrochlorothiazide , which she confirms has remained consistent without any changes or modifications. Other chronic conditions are stable. Has an appointment to schedule with cardiology on the due to an abnormal stress test. Has not had any further concerns with chest pain. Attestation: Documentation on this patient encounter was supported using ambient scribe technology/ voice AI technology. The patient consented to recording for the purpose of documenting the encounter. Provider reviewed content of the generated note prior to signature. ROS Const Constitutional: No body ache, chills, excessive sweating, fatigue, fever(s), frequent falls, headache(s), snoring, weakness, sleep problems or change in appetite Eyes Eyes: No blurry vision, change in vision, vision loss, dry eyes, eye pain or Light sensitivity ENT ENT: No abnormal hearing, ear or mastoid pain, tinnitus, nasal congestion, headache(s), neck pain or sore throat Resp Respiratory: No cough, excessive phlegm production, hemoptysis, shortness of breath, snoring or wheezing Cardio Cardiology: No chest pain at rest, chest pain with exertion, excessive sweating, shortness of breath, dyspnea on exertion, lightheadedness, orthopnea or palpitations Gastro GI: No abdominal pain, change in bowel habits, constipation, cramping, diarrhea, nausea/dyspepsia or vomiting Genitourinary-Femal e: No burning urination, painful urination, urinary incontinence, urinary frequency, abnormal vaginal b (more content not included)... Normal [facility] Cardiovascular stress test r eportOrdered By: Alistair Ryder on 07-27-2025 Study report [facility] Cardiovascular Services [address] [place] [address] MR#: [id number] Acct: [id number] Name: AMALIA ANGEL Rep #: [id number] : 1955 70 From: Alistair Ryder MD Primary Care: Dr. Shalonda Tian MD atus: REG CLI Referring Dr: Shalonda Tian MD Sex: F C Stress Test Report Date: 07/27/2025 Procedure: Exercise tolerance test/imaging study Indications: Chest pain Consent: Per the patient Procedure: The patient exercised on a Usman protocol for 6 minutes achieving a peak heart rate of 127 bpm (85% predicted maximal heart rate) with a peak blood pressure 182/88 mmHg and a peak MET capacity of 7.0 METs. The baseline ECG demonstrated sinus rhythm. The peak exercise ECG did not show any ischemic changes. No significant cardiac dysrhythmias noted. The functional capacity was considered average for age. There was complaint of some chest pressure starting stage II of the exercise andlasting into recovery. The examination was discontinued secondary to target heart rate being achieved. The patient was injected with 13.3 mCi of technetium 99m Cardiolite and subsequently rest SPECT Cardiolite nuclear imaging was obtained in the horizontal long, vertical long, and short axis views. Post-exercise, the patientwas injected with 43.9 mCi of technetium 99m Cardiolite and subsequently stress SPECT Cardiolite nuclear imaging was obtained in the horizontal long, vertical long, and short axis views. A gated Cardiolite study at peak stress was obtained. Rest and stress SPECT Cardiolite nuclear imaging status post realignment, normalization, and attenuation correction, demonstrates mildly reduced perfusionof the anterior wall post exercise, suggestive of mild anterior ischemia. Thereis end systolic thickening and brightening. The gated Cardiolite study demonstrates myocardial thickening and inward wall motion. The reported LVEF is65%. Impression: 1. Technically adequate (percent predicted maximal heart rate greater than 85%)exercise tolerance test 2. Peak exercise ECG with no diagnostic ischemic changes 3. There were no cardiac dysrhythmias pretest, during exercise, or recovery 4. Rest and stress SPECT Cardiolite nuclear imaging demonstrate mild exercise-induced ischemia of the anterior wall. 5. The gated Cardiolite study reports an LVEF of 65%. This note was generated with [employer] Planet[employer] software. It may contain incorrectwords, spelling, and punctuation that were not noted in checking the note beforesigning. 07/27/25929 Date _ Alistair Ryder MD CC: Dr. Shalonda Tian MD ~ Date Dictated: 07/27/25927 Date Transcribed: 07/27/25927 Ship'S Officer: JHONNY Pisano [facility] Work Phone: Stress Reporton 07-27-2025 Stress Report [facility] [place] [address] [place] [address] MR#: [id number] Acct: [id number] Name: AMALIA ANGEL Rep #: [id number] : 1955 70 From: Alistair Ryder MD Primary Care: Dr. Shalonda Tian MD Status: REG CLI Referring Dr: Shalonda Tian MD Sex: F C Stress Test Report Date: 07/27/2025 Procedure: Exercise tolerance test/imaging study Indications: Chest pain Consent: Per the patient Procedure: The patient exercised on a Usman protocol for 6 minutes achieving a peak heart rate of 127 bpm (85% predicted maximal heart rate) with a peak blood pressure 182/88 mmHg and a peak MET capacity of 7.0 METs. The baseline ECG demonstrated sinus rhythm. The peak exercise ECG did not show any ischemic changes. No significant cardiac dysrhythmias noted. The functional capacity was considered average for age. There was complaint of some chest pressure starting stage II of the exercise and lasting into recovery. The examination was discontinued secondary to target heart rate being achieved. The patient was injected with 13.3 mCi of technetium 99m Cardiolite and subsequently rest SPECT Cardiolite nuclear imaging was obtained in the horizontal long, vertical long, and short axis views. Post-exercise, the patient was injected with 43.9 mCi of technetium 99m Cardiolite and subsequently stress SPECT Cardiolite nuclear imaging was obtained in the horizontal long, vertical long, and short axis views. A gated Cardiolite study at peak stress was obtained. Rest and stress SPECT Cardiolite nuclear imaging status post realignment, normalization, and attenuation correction, demonstrates mildly reduced perfusion of the anterior wall post exercise, suggestive of mild anterior ischemia. There is end systolic thickening and brightening. The gated Cardiolite study demonstrates myocardial thickening and inward wall motion. The reported LVEF is 65%. Impression: 1. Technically adequate (percent predicted maximal heart rate greater than 85%) exercise tolerance test 2. Peak exercise ECG with no diagnostic ischemic changes 3. There were no cardiac dysrhythmias pretest, during exercise, or recovery 4. Rest and stress SPECT Cardiolite nuclear imaging demonstrate mild exercise-induced ischemia of the anterior wall. 5. The gated Cardiolite study reports an LVEF of 65%. This note was generated with End[employer] software. It may contain incorrect words, spelling, and punctuation that were not noted in checking the note before signing. 07/27/25929 Date Alistair Ryder MD CC: Dr. Shalonda Tian MD Date Dictated: 07/27/25927 Date Transcribed: 07/27/25927 Ship'S Officer: JHONNY Signed Normal [facility] Absolute lymphocyte countOrd ered By: Shalonda Tian on 06-26-2025 Lymphocytes Auto (Unsp spec) [#/Vol] 1.38 10*3/uL 0.83-4.51 [facility] Absolute neutrophil countOrd ered By: Shalonda Tian on 06-26-2025 Neutrophils (Bld) [#/Vol] 3.1 10*3/uL 2.0-7.7 [facility] Anion gap in Serum or Plasma Ordered By: Shalonda Tian on 06-26-2025 Anion gap [Moles/Vol] 14 mmol/L 5-15 [facility] Automated lymphocyte count a s percentage of total leukocytesOrdered By: Shalonda Tian on 06-26-2025 Lymphocytes/100 WBC Auto (Unsp spec) 27.5 % 19-41 [facility] BUN/creatinine ratioOrdered By: Shalonda Tian on 06-26-2025 Urea nitrogen/Creatinine [Mass ratio] 19.2 mg/mg 10-20 [facility] Basophil percentageOrdered B y: Shalonda Tian on 06-26-2025 Basophils/100 WBC (Bld) 0.6 % 0-1 [facility] Bilirubin, totalOrdered By: Shalonda Tian on 06-26-2025 Bilirubin [Mass/Vol] 0.40 mg/dL 0.00-1.30 [facility] CBC W/Diff, Automatedon Absolute Lymph 1.38 X10 3/uL Normal 0.83-4.51 [facility] Comment on above: Performed By: #### L 501.4021, L500.4100, L506.0400, L100.0100, L501.9520, L500.4050 ####[facility] [address] [place], [address] Absolute Neut 3.1 X10 3/uL Normal 2.0-7.7 [facility] Comment on above: Performed By: #### L 501.4021, L500.4100, L506.0400, L100.0100, L501.9520, L500.4050 ####[facility] [address] [place], [address] Basophils/100 WBC (Bld) 0.6 % Normal 0-1 [facility] Comment on above: Performed By: #### L 501.4021, L500.4100, L506.0400, L100.0100, L501.9520, L500.4050 ####[facility] [address] [place], [address] Eosinophils/100 WBC (Bld) 1.0 % Normal 0-5 [facility] Comment on above: Performed By: #### L 501.4021, L500.4100, L506.0400, L100.0100, L501.9520, L500.4050 ####[facility] [address] [place], [address] Erythrocyte distribution width (RBC) [Ratio] 14.4 % Normal 11.6-14.6 [facility] Comment on above: Performed By: #### L 501.4021, L500.4100, L506.0400, L100.0100, L501.9520, L500.4050 ####[facility] [address] [place], [address] Hematocrit (Bld) [Volume fraction] 41.7 % Normal 37-47 [facility] Comment on above: Performed By: #### L 501.4021, L500.4100, L506.0400, L100.0100, L501.9520, L500.4050 ####[facility] [address] [place], [address] Hemoglobin (Bld) [Mass/Vol] 13.4 g/dL Normal 12.0-15.0 [facility] Comment on above: Performed By: #### L 501.4021, L500.4100, L506.0400, L100.0100, L501.9520, L500.4050 ####[facility] [address] [place], [address] IG% 0.400 Normal 0.0-0.9 [facility] Comment on above: Result Comment: IG% - Immature Granulocytes (promyelocytes, myelocytes and metamyelocytes) > 1% indicates that a LEFT SHIFT is Present. Performed By: #### L 501.4021, L500.4100, L506.0400, L100.0100, L501.9520, L500.4050 ####[facility] [address] [place], [address] Lymphocytes/100 WBC (Bld) 27.5 % Normal 19-41 [facility] Comment on above: Performed By: #### L 501.4021, L500.4100, L506.0400, L100.0100, L501.9520, L500.4050 ####[facility] [address] [place], [address] MCH (RBC) [Entitic mass] 26.9 pg Low 27.0-32.0 [facility] Comment on above: Performed By: #### L 501.4021, L500.4100, L506.0400, L100.0100, L501.9520, L500.4050 ####[facility] [address] [place], [address] MCHC (RBC) [Mass/Vol] 32.1 g/dL Normal 32-36 [facility] Comment on above: Performed By: #### L 501.4021, L500.4100, L506.0400, L100.0100, L501.9520, L500.4050 ####[facility] [address] [place], [address] MCV (RBC) [Entitic vol] 83.7 fL Normal 81-99 [facility] Comment on above: Performed By: #### L 501.4021, L500.4100, L506.0400, L100.0100, L501.9520, L500.4050 ####[facility] [address] [place], [address] Monocytes/100 WBC (Bld) 9.2 % Normal 0-10 [facility] Comment on above: Performed By: #### L 501.4021, L500.4100, L506.0400, L100.0100, L501.9520, L500.4050 ####[facility] [address] [place], [address] Neutrophils/100 WBC (Bld) 61.3 % Normal 47-70 [facility] Comment on above: Performed By: #### L 501.4021, L500.4100, L506.0400, L100.0100, L501.9520, L500.4050 ####[facility] [address] [place], [address] Nucleated RBC (Bld) [#/Vol] 0 10*3/uL Normal 0-5 [facility] Comment on above: Performed By: #### L 501.4021, L500.4100, L506.0400, L100.0100, L501.9520, L500.4050 ####[facility] [address] [place], [address] Platelet mean volume (Bld) [Entitic vol] 11.6 fL Normal 6.2-12.0 [facility] Comment on above: Performed By: #### L 501.4021, L500.4100, L506.0400, L100.0100, L501.9520, L500.4050 ####[facility] [address] [place], [address] Platelets (Bld) [#/Vol] 348 10*3/uL Normal 150-450 [facility] Comment on above: Performed By: #### L 501.4021, L500.4100, L506.0400, L100.0100, L501.9520, L500.4050 ####[facility] [address] [place], [address] RBC (Bld) [#/Vol] 4.98 10*6/uL Normal 4.2-5.4 [facility] Comment on above: Performed By: #### L 501.4021, L500.4100, L506.0400, L100.0100, L501.9520, L500.4050 ####[facility] [address] [place], [address] RDW SD 43.5 fl Normal 35.1-43.9 [facility] Comment on above: Performed By: #### L 501.4021, L500.4100, L506.0400, L100.0100, L501.9520, L500.4050 ####[facility] [address] [place], [address] WBC (Bld) [#/Vol] 5.0 10*3/uL Normal 4.4-11.0 [facility] Comment on above: Performed By: #### L 501.4021, L500.4100, L506.0400, L100.0100, L501.9520, L500.4050 ####[facility] [address] [place], [address] Calculated very low density lipoprotein (VLDL) cholesterol measurementOrdered By: Shalonda Tian on 06-26-2025 Calculated very low density lipoprotein (VLDL) cholesterol measurement 19 mg/dL 5-40 [facility] Carbon dioxide, total [Moles /volume] in Central venous bloodOrdered By: Politeetee Bobbyaleida on 06-26-2025 CO2 [Moles/Vol] 25.5 mmol/L 21.0-32.0 [facility] Chloride assayOrdered By: Ryley Rosalesmoniquearacelis on 06-26-2025 Chloride [Moles/Vol] 101 mmol/L 98-108 [facility] Comprehensive Metabolic Prof ilon 06-26-2025 Albumin [Mass/Vol] 4.3 g/dL Normal 3.4-4.8 [facility] Comment on above: Performed By: #### L 501.4021, L500.4100, L506.0400, L100.0100, L501.9520, L500.4050 ####[facility] [address] [place], [address] Albumin/Globulin [Mass ratio] 1.4 {ratio} Normal 0.9-2.4 [facility] Comment on above: Performed By: #### L 501.4021, L500.4100, L506.0400, L100.0100, L501.9520, L500.4050 ####[facility] [address] [place], [address] ALK PHOS 64 U/L Normal 35-104 [facility] Comment on above: Performed By: #### L 501.4021, L500.4100, L506.0400, L100.0100, L501.9520, L500.4050 ####[facility] [address] [place], [address] ALT [Catalytic activity/Vol] 19 U/L Normal <=34 [facility] Comment on above: Performed By: #### L 501.4021, L500.4100, L506.0400, L100.0100, L501.9520, L500.4050 ####[facility] [address] [place], [address] AST [Catalytic activity/Vol] 22 U/L Normal <=31 [facility] Comment on above: Performed By: #### L 501.4021, L500.4100, L506.0400, L100.0100, L501.9520, L500.4050 ####[facility] [address] [place], [address] Bilirubin [Mass/Vol] 0.40 mg/dL Normal 0.00-1.30 [facility] Comment on above: Performed By: #### L 501.4021, L500.4100, L506.0400, L100.0100, L501.9520, L500.4050 ####[facility] [address] [place], [address] BUN/CRE 19.2 RATIO Normal 10-20 [facility] Comment on above: Performed By: #### L 501.4021, L500.4100, L506.0400, L100.0100, L501.9520, L500.4050 ####[facility] [address] [place], [address] Calcium [Mass/Vol] 9.5 mg/dL Normal 7.6-11.0 [facility] Comment on above: Performed By: #### L 501.4021, L500.4100, L506.0400, L100.0100, L501.9520, L500.4050 ####[facility] [address] [place], [address] Chloride [Moles/Vol] 101 mmol/L Normal 98-108 [facility] Comment on above: Performed By: #### L 501.4021, L500.4100, L506.0400, L100.0100, L501.9520, L500.4050 ####[facility] [address] [place], [address] CO2 [Moles/Vol] 25.5 mmol/L Normal 21.0-32.0 [facility] Comment on above: Performed By: #### L 501.4021, L500.4100, L506.0400, L100.0100, L501.9520, L500.4050 ####[facility] [address] [place], [address] Creatinine [Mass/Vol] 0.86 mg/dL Normal 0.70-1.20 [facility] Comment on above: Performed By: #### L 501.4021, L500.4100, L506.0400, L100.0100, L501.9520, L500.4050 ####[facility] [address] [place], [address] GAP 14 Normal 5-15 [facility] Comment on above: Performed By: #### L 501.4021, L500.4100, L506.0400, L100.0100, L501.9520, L500.4050 ####[facility] [address] [place], [address] GFR/1.73 sq M.predicted among non-blacks MDRD (S/P/Bld) [Vol rate/Area] 72 mL/min/{1.73_m2} Normal >60 [facility] Comment on above: Result Comment: mL/m in/1.73m2 CKD-EPI Creatinine Equation (2020) Performed By: #### L 501.4021, L500.4100, L506.0400, L100.0100, L501.9520, L500.4050 ####[facility] [address] [place], [address] Globulin (S) [Mass/Vol] 3.1 g/dL Normal 2.2-4.2 [facility] Comment on above: Performed By: #### L 501.4021, L500.4100, L506.0400, L100.0100, L501.9520, L500.4050 ####[facility] [address] [place], [address] Glucose [Mass/Vol] 101 mg/dL High 70-99 [facility] Comment on above: Performed By: #### L 501.4021, L500.4100, L506.0400, L100.0100, L501.9520, L500.4050 ####[facility] [address] [place], [address] Potassium [Moles/Vol] 3.9 mmol/L Normal 3.3-5.1 [facility] Comment on above: Performed By: #### L 501.4021, L500.4100, L506.0400, L100.0100, L501.9520, L500.4050 ####[facility] [address] [place], [address] Sodium [Moles/Vol] 141 mmol/L Normal 133-145 [facility] Comment on above: Performed By: #### L 501.4021, L500.4100, L506.0400, L100.0100, L501.9520, L500.4050 ####[facility] [address] [place], [address] T PROT 7.4 g/dL Normal 5.9-8.4 [facility] Comment on above: Performed By: #### L 501.4021, L500.4100, L506.0400, L100.0100, L501.9520, L500.4050 ####[facility] [address] [place], [address] Urea nitrogen [Mass/Vol] 17 mg/dL Normal 4-19 [facility] Comment on above: Performed By: #### L 501.4021, L500.4100, L506.0400, L100.0100, L501.9520, L500.4050 ####[facility] [address] [place], [address] Eosinophil percentageOrdered By: Shalonda Tian on 06-26-2025 Eosinophils/100 WBC (Bld) 1.0 % 0-5 [facility] Erythrocyte distribution wid th ratioOrdered By: gregorymeigsdebra Tian on 06-26-2025 Erythrocyte distribution width (RBC) [Ratio] 14.4 % 11.6-14.6 [facility] Erythrocyte distribution wid th standard deviationOrdered By: [facility] Cherokeedebra Tian on 06-26-2025 Erythrocyte distribution width (RBC) [Ratio] 43.5 fl 35.1-43.9 [facility] Glomerular filtration rate ( GFR) estimation/1.73 sq m using serum, plasma, or whole bOrdered By: gregorymeigsdebra Tian on 06-26-2025 GFR/1.73 sq M.predicted among non-blacks MDRD (S/P/Bld) [Vol rate/Area] 72 mL/min/{1.73_m2} >60 [facility] Comment on above: mL/min/1.73m2 CKD-EP I Creatinine Equation (2020) Hematocrit Auto (Bld) [Volum e fraction]Ordered By: Shalonda Tian on 06-26-2025 Hematocrit (Bld) [Volume fraction] 41.7 % 37-47 [facility] Hemoglobin measurementOrdere d By: Shalonda Tian on 06-26-2025 Hemoglobin (Bld) [Mass/Vol] 13.4 g/dL 12.0-15.0 [facility] Immature granulocytes/100 WB C Auto (Bld)Ordered By: jone Tian on 06-26-2025 Immature granulocytes/100 WBC (Bld) 0.400 % 0.0-0.9 [facility] Comment on above: IG% - Immature Granu locytes (promyelocytes, myelocytes and metamyelocytes) > 1% indicates that a LEFT SHIFT is Present. Internal Medicine Office Vis cal 06-26-2025 Internal Medicine Office Visit [facility] [address] [place] [address] [address] [place] [address] OFFICE VISIT Date of Service: 06/26/25 MR#: [id number] Acct: [id number] Name: AMALIA ANGEL Rep #: [id number] : 1955 Provider: Dr. Shalonda rangel MD Age/Sex: 70/F Location: [facility] Status: Signed Intake Vital Signs 03/20/25 07:59 [...] mg PO QHS #90 caps 03/20/25 0 06/26/25 Rx release (Prevacid 24Hr) hydrochlorothiazide 25 mg tablet 25 mg PO DAILY #90 TABLETS 5 06/26/25 Rx Have you fallen in the past year?: No Nurse's Note: pt reports that she has c/o of chest pressure that is sometimes accompanied by heart palpitations that comes and goes" pt states that this has been going on for about 2 weeks, and recalls a sim iliar type episode about 10 years ago. pt states she does have shortness of breath "every now and then" [facility] Medical History (Updated 06/26/25 @ 09:36 by [...] mastoid edmundo (more content not included)... Normal [facility] L501.4021on 06-26-2025 Trop T High Sen < 6 Normal <=14 [facility] Comment on above: Performed By: #### L 501.4021, L500.4100, L506.0400, L100.0100, L501.9520, L500.4050 ####[facility] [address] [place], [place], [id number] LDL calc ser/plasOrdered By: Shalonda Tian on 06-26-2025 Cholesterol in LDL [Mass/Vol] 59 mg/dL [facility] Comment on above: Kkkehcdjpj=957-607 m g/dL & Higher Ipue=296 mg/dL or greaterFriedwald Equation for LDL-C Laboratory - Chemistry and C hemistry - challengeOrdered By: Shalonda Tian on 06-26-2025 AST [Catalytic activity/Vol] 22 U/L <32 [facility] Lipid Profileon 06-26-2025 CHOL:HDL 2.68 Normal [facility] Comment on above: Performed By: #### L 501.4021, L500.4100, L506.0400, L100.0100, L501.9520, L500.4050 ####[facility] [address] [place], [place], [id number] Cholesterol [Mass/Vol] 125 mg/dL Normal <=200 [facility] Comment on above: Result Comment: Chol esterol level, Desirable <200 mg/dL Borderline high cholesterol 200-239 mg/dL High cholesterol >=240 mg/dL Recommendations of the NCEP Adult Treatment Panel for the following risk-cutoff thresholds for the [place] population. Performed By: #### L 501.4021, L500.4100, L506.0400, L100.0100, L501.9520, L500.4050 ####[facility] [id number], [address] Cholesterol in HDL [Mass/Vol] 47 mg/dL Normal [facility] Comment on above: Result Comment: Elizabeth onal Cholesterol Education Program (NCEP) guidelines: <40 mg/dL: Low HDL-cholesterol (major risk factor for CHD) >= 60 mg/dL: High HDL-cholesterol (negative risk factor for CHD) HDL-cholesterol is affected by a number of factors, e.g. smoking, exercise, hormones, sex and age. Performed By: #### L 501.4021, L500.4100, L506.0400, L100.0100, L501.9520, L500.4050 ####[facility] [id number] [place], [address] Cholesterol in LDL [Mass/Vol] 59 mg/dL Normal [facility] Comment on above: Result Comment: Bord jyvgln=779-382 mg/dL Higher Zoni=701 mg/dL or greater Friedwald Equation for LDL-C Performed By: #### L 501.4021, L500.4100, L506.0400, L100.0100, L501.9520, L500.4050 ####[facility] [id number] [place], [address] Cholesterol in VLDL [Mass/Vol] 19 mg/dL Normal 5-40 [facility] Comment on above: Performed By: #### L 501.4021, L500.4100, L506.0400, L100.0100, L501.9520, L500.4050 ####[facility] [id number] [place], [address] Triglyceride [Mass/Vol] 97 mg/dL Normal [facility] Comment on above: Result Comment: The drugs N-Acetylcysteine and Metamizole may falsely depress this assay. Normal range: <150 mg/dL Borderline High: 150-199 mg/dL High: 200-499 mg/dL Very High: >500 mg/dL Performed By: #### L 501.4021, L500.4100, L506.0400, L100.0100, L501.9520, L500.4050 ####[facility] [id number] [place], [address] MCV (mean corpuscular volume ) determinationOrdered By: Shalonda Tian on 06-26-2025 MCV (RBC) [Entitic vol] 83.7 fL 81-99 [facility] Mean corpuscular hemoglobin (MCH) determinationOrdered By: Shalonda Tian on 06-26-2025 MCH (RBC) [Entitic mass] 26.9 pg Low 27.0-32.0 [facility] Mean corpuscular hemoglobin concentration (MCHC) determinationOrdered By: Shalonda Tian on 06-26-2025 MCHC (RBC) [Mass/Vol] 32.1 g/dL 32-36 [facility] Mean platelet volume determi nationOrdered By: Shalonda Tian on 06-26-2025 Platelet mean volume (Bld) [Entitic vol] 11.6 fL 6.2-12.0 [facility] Monocyte percentageOrdered B y: Shalonda Tian on 06-26-2025 Monocytes/100 WBC (Bld) 9.2 % 0-10 [facility] Neutrophil percentageOrdered By: Shalonda Tian on 06-26-2025 Neutrophils/100 WBC (Bld) 61.3 % 47-70 [facility] Nucleated red blood cell per centageOrdered By: Shalonda Tian on 06-26-2025 Nucleated RBC/100 WBC (Bld) [Ratio] 0 % 0-5 [facility] Platelet countOrdered By: Ryley Tian on 06-26-2025 Platelets (Bld) [#/Vol] 348 10*3/uL 150-450 [facility] Potassium measurement (mass/ volume)Ordered By: Shalonda Tian on 06-26-2025 Potassium (Unsp spec) [Mass/Vol] 3.9 mmol/L 3.3-5.1 [facility] RBC Auto (Bld) [#/Vol]Ordere d By: Shalonda Tian on 06-26-2025 RBC (Bld) [#/Vol] 4.98 10*6/uL 4.2-5.4 [facility] Screening total cholesterol/ high density lipoprotein (HDL) cholesterol ratioOrdered By: Shalonda Tian on 06-26-2025 Cholesterol.total/Daphnie sterol in HDL [Mass ratio] 2.68 {ratio} [facility] Serum creatinine measurement (mass/volume)Ordered By: Shalonda Tian on 06-26-2025 Creatinine [Mass/Vol] 0.86 mg/dL 0.70-1.20 [facility] Serum globulin measurementOr dered By: Shalodna Tian on 06-26-2025 Globulin (S) [Mass/Vol] 3.1 g/dL 2.2-4.2 [facility] Serum glucose measurement (m ass/volume)Ordered By: Shalonda Tian on 06-26-2025 Glucose [Mass/Vol] 101 mg/dL High 70-99 [facility] Serum or plasma alanine sommers otransferase (ALT) measurementOrdered By: Shalonda Tian on 06-26-2025 ALT [Catalytic activity/Vol] 19 U/L <35 [facility] Serum or plasma albumin damari urement (mass/volume)Ordered By: Shalonda Tian on 06-26-2025 Albumin [Mass/Vol] 4.3 g/dL 3.4-4.8 [facility] Serum or plasma albumin/glob ulin mass ratioOrdered By: Shalonda Tian on 06-26-2025 Albumin/Globulin [Mass ratio] 1.4 {ratio} 0.9-2.4 [facility] Serum or plasma alkaline nina sphatase measurementOrdered By: Shalonda Tian on 06-26-2025 ALP [Catalytic activity/Vol] 64 U/L 35-104 [facility] Serum or plasma calcium damari urement (mass/volume)Ordered By: Shalonda Tian on 06-26-2025 Calcium [Mass/Vol] 9.5 mg/dL 7.6-11.0 [facility] Serum or plasma cholesterol in HDL measurement (mass/volume)Ordered By: Shalonda Tian on 06-26-2025 Cholesterol in HDL [Mass/Vol] 47 mg/dL >40 [facility] Comment on above: National Cholesterol Education Program (NCEP) guidelines:<40 mg/dL: Low HDL-cholesterol (major risk factor for CHD)>= 60 mg/dL: High HDL-cholesterol (negative risk factor for CHD)HDL-cholesterol is affected by a number of factors, e.g. smoking, exercise, hormones, sex and age. Serum or plasma cholesterol measurement (mass/volume)Ordered By: Shalonda Tian on 06-26-2025 Cholesterol [Mass/Vol] 125 mg/dL <201 [facility] Comment on above: Cholesterol level, D esirable <200 mg/dLBorderline high cholesterol 200-239 mg/dLHigh cholesterol >=240 mg/dLRecommendations of the NCEP Adult Treatment Panel for the following risk-cutoff thresholds for the [place] population. Serum or plasma urea nitroge n measurement (mass/volume)Ordered By: Shalonda Tian on 06-26-2025 Urea nitrogen [Mass/Vol] 17 mg/dL 4-19 [facility] Sodium levelOrdered By: Poli Tian on 06-26-2025 Sodium [Moles/Vol] 141 mmol/L 133-145 [facility] T4 Free Directon 06-26-2025 T4 FREE DIRECT 1.40 ng/dL Normal 0.76-1.46 [facility] Comment on above: Performed By: #### L 501.4021, L500.4100, L506.0400, L100.0100, L501.9520, L500.4050 ####[facility] [id number] [place], [address] T4 freeOrdered By: Shalonda Tian on 06-26-2025 Free T4 [Mass/Vol] 1.40 ng/dL 0.76-1.46 [facility] TSH DL <= 0.005 mIU/L QnOrde red By: Shalonda Tian on 06-26-2025 TSH Qn 0.868 uIU/mL 0.300-4.200 [facility] Thyroid Stim Hormone (TSH)on 06-26-2025 TSH 0.868 uIU/mL Normal 0.300-4.200 [facility] Comment on above: Performed By: #### L 501.4021, L500.4100, L506.0400, L100.0100, L501.9520, L500.4050 ####[facility] [id number] [place], [place], [id number] Total proteinOrdered By: Jet Tian on 06-26-2025 Protein [Mass/Vol] 7.4 g/dL 5.9-8.4 [facility] Triglycerides measurementOrd ered By: Shalonda Tian on 06-26-2025 Triglyceride [Mass/Vol] 97 mg/dL <199 [facility] Comment on above: The drugs N-Acetylcy steine and Metamizole may falsely depress this assay. Normal range: <150 mg/dLBorderline High: 150-199 mg/dLHigh: 200-499 mg/dLVery High: >500 mg/dL Troponin T.cardiac [Mass/vol ume] in Serum or Plasma by High sensitivity methodOrdered By: Shalonda Tian on 06-26-2025 Troponin T.cardiac High sensitivity method [Mass/Vol] < 6 ng/L <14 [facility] White blood cell (WBC) count Ordered By: Shalonda Tian on 06-26-2025 WBC (Bld) [#/Vol] 5.0 10*3/uL 4.4-11.0 [facility] Hemoglobin A1con 03-25-2025 HbA1c (Bld) [Mass fraction] 5.9 % High <=5.6 [facility] Comment on above: Result Comment: Norm al < 5.7 % Prediabetic 5.7 - 6.4 % Diabetic >or= 6.5 % Please note range changes. Performed By: #### L 501.9911 #### [facility] Laboratory [address] [place], [place], [id number] Absolute lymphocyte countOrd ered By: Shalonda Tian on 03-24-2025 Lymphocytes Auto (Unsp spec) [#/Vol] 1.91 10*3/uL 0.83-4.51 [facility] Absolute neutrophil countOrd ered By: Shalonda Tian on 03-24-2025 Neutrophils (Bld) [#/Vol] 3.5 10*3/uL 2.0-7.7 [facility] Anion gap in Serum or Plasma Ordered By: Shalonda Tian on 03-24-2025 Anion gap [Moles/Vol] 11 mmol/L 5-15 [facility] Automated lymphocyte count a s percentage of total leukocytesOrdered By: Shalonda Tian on 03-24-2025 Lymphocytes/100 WBC Auto (Unsp spec) 31.8 % 19-41 [facility] BUN/creatinine ratioOrdered By: jone Tian on 03-24-2025 Urea nitrogen/Creatinine [Mass ratio] 16.3 mg/mg 10-20 [facility] Basophil percentageOrdered B y: Shalonda Tian on 03-24-2025 Basophils/100 WBC (Bld) 0.8 % 0-1 [facility] Bilirubin, totalOrdered By: Shalonda Tian on 03-24-2025 Bilirubin [Mass/Vol] 0.18 mg/dL 0.00-1.30 [facility] CBC W/Diff, Automatedon Absolute Lymph 1.91 X10 3/uL Normal 0.83-4.51 [facility] Comment on above: Performed By: #### L 501.9520, L500.4100, L506.0400, L506.1001, L500.4050, L100.0100 #### [facility] Laboratory [address] [place], [place], [id number] Absolute Neut 3.5 X10 3/uL Normal 2.0-7.7 [facility] Comment on above: Performed By: #### L 501.9520, L500.4100, L506.0400, L506.1001, L500.4050, L100.0100 #### [facility] [address] [place], [address] Basophils/100 WBC (Bld) 0.8 % Normal 0-1 [facility] Comment on above: Performed By: #### L 501.9520, L500.4100, L506.0400, L506.1001, L500.4050, L100.0100 #### [facility] [address] [place], [address] Eosinophils/100 WBC (Bld) 1.7 % Normal 0-5 [facility] Comment on above: Performed By: #### L 501.9520, L500.4100, L506.0400, L506.1001, L500.4050, L100.0100 #### [facility] [address] [place], [address] Erythrocyte distribution width (RBC) [Ratio] 14.4 % Normal 11.6-14.6 [facility] Comment on above: Performed By: #### L 501.9520, L500.4100, L506.0400, L506.1001, L500.4050, L100.0100 #### [facility] [address] [place], [address] Hematocrit (Bld) [Volume fraction] 40.3 % Normal 37-47 [facility] Comment on above: Performed By: #### L 501.9520, L500.4100, L506.0400, L506.1001, L500.4050, L100.0100 #### [facility] [address] [place], [address] Hemoglobin (Bld) [Mass/Vol] 13.0 g/dL Normal 12.0-15.0 [facility] Comment on above: Performed By: #### L 501.9520, L500.4100, L506.0400, L506.1001, L500.4050, L100.0100 #### [facility] [address] [place], [address] IG% 0.300 Normal 0.0-0.9 [facility] Comment on above: Result Comment: IG% - Immature Granulocytes (promyelocytes, myelocytes and metamyelocytes) > 1% indicates that a LEFT SHIFT is Present. Performed By: #### L 501.9520, L500.4100, L506.0400, L506.1001, L500.4050, L100.0100 #### [facility] [address] [place], [address] Lymphocytes/100 WBC (Bld) 31.8 % Normal 19-41 [facility] Comment on above: Performed By: #### L 501.9520, L500.4100, L506.0400, L506.1001, L500.4050, L100.0100 #### [facility] [address] [place], [address] MCH (RBC) [Entitic mass] 27.4 pg Normal 27.0-32.0 [facility] Comment on above: Performed By: #### L 501.9520, L500.4100, L506.0400, L506.1001, L500.4050, L100.0100 #### [facility] [address] [place], [address] MCHC (RBC) [Mass/Vol] 32.3 g/dL Normal 32-36 [facility] Comment on above: Performed By: #### L 501.9520, L500.4100, L506.0400, L506.1001, L500.4050, L100.0100 #### [facility] [address] [place], [address] MCV (RBC) [Entitic vol] 84.8 fL Normal 81-99 [facility] Comment on above: Performed By: #### L 501.9520, L500.4100, L506.0400, L506.1001, L500.4050, L100.0100 #### [facility] [address] [place], [address] Monocytes/100 WBC (Bld) 7.5 % Normal 0-10 [facility] Comment on above: Performed By: #### L 501.9520, L500.4100, L506.0400, L506.1001, L500.4050, L100.0100 #### [facility] [address] [place], [address] Neutrophils/100 WBC (Bld) 57.9 % Normal 47-70 [facility] Comment on above: Performed By: #### L 501.9520, L500.4100, L506.0400, L506.1001, L500.4050, L100.0100 #### [facility] [address] [place], [address] Nucleated RBC (Bld) [#/Vol] 0 10*3/uL Normal 0-5 [facility] Comment on above: Performed By: #### L 501.9520, L500.4100, L506.0400, L506.1001, L500.4050, L100.0100 #### [facility] [address] [place], [address] Platelet mean volume (Bld) [Entitic vol] 11.7 fL Normal 6.2-12.0 [facility] Comment on above: Performed By: #### L 501.9520, L500.4100, L506.0400, L506.1001, L500.4050, L100.0100 #### [facility] [address] [place], [address] Platelets (Bld) [#/Vol] 362 10*3/uL Normal 150-450 [facility] Comment on above: Performed By: #### L 501.9520, L500.4100, L506.0400, L506.1001, L500.4050, L100.0100 #### [facility] [address] [place], [address] RBC (Bld) [#/Vol] 4.75 10*6/uL Normal 4.2-5.4 [facility] Comment on above: Performed By: #### L 501.9520, L500.4100, L506.0400, L506.1001, L500.4050, L100.0100 #### [facility] [address] [place], [address] RDW SD 44.8 fl High 35.1-43.9 [facility] Comment on above: Performed By: #### L 501.9520, L500.4100, L506.0400, L506.1001, L500.4050, L100.0100 #### [facility] [address] [place], [address] WBC (Bld) [#/Vol] 6.0 10*3/uL Normal 4.4-11.0 [facility] Comment on above: Performed By: #### L 501.9520, L500.4100, L506.0400, L506.1001, L500.4050, L100.0100 #### [facility] [address] [place], [address] Calculated very low density lipoprotein (VLDL) cholesterol measurementOrdered By: Shalonda Tian on 03-24-2025 Calculated very low density lipoprotein (VLDL) cholesterol measurement 51 mg/dL High 5-40 [facility] Carbon dioxide, total [Moles /volume] in Central venous bloodOrdered By: Shalonda Tian on 03-24-2025 CO2 [Moles/Vol] 27.9 mmol/L 21.0-32.0 [facility] Chloride assayOrdered By: Ryley gregoryteetee Rosalesmoniquearacelis on 03-24-2025 Chloride [Moles/Vol] 104 mmol/L 98-108 [facility] Comprehensive Metabolic Prof ilon 03-24-2025 Albumin [Mass/Vol] 4.1 g/dL Normal 3.4-4.8 [facility] Comment on above: Performed By: #### L 501.9520, L500.4100, L506.0400, L506.1001, L500.4050, L100.0100 #### [facility] [address] [place], [address] Albumin/Globulin [Mass ratio] 1.4 {ratio} Normal 0.9-2.4 [facility] Comment on above: Performed By: #### L 501.9520, L500.4100, L506.0400, L506.1001, L500.4050, L100.0100 #### [facility] [address] [place], [address] ALK PHOS 60 U/L Normal 35-104 [facility] Comment on above: Performed By: #### L 501.9520, L500.4100, L506.0400, L506.1001, L500.4050, L100.0100 #### [facility] [address] [place], [address] ALT [Catalytic activity/Vol] 20 U/L Normal <=34 [facility] Comment on above: Performed By: #### L 501.9520, L500.4100, L506.0400, L506.1001, L500.4050, L100.0100 #### [facility] [address] [place], [address] AST [Catalytic activity/Vol] 22 U/L Normal <=31 [facility] Comment on above: Performed By: #### L 501.9520, L500.4100, L506.0400, L506.1001, L500.4050, L100.0100 #### [facility] [address] [place], [address] Bilirubin [Mass/Vol] 0.18 mg/dL Normal 0.00-1.30 [facility] Comment on above: Performed By: #### L 501.9520, L500.4100, L506.0400, L506.1001, L500.4050, L100.0100 #### [facility] [address] [place], [address] BUN/CRE 16.3 RATIO Normal 10-20 [facility] Comment on above: Performed By: #### L 501.9520, L500.4100, L506.0400, L506.1001, L500.4050, L100.0100 #### [facility] [address] [place], [address] Calcium [Mass/Vol] 9.3 mg/dL Normal 7.6-11.0 [facility] Comment on above: Performed By: #### L 501.9520, L500.4100, L506.0400, L506.1001, L500.4050, L100.0100 #### [facility] [address] [place], [address] Chloride [Moles/Vol] 104 mmol/L Normal 98-108 [facility] Comment on above: Performed By: #### L 501.9520, L500.4100, L506.0400, L506.1001, L500.4050, L100.0100 #### [facility] [address] [place], [address] CO2 [Moles/Vol] 27.9 mmol/L Normal 21.0-32.0 [facility] Comment on above: Performed By: #### L 501.9520, L500.4100, L506.0400, L506.1001, L500.4050, L100.0100 #### [facility] [address] [place], [address] Creatinine [Mass/Vol] 0.88 mg/dL Normal 0.70-1.20 [facility] Comment on above: Performed By: #### L 501.9520, L500.4100, L506.0400, L506.1001, L500.4050, L100.0100 #### [facility] [address] [place], [address] GAP 11 Normal 5-15 [facility] Comment on above: Performed By: #### L 501.9520, L500.4100, L506.0400, L506.1001, L500.4050, L100.0100 #### [facility] [address] [place], [address] GFR/1.73 sq M.predicted among non-blacks MDRD (S/P/Bld) [Vol rate/Area] 71 mL/min/{1.73_m2} Normal >60 [facility] Comment on above: Result Comment: mL/m in/1.73m2 CKD-EPI Creatinine Equation (2020) Performed By: #### L 501.9520, L500.4100, L506.0400, L506.1001, L500.4050, L100.0100 #### [facility] [address] [place], [address] Globulin (S) [Mass/Vol] 2.9 g/dL Normal 2.2-4.2 [facility] Comment on above: Performed By: #### L 501.9520, L500.4100, L506.0400, L506.1001, L500.4050, L100.0100 #### [facility] [address] [place], [address] Glucose [Mass/Vol] 112 mg/dL High 70-99 [facility] Comment on above: Performed By: #### L 501.9520, L500.4100, L506.0400, L506.1001, L500.4050, L100.0100 #### [facility] [address] [place], [address] Potassium [Moles/Vol] 4.3 mmol/L Normal 3.3-5.1 [facility] Comment on above: Performed By: #### L 501.9520, L500.4100, L506.0400, L506.1001, L500.4050, L100.0100 #### [facility] [address] [place], [address] Sodium [Moles/Vol] 142 mmol/L Normal 133-145 [facility] Comment on above: Performed By: #### L 501.9520, L500.4100, L506.0400, L506.1001, L500.4050, L100.0100 #### [facility] [address] [place], [address] T PROT 7.0 g/dL Normal 5.9-8.4 [facility] Comment on above: Performed By: #### L 501.9520, L500.4100, L506.0400, L506.1001, L500.4050, L100.0100 #### [facility] [address] [place], [address] Urea nitrogen [Mass/Vol] 14 mg/dL Normal 4-19 [facility] Comment on above: Performed By: #### L 501.9520, L500.4100, L506.0400, L506.1001, L500.4050, L100.0100 #### [facility] [address] [place], [address] Eosinophil percentageOrdered By: Shalonda Tian on 03-24-2025 Eosinophils/100 WBC (Bld) 1.7 % 0-5 [facility] Erythrocyte distribution wid th ratioOrdered By: Shalonda Tian on 03-24-2025 Erythrocyte distribution width (RBC) [Ratio] 14.4 % 11.6-14.6 [facility] Erythrocyte distribution wid th standard deviationOrdered By: Shalonda Tian on 03-24-2025 Erythrocyte distribution width (RBC) [Ratio] 44.8 fl High 35.1-43.9 [facility] Glomerular filtration rate ( GFR) estimation/1.73 sq m using serum, plasma, or whole bOrdered By: Shalonda Tian on 03-24-2025 GFR/1.73 sq M.predicted among non-blacks MDRD (S/P/Bld) [Vol rate/Area] 71 mL/min/{1.73_m2} >60 [facility] Comment on above: mL/min/1.73m2 CKD-EP I Creatinine Equation (2020) Hematocrit Auto (Bld) [Volum e fraction]Ordered By: Shalonda Tian on 03-24-2025 Hematocrit (Bld) [Volume fraction] 40.3 % 37-47 [facility] Hemoglobin A1c percentageOrd ered By: Shalonda Tian on 03-24-2025 HbA1c (Bld) [Mass fraction] 5.9 % High <5.7 [facility] Comment on above: Normal < 5.7 % Predi abetic 5.7 - 6.4 % Diabetic >or= 6.5 % Please note range changes. Hemoglobin measurementOrdere d By: Shalonda Tian on 03-24-2025 Hemoglobin (Bld) [Mass/Vol] 13.0 g/dL 12.0-15.0 [facility] Immature granulocytes/100 WB C Auto (Bld)Ordered By: Shalonda Tian on 03-24-2025 Immature granulocytes/100 WBC (Bld) 0.300 % 0.0-0.9 [facility] Comment on above: IG% - Immature Granu locytes (promyelocytes, myelocytes and metamyelocytes) > 1% indicates that a LEFT SHIFT is Present. LDL calc ser/plasOrdered By: Shalonda Tian on 03-24-2025 Cholesterol in LDL [Mass/Vol] 32 mg/dL [facility] Comment on above: Rloksabpxk=354-268 m g/dL & Higher Ypmf=279 mg/dL or greater Laboratory - Chemistry and C hemistry - challengeOrdered By: Ryleygregoryteetee Bobbyaleida on 03-24-2025 AST [Catalytic activity/Vol] 22 U/L <32 [facility] Lipid Profileon 03-24-2025 CHOL:HDL 2.99 Normal [facility] Comment on above: Performed By: #### L 501.9520, L500.4100, L506.0400, L506.1001, L500.4050, L100.0100 #### [facility] Laboratory [address] [place], [address] Cholesterol [Mass/Vol] 125 mg/dL Normal <=200 [facility] Comment on above: Result Comment: Chol esterol level, Desirable <200 mg/dL Borderline high cholesterol 200-239 mg/dL High cholesterol >=240 mg/dL Recommendations of the NCEP Adult Treatment Panel for the following risk-cutoff thresholds for the [place] population. Performed By: #### L [id number], L500.4100, L506.0400, L506.1001, L500.4050, L100.0100 #### [facility] Laboratory [address] [place], [address] Cholesterol in HDL [Mass/Vol] 42 mg/dL Normal [facility] Comment on above: Result Comment: Elizabeth onal Cholesterol Education Program (NCEP) guidelines: <40 mg/dL: Low HDL-cholesterol (major risk factor for CHD) >= 60 mg/dL: High HDL-cholesterol (negative risk factor for CHD) HDL-cholesterol is affected by a number of factors, e.g. smoking, exercise, hormones, sex and age. Performed By: #### L [id number], L500.4100, L506.0400, L506.1001, L500.4050, L100.0100 #### [facility] Laboratory [address] [place], [address] Cholesterol in LDL [Mass/Vol] 32 mg/dL Normal [facility] Comment on above: Result Comment: Bord evvqts=151-376 mg/dL Higher Osyn=672 mg/dL or greater Performed By: #### L [id number], L500.4100, L506.0400, L506.1001, L500.4050, L100.0100 #### [facility] Laboratory [address] [place], [address] Cholesterol in VLDL [Mass/Vol] 51 mg/dL High 5-40 [facility] Comment on above: Performed By: #### L [id number], L500.4100, L506.0400, L506.1001, L500.4050, L100.0100 #### [facility] Laboratory [address] [place], [address] Triglyceride [Mass/Vol] 255 mg/dL High [facility] Comment on above: Result Comment: The drugs N-Acetylcysteine and Metamizole may falsely depress this assay. Normal range: <150 mg/dL Borderline High: 150-199 mg/dL High: 200-499 mg/dL Very High: >500 mg/dL Performed By: #### L [id number], L500.4100, L506.0400, L506.1001, L500.4050, L100.0100 #### [facility] Laboratory [address] [place], [address] MCV (mean corpuscular volume ) determinationOrdered By: Shalonda Tian on 03-24-2025 MCV (RBC) [Entitic vol] 84.8 fL 81-99 [facility] Mean corpuscular hemoglobin (MCH) determinationOrdered By: Shalonda Tian on 03-24-2025 MCH (RBC) [Entitic mass] 27.4 pg 27.0-32.0 [facility] Mean corpuscular hemoglobin concentration (MCHC) determinationOrdered By: Shalonda Tian on 03-24-2025 MCHC (RBC) [Mass/Vol] 32.3 g/dL 32-36 [facility] Mean platelet volume determi nationOrdered By: Shalonda Tian on 03-24-2025 Platelet mean volume (Bld) [Entitic vol] 11.7 fL 6.2-12.0 [facility] Monocyte percentageOrdered B y: Shalonda Tian on 03-24-2025 Monocytes/100 WBC (Bld) 7.5 % 0-10 [facility] Neutrophil percentageOrdered By: Shalonda Tian on 03-24-2025 Neutrophils/100 WBC (Bld) 57.9 % 47-70 [facility] Nucleated red blood cell per centageOrdered By: Shalonda Tian on 03-24-2025 Nucleated RBC/100 WBC (Bld) [Ratio] 0 % 0-5 [facility] Platelet countOrdered By: Ryley Tian on 03-24-2025 Platelets (Bld) [#/Vol] 362 10*3/uL 150-450 [facility] Potassium measurement (mass/ volume)Ordered By: Shalonda Tian on 03-24-2025 Potassium (Unsp spec) [Mass/Vol] 4.3 mmol/L 3.3-5.1 [facility] RBC Auto (Bld) [#/Vol]Ordere d By: Shalonda Tian on 03-24-2025 RBC (Bld) [#/Vol] 4.75 10*6/uL 4.2-5.4 [facility] Screening total cholesterol/ high density lipoprotein (HDL) cholesterol ratioOrdered By: Shalonda Tian on 03-24-2025 Cholesterol.total/Daphnie sterol in HDL [Mass ratio] 2.99 {ratio} [facility] Serum creatinine measurement (mass/volume)Ordered By: Shalonda Tian on 03-24-2025 Creatinine [Mass/Vol] 0.88 mg/dL 0.70-1.20 [facility] Serum globulin measurementOr dered By: Shalonda Tian on 03-24-2025 Globulin (S) [Mass/Vol] 2.9 g/dL 2.2-4.2 [facility] Serum glucose measurement (m ass/volume)Ordered By: Shalonda Tian on 03-24-2025 Glucose [Mass/Vol] 112 mg/dL High 70-99 [facility] Serum or plasma alanine sommers otransferase (ALT) measurementOrdered By: Shalonda Tian on 03-24-2025 ALT [Catalytic activity/Vol] 20 U/L <35 [facility] Serum or plasma albumin damari urement (mass/volume)Ordered By: Shalonda Tian on 03-24-2025 Albumin [Mass/Vol] 4.1 g/dL 3.4-4.8 [facility] Serum or plasma albumin/glob ulin mass ratioOrdered By: Shalonda Tian on 03-24-2025 Albumin/Globulin [Mass ratio] 1.4 {ratio} 0.9-2.4 [facility] Serum or plasma alkaline nina sphatase measurementOrdered By: Shalonda Tian on 03-24-2025 ALP [Catalytic activity/Vol] 60 U/L 35-104 [facility] Serum or plasma calcium damari urement (mass/volume)Ordered By: Shalonda Tian on 03-24-2025 Calcium [Mass/Vol] 9.3 mg/dL 7.6-11.0 [facility] Serum or plasma cholesterol in HDL measurement (mass/volume)Ordered By: Shalonda Tian on 03-24-2025 Cholesterol in HDL [Mass/Vol] 42 mg/dL >40 [facility] Comment on above: National Cholesterol Education Program (NCEP) guidelines:<40 mg/dL: Low HDL-cholesterol (major risk factor for CHD)>= 60 mg/dL: High HDL-cholesterol (negative risk factor for CHD)HDL-cholesterol is affected by a number of factors, e.g. smoking, exercise, hormones, sex and age. Serum or plasma cholesterol measurement (mass/volume)Ordered By: Shalonda Tian on 03-24-2025 Cholesterol [Mass/Vol] 125 mg/dL <201 [facility] Comment on above: Cholesterol level, D esirable <200 mg/dLBorderline high cholesterol 200-239 mg/dLHigh cholesterol >=240 mg/dLRecommendations of the NCEP Adult Treatment Panel for the following risk-cutoff thresholds for the [place] population. Serum or plasma urea nitroge n measurement (mass/volume)Ordered By: Shalonda Tian on 03-24-2025 Urea nitrogen [Mass/Vol] 14 mg/dL 4-19 [facility] Sodium levelOrdered By: Poli olveragrace Jaylan on 03-24-2025 Sodium [Moles/Vol] 142 mmol/L 133-145 [facility] T4 Free Directon 03-24-2025 T4 FREE DIRECT 1.30 ng/dL Normal 0.76-1.46 [facility] Comment on above: Performed By: #### L 501.9520, L500.4100, L506.0400, L506.1001, L500.4050, L100.0100 ####[facility] [id number] [place], [address] T4 freeOrdered By: Shalonda Tian on 03-24-2025 Free T4 [Mass/Vol] 1.30 ng/dL 0.76-1.46 [facility] TSH DL <= 0.005 mIU/L QnOrde red By: Shalonda Tian on 03-24-2025 TSH Qn 0.803 uIU/mL 0.300-4.200 [facility] Thyroid Stim Hormone (TSH)on 03-24-2025 TSH 0.803 uIU/mL Normal 0.300-4.200 [facility] Comment on above: Performed By: #### L 501.9520, L500.4100, L506.0400, L506.1001, L500.4050, L100.0100 #### [facility] Laboratory [address] [place], [address] Total proteinOrdered By: Jet Tian on 03-24-2025 Protein [Mass/Vol] 7.0 g/dL 5.9-8.4 [facility] Triglycerides measurementOrd ered By: Shalonda Tian on 03-24-2025 Triglyceride [Mass/Vol] 255 mg/dL High <199 [facility] Comment on above: The drugs N-Acetylcy steine and Metamizole may falsely depress this assay. Normal range: <150 mg/dLBorderline High: 150-199 mg/dLHigh: 200-499 mg/dLVery High: >500 mg/dL Vitamin D,25 Hydroxyon 03-24 Vitamin D 25-OH 42.8 ng/mL Normal 30-100 [facility] Comment on above: Result Comment: Nadya min D Status Deficiency: <20 ng/mL (50nmol/L) Insufficiency: 20-30 ng/mL (50-75 nmol/L) Sufficiency: 30-100 ng/mL (75-250 nmol/L) Toxicity: >100 ng/mL (>250 nmol/L) Performed By: #### L [id number], L500.4100, L506.0400, L506.1001, L500.4050, L100.0100 ####[facility] [id number] [place], [address] White blood cell (WBC) count Ordered By: Shalonda Tian on 03-24-2025 WBC (Bld) [#/Vol] 6.0 10*3/uL 4.4-11.0 [facility] Internal Medicine Office Vis iton 03-20-2025 Internal Medicine Office Visit [facility] [address] [place] [address] [place] [address] OFFICE VISIT Date of Service: 03/20/25 MR#: [id number] Acct: [id number] Name: AMALIA ANGEL Rep #: [id number] : 1955 Provider: Dr. Shalonda rangel MD Age/Sex: 69/F Location: [facility] Status: Signed Intake Vital Signs 09/19/24 07:59 [...] M FU Chief Complaint: 6 M FU Physically Impaired Teacher Required: No Accompanied by: Self Is patient [...] weakness, frequ (more content not included)... Normal [facility] Absolute lymphocyte countOrd ered By: Shalonda Tian on 03-19-2024 Lymphocytes Auto (Unsp spec) [#/Vol] 1.60 10*3/uL 0.83-4.51 [facility] Automated lymphocyte count a s percentage of total leukocytesOrdered By: Shalonda Tian on 03-19-2024 Lymphocytes/100 WBC Auto (Unsp spec) 31.5 % 19-41 [facility] Basophil percentageOrdered B y: Shalonda Tian on 03-19-2024 Basophils/100 WBC (Bld) 1.0 % 0-1 [facility] Bilirubin [Mass/Vol] 0.50 mg/dL 0.20-1.00 [facility] Comment on above: For patients on eltr ombopag therapy, use of Dimension [place] TBIL is not recommended. Chloride [Moles/Vol] 103 mmol/L 98-107 [facility] Cholesterol [Mass/Vol] 116 mg/dL <200 [facility] Comment on above: <200 mg/dL Desirable 200-240 mg/dL Borderline >240 mg/dL High Risk Eosinophils/100 WBC (Bld) 1.2 % 0-5 [facility] Glucose [Mass/Vol] 110 mg/dL 74-106 [facility] Comment on above: Fasting Glucose resu lt from 100 to 125 mg/dL suggests IMPAIRED HOMEOSTASIS per A.D.A. criteria. Hemoglobin (Bld) [Mass/Vol] 13.0 g/dL 12.0-15.0 [facility] Monocytes/100 WBC (Bld) 9.3 % 0-10 [facility] Neutrophils (Bld) [#/Vol] 2.9 10*3/uL 2.0-7.7 [facility] Neutrophils/100 WBC (Bld) 56.6 % 47-70 [facility] Potassium [Moles/Vol] 4.2 mmol/L 3.5-5.1 [facility] Protein [Mass/Vol] 7.5 g/dL 6.4-8.2 [facility] Sodium [Moles/Vol] 138 mmol/L 136-145 [facility] Triglyceride [Mass/Vol] 89 mg/dL <199 [facility] Comment on above: The drugs N-Acetylcy steine and Metamizole may falsely depress this assay.Serum Triglycerides Reference Interval Normal <150 mg/dL Borderline high 150 - 199 mg/dL High 200 - 499 mg/dL Very High > or = 500 mg/dL WBC (Bld) [#/Vol] 5.1 10*3/uL 4.4-11.0 [facility] Determination of erythrocyte mean corpuscular volume (MCV)Ordered By: Shalonda Tian on 03-19-2024 MCV (RBC) [Entitic vol] 85.2 fL 81-99 [facility] Erythrocyte distribution wid th ratioOrdered By: [facility] Rosalesaracelis on 03-19-2024 Erythrocyte distribution width (RBC) [Ratio] 14.1 % 11.6-14.6 [facility] Erythrocyte distribution wid th standard deviationOrdered By: [facility] Bobbyaracelis on 03-19-2024 Erythrocyte distribution width (RBC) [Entitic vol] 43.5 fL 35.1-43.9 [facility] Hematocrit Auto (Bld) [Volum e fraction]Ordered By: gregorymeigsdebra Tian on 03-19-2024 Hematocrit (Bld) [Volume fraction] 41.0 % 37-47 [facility] Immature granulocytes/100 WB C Auto (Bld)Ordered By: [facility] Rosalesaracelis on 03-19-2024 Immature granulocytes/100 WBC (Bld) 0.400 % 0.0-0.9 [facility] Comment on above: IG% - Immature Granu locytes (promyelocytes, myelocytes and metamyelocytes) > 1% indicates that a LEFT SHIFT is Present. Laboratory - Chemistry and C hemistry - challengeOrdered By: [facility] Rosalesaracelis on 03-19-2024 Albumin/Globulin [Mass ratio] 1.1 {ratio} 0.9-2.4 [facility] ALP [Catalytic activity/Vol] 59 U/L 45-117 [facility] ALT [Catalytic activity/Vol] 21 U/L 13-56 [facility] Cholesterol in HDL [Mass/Vol] 50 mg/dL >40 [facility] Comment on above: The drugs N-Acetylcy steine and Metamizole may falsely depress this assay. Reference Range HDL <40 mg/dL Low HDL Cholesterol HDL >or= 60 mg/dL High HDL Cholesterol Cholesterol in LDL [Mass/Vol] 48 mg/dL 0-130 [facility] CO2 [Moles/Vol] 31.0 mmol/L 21.0-32.0 [facility] Globulin (S) [Mass/Vol] 3.6 g/dL 2.2-4.2 [facility] Urea nitrogen/Creatinine [Mass ratio] 14.4 mg/mg 10-20 [facility] Laboratory - Hematology and Cell countsOrdered By: Shalonda Tian on 03-19-2024 MCH (RBC) [Entitic mass] 27.0 pg 27.0-32.0 [facility] MCHC (RBC) [Mass/Vol] 31.7 g/dL 32-36 [facility] Nucleated RBC/100 WBC (Bld) [Ratio] 0 % 0-5 [facility] Platelet mean volume (Bld) [Entitic vol] 11.4 fL 6.2-12.0 [facility] Platelets (Bld) [#/Vol] 326 10*3/uL 150-450 [facility] No Panel InformationOrdered By: Shalonda Tian on 03-19-2024 Estimated GFR (MDRD) Amer 73 mL/min >60 [facility] Comment on above: GFR Calc Estimated GFR (MDRD) Non-Af Amer 60 mL/min >60 [facility] Comment on above: Non- GFR Calc Vitamin D 25-Hydroxy 57.1 ng/mL [facility] Comment on above: Vitamin D 25(OH) Sta tus Range Deficiency <20 ng/mL (50nmol/L) Insufficiency 20 - 30 ng/mL (50 - 75 nmol/L) Sufficiency 30 - 100 ng/mL (75 - 250 nmol/L) Toxicity >100 ng/mL (>250 nmol/L) VLDL Cholesterol 18 mg/dL 5-40 [facility] RBC Auto (Bld) [#/Vol]Ordere d By: Shalonda Tian on 03-19-2024 RBC (Bld) [#/Vol] 4.81 10*6/uL 4.2-5.4 [facility] Serum or plasma calcium damari urement (mass/volume)Ordered By: Shalonda Tian on 03-19-2024 Calcium [Mass/Vol] 9.7 mg/dL 8.5-10.1 [facility] Serum or plasma creatinine m easurement (mass/volume)Ordered By: Shalonda Tian on 03-19-2024 Creatinine [Mass/Vol] 0.97 mg/dL 0.55-1.02 [facility] Comment on above: The validity of the calculated GFR & GFRAA in patients over 70 years has not been determined. Clinical correlation is essential. Serum or plasma urea nitroge n measurement (mass/volume)Ordered By: Shalonda Tian on 03-19-2024 Urea nitrogen [Mass/Vol] 14 mg/dL 7-18 [facility] Thin prep Papanicolaou smear with manual screeningOrdered By: jone Tian on 03-19-2024 Thin prep Papanicolaou smear with manual screening 3.9 g/dL 3.2-5.0 [facility] Thin prep Papanicolaou smear with manual screening 19 U/L 15-37 [facility] Thin prep Papanicolaou smear with manual screening 4 5-15 [facility] Basophil percentageOrdered B y: Shalonda Tian on 09-12-2023 Chloride [Moles/Vol] 105 mmol/L 98-107 [facility] Glucose [Mass/Vol] 101 mg/dL 74-106 [facility] Comment on above: Fasting Glucose resu lt from 100 to 125 mg/dL suggests IMPAIRED HOMEOSTASIS per A.D.A. criteria. Potassium [Moles/Vol] 4.2 mmol/L 3.5-5.1 [facility] Sodium [Moles/Vol] 142 mmol/L 136-145 [facility] Laboratory - Chemistry and C hemistry - challengeOrdered By: Shalonda Tian on 09-12-2023 CO2 [Moles/Vol] 33.0 mmol/L 21.0-32.0 [facility] Urea nitrogen/Creatinine [Mass ratio] 21.7 mg/mg 10- [facility] No Panel InformationOrdered By: Shalonda Tian on 09-12-2023 Estimated GFR (MDRD) Amer 93 mL/min >60 [facility] Comment on above: GFR Calc Estimated GFR (MDRD) Non-Af Amer 77 mL/min >60 [facility] Comment on above: Non- GFR Calc Serum or plasma calcium damari urement (mass/volume)Ordered By: Shalonda Tian on 09-12-2023 Calcium [Mass/Vol] 9.2 mg/dL 8.5-10.1 [facility] Serum or plasma creatinine m easurement (mass/volume)Ordered By: Shalonda Tian on 09-12-2023 Creatinine [Mass/Vol] 0.78 mg/dL 0.55-1.02 [facility] Comment on above: The validity of the calculated GFR & GFRAA in patients over 70 years has not been determined. Clinical correlation is essential. Serum or plasma urea nitroge n measurement (mass/volume)Ordered By: Polimeigsdebra Tian on 09-12-2023 Urea nitrogen [Mass/Vol] 17 mg/dL 06-05 [facility] Thin prep Papanicolaou smear with manual screeningOrdered By: jone Tian on 09-12-2023 Thin prep Papanicolaou smear with manual screening 4 - [facility] Basophil percentageon 2021 Basophil percentage < 0.9 mg/dL 0.55-1.02 [facility] Work Phone: No Panel Informationon 05-03 Bedside Estimated GFR (eGFR) > 60.0000 mL/min >60 [facility] Work Phone: CORONAVIRUS PCR [CCL]on 09-21 REF LAB REPORT Positive Normal [facility] Comment on above: Performed By: #### [id number] #### [facility],[address] [place] [address] SEND TO IC? YES Normal [facility] Comment on above: Performed By: #### [id number] #### [facility],[address] [place] [address] COVID 19 Result BRYOLOGIST Positive Abnormal [facility] Comment on above: Result Comment: Posi tive for COVID19 (SARS CoV2) by PCR.(*) This test was developed and its performance characteristics determined by [facility]'s [facility] JAdalg[facility] Pathology [facility]. This test has been authorized by FDA under an Emergency Use Authorization (EUA). This test has been validated in accordance with the FDA's Guidance Document Policy for Diagnostics Testing in Laboratories Certified to Perform High Complexity Testing under CLIA prior to Emergency use Authorization for Coronavirus Disease 2019 during the Public Health Emergency" issued on January 17, 2020. [facility] [address] [place] [address] Gunnar Steele III, M.D. [id number] Performed By: #### [id number] #### [facility],[address] [place] [id number] COVID 19 Source BRYOLOGIST Nasopharyngeal Swab Normal [facility] Comment on above: Result Comment: Manuel ected on 10/17 AT 1531: Previously reported as NASAL SWAB Performed By: #### [id number] #### [facility],[address] [place] [id number] Coronavirus 2019 0 COVID 19 Result BRYOLOGIST Abnormal Negative for COVID19 (SARS CoV2) by PCR. [facility] Comment on above: Result Comment: Posi tive for This test was developed and its performance characteristics determined by [facility]'s [facility]ology [facility]. This test has been authorized by FDA under an Emergency Use Authorization (EUA). This test has been validated in accordance with the FDA's Guidance Document "Policy for Diagnostics Testing in Laboratories Certified to Perform High Complexity Testing under CLIA prior to Emergency use Authorization for Coronavirus Disease 2019 during the Public Health Emergency" issued on January 17, 2020. COVID19 (SARS This test was developed and its performance characteristics determined by [facility]. This test has been authorized by FDA under an Emergency Use Authorization (EUA). This test has been validated in accordance with the FDA's Guidance Document "Policy for Diagnostics Testing in Laboratories Certified to Perform High Complexity Testing under CLIA prior to Emergency use Authorization for Coronavirus Disease 2019 during the Public Health Emergency" issued on January 17, 2020. CoV2) by This test was developed and its performance characteristics determined by [facility]. This test has been authorized by FDA under an Emergency Use Authorization (EUA). This test has been validated in accordance with the FDA's Guidance Document "Policy for Diagnostics Testing in Laboratories Certified to Perform High Complexity Testing under CLIA prior to Emergency use Authorization for Coronavirus Disease 2019 during the Public Health Emergency" issued on January 17, 2020. PCR.(*) This test was developed and its performance characteristics determined by [facility]. This test has been authorized by FDA under an Emergency Use Authorization (EUA). This test has been validated in accordance with the FDA's Guidance Document "Policy for Diagnostics Testing in Laboratories Certified to Perform High Complexity Testing under CLIA prior to Emergency use Authorization for Coronavirus Disease 2019 during the Public Health Emergency" issued on January 17, 2020. Coronavirus 2019on 0 COVID 19 Source BRYOLOGIST Normal [facility] Comment on above: Result Comment: Naso pharyngeal Corrected on 10/17 AT 1531: Previously reported as NASAL SWAB Swab Corrected on 10/17 AT 1531: Previously reported as NASAL SWAB Lab Report: Basic Metabolic Profile (BMP)on 11-20-2017 Anion gap [Moles/Vol] 6 mmol/L Invalid Interpretation Code 5-15 [facility] Work Phone: Calcium [Mass/Vol] 8.9 mg/dL Invalid Interpretation Code 8.5-10.1 [facility] Work Phone: Chloride [Moles/Vol] 105 mmol/L Invalid Interpretation Code 98-107 [facility] Work Phone: CO2 (BldV) [Partial pressure] 31.0 mmol/L Invalid Interpretation Code 21.0-32.0 [facility] Work Phone: Creatinine [Mass/Vol] 0.91 mg/dL Invalid Interpretation Code 0.55-1.02 [facility] Work Phone: GFR/1.73 sq M.predicted among non-blacks MDRD (S/P/Bld) [Vol rate/Area] 66 mL/min/{1.73_m2} Invalid Interpretation Code >60 [facility] Work Phone: Glomerular Filtration rate 80 mL/min Invalid Interpretation Code >60 [facility] Work Phone: Glucose [Mass/Vol] 93 mg/dL Invalid Interpretation Code 70-110 [facility] Work Phone: Potassium [Moles/Vol] 3.8 mmol/L Invalid Interpretation Code 3.5-5.1 [facility] Work Phone: Sodium [Moles/Vol] 142 mmol/L Invalid Interpretation Code 136-145 [facility] Work Phone: Urea nitrogen [Mass/Vol] 19 mg/dL High 7-18 [facility] Work Phone: Urea nitrogen/Creatinine [Mass ratio] 20.5089094 mg/mg High 10-20 [facility] Work Phone: Lab Report: Miscellaneous La b Procedureon 10-21-2017 GE use only - for LinkLogic import when terms are not otherwise specified . Invalid Interpretation Code [facility] [place] Office Visit: Annualon 10-15 Tobacco smoking status Never Invalid Interpretation Code [facility] Tobacco smoking status Tobacco smoking status NHIS Invalid Interpretation Code [facility] Tobacco use status [facility] Never smoker Invalid Interpretation Code [facility] Office Visit: discuss CT res ultson 09-17-2017 Tobacco smoking status Never Invalid Interpretation Code [facility] [employer] Work Phone: Tobacco use status [facility] Never smoker Invalid Interpretation Code [facility] Work Phone: Lab Report: CREATININE FINGE RSTICKon 09-14-2017 EGFR WB > 60.0000 mL/min Invalid Interpretation Code >60 [facility] Work Phone: GE use only - for [employer] import when terms are not otherwise specified > 60.0000 mL/min Invalid Interpretation Code >60 [facility] Work Phone: Office Visit: Lower abdomina l pain/colonoscopy consulton 08-28-2017 Alcoholism counseling (procedure) no Invalid Interpretation Code [facility] Work Phone: Dietary management education, guidance, and counseling (procedure) yes Invalid Interpretation Code [facility] Work Phone: Documentation of current medications (procedure) Done Invalid Interpretation Code [facility] Work Phone: Fall risk assessment No Invalid Interpretation Code [facility] Work Phone: Tobacco smoking status Never Invalid Interpretation Code [facility] Work Phone: Tobacco use status [facility] Never smoker Invalid Interpretation Code [facility] Work Phone: Clinical Lists Update: Prelo speed winder 01-19-2017 Left ventricular Ejection fraction 65 % Invalid Interpretation Code [facility] Work Phone: Lab Report: Basic Metabolic Profile (BMP)on 12-25-2016 Anion gap 7 mmol/L Invalid Interpretation Code 5-15 [facility] Work Phone: Anion gap [Moles/Vol] 7 mmol/L Invalid Interpretation Code 5-15 [facility] Work Phone: BUN/Creatinine Ratio 21.2 RATIO High 10-20 [facility] Work Phone: Calcium [Mass/Vol] 8.9 mg/dL Invalid Interpretation Code 8.5-10.1 [facility] Work Phone: Chloride [Moles/Vol] 103 mmol/L Invalid Interpretation Code 98-107 [facility] Work Phone: CO2 29.0 mmol/L Invalid Interpretation Code 21.0-32.0 [facility] Work Phone: CO2 (BldV) [Partial pressure] 29.0 mmol/L Invalid Interpretation Code 21.0-32.0 [facility] Work Phone: Creatinine [Mass/Vol] 0.80 mg/dL Invalid Interpretation Code 0.55-1.02 [facility] Work Phone: eGFR (non-black) 93 mL/min/{1.73_m2} Invalid Interpretation Code >60 [facility] Work Phone: GFR/1.73 sq M.predicted among non-blacks MDRD (S/P/Bld) [Vol rate/Area] 77 mL/min/{1.73_m2} Invalid Interpretation Code >60 [facility] Work Phone: Glomerular Filtration rate 93 mL/min Invalid Interpretation Code >60 [facility] Work Phone: Glucose [Mass/Vol] 83 mg/dL Invalid Interpretation Code 70-110 [facility] Work Phone: Potassium [Moles/Vol] 3.7 mmol/L Invalid Interpretation Code 3.5-5.1 [facility] Work Phone: Sodium [Moles/Vol] 139 mmol/L Invalid Interpretation Code 136-145 [facility] Work Phone: Urea nitrogen [Mass/Vol] 17 mg/dL Invalid Interpretation Code 7-18 [facility] Work Phone: Urea nitrogen/Creatinine [Mass ratio] 21.4824006 mg/mg High 10-20 [facility] Work Phone: Lab Report: CBC-Complete Blo od Cnt No Diffon 12-25-2016 Erythrocyte distribution width (RBC) [Ratio] 14.6 % Invalid Interpretation Code 11.6-14.6 [facility] Work Phone: Erythrocyte distribution width Auto Ratio (RBC) 14.6 % Invalid Interpretation Code 11.6-14.6 [facility] Work Phone: Erythrocytes (RBC) 4.94 10*6/uL Invalid Interpretation Code 4.2-5.4 [facility] Work Phone: Hematocrit (Bld) [Volume fraction] 40.9 % Invalid Interpretation Code 37-47 [facility] Work Phone: Hematocrit (HCT) 40.9 % Invalid Interpretation Code 37-47 [facility] Work Phone: Hemoglobin (Bld) [Mass/Vol] 13.2 g/dL Invalid Interpretation Code 12.0-15.0 [facility] Work Phone: MCH 26.7 pg Low 27.0-32.0 [facility] Work Phone: MCH (RBC) [Entitic mass] 26.7 pg Low 27.0-32.0 [facility] Work Phone: MCHC mass conc (RBC) 32.3 G/GL Invalid Interpretation Code 32-36 [facility] Work Phone: MCV 82.8 fL Invalid Interpretation Code 81-99 [facility] [employer] Work Phone: MCV (RBC) [Entitic vol] 82.8 fL Invalid Interpretation Code 81-99 [facility] Work Phone: mean corpuscular hemoglobin concentration, RBC 32.3 G/GL Invalid Interpretation Code 32-36 [facility] Work Phone: Platelet mean volume (Bld) [Entitic vol] 10.8 fL Invalid Interpretation Code 6.2-12.0 [facility] Work Phone: Platelets 356 10*3/mm3 Invalid Interpretation Code 150-450 [facility] Work Phone: Platelets (Bld) [#/Vol] 356 10*3/uL Invalid Interpretation Code 150-450 [facility] Work Phone: PMV by Ynes 10.8 fL Invalid Interpretation Code 6.2-12.0 [facility] Work Phone: RBC (Bld) [#/Vol] 4.94 10*6/uL Invalid Interpretation Code 4.2-5.4 [facility] Work Phone: RDW SD 43.8 fL Invalid Interpretation Code 35.1-43.9 [facility] Work Phone: red blood cell distribution width, size density 43.8 fL Invalid Interpretation Code 35.1-43.9 [facility] Work Phone: WBC (Bld) [#/Vol] 7.3 10*3/uL Invalid Interpretation Code 4.4-11.0 [facility] Work Phone: WBC (Leukocytes) 7.3 10*3/uL Invalid Interpretation Code 4.4-11.0 [facility] Work Phone: Lab Report: Partial Thrombop last Timeon 12-25-2016 aPTT Coag (Bld) [Time] 29.9 s Invalid Interpretation Code 24.1-36.2 [facility] Work Phone: Lab Report: Prothrombin Time w/INRon 12-25-2016 INR Coag (PPP) [Relative time] 1.1 {INR} Invalid Interpretation Code [facility] Work Phone: Prothrombin time (PT) Coag time (PPP) 13.9 s Invalid Interpretation Code 11.7-14.9 [facility] Work Phone: PT Coag (PPP) [Time] 13.884586079 s Invalid Interpretation Code 11.7-14.9 [facility] Work Phone: Office Visiton 12-21-2016 Tobacco use status [facility] Never smoker Invalid Interpretation Code [facility] Work Phone: Replaced Document: [place] E CG Observationson 12-21-2016 EKG QRS axis 6 deg Invalid Interpretation Code [facility] [employer] Work Phone: electrocardiogram interpretation Sinus Rhythm WITHIN NORMAL LIMITS Invalid Interpretation Code [facility] Work Phone: GE use only - for LinkLogic import when terms are not otherwise specified 406 ms Invalid Interpretation Code [facility] Work Phone: Heart rate 84 /min Invalid Interpretation Code [facility] Work Phone: Interpretation Sinus Rhythm WITHIN NORMAL LIMITS Invalid Interpretation Code [facility] [employer] Work Phone: P Wilmar 24 deg Invalid Interpretation Code [facility] [employer] Work Phone: P wave axis, electrocardiogram 24 deg Invalid Interpretation Code [facility] Work Phone: IA Interval 180 ms Invalid Interpretation Code [facility] [employer] Work Phone: IA interval, electrocardiogram 180 ms Invalid Interpretation Code [facility] Work Phone: QRS axis, electrocardiogram 6 deg Invalid Interpretation Code [facility] Work Phone: QRS Duration 88 ms Invalid Interpretation Code [facility] [employer] Work Phone: QRS duration, electrocardiogram 88 ms Invalid Interpretation Code [facility] Work Phone: QT Interval new path ms Invalid Interpretation Code [facility] [employer] Work Phone: QT interval, electrocardiogram new path ms Invalid Interpretation Code [facility] Work Phone: T Wilmar -1 deg Invalid Interpretation Code [facility] [employer] Work Phone: T wave axis, electrocardiogram -1 deg Invalid Interpretation Code [facility] Work Phone: Office Visit: Lower abdomina l pain/colonoscopy consulton 08-25-2016 MG Breast Screening Normal Bilateral Invalid Interpretation Code [facility] Work Phone: Clinical Lists Update: Prelo speed winder 04-11-2016 Cholesterol [Mass/Vol] 118 mg/dL Invalid Interpretation Code [facility] Work Phone: Cholesterol in HDL [Mass/Vol] 41 mg/dL Invalid Interpretation Code [facility] Work Phone: Cholesterol in LDL [Mass/Vol] 58 mg/dL Invalid Interpretation Code [facility] Work Phone: Lipoprotein.pre-beta [Mass/Vol] 19 mg/dL Invalid Interpretation Code [facility] Work Phone: Triglyceride [Mass/Vol] 95 mg/dL Invalid Interpretation Code [facility] Work Phone: Office Visit: Lower abdomina l pain/colonoscopy consulton 02-13-2013 Colonoscopy (procedure) Adenomatous Polyp Invali d Interpretation Code [facility] Work Phone: Vital Signs Date Time Vital Sign Value Performing Clinician Facility 09-03-2025 10:15-0400 Diastolic blood pressure 81 mm[Hg] Dr. Shalonda Tian MD Work Phone: [facility] 09-03-2025 10:15-0400 Heart rate 76 /min Dr. Shalonda Tian MD Work Phone: [facility] 09-03-2025 10:15-0400 Systolic blood pressure 135 mm[Hg] Dr. Shalonda Tian MD Work Phone: [facility] 09-03-2025 10:03-0400 Body height 165.[address] Shalonda Tian MD Work Phone: [facility] 09-03-2025 10:03-0400 Body mass index (BMI) [Ratio] 34.1 kg/m2 Dr. Shalonda Tian MD Work Phone: [facility] 09-03-2025 10:03-0400 Body weight 92.[address] Shalonda Tian MD Work Phone: [facility] 09-03-2025 10:03-0400 Respiratory rate 16 /min Dr. Shalonda Tian MD Work Phone: [facility] 08-19-2025 10:17-0400 Body height 165.[address] Shalonda Tian MD Work Phone: [facility] 08-19-2025 10:17-0400 Body mass index (BMI) [Ratio] 33.9 kg/m2 Dr. Shalonda Tian MD Work Phone: [facility] 08-19-2025 10:17-0400 Body temperature 97.5 [degF] Dr. Shalonda Tian MD Work Phone: [facility] 08-19-2025 10:17-0400 Body weight 92.[address] Shalonda Tian MD Work Phone: [facility] 08-19-2025 10:17-0400 Diastolic blood pressure 80 mm[Hg] Dr. Shalonda Tian MD Work Phone: [facility] 08-19-2025 10:17-0400 Heart rate 82 /min Dr. Shalonda Tian MD Work Phone: [facility] 08-19-2025 10:17-0400 Respiratory rate 16 /min Dr. Shalonda Tian MD Work Phone: [facility] 08-19-2025 10:17-0400 SaO2% (BldA) [Mass fraction] 98 % Dr. Shalonda Tian MD Work Phone: [facility] 08-19-2025 10:17-0400 Systolic blood pressure 118 mm[Hg] Dr. Shalonda Tian MD Work Phone: [facility] 06-26-2025 09:09-0400 Body height 165.[address] Shalonda Tian MD Work Phone: [facility] 06-26-2025 09:09-0400 Body mass index (BMI) [Ratio] 32.9 kg/m2 Dr. Shalonda Tian MD Work Phone: [facility] 06-26-2025 09:09-0400 Body temperature 98.2 [degF] Dr. Shalonda Tian MD Work Phone: [facility] 06-26-2025 09:09-0400 Body weight 89.[address] Shalonda Tian MD Work Phone: [facility] 06-26-2025 09:09-0400 Diastolic blood pressure 88 mm[Hg] Dr. Shalonda Tian MD Work Phone: [facility] 06-26-2025 09:09-0400 Heart rate 84 /min Dr. Shalonda Tian MD Work Phone: [facility] 06-26-2025 09:09-0400 Respiratory rate 18 /min Dr. Shalonda Tian MD Work Phone: [facility] 06-26-2025 09:09-0400 SaO2% (BldA) [Mass fraction] 98 % Dr. Shalonda Tian MD Work Phone: [facility] 06-26-2025 09:09-0400 Systolic blood pressure 142 mm[Hg] Dr. Shalonda Tian MD Work Phone: [facility] 03-20-2025 07:59-0400 Body height 165.[address] Shalonda Tian MD Work Phone: [facility] 03-20-2025 07:59-0400 Body mass index (BMI) [Ratio] 33.5 kg/m2 Dr. Shalonda Tian MD Work Phone: [facility] 03-20-2025 07:59-0400 Body temperature 96.1 [degF] Dr. Shalonda Tian MD Work Phone: [facility] 03-20-2025 07:59-0400 Body weight 91.[address] Shalonda Tian MD Work Phone: [facility] 03-20-2025 07:59-0400 Diastolic blood pressure 62 mm[Hg] Dr. Shalonda Tian MD Work Phone: [facility] 03-20-2025 07:59-0400 Heart rate 74 /min Dr. Shalonda Tian MD Work Phone: [facility] 03-20-2025 07:59-0400 Respiratory rate 16 /min Dr. Shalonda Tian MD Work Phone: [facility] 03-20-2025 07:59-0400 SaO2% (BldA) [Mass fraction] 94 % Dr. Shalonda Tian MD Work Phone: [facility] 03-20-2025 07:59-0400 Systolic blood pressure 132 mm[Hg] Dr. Shalonda Tian MD Work Phone: [facility] 03-19-2024 09:07-0400 Body height 165.[address] Shalonda Tian Work Phone: [facility] 03-19-2024 09:07-0400 Body mass index (BMI) [Ratio] 32.3 kg/m2 Dr. Shalonda Tian Work Phone: [facility] 03-19-2024 09:07-0400 Body temperature 98.4 [degF] Dr. Shalonda Tian Work Phone: [facility] 03-19-2024 09:07-0400 Body weight 87.[address] Shalonda Tian Work Phone: [facility] 03-19-2024 09:07-0400 Diastolic blood pressure 84 mm[Hg] Dr. Shalonda Tian Work Phone: [facility] 03-19-2024 09:07-0400 Heart rate 79 /min Dr. Shalonda Tian Work Phone: [facility] 03-19-2024 09:07-0400 Respiratory rate 17 /min Dr. Shalonda Tian Work Phone: [facility] 03-19-2024 09:07-0400 SaO2% (BldA) [Mass fraction] 94 % Dr. Shalonda Tian Work Phone: [facility] 03-19-2024 09:07-0400 Systolic blood pressure 140 mm[Hg] Dr. Shalonda Tian Work Phone: [facility] 09-12-2023 09:30-0400 Body height 165.[address] Baxter [facility] 09-12-2023 09:30-0400 Body mass index (BMI) [Ratio] 30.2 kg/m2 Dr. Baxter [facility] 09-12-2023 09:30-0400 Body temperature 98.2 [degF] Dr. Sahil Escalante [facility] 09-12-2023 09:30-0400 Body weight 82.[address] Baxter [facility] 09-12-2023 09:30-0400 Diastolic blood pressure 84 mm[Hg] Dr. Baxter [facility] 09-12-2023 09:30-0400 Heart rate 72 /min Dr. Baxter [facility] 09-12-2023 09:30-0400 Respiratory rate 16 /min [facility]. Baxter [facility] 09-12-2023 09:30-0400 SaO2% (BldA) [Mass fraction] 96 % Dr. Sahil Escalante [facility] 09-12-2023 09:30-0400 Systolic blood pressure 128 mm[Hg] Dr. Sahil Escalante [facility] 07-17-2023 12:31-0400 Body height 165.1 cm [facility] 12-11-2022 11:20-0500 Body temperature 97.2 [degF] Dr. Sahil Escalante Work Phone: [phone] [place] [address] 12-11-2022 11:20-0500 Diastolic blood pressure 60 mm[Hg] Dr. Sahil Escalante Work Phone: [phone] [place] [address] 12-11-2022 11:20-0500 Heart rate 63 /min Dr. Sahil Escalante Work Phone: [facility] 12-11-2022 11:20-0500 Respiratory rate 69 /min Dr. Sahil Escalante Work Phone: [facility] 12-11-2022 11:20-0500 SaO2% (BldA) [Mass fraction] 95 % Dr. Sahil Escalante Work Phone: [facility] 12-11-2022 11:20-0500 Systolic blood pressure 107 mm[Hg] Dr. Sahil Escalante Work Phone: [facility] 12-11-2022 09:34-0500 Body height 165.[address] Sahil Escalante Work Phone: [facility] 12-11-2022 09:34-0500 Body mass index (BMI) [Ratio] 32.3 kg/m2 Dr. Sahil Escalante Work Phone: [facility] 12-11-2022 09:34-0500 Body weight 88.[address] Sahil Escalante Work Phone: [facility] 10-17-2022 13:29-0500 Body mass index (BMI) [Ratio] 30.7 kg/m2 Dr. Sahil Escalante Work Phone: [facility] 10-17-2022 13:29-0500 Body weight 83.[address] Sahil Escalante Work Phone: [facility] 06-26-2022 15:19-0400 Diastolic blood pressure 76 mm[Hg] Dr. Sahil Escalante Work Phone: [facility] Work Phone: 06-26-2022 15:19-0400 Systolic blood pressure 132 mm[Hg] Dr. Sahil Escalante Work Phone: [facility] Work Phone: 06-26-2022 14:32-0400 Body height 162.[address] Sahil Escalante Work Phone: [facility] Work Phone: 06-26-2022 14:32-0400 Body mass index (BMI) [Ratio] 32.1 kg/m2 Dr. Sahil Escalante Work Phone: [facility] Work Phone: 06-26-2022 14:32-0400 Body weight 84.[address] Sahil Escalante Work Phone: [facility] Work Phone: 06-26-2022 14:32-0400 Heart rate 68 /min Dr. Sahil Escalante Work Phone: [facility] Work Phone: 06-26-2022 14:32-0400 Respiratory rate 16 /min Dr. Sahil Escalante Work Phone: [facility] Work Phone: 06-26-2022 14:32-0400 SaO2% (BldA) [Mass fraction] 97 % Dr. Sahil Escalante Work Phone: [facility] Work Phone: 10-15-2017 10:33-0500 Body height 165.1 cm Melanie Bui Work Phone: [facility] 10-15-2017 10:33-0500 Body mass index (BMI) [Ratio] 33.94 kg/m2 Melanie Bui BRYOLOGIST Work Phone: [facility] 10-15-2017 10:33-0500 Body weight 92.53 kg Melanie Bui BRYOLOGIST Work Phone: [facility] 10-15-2017 10:33-0500 Diastolic blood pressure 85 mm[Hg] Melanie Bui BRYOLOGIST Work Phone: [facility] 10-15-2017 10:33-0500 Systolic blood pressure 146 mm[Hg] Melanie Bui BRYOLOGIST Work Phone: [facility] 08-28-2017 08:30-0400 Body height 165.1 cm Lobo Sal MD Work Phone: [facility] Work Phone: 08-28-2017 08:30-0400 Body mass index (BMI) [Ratio] 33.21 kg/m2 Lobo Sal MD Work Phone: [facility] Work Phone: 08-28-2017 08:30-0400 Body temperature 98.3 [degF] Lobo Sal MD Work Phone: [facility] Work Phone: 08-28-2017 08:30-0400 Body temperature 98.29 [degF] Lobo Sal MD Work Phone: [facility] Work Phone: 08-28-2017 08:30-0400 Body weight 90.54 kg Lobo Sal MD Work Phone: [facility] Work Phone: 08-28-2017 08:30-0400 Diastolic blood pressure 86 mm[Hg] Lobo Sal MD Work Phone: [facility] Work Phone: 08-28-2017 08:30-0400 Heart rate 76 /min Lobo Sal MD Work Phone: [facility] Work Phone: 08-28-2017 08:30-0400 Respiratory rate 20 /min Lobo Sal MD Work Phone: [facility] Work Phone: 08-28-2017 08:30-0400 Systolic blood pressure 130 mm[Hg] Lobo Sal MD Work Phone: [facility] Work Phone: 08-28-2017 08:30-0400 Weight 90.54 kg Lobo Sal MD [facility] Work Phone: 03-29-2017 08:40-0400 Body height 165.1 cm [facility] Work Phone: 03-29-2017 08:40-0400 Body mass index (BMI) [Ratio] 33.11 kg/m2 [facility] Work Phone: 03-29-2017 08:40-0400 Body weight 90.27 kg [facility] Work Phone: 03-29-2017 08:40-0400 Diastolic blood pressure 78 mm[Hg] [facility] Work Phone: 03-29-2017 08:40-0400 Heart rate 72 /min [facility] Work Phone: 03-29-2017 08:40-0400 Respiratory rate 18 /min [facility] Work Phone: 03-29-2017 08:40-0400 Systolic blood pressure 112 mm[Hg] [facility] Work Phone: 12-21-2016 15:11-0500 Body surface area Derived from formula 2.01 m2 [facility] Work Phone: Encounters Encounter Date Encounter Type Care Provider Facility Start: 09-21-2025 End: 09-21-2025 ambulatory Deirdre Ungerer Facility:[facility] Start: 09-03-2025 End: 09-03-[address] Alistair Ryder MD -[facility] Work Phone: Start: 09-03-2025 End: 09-03-[address] Shalonda Tian MD Work Phone: -[facility] Start: 08-25-2025 End: 08-25-[address] Shalonda Tian MD -[facility]patient [facility] Work Phone: Start: 08-25-2025 End: 08-25-2025 ambulatory Shalonda Tian Facility:[facility] Start: 08-19-2025 End: 08-19-[address] Shalonda Tian MD -[facility] Work Phone: Start: 08-19-2025 End: 08-19-[address] Shalonda Tian MD Work Phone: -[facility] Start: 07-27-2025 ambulatory Alistair Ryder Facility:[facility] Start: 07-27-2025 Non-patient / Non-visit Dr. Alistair day MD -[facility] Start: 07-27-2025 End: 07-27-[address] Shalonda Tian MD Work Phone: -[facility] Start: 07-27-2025 End: 07-27-[address] Shalonda Tian MD -[facility] Work Phone: Start: 07-27-2025 End: 07-27-2025 ambulatory Shalonda Tian Facility:[facility] Start: 06-26-2025 End: 06-26-[address] Shalonda Tian MD -[facility] Work Phone: Start: 06-26-2025 End: 06-26-[address] Shalonda Tian MD Work Phone: -[facility] Start: 06-26-2025 End: 06-26-2025 [facility]ulatory [facility] Facility:[facility] Start: 03-24-2025 End: 03-24-[address] Shalonda Tian MD Work Phone: [facility] Work Phone: Start: 03-24-2025 End: 03-24-[address] Shalonda Tian MD -Laboratory, [place] Start: 03-24-2025 End: 03-24-2025 ambulatory [facility] Facility:[facility] Start: 03-20-2025 End: 03-20-[address] Shalonda Tian MD -[facility] Work Phone: Start: 03-20-2025 End: 03-20-2025 ambulatory [facility] Facility:[facility] Start: 03-19-2024 End: 03-19-[address] Shalonda Tian Work Phone: [facility] Work Phone: Start: 03-19-2024 End: 03-19-[address] Shalonda Tian Work Phone: [facility] Work Phone: Start: 09-12-2023 End: 09-12-[address] Sahil Escalante [facility] Work Phone: Start: 09-12-2023 End: 09-12-[address] Sahil Escalante [facility] Work Phone: Start: 07-17-2023 End: 07-17-2023 ambulatory [facility] Work Phone: Start: 07-17-2023 End: 07-17-2023 Patient encounter procedure [facility]-Outpatient Bone Densitometry Work Phone: Start: 03-05-2023 Patient encounter status [facility] Start: 12-11-2022 Non-patient / Non-visit Dr. Benson Escalante Work Phone: [facility] Start: 12-11-2022 End: 12-11-2022 Admission to same day surgery center Dr. Sahil Escalante Work Phone: [facility]-Endoscopy Start: 12-11-2022 End: 12-11-[address] Sahil Escalante Work Phone: [facility] Work Phone: Start: 10-17-2022 Non-patient / Non-visit Dr. Benson Escalante Work Phone: [facility] Start: 07-13-2022 End: 07-13-[address] Sahil Escalante Work Phone: [facility] Work Phone: Start: 07-13-2022 End: 07-13-[address] Sahil Escalante Work Phone: [facility]-Outpatient Breast Imaging Start: 06-26-2022 End: 06-26-[address] Sahil Escalante Work Phone: [facility] Start: 05-03-2022 End: 05-03-2022 Patient encounter procedure [facility] Start: 10-16-2020 End: 10-16-2020 Patient encounter procedure JOSE URIAS [facility] Start: 10-15-2017 Gynecologic examination Melanie Bui NP Work Phone: [facility] Procedures Date Procedure Procedure Detail Performing Clinician Start: 08-25-2025 Screening mammography Adilson Tian MD Work Phone: Start: 08-25-2025 Dual energy X-ray absorptiometry Dr. Shalonda Tian MD Work Phone: Start: 07-27-2025 Radionuclide imaging of perfusion of myocardium under exercise stress Dr. Shalonda Tian MD Work Phone: Start: 03-24-2025 Vitamin D, 25-hydrox y measurement [...] Start: 10-15-2017 End: 10-15-2017 Alcoholism counseling Melanie Bennetts BRYOLOGIST Work Phone: Start: 10-15-2017 End: 10-15-2017 Dietary management education, guidance, and counseling Melanie [place] BRYOLOGIST Work Phone: Start: 10-15-2017 End: 10-15-2017 Documentation of current medications Melanie Bennetts BRYOLOGIST Work Phone: Start: 10-15-2017 End: 10-22-2017 Mammogram, screening Melanie Bui BRYOLOGIST Work Phone: Start: 10-15-2017 Screening for malign ant neoplasm of cervix Screening pap Melanie Bui BRYOLOGIST Work Phone: Start: 10-15-2017 Screening mammography Mammogra m yearly screening Melanie Bui BRYOLOGIST Work Phone: Start: 10-15-2017 End: 10-22-2017 Us pelvic nonobstetric real-time image complete Melanie Bui BRYOLOGIST Work Phone: Start: 09-17-2017 End: 09-17-2017 Alcoholism [...] End: 02-06-2017 Follow Up BP Check Lobo Delicd MD Work Phone: Start: 02-06-2017 End: 02-06-2017 [...] End: 01-23-2017 Follow Up Appt 1 month Loob Delcid MD Work Phone: Start: 12-21-2016 End: [...] 01-23-2017 Follow Up Appt 1 month Lobo eDlcid MD Work Phone: Start: 12-21-2016 End: 12-25-2016 [...] Treatment Date Care Activity Detail Author Start: 09-03-2025 End: 09-03-2025 Evaluation of diagnostic study results [facility] Start: 12-11-2022 Patient discharge [facility] Start: 10-30-2017 End: 10-30-2017 Patient encounter procedure Appointment [facility] Start: 10-18-2017 End: 10-18-2017 Appointment Appointment [facility] Work Phone: Start: 10-15-2017 End: 10-15-2017 Patient encounter procedure Appointment [facility] Start: 10-15-2017 End: 10-22-2017 Mammogram, screening Mammogram, Screening, both breasts [facility] Start: 10-15-2017 End: 10-22-2017 Us pelvic nonobstetric real-time image complete US Pelvis [facility] Start: 10-15-2017 End: 10-22-2017 Us transvaginal US Transvaginal [facility] Start: 09-17-2017 End: 09-17-2017 Appointment Appointment [facility] Work Phone: Start: 08-28-2017 End: 09-14-2017 Colonoscopy flx dx w/collj spec when pfrmd Colonoscopy [facility] Work Phone: Start: 08-28-2017 End: 09-14-2017 Colonoscopy flx dx w/collj spec when pfrmd Colonoscopy [facility] Work Phone: Start: 08-22-2017 End: 09-14-2017 Ct abdomen & pelvis w/contrast material CT Abdomen/pelvis; with contrast [facility] Work Phone: Start: 08-22-2017 End: 09-14-2017 Ct abdomen & pelvis w/contrast material CT Abdomen/pelvis; with contrast [facility] Work Phone: Start: 03-29-2017 End: 03-29-2017 Cardiovascular stress test using treadmill Treadmill stress test (no imaging) [facility] Work Phone: Start: 03-29-2017 End: 03-30-2017 Complete sleep workup (PSG,CPAP as indicated) & Follow up Complete sleep workup (PSG,CPAP as indicated) & Follow up [facility] Work Phone: Start: 03-29-2017 End: 03-29-2017 BE LR [facility] Work Phone: Start: 03-29-2017 End: 03-29-2017 Follow Up Appt 6 months Follow Up Appt 6 months [facility] Work Phone: Start: 03-29-2017 End: 03-29-2017 Patient encounter procedure Appointment [facility] Work Phone: Start: 03-29-2017 End: 03-30-2017 Cardiovascular stress test using treadmill Treadmill stress test (no imaging) [facility] Work Phone: Start: 03-29-2017 End: 03-30-2017 Complete sleep workup (PSG,CPAP as indicated) & Follow up Complete sleep workup (PSG,CPAP as indicated) & Follow up [facility] Work Phone: Start: 03-29-2017 End: 03-29-2017 BE LR [facility] Work Phone: Start: 03-29-2017 End: 03-29-2017 Follow Up Appt 6 months Follow Up Appt 6 months [facility] Work Phone: Start: 02-20-2017 End: 02-20-2017 Follow Up BP Check Follow Up BP Check [facility] Work Phone: Start: 02-20-2017 End: 02-20-2017 Follow Up BP Check Follow Up BP Check [facility] Work Phone: Start: 02-06-2017 End: 02-06-2017 Follow Up BP Check Follow Up BP Check [facility] Work Phone: Start: 02-06-2017 End: 02-06-2017 Follow Up BP Check Follow Up BP Check [facility] Work Phone: Start: 01-23-2017 End: 01-23-2017 BE LR [facility] Work Phone: Start: 01-23-2017 End: 01-23-2017 Follow Up Appt 1 month Follow Up Appt 1 month [facility] Work Phone: Start: 01-23-2017 End: 01-23-2017 BE LR [facility] Work Phone: Start: 01-23-2017 End: 01-23-2017 Follow Up Appt 1 month Follow Up Appt 1 month [facility] Work Phone: Start: 12-21-2016 End: 12-25-2016 *BMP *BMP [facility] Work Phone: Start: 12-21-2016 End: 12-25-2016 aPTT *PTT-Partial Thromboplastin Time [facility] Work Phone: Start: 12-21-2016 End: 12-25-2016 CBC W Auto Differential panel - Blood *CBC without Diff [facility] Work Phone: Start: 12-21-2016 End: 12-27-2016 Chest x-ray X-Ray, Chest, PA & Lateral [facility] Work Phone: Start: 12-21-2016 End: 01-23-2017 BE LR [facility] Work Phone: Start: 12-21-2016 End: 12-27-2016 Ecg routine ecg w/least 12 lds w/i&r EKG (In office) [facility] Work Phone: Start: 12-21-2016 End: 12-22-2016 Echocardiography Echocardiogram (complete) [facility] Work Phone: Start: 12-21-2016 End: 01-23-2017 Follow Up Appt 1 month Follow Up Appt 1 month [facility] Work Phone: Start: 12-21-2016 End: 12-25-2016 INR Coag RelTime (PPP) *PT/INR [facility] Work Phone: Start: 12-21-2016 End: 12-21-2016 Left Heart Cath Left Heart Cath [facility] Work Phone: Start: 12-21-2016 End: 12-25-2016 aPTT in Platelet poor plasma by Coagulation assay *PTT-Partial Thromboplastin Time [facility] Work Phone: Start: 12-21-2016 End: 12-25-2016 Basic metabolic 2000 panel - Serum or Plasma *BMP [facility] Work Phone: Start: 12-21-2016 End: 12-25-2016 CBC W Auto Differential panel - Blood *CBC without Diff [facility] Work Phone: Start: 12-21-2016 End: 12-27-2016 Chest x-ray X-Ray, Chest, PA & Lateral [facility] Work Phone: Start: 12-21-2016 End: 01-23-2017 DJN DJN [facility] Work Phone: Start: 12-21-2016 End: 12-27-2016 Ecg routine ecg w/least 12 lds w/i&r EKG (In office) [facility] [place] Work Phone: Start: 12-21-2016 End: 12-22-2016 Echocardiography Echocardiogram (complete) [facility] Work Phone: Start: 12-21-2016 End: 01-23-2017 Follow Up Appt 1 month Follow Up Appt 1 month [facility] Work Phone: Start: 12-21-2016 End: 12-25-2016 INR in Platelet poor plasma by Coagulation assay *PT/INR [facility] [place] Work Phone: Start: 12-21-2016 End: 12-21-2016 Left Heart Cath Left Heart Cath [facility] Work Phone: Colonoscopy [facility] CT for calcium scori ng WO contrast and CTA W contrast IV Heart and coronary arteries [facility] DXA Bone [Mass/Area] Bone density [facility] MG Breast - bilatera l Screening [facility] MG Breast - bilatera l Screening [facility] Patient referral [facility] Work Phone: Radionuclide imaging of perfusion of myocardium under exercise stress [facility] US Heart [facility] Immunizations Immunization Date Immunization Notes Care Provider Fa cility 08-15-2024 Pfizer [facility]id-[facility]. Shalonda Tian MD Work Phone: [facility] 09-18-2023 influenza, injectabl e, quadrivalent, preservative free Dr. Shalonda Tian MD Work Phone: [facility] 09-18-2023 Pfizer Covid-19 (Comirnaty) Dr. Shalonda Tian MD Work Phone: [facility] 09-11-2022 Covid Pfizer Bivalen t Booster Dr. Shalonda Tian MD Work Phone: [facility] 09-11-2022 Influenza High-Dose Quadrivalent Dr. Shalonda Tian MD Work Phone: [facility] 09-13-2021 Covid (Pfizer) Dr. Shalonda Tian MD Work Phone: [facility] 09-13-2021 influenza, injectabl e, quadrivalent, preservative free Dr. Shalonda Tian MD Work Phone: [facility] 01-19-2021 Covid (Pfizer) Dr. Shalonda Tian MD Work Phone: [facility] 12-29-2020 Covid (Pfizer) Dr. Shalonda Tian MD Work Phone: [facility] 09-06-2019 influenza, high dose seasonal, preservative-free Dr. Shalonda Tian MD Work Phone: [facility] Payers Date Payer Category Payer Self-pay [id number] 2024 Medicare [id number] 2024 Unknown [id number] 2010 Unknown [id number] 1955 Unknown [id number] 2.16.84 [id number] Unknown [id number] Unknown [id number] Unknown [facility] [id number] Unknown [id number] 2.16.8 [id number] Unknown [id number] 2.16.8 [id number] Unknown [id number] 2.16.8 [id number] Unknown [id number] 2.16.8 [id number] Unknown [id number] 2.16.8 [id number] Unknown [id number] 2.16.8 [id number] Unknown [id number] 2.16.8 [id number] Unknown [id number] 2.16.8 [id number] Unknown [id number] 2.16.8 [id number] Unknown [id number] 2.16.8 [id number] Social History Date Type Detail Facility Start: 07-11-2021 End: 09-12-2023 Tobacco smoking status NHIS Unknown if ever smoked [facility] Start: 04-21-2021 None [facility] Start: 04-10-2016 Spouse/ Signif icant Other [facility] Start: 1955 Sex Assigned At Female [facility] Start: 09-12-2023 Tobacco smoking status NHIS Never smoked tobacco (finding) [facility] Sex Female [facility] Goals Date Patient Goal Desired Activity /State Mental Status Date Assessment Result Facility 12-11-2022 Cognitive function Voice/Name [facility] Work Phone: Clinical Notes 08-28-2017 to 09-03-2025 Note Date & Type Note Facility 09-03-2025 Progress note [facility] 08-19-2025 Progress note [facility] 06-26-2025 Evaluation note Diagnosis Onset Date Resolution Chest pain acute June 26 8:58am Anxiety and depression chronic [facility] 2024 8:58am Essential hypertension chronic [facility] 2024 8:58am GERD (gastroesophageal reflux disease) chronic June 26, 2025 8:58am [facility] Work Phone: 1(837) 372-795608-08-2025 Evaluation note* Diagnosis Onset Date Resolution Status Admit Date Chest pain acute June 26 8:58am Anxiety and depression chronic [facility] 2024 8:58am Essential hypertension chronic [facility] 2024 8:58am GERD (gastroesophageal reflu x disease) chronic June 26, 2025 8:58am Abnormal stress test acute 2024 9:56am Chest pain acute August 19 9:56am Anxiety and depression chronic [facility] 2024 9:56am Essential hypertension chronic [facility] 2024 9:56am [facility] Work Phone: 1(955) 521-936808-08-2025 Evaluation note* Diagnosis Onset Date Resolution Status Admit Date Anxiety and depression chronic [facility] 2024 8:58am Essential hypertension chronic [facility] 2024 8:58am GERD (gastroesophageal reflu x disease) chronic June 26, 2025 8:58am Chest pain resolved June 26 8:58am Abnormal stress test acute Octo 2024 9:56am Anxiety and depression chronic [facility] 2024 9:56am Essential hypertension chronic [facility] 2024 9:56am Chest pain resolved August 19, 9:56am Abnormal cardiovascular stre ss test chronic September 03 9:53am Essential hypertension chronic [facility] 2024 9:53am Chest pain resolved September 03, 2025 9:53am [facility] Work Phone: 1(528) 814-990805-02-2025 Evaluation note* Diagnosis Onset Date Resolution Status Admit Date Anxiety and depression chronic Ma y 2024 7:52am Essential hypertension chronic Ma y 2024 7:52am GERD (gastroesophageal reflu x disease) chronic March 20, 2025 7: 52am Osteopenia chronic March 20, 2025 7:52am [facility] Work Phone: 1(846) 411-388005-02-2025 Evaluation note* Diagnosis Onset Date Resolution Status Admit Date Anxiety and depression chronic Ma y 2024 7:52am Essential hypertension chronic Ma y 2024 7:52am GERD (gastroesophageal reflu x disease) chronic March 20, 2025 7: 52am Osteopenia chronic March 20, 2025 7:52am Chest pain acute June 26 8:58am Anxiety and depression chronic [place] 2024 8:58am Essential hypertension chronic [facility] 2024 8:58am GERD (gastroesophageal reflu x disease) chronic June 26, 2025 8:58am [facility] Work Phone: 1(492) 169-309001-23-2023 History and physical note Author Cecil Friend [facility] December 11, 2022 9:29am Note Date/Time December 11, 2022 9 :29am [facility] Medical Records Department [address] [place] [address] History & Physical Exam 12/11/22926 MR#: [id number] Acct: [id number] Name: AMALIA ANGEL Rep #:[id number] : 1955 67 From: Cecil Friend DO PCP: Dr. Sahil Escalante MD Status:REG S [place] Location: [place] [address] [facility] - General General Date of Admission: 12/11/22 [...] she is in very good health. [facility] Medical History (Updated 12/08/22 @ 08:48 by [...] Sahil Escalante MD; Cecil Wilks DO~ Signed [facility] Work Phone: 1(137) 210-810801-23-2023 Procedure [facility] 12-11-2022 Procedure [facility]10-30-2017 Fall risk [id number] Work Phone: 1(464) 683-425010-10-2017 Fall risk [id number] Work Phone: Evaluation noteNo assessment information available [facility] Work Phone: Evaluation note* Diagnosis Onset Date Resolution Status Essential hypertension chron ic [facility] Work Phone: Evaluation note* Diagnosis Onset Date Resolution Status Encounter for screening for malignant neoplasm of colo n acute Family history of colon cancer acute [facility] Work Phone: Evaluation note* Diagnosis Onset Date Resolution Status Anxiety and depression chron ic Essential hypertension chron ic Osteopenia chronic Sleep concern chronic [facility] Work Phone: Evaluation note* Diagnosis Onset Date Resolution Status Anxiety and depression chron ic Essential hypertension chron ic Osteopenia chronic [facility] Work Phone: Progress note Author Shalonda Tian [facility] Note Date/Time August 19, 2025 10 :38am [facility] [address] [place], [place] [address] OFFICE VISIT Date of Service: 08/19/25 MR#: [id number] Acct: [id number] Name: AMALIA ANGEL Rep #: [id number] : 1955 Provider: Dr. Poli Tian MD Age/Sex: 70/F Location: [facility] Status: Signed Intake Vital Signs 06/26/25 09:09 08/19/25 10:17 Height 5 ft 5 in 5 ft 5 in Weight: 204 lb BMI 33.9 BP 118/80 Blood Pressure Location Lt brachial Position Sitting Respiration 16 Pulse 82 Pulse Source Monitor Temp 97.5 F L Temp Source Temporal Pulse Oximetry (%) 98 Oxygen Delivery Method room air Intake Visit Reasons: ~1 month follow up Chief Complaint: 3 M FU Physically Impaired Teacher Required: No Is patient in pain?: No Allergies No Known Allergies Allergy (Verified 08/19/25 10:03) Medications ?Medication ?Instructions ?Recorded ?Confirmed ?Type calcium carbonate (Calcium 500) 500 mg PO DAILY 08/19/25 History cholecalciferol (vitamin D3) 25 25 mcg PO DAILY 08/19/25 History mcg (1,000 unit) capsule citalopram 20 mg tablet (Celexa) 20 mg PO DAILY 3 cintia hs #90 tabs 03/20/25 08/19/25 Rx enalapril maleate 20 mg tablet 20 mg PO DAILY #90 tabs 03/20/25 08/19/25 Rx lansoprazole 15 mg capsule,delayed 15 mg PO QHS #90 ca ps 03/20/25 08/19/25 Rx release (Prevacid 24Hr) hydrochlorothiazide 25 mg tablet 25 mg PO DAILY #90 TA BLETS 08/10/25 08/19/25 Rx Have you fallen in the past year?: No Nurse's Note: Pt states she is feeling pretty good lately, pt brought in bp log and is following w/ cardiology. Pt needs refills on hctz and celexa Pt has flu shot schedule at [facility] Medical History Abnormal stress test Chest pain Sleep concern Health care maintenance [...] ANGEL, is a 70-year-old female presenting with a routine follow-up forHypertension management. The patient has been monitoring her blood pressure at home, with a few readings that were elevated for unexplained reasons. However, on average, the blood pressure appears stable. The reading today was 121/90 in the morning and subsequently 118/80 at the clinic. She remains on treatment with enalapril and hydrochlorothiazide, which she confirms has remained consistent without any changes or modifications. Other chronic conditions are stable. Has an appointment to schedule with cardiology on the due to an abnormal stress test. Has not had any further concerns with chest pain. Attestation: Documentation on this patient encounter was supported using ambient scribe technology/ voice AI technology. The patient consented to recording for the purpose of documenting the encounter. Provider reviewed content of the generatednote prior to signature. ROS Const Constitutional: No body ache, chills, excessive sweating, fatigue, fever(s), frequent falls, headache(s), snoring, weakness, sleep problems or change in appetite Eyes Eyes: No blurry vision, change in vision, vision loss, dry eyes, eye pain or Light sensitivity ENT ENT: No abnormal hearing, ear or mastoid pain, tinnitus, nasal congestion, headache(s), neck pain or sore throat Resp Respiratory: No cough, excessive phlegm production, hemoptysis, shortness of breath, snoring or wheezing Cardio Cardiology: No chest pain at rest, chest pain with exertion, excessive sweating,shortness of breath, dyspnea on exertion, lightheadedness, orthopnea or palpitations Gastro GI: No abdominal pain, change in bowel habits, constipation, cramping, diarrhea,nausea/dyspepsia or vomiting Genitourinary-Female: No burning urination, painful urination, urinary incontinence, urinary frequency, abnormal vaginal bleeding or pelvic pain Musc Musculoskeletal: No abnormal gait, joint pain, back pain, limited range of motion, neck pain or numbness Skin Skin: No dry skin, redness, lesions, itchy eyes, rash or wounds Neuro Neurology: No abnormal gait, abnormal hearing, abnormal speech, behavioral changes, weakness, frequent falls, headache(s), memory loss or numbness Psych Psychiatric: No anxiety, No behavioral changes, No change in appetite, No depression, No memory loss and No Thoughts of harming yourself/Others Endo Endocrine: No cold intolerance, excessive sweating, fatigue, flushing, heat intolerance, increased thirst/drinking or increased hunger Aller/Imm Allergy/Immunologic: No itchy eyes, seasonal allergy symptoms, hives or wheezing Dandre/Lymp Hematologic/Lymphatic: No easy bleeding, easy bruising, enlarged lymph nodes or other Exam Const General: cooperative, comfortable and no acute distress Orientation: alert, awake and oriented x3 HENMT Head: normal to inspection, normocephalic and atraumatic Ears: hearing grossly normal bilaterally Eyes General: appearance normal, both eyes and all related structures Neck Neck: normal visual inspection, full ROM, no lymphadenopathy and supple Neck mass: No Thyroid: thyroid normal Resp Effort & Inspection: normal respiratory effort Auscultation: Bilateral: Clear to Auscultation Cardio Rate: regular rate Rhythm: regular rhythm Heart Sounds: S1 normal and S2 normal GI Palpation: soft (Nontender, no palpable organomegaly.) Neuro General: patient alert, patient awake, patient oriented x3, moves all extremities and CN's II-XI intact bilaterally Extrem General: no clubbing, cyanosis or edema Psych Appearance: grossly normal Mental Status: mental status grossly normal Mood: congruent mood Affect: normal affect Coding Level of Care Code Off vis,est,level 4 Diagnoses Essential hypertension I10 Abnormal stress test R94.39 Chest pain R07.9 Anxiety and depression F41.9; F32.A Assessment and Plan Assessment and Plan (1) Essential hypertension: Status: Chronic Plan: Home log reviewed, better controlled. Continue enalapril, hydrochlorothiazide, dietary and lifestyle modifications. (2) Abnormal stress test: Status: Acute Plan: As above, scheduled to establish with cardiology on the . Will review records. (3) Chest pain: Status: Acute Plan: No further concerns. Follow-up cardiology as above. (4) Anxiety and depression: Status: Chronic Plan: No concerns reported at this time. Continue Celexa and other chronic management. This note was generated with Hoodin dictation software. It may contain incorrectwords, spelling, and punctuation that were not noted in checking the note beforesigning. Clinical Quality Measures Falls Risk Screening/Assistive Devices Have you fallen in the past year?: No 08/19/25 1308 <Electronically signed by Shalonda shin MD> Date _ Shalonda Tian MD Cosigner Signature: Date (if applicable) CC: ~ [facility] Work Phone: Progress note Author Alistair Ryder [facility] Note Date/Time September 03, 2025 1 0:40am [facility] [address] [place] [address] OFFICE VISIT Date of Service: 09/03/25 MR#: [id number] Acct: [id number] Name: AMALIA ANGEL Rep #: [id number] : 1955 Provider: Dr. Randy Ryder MD Age/Sex: 70/F Location: [facility] Status: Signed HPI HPI History of Present Illness Details: 70-year-old pleasant lady with past medical history significant for hypertensionand depression. According to patient, she has been having chest pains for abouta week. Per her, the close felt as a pressure sensation across her anterior chest. No radiation to the arm neck or jaw. No associated shortness of breath. No diaphoresis. No nausea or vomiting. The episodes would occur at rest. No exacerbating or relieving factors identified. According to her, these would last all day long. No worsening with exertion. She has had an exercise stress Myoview done as part of her workup. She exercised on the treadmill according toBruce protocol for about 6 minutes. No ECG changes were noted. Nuclear images reveal possible mild ischemia of the anterior wall. Per patient she has not had any further episodes of her chest discomfort since her stress test done about 5 weeks ago. Denies orthopnea or PND. No ankle edema. Intake Vital Signs 06/26/25 09:09 08/19/25 10:17 09/03/25 10:03 09/03/25 10:15 Height 5 ft 5 in 5 ft 5 in 5 ft 5 in Weight: 204 lb 205 lb BMI 33.9 34.1 BP 118/80 141/90 H 135/81 H Blood Pressure Location Lt brachial Lt brachial Lt brachial Position Sitting Sitting Respiration 16 16 Pulse 82 75 76 Pulse Source Monitor Monitor Monitor Temp 97.5 F L Pulse Oximetry (%) 98 Oxygen Delivery Method room air Intake Visit Reasons: Chest Pain, Abnormal Stress Test Results Physically Impaired Teacher Required: No Accompanied by: Is patient in pain?: No Allergies No Known Allergies Allergy (Verified 09/03/25 10:04) Medications ?Medication ?Instructions ?Recorded ?Confirmed ?Type calcium carbonate (Calcium 500) 500 mg PO DAILY 09/03/25 History enalapril maleate 20 mg tablet 20 mg PO DAILY #90 tabs 03/20/25 09/03/25 Rx lansoprazole 15 mg capsule,delayed 15 mg PO QHS #90 ca ps 03/20/25 09/03/25 Rx release (Prevacid 24Hr) hydrochlorothiazide 25 mg tablet 25 mg PO DAILY #90 TA BLETS 08/10/25 09/03/25 Rx aspirin 81 mg tablet,delayed 81 mg PO QDAY #100 tabs 1 09/03/25 Rx release cholecalciferol (vitamin D3) 25 50 mcg PO DAILY 09/03/25 History mcg (1,000 unit) capsule citalopram 10 mg tablet 10 mg PO QDAY 09/03/2509/03 History metoprolol tartrate 25 mg tablet 25 mg PO BID #60 tabs 09/03/25 09/03/25 Rx Ejection fraction %: 65 Have you fallen in the past year?: No PFSH Medical History Abnormal stress test Chest pain Sleep concern Health care maintenance [...] Type: coffee Number of servings: 3 ROS Const Const: Negative for fatigue or weakness Eyes Eyes: Negative for change in vision ENT ENT: Negative for dizziness or balance problems Cardio Chest Pain: No Palpitations: No Edema: None Resp Respiratory: Negative for SOB with activity, SOB at rest or SOB orthopnea\\SOB lying down GI GI: Negative nausea or heartburn Musc Musc: Negative for balance problems Neuro Neuro: Negative for dizziness, lightheadedness, near syncope, syncope or weakness Endo Endo: Negative for fatigue Cardiology Exam Const Appearance: comfortable and no acute distress Nutritional Appearance: well nourished Neck Neck: no JVD Carotids: Negative bruit Chest Auscultation: Bilateral: Clear to Auscultation Cardio Rate: regular rate Rhythm: regular rhythm Heart sounds: S1 normal and S2 normal Neuro General: patient alert, patient awake and patient oriented x3 Extremities Lower Extremity Edema: None: Bilateral Supplemental Info Supplemental Information Labs: LDL Cholesterol, (0-130) 48 mg/dL HDL Cholesterol, (40-) 47 mg/dL Cholesterol, (<=200) 125 mg/dL Triglycerides, (-199) 97 mg/dL Diagnostics: Stress Test Stress Test Nuclear Medicine Cardiac Catheterization Chest X-Ray Abdomen/Pelvis CT Past Visits: Cardiology Visit Today Assessment and Plan Assessment and Plan (1) Abnormal cardiovascular stress test: Status: Chronic Plan: Stress Myoview suggestive of mild ischemia in the anterior wall. However patient completely asymptomatic since her stress test. No symptoms noted on thetreadmill either. Options discussed with patient. With mutual agreement, it was decided to do coronary CT angio. Start enteric-coated aspirin 81 mg daily. Start beta-blockers. Check lipid profile. (2) Chest pain: Status: Resolved Plan: No further episodes of chest pain over the last 5 or 6 weeks. See #1 above. (3) Essential hypertension: Status: Chronic Plan: Blood pressure above goal. Continue enalapril and hydrochlorothiazide. Add metoprolol. Orders: Orders 12 Lead EKG performed by [facility] Today I10 - Essential (primary) hypertension, R07.9 - Chest pain, unspecified, R94.39 - Abnormal result of other cardiovascular function study Medications: New metoprolol tartrate 25 mg PO BID 60 tabs 11RF aspirin 81 mg PO QDAY 100 tabs 3RF Plan Details Follow Up: 3 Months Coding Level of Care Code Off vis,new,level 4 Diagnoses Abnormal cardiovascular stress test R94.39 Chest pain R07.9 Essential hypertension I10 Coding Level of Care Code Off vis,new,level 4 Diagnoses Abnormal cardiovascular stress test R94.39 Chest pain R07.9 Essential hypertension I10 Clinical Quality Measures Falls Risk Screening/Assistive Devices Have you fallen in the past year?: No Cardiac Ejection fraction %: 65 09/03/25 1043 <Electronically signed by Alistair Ryder MD> Date _ Alistair Ryder MD Cosigner Signature: Date (if applicable) CC: Dr. Shalonda Tian MD ~ [facility] [place] [facility] Work Phone: Reason for referral (narrative)No reason for referral information availableWFulton [facility] Work Phone: Summary Purpose Family History No [...] Will Yes August 31 3:32pm Power of Pest Locator Yes August 31, 2017 3:32pm Advance Directive Response Recorded Date/ Time Name of Medical Power of Pest Locator CARLOS ANGEL December 08, 2022 8:48am Advance Directives Yes December 27, 2016 7:18am Living Will Yes December 08 8:48am Power of Pest Locator Yes December 08, 2022 8:48am Advance Directive Response Recorded Date/ Time Advance Directives Yes December 27, 2016 8:18am Living Will Yes December 08 9:48am Power of Pest Locator Yes December 08, 2022 9:48am Advance Directive Response Recorded Date/ Time Living Will Yes December 08 9:48am Do you have a Healthcare Power of Pest Locator? Yes December 08, 2022 9:48am Advance Directives Yes December 27, 2016 8:18am Advance Directive Response Recorded Date/ Time Advance [...] (gastroesophageal reflux disease) A ugust 2024 8:58am Chief Complaint Admit Date 3 M FU June 26, 2025 8:5 8am E ORDERS NOT IN YET/PAT IS CALLING [facility] t 2024 9:57am CHEST PAIN July 27, 2025 6:13am CHEST PAIN July 27, 2025 9:28am Reason for Visit Admit Date Chest pain June 26, 2025 8:5 8am Anxiety and depression June 26, 2025 8:58am Essential hypertension June 26, 2025 8:58am GERD (gastroesophageal reflux disease) A ugust 2024 8:58am Chief Complaint Admit Date 3 M FU June 26, 2025 8:5 8am E ORDERS NOT IN YET/PAT IS CALLING [facility] t 2024 9:57am CHEST PAIN July 27, 2025 6:13am CHEST PAIN July 27, 2025 9:28am ~1 month follow up August 19, 2025 9: 56am Reason for Visit Admit Date Chest pain June 26, 2025 8:5 8am Anxiety and depression June 26, 2025 8:58am Essential hypertension June 26, 2025 8:58am GERD (gastroesophageal reflux disease) A ugust 2024 8:58am Abnormal stress test August 19, 2025 9 :56am Chest pain August 19, 2025 9: 56am Anxiety and depression August 19, 2025 9:56am Essential hypertension August 19, 2025 9:56am Chief Complaint Admit Date 3 M FU June 26, 2025 8:5 8am E ORDERS NOT IN YET/PAT IS CALLING [facility] t 2024 9:57am CHEST PAIN July 27, 2025 6:13am CHEST PAIN July 27, 2025 9:28am ~1 month follow up August 19, 2025 9: 56am SCREENING POST JUAN August 25, 2025 10 :22am Chest Pain, Abnormal Stress Test Results September 03, 2025 9:53am Reason for Visit Admit Date Anxiety and depression June 26, 2025 8:58am Essential hypertension June 26, 2025 8:58am GERD (gastroesophageal reflux disease) A ugust 2024 8:58am Chest pain June 26, 2025 8:5 8am Abnormal stress test August 19, 2025 9 :56am Anxiety and depression August 19, 2025 9:56am Essential hypertension August 19, 2025 9:56am Chest pain August 19, 2025 9: 56am Abnormal cardiovascular stress test Octo 2024 9:53am Essential hypertension September 03 9:53am Chest pain September 03, 2025 9 :53am Additional Source Comments INFORMATION SOURCE (unrecogn ized section and content) DATE CREATED AUTHOR 10/17/2020 [facility] DATE CREATED AUTHOR AUTHOR'S ORGANIZ ATION 10/22/2020 [facility] DATE CREATED AUTHOR AUTHOR'S ORGANIZ ATION 09/22/2025 [facility] Goals (unrecognized section and content) Goals may [...] Escalante MD Primary Care Provider Active Deborah Kavon Attending Provider Active Team Status: Active Member [...] Status Dates Dr. Shalonda Tian MD Primary care physician Activ e Team Status: Inactive Member Role/Relationship Status Dates Dr. Shalonda Tian MD Primary care physician Activ e Start: June 26, 2025 End: June 26, 2025 Dr. Shalonda Tian MD Attending physician Active Start: June 26, 2025 End: June 26, 2025 Dr. Shalonda Tian MD Referring Provider Active Start: June 26, 2025 End: June 26, 2025 Team Status: Inactive Member Role/Relationship Status Dates Dr. Shalonda Tian MD Primary care physician Activ e Start: June 26, 2025 End: June 26, 2025 Dr. Shalonda Tian MD Attending physician Active Start: June 26, 2025 End: June 26, 2025 Dr. Shalonda Tian MD Referring Provider Active Start: June 26, 2025 End: June 26, 2025 Team Status: Inactive Member Role/Relationship Status Dates Dr. Shalonda Tian MD Primary care physician Activ e Start: July 27, 2025 End: July 27, 2025 Dr. Shalonda Tian MD Attending physician Active Start: July 27, 2025 End: July 27, 2025 Dr. Shalonda Tian MD Referring Provider Active Start: July 27, 2025 End: July 27, 2025 Team Status: Active Member Role/Relationship Status Dates Dr. Shalonda Tian MD Primary care physician Activ e Start: July 27, 2025 Dr. Shalonda Tian MD Referring Provider Active Start: July 27, 2025 Dr. Shalonda Tian MD Nurse Practitioner Active Start: July 27, 2025 Dr. Alistair Ryder MD Attending physician Active Start: July 27, 2025 Team Status: Inactive Member Role/Relationship Status Dates Dr. Shalonda Tian MD Primary care physician Activ e Start: August 19, 2025 End: August 19, 2025 Dr. Shalonda Tian MD Attending physician Active Start: August 19, 2025 End: August 19, 2025 Dr. Shalonda Tian MD Referring Provider Active Start: August 19, 2025 End: August 19, 2025 Team Status: Inactive Member Role/Relationship Status Dates Dr. Shalonda Tian MD Primary care physician Activ e Start: August 25, 2025 End: August 25, 2025 Dr. Shalonda Tian MD Attending physician Active Start: August 25, 2025 End: August 25, 2025 Dr. Shalonda Tian MD Referring Provider Active Start: August 25, 2025 End: August 25, 2025 Team Status: Inactive Member Role/Relationship Status Dates Dr. Shalonda Tian MD Primary care physician Activ e Start: September 03, 2025 End: September 03, 2025 Dr. Shalonda Tian MD Referring Provider Active Start: September 03, 2025 End: September 03, 2025 Dr. Alistair Ryder MD Attending physician Active Start: September 03, 2025 End: September 03, 2025 FOR RECORDS PERTAINING TO PATIENTS WHO [...] BE BASED ON THE PRIMARY CLINICAL RECORDS. [facility]. provides no warranty or guarantee of the accuracy or completeness of information in this document.
[2025-10-14 13:38] VITALS: BP 144/86; PULSE 69
[2025-10-14] MEDS: Nitroglycerin SL (ED/IMG/CATH) 0.4 MG TABLET SL (13:38)
[2025-10-14 13:50] VITALS: BP 133/111; PULSE 69; RESP 16; O2SAT 95
--- NOTE | 2025-10-14 16:26 | CCTA.WCONT ---
CCTA w/Cont Coronary Arteries Date of Study:: 10/14/25 Abnormal Stress Coronary Calcium Scoring: High-resolution Computed Tomographic imaging of the chest was performed on [10/14/25 ], with particular attention paid to the coronary arteries. Intravenous contrast agent was administered per protocol and images reconstructed and displayed. LEFT MAIN CORONARY ARTERY: Arises from the left coronary cusp and bifurcates the left anterior descending artery and left circumflex artery. No significant atherosclerotic plaque or stenosis is noted. [] LEFT ANTERIOR DESCENDING CORONARY ARTERY: Medium size vessel arising from the left main coronary artery giving off a diagonal vessel and then coursing towards the apex of the ventricle with no significant atherosclerotic plaque or stenosis, there is a small focal area of plaque noted in the proximal LAD.. [] LEFT CIRCUMFLEX CORONARY ARTERY: Nondominant vessel with no significant atherosclerotic plaque noted with a obtuse marginal branch emanating from it. [] RIGHT CORONARY ARTERY: Dominant right coronary artery with no significant atherosclerotic plaque present distally bifurcates into a posterior descending artery and posterolateral vessel no stenosis is noted. [] THORACIC AORTA: [] PULMONARY ARTERY: [] LEFT ATRIUM/APPENDAGE: [] MITRAL VALVE: [] AORTIC VALVE: [] LEFT VENTRICLE: [] CORONARY CALCIUM SCORE:29.6 [] Findings Coronary Artery Left Main (LM): 0 Left Anterior Descending (LAD): 29.6 Left Circumflex (LCX): 0 Right Coronary Artery (RCA): 0 Total Agatston Score: 29.6 Percentile Rankin-50 Calcium Scoring Interpretation: Different methods to categorize the overall amount of coronary plaque. Overall amount CAC SIS Visual of coronary plaque P1 Mild -100 <2 1-2 vessels with mild amount of plaque P2 Moderate 101-300 3-4 1-2 vessels with moderate amount, 3 vessels with mild amount of plaque P3 Severe 301-999 5-7 3 vessels with moderate amount, 1 vessel with severe amount of plaque P4 Extensive >1000 >8 2-3 vessels with severe amount of plaque Calcium Score: Mild: 1-2 vessels w/mild amount of plaque Conclusion: Mild one-vessel plaque disease, with no obvious stenosis present.
== END | disposition home or self-care (01) ==
LOC: CT 13:10
PROVIDERS: PCP Internal Medicine; Referring Provider Internal Medicine Cardiovascular Disease; Visit Provider Internal Medicine Cardiovascular Disease
DX: R94.39 Abnormal result of other cardiovascular function study (principal); R07.9 Chest pain, unspecified; I10 Essential (primary) hypertension
CPT/HCPCS: 75574; 93306